=== PATIENT | male | born 1965 | race Caucasian/White ===

== ENCOUNTER → 2017-11-10 09:32 | Outpatient (CLI) | payer OTHER, SELFPAY ==
[2017-11-10 10:28] LABS: AST(SGOT) 112 U/L (15-37); Alanine Aminotransfer ALT/SGPT 142 U/L (12-78); Cholesterol 160 mg/dL (200); High Density Lipoprotein 50 mg/dL; Triglycerides 94 mg/dL; Very Low Density Lipoprotein 19 mg/dL (5-40)
[2017-11-10 10:35] LABS: PSA,Total - Annual Screen 0.79 ng/mL (0.00-4.00)
== END ==
PROVIDERS: Family Provider Family Medicine; PCP Family Medicine; Visit Provider Internal Medicine Interventional Cardiology
DX: I25.10 Atherosclerotic heart disease of native coronary artery without angina pectoris (principal); Z12.5 Encounter for screening for malignant neoplasm of prostate
CPT/HCPCS: 36415; 80061; 84153; 84450; 84460; G0103

== ENCOUNTER 2017-11-12 15:15 | Outpatient (RCR) | payer OTHER, SELFPAY | END 2017-11-14 23:59 | LOC: CR 15:15 | PROVIDERS: Family Provider Family Medicine; PCP Family Medicine; Visit Provider Internal Medicine Interventional Cardiology | DX: I25.2 Old myocardial infarction (principal); I20.8 Other forms of angina pectoris | CPT/HCPCS: 93798 ==

== ENCOUNTER 2017-12-12 15:15 | Outpatient (RCR) | payer OTHER, SELFPAY ==
[2016-12-29 15:33] VITALS: BP 122/69
[2017-10-17 15:58] VITALS: BMI 45.1
--- NOTE | 2017-12-12 13:27 | PCM.CR.ITP ---
Exercise - Initial Assessment - Stages of Change Stages of Change:: Contemplate - Exercise Prescription Mode:: Treadmill, Biodyne, Rower, Airdyne, NuStep, Arm Ergometer Angina with exercise?: No - Hypertension Do any of the following apply?: Yes - Intervention Home Exercise/Activity Goal:: Sitting Time <3 hrs/day - Education Goals:: Warm-up, RPE CAITLIN Scale, S/S, Safe Exercise, Self-Monitoring - Exercise Program Goals Exercise Program Goals: Aerobic Activity >30 min, B/P <140/90 Exercise - 60-Day Assessment - Visit Date of Eval: 12/12/17 - Non-compliant/committed Session #:: 9 - Scheduled 21; attended 12 57.14% compliance - Stages of Change Stages of Change:: Contemplate - Exercise Prescription Mode:: Treadmill, Airdyne, NuStep Frequency (x/week): 3 - attends infrequently Duration:: 30 METs: 3.5 Target Heart Rate:: 119-127 - Hypertension Resting Blood Pressure:: 138/80 Peak Exercise Blood Pressure:: 176/94 Medication Changes:: No - Intervention Home Exercise/Activity Goal:: Moderate Exercise 30 min/day x 5 days/wk - Education Goals:: Warm-up, RPE CAITLIN Scale, S/S, Safe Exercise, Self-Monitoring - Exercise Program Goals Exercise Program Goals: Aerobic Activity >30 min Exercise - Final/Discharge - Hypertension Do any of the following apply?: Yes Nutrition - Initial Assessment - Program Goals Nutrition Program Goals: LDL <70. Total Cholesterol <200. HDL >45. Triglycerides <150. HgbA1C <7%. BMI <25 - Stages of Change Stages of Change:: Contemplate - Diabetes Diabetes:: No - Weight Management Total Score:: 2 - Intervention Referral to dietitian:: No Referral to Diabetic Clinic:: No Will attend diet classes:: Yes - Education Gave educational materials for:: Signs & symptoms of hypoglycemia, Signs & symptoms of hyperglycemia, Relate diabetes to coronary artery disease, Healthy eating Nutrition - 30-Day Assessment - Program Goals Nutrition Program Goals: LDL <70. Total Cholesterol <200. HDL >45. Triglycerides <150. HgbA1C <7%. BMI <25 - Diabetes Diabetes:: No - Intervention Referral to dietitian:: No Referral to Diabetic Clinic:: No Will attend diet classes:: Yes - Education Attended class for:: Signs & symptoms of hypoglycemia, Signs & symptoms of hyperglycemia, Relate diabetes to coronary artery disease, Healthy eating Nutrition - 60-Day Assessment - Program Goals Nutrition Program Goals: LDL <70. Total Cholesterol <200. HDL >45. Triglycerides <150. HgbA1C <7%. BMI <25 - Visit Date of Eval: 12/12/17 - Stages of Change Stages of Change:: Contemplate - Lipids Has the patient seen the dietitian?: No - Diabetes Diabetes:: No Insulin: No Non-Insulin Dependent?: No - Weight Management Weight:: 282 lb - Intervention Referral to dietitian:: No Referral to Diabetic Clinic:: No Will attend diet classes:: Yes - Education Attended class for:: Signs & symptoms of hypoglycemia, Signs & symptoms of hyperglycemia, Relate diabetes to coronary artery disease, Healthy eating Nutrition - 90-Day Assessment - Program Goals Nutrition Program Goals: LDL <70. Total Cholesterol <200. HDL >45. Triglycerides <150. HgbA1C <7%. BMI <25 - Diabetes Diabetes:: No - Intervention Referral to dietitian:: No Referral to Diabetic Clinic:: No Will attend diet classes:: Yes - Education Attended class for:: Signs & symptoms of hypoglycemia, Signs & symptoms of hyperglycemia, Relate diabetes to coronary artery disease, Healthy eating Nutrition - Final Assessment - Program Goals Nutrition Program Goals: LDL <70. Total Cholesterol <200. HDL >45. Triglycerides <150. HgbA1C <7%. BMI <25 - Diabetes Diabetes:: No - Weight Management Total Score:: 2 - Intervention Referral to dietitian:: No Referral to Diabetic Clinic:: No Will attend diet classes:: Yes Tobacco - Initial Assessment - Program Goals Tobacco Program Goals: Complete smoking cessation. Attend education classes. Improve Knowledge Test score - Stage of Change Stages of Change:: Contemplate - Learning Barriers Learning Barriers: Vision Total Score:: 8 - Family Support Do you have family support?: Yes - Tobacco Use Tobacco Use: Non-smoker Do you use smokeless tobacco?: No - Intervention Smoking Cessation Referral:: No Individual Education/Counseling:: No Education Schedule Given:: Yes - Education Gave educational material for:: Tobacco triggers, Coronary artery disease, Risk factors, Medical compliance, Cardiac A&P, Angina signs & symptoms Tobacco - 30-Day Assessment - Program Goals Tobacco Program Goals: Complete smoking cessation. Attend education classes. Improve Knowledge Test score - Family Support Do you have family support?: Yes - Tobacco Use Do you use smokeless tobacco?: No - Intervention Smoking Cessation Referral:: No Individual Education/Counseling:: No Education Schedule Given:: Yes - Education Attended class for:: Tobacco triggers, Coronary artery disease, Risk factors, Medical compliance, Cardiac A&P, Angina signs & symptoms Tobacco - 60-Day Assessment - Program Goals Tobacco Program Goals: Complete smoking cessation. Attend education classes. Improve Knowledge Test score - Stage of Change Stages of Change:: Action - Learning Barriers Learning Barriers: Declined education - Family Support Do you have family support?: Yes - Tobacco Use Tobacco Use: Non-smoker Do you use smokeless tobacco?: No - Intervention Smoking Cessation Referral:: No Individual Education/Counseling:: No Education Schedule Given:: Yes - Education Attended class for:: Tobacco triggers, Coronary artery disease, Risk factors, Medical compliance, Cardiac A&P, Angina signs & symptoms Tobacco - 90-Day Assessment - Program Goals Tobacco Program Goals: Complete smoking cessation. Attend education classes. Improve Knowledge Test score - Family Support Do you have family support?: Yes - Tobacco Use Do you use smokeless tobacco?: No - Intervention Smoking Cessation Referral:: No Individual Education/Counseling:: No Education Schedule Given:: Yes - Education Attended class for:: Tobacco triggers, Coronary artery disease, Risk factors, Medical compliance, Cardiac A&P, Angina signs & symptoms Tobacco - Final Assessment - Program Goals Tobacco Program Goals: Complete smoking cessation. Attend education classes. Improve Knowledge Test score - Learning Barriers Cardiac Knowledge Test Score:: 8 - Family Support Do you have family support?: Yes - Tobacco Use Do you use smokeless tobacco?: No - Intervention Smoking Cessation Referral:: No Individual Education/Counseling:: No Education Schedule Given:: Yes Psychosocial - Initial Assess - Target Goals Target Goals: Assess presence or absence of depression. Using a valid screening tool, maximizes coping skills. Positive support system - Stages of Change Stages of Change:: Contemplate - Psychosocial Test Tool Used:: HANDS Depression Questionnaire Total Mood Screening Score:: 23 Self-Efficacy Score:: 3 - Intervention PS - Interventions: Yes Attend Stress Management Classes, Yes Uses Stress Management Skills, No Referral to Mental Health, No Referral to [facility] Case Management, No Referral to Physician - Education Gave educational materials for:: Coping techniques, Signs & symptoms of depression, Stress management, Relaxation techniques - Assistive Devices Assistive Devices:: None Fall Risk Assessed:: Yes Psychosocial - 30-Day Assess - Target Goals Target Goals: Assess presence or absence of depression. Using a valid screening tool, maximizes coping skills. Positive support system - Psychosocial Test Tool Used:: HANDS Depression Questionnaire Total Mood Screening Score:: 23 Self-Efficacy Score:: 3 - Assistive Devices Assistive Devices:: None Fall Risk Assessed:: Yes Psychosocial - 60-Day Assess - Target Goals Target Goals: Assess presence or absence of depression. Using a valid screening tool, maximizes coping skills. Positive support system - Psychosocial Test Tool Used:: HANDS Depression Questionnaire Total Mood Screening Score:: 23 Self-Efficacy Score:: 3 - Intervention PS - Interventions: Yes Attend Stress Management Classes, Yes Uses Stress Management Skills, No Referral to Mental Health, No Referral to [facility] Case Management, No Referral to Physician - Education Attended classes for:: Coping techniques, Signs & symptoms of depression, Stress management, Relaxation techniques - Patient/Program Goal Preventative Medication(s):: Aspirin, VIJI inhibitor, Clopidogrel, Beta jeff, Statin/lipid - Assistive Devices Assistive Devices:: None Fall Risk Assessed:: Yes Psychosocial - 90-Day Assess - Target Goals Target Goals: Assess presence or absence of depression. Using a valid screening tool, maximizes coping skills. Positive support system - Psychosocial Test Tool Used:: HANDS Depression Questionnaire Total Mood Screening Score:: 23 Self-Efficacy Score:: 3 - Education Attended classes for:: Coping techniques, Signs & symptoms of depression, Stress management, Relaxation techniques - Assistive Devices Assistive Devices:: None Fall Risk Assessed:: Yes Psychosocial - Final Assessmen - Target Goals Target Goals: Assess presence or absence of depression. Using a valid screening tool, maximizes coping skills. Positive support system - Psychosocial Test Tool Used:: HANDS Depression Questionnaire Total Mood Screening Score:: 23 Self-Efficacy Score:: 3 - Assistive Devices Assistive Devices:: None Fall Risk Assessed:: Yes Patient Health Questionnaire 60-Day Re-eval Assessment 1. Little interest or pleasure in doing things: Nearly every day 2. Feeling down, depressed, or hopeless: More than half the days 3. Trouble falling or staying asleep, or sleeping too much: More than half the days 4. Feeling tired or having little energy: More than half the days 5. Poor appetite or overeating: Nearly every day 6. Feeling bad about yourself -- or that you are a failure or have let yourself or your family down: Nearly every day 7. Trouble concentrating on things, such as reading the newspaper or watching television: Nearly every day 8. Moving or speaking so slowly that other people could have noticed. Or the opposite - being so fidgety or restless that you have been moving around a lot more than usual: Nearly every day 9. Thoughts that you would be better off , or of hurting yourself in some way: More than half the days How difficult have these problems made it for you to do your work, take care of things at home, or get along with other people?: Extremely difficult Total Score: 23 Self-Efficacy 60-Day Re-eval Assessment We would like to know how confident you are in doing certain activities. Please select your confidence level for:: Select your confidence level for the following using the scale 1-10 where 1 is not at all confident and 10 is totally confident. Your score is the average of all 6 responses. Fatigue: How confident are you that you can keep the fatigue caused by your disease from interfering with the things you want to do? Select Number: 2 Physical Discomfort or Pain: How confident are you that you can keep the physical discomfort or pain of your disease from interfering with the things you want to do? Select Number: 2 Emotional Distress: How confident are you that you can keep the emotional distress caused by your disease from interfering with the things you want to do? Select Number: 2 Other Symptoms or Health Problems: How confident are you that you can keep other symptoms or health problems from interfering with the things you want to do? Select Number: 2 Different Tasks and Activities: How confident are you that you can do the different tasks and activities needed to manage your health condition so as to reduce your need to see a doctor? Select Number: 5 Medication: How confident are you that you can do things other than just taking medication to reduce how much your illness affects your everyday life? Select Number: 5 Total Score:: 3
[2017-12-12 13:34] VITALS: BP 138/80; BP 176/94
== END 2017-12-12 23:59 ==
LOC: CR 15:15
PROVIDERS: Family Provider Family Medicine; PCP Family Medicine; Visit Provider Internal Medicine Interventional Cardiology
DX: I25.2 Old myocardial infarction (principal); I20.8 Other forms of angina pectoris
CPT/HCPCS: 93798

== ENCOUNTER → 2017-12-29 10:06 | Outpatient (CLI) | payer OTHER, SELFPAY ==
[2017-12-29 12:05] LABS: AST(SGOT) 66 U/L (15-37); Alanine Aminotransfer ALT/SGPT 105 U/L (16-61); Cholesterol 210 mg/dL (200); High Density Lipoprotein 41 mg/dL; Triglycerides 196 mg/dL; Very Low Density Lipoprotein 39 mg/dL (5-40)
== END ==
PROVIDERS: Family Provider Family Medicine; PCP Family Medicine; Visit Provider Internal Medicine Interventional Cardiology
DX: E78.00 Pure hypercholesterolemia, unspecified (principal)
CPT/HCPCS: 36415; 80061; 84450; 84460

== ENCOUNTER 2018-01-11 15:15 | Outpatient (RCR) | payer OTHER, SELFPAY ==
[2017-12-13 00:48] VITALS: BP 138/80; BP 176/94
--- NOTE | 2018-01-07 08:18 | PCM.CR.ITP ---
Exercise - Initial Assessment - Stages of Change Stages of Change:: Contemplate - Exercise Prescription Mode:: Treadmill, Biodyne, Rower, Airdyne, NuStep, Arm Ergometer Angina with exercise?: No - Hypertension Do any of the following apply?: Yes - Intervention Home Exercise/Activity Goal:: Sitting Time <3 hrs/day - Education Goals:: Warm-up, RPE CAITLIN Scale, S/S, Safe Exercise, Self-Monitoring - Exercise Program Goals Exercise Program Goals: Aerobic Activity >30 min, B/P <140/90 Exercise - 60-Day Assessment - Visit Date of Eval: 12/12/17 - Stages of Change Stages of Change:: Contemplate - Exercise Prescription Mode:: Treadmill, Airdyne, NuStep Frequency (x/week): 3 - attends infrequently Duration:: 30 METs: 3.5 Target Heart Rate:: 119-127 - Hypertension Medication Changes:: No - Intervention Home Exercise/Activity Goal:: Moderate Exercise 30 min/day x 5 days/wk - Education Goals:: Warm-up, RPE CAITLIN Scale, S/S, Safe Exercise, Self-Monitoring - Exercise Program Goals Exercise Program Goals: Aerobic Activity >30 min Exercise - 90-Day Assessment - Visit Date of Eval: 01/07/18 - 11/19/17-01/02/18 - Stages of Change Stages of Change:: Contemplate, Action - Exercise Prescription Mode:: Treadmill, Airdyne, NuStep Frequency (x/week): 3 - 57.58% compliance Duration:: 30 METs: 5 Target Heart Rate:: 119-127 - Hypertension Resting Blood Pressure:: 136/78 Peak Exercise Blood Pressure:: 158/100 Medication Changes:: No - Intervention Home Exercise/Activity Goal:: Moderate Exercise 30 min/day x 5 days/wk - Education Goals:: Warm-up, RPE CAITLIN Scale, S/S, Safe Exercise, Self-Monitoring - Exercise Program Goals Exercise Program Goals: Aerobic Activity >30 min Exercise - Final/Discharge - Hypertension Do any of the following apply?: Yes Nutrition - Initial Assessment - Program Goals Nutrition Program Goals: LDL <70. Total Cholesterol <200. HDL >45. Triglycerides <150. HgbA1C <7%. BMI <25 - Stages of Change Stages of Change:: Contemplate - Diabetes Diabetes:: No Non-Insulin Dependent?: No - Weight Management Total Score:: 2 - Intervention Referral to dietitian:: No Referral to Diabetic Clinic:: No Will attend diet classes:: Yes - Education Gave educational materials for:: Signs & symptoms of hypoglycemia, Signs & symptoms of hyperglycemia, Relate diabetes to coronary artery disease, Healthy eating Nutrition - 30-Day Assessment - Program Goals Nutrition Program Goals: LDL <70. Total Cholesterol <200. HDL >45. Triglycerides <150. HgbA1C <7%. BMI <25 - Lipids Has the patient seen the dietitian?: No - Diabetes Diabetes:: No Insulin: No Non-Insulin Dependent?: No - Intervention Referral to dietitian:: No Referral to Diabetic Clinic:: No Will attend diet classes:: Yes - Education Attended class for:: Signs & symptoms of hypoglycemia, Signs & symptoms of hyperglycemia, Relate diabetes to coronary artery disease, Healthy eating Nutrition - 60-Day Assessment - Program Goals Nutrition Program Goals: LDL <70. Total Cholesterol <200. HDL >45. Triglycerides <150. HgbA1C <7%. BMI <25 - Visit Date of Eval: 12/12/17 - Stages of Change Stages of Change:: Contemplate - Lipids Has the patient seen the dietitian?: No - Diabetes Diabetes:: No Insulin: No Non-Insulin Dependent?: No - Intervention Referral to dietitian:: No Referral to Diabetic Clinic:: No Will attend diet classes:: Yes - Education Attended class for:: Signs & symptoms of hypoglycemia, Signs & symptoms of hyperglycemia, Relate diabetes to coronary artery disease, Healthy eating Nutrition - 90-Day Assessment - Program Goals Nutrition Program Goals: LDL <70. Total Cholesterol <200. HDL >45. Triglycerides <150. HgbA1C <7%. BMI <25 - Visit Date of Eval: 01/07/18 - 11/19/2017-01/02/3018 - Stages of Change Stages of Change:: Contemplate - Lipids Has the patient seen the dietitian?: No - Diabetes Diabetes:: No Insulin: No Non-Insulin Dependent?: No - Weight Management Weight:: 127.459 kg - Intervention Referral to dietitian:: No Referral to Diabetic Clinic:: No Will attend diet classes:: Yes - Education Attended class for:: Signs & symptoms of hypoglycemia, Signs & symptoms of hyperglycemia, Relate diabetes to coronary artery disease, Healthy eating Nutrition - Final Assessment - Program Goals Nutrition Program Goals: LDL <70. Total Cholesterol <200. HDL >45. Triglycerides <150. HgbA1C <7%. BMI <25 - Diabetes Diabetes:: No Insulin: No Non-Insulin Dependent?: No - Weight Management Total Score:: 2 - Intervention Referral to dietitian:: No Referral to Diabetic Clinic:: No Will attend diet classes:: Yes Tobacco - Initial Assessment - Program Goals Tobacco Program Goals: Complete smoking cessation. Attend education classes. Improve Knowledge Test score - Stage of Change Stages of Change:: Contemplate - Learning Barriers Learning Barriers: Vision Total Score:: 8 - Family Support Do you have family support?: Yes - Tobacco Use Tobacco Use: Non-smoker Do you use smokeless tobacco?: No - Intervention Smoking Cessation Referral:: No Individual Education/Counseling:: No Education Schedule Given:: Yes - Education Gave educational material for:: Tobacco triggers, Coronary artery disease, Risk factors, Medical compliance, Cardiac A&P, Angina signs & symptoms Tobacco - 30-Day Assessment - Program Goals Tobacco Program Goals: Complete smoking cessation. Attend education classes. Improve Knowledge Test score - Family Support Do you have family support?: Yes - Tobacco Use Tobacco Use: Non-smoker Do you use smokeless tobacco?: No - Intervention Smoking Cessation Referral:: No Individual Education/Counseling:: No Education Schedule Given:: Yes - Education Attended class for:: Tobacco triggers, Coronary artery disease, Risk factors, Medical compliance, Cardiac A&P, Angina signs & symptoms Tobacco - 60-Day Assessment - Program Goals Tobacco Program Goals: Complete smoking cessation. Attend education classes. Improve Knowledge Test score - Stage of Change Stages of Change:: Action - Learning Barriers Learning Barriers: Declined education - Family Support Do you have family support?: Yes - Tobacco Use Tobacco Use: Non-smoker Do you use smokeless tobacco?: No - Intervention Smoking Cessation Referral:: No Individual Education/Counseling:: No Education Schedule Given:: Yes - Education Attended class for:: Tobacco triggers, Coronary artery disease, Risk factors, Medical compliance, Cardiac A&P, Angina signs & symptoms Tobacco - 90-Day Assessment - Program Goals Tobacco Program Goals: Complete smoking cessation. Attend education classes. Improve Knowledge Test score - Stage of Change Stages of Change:: Action - Learning Barriers Learning Barriers: Declined education - Family Support Do you have family support?: Yes - Tobacco Use Tobacco Use: Non-smoker Do you use smokeless tobacco?: No - Intervention Smoking Cessation Referral:: No Individual Education/Counseling:: No Education Schedule Given:: Yes - Education Attended class for:: Tobacco triggers, Coronary artery disease, Risk factors, Medical compliance, Cardiac A&P, Angina signs & symptoms Tobacco - Final Assessment - Program Goals Tobacco Program Goals: Complete smoking cessation. Attend education classes. Improve Knowledge Test score - Learning Barriers Cardiac Knowledge Test Score:: 8 - Family Support Do you have family support?: Yes - Tobacco Use Tobacco Use: Non-smoker Do you use smokeless tobacco?: No - Intervention Smoking Cessation Referral:: No Individual Education/Counseling:: No Education Schedule Given:: Yes Psychosocial - Initial Assess - Target Goals Target Goals: Assess presence or absence of depression. Using a valid screening tool, maximizes coping skills. Positive support system - Stages of Change Stages of Change:: Contemplate - Psychosocial Test Tool Used:: HANDS Depression Questionnaire Total Mood Screening Score:: 23 Self-Efficacy Score:: 3 - Patient/Program Goal Preventative Medication(s):: Aspirin, VIJI inhibitor, Clopidogrel, Beta jeff, Statin/lipid - Assistive Devices Assistive Devices:: None Fall Risk Assessed:: Yes Psychosocial - 30-Day Assess - Target Goals Target Goals: Assess presence or absence of depression. Using a valid screening tool, maximizes coping skills. Positive support system - Psychosocial Test Tool Used:: HANDS Depression Questionnaire Total Mood Screening Score:: 23 Self-Efficacy Score:: 3 - Patient/Program Goal Preventative Medication(s):: Aspirin, VIJI inhibitor, Clopidogrel, Beta jeff, Statin/lipid - Assistive Devices Assistive Devices:: None Fall Risk Assessed:: Yes Psychosocial - 60-Day Assess - Target Goals Target Goals: Assess presence or absence of depression. Using a valid screening tool, maximizes coping skills. Positive support system - Psychosocial Test Tool Used:: HANDS Depression Questionnaire Total Mood Screening Score:: 23 Self-Efficacy Score:: 3 - Patient/Program Goal Preventative Medication(s):: Aspirin, VIJI inhibitor, Clopidogrel, Beta jeff, Statin/lipid - Assistive Devices Assistive Devices:: None Fall Risk Assessed:: Yes Psychosocial - 90-Day Assess - Target Goals Target Goals: Assess presence or absence of depression. Using a valid screening tool, maximizes coping skills. Positive support system - Stages of Change Stages of Change:: Contemplate - Psychosocial Test Tool Used:: HANDS Depression Questionnaire Total Mood Screening Score:: 23 Self-Efficacy Score:: 3 - Intervention PS - Interventions: Yes Attend Stress Management Classes, Yes Uses Stress Management Skills, No Referral to Mental Health, No Referral to [facility] Case Management, No Referral to Physician - Patient/Program Goal Preventative Medication(s):: Aspirin, VIJI inhibitor, Clopidogrel, Beta jeff, Statin/lipid - Assistive Devices Assistive Devices:: None Fall Risk Assessed:: Yes Psychosocial - Final Assessmen - Target Goals Target Goals: Assess presence or absence of depression. Using a valid screening tool, maximizes coping skills. Positive support system - Psychosocial Test Tool Used:: HANDS Depression Questionnaire Total Mood Screening Score:: 23 Self-Efficacy Score:: 3 - Patient/Program Goal Preventative Medication(s):: Aspirin, VIJI inhibitor, Clopidogrel, Beta jeff, Statin/lipid - Assistive Devices Assistive Devices:: None Fall Risk Assessed:: Yes Patient Health Questionnaire 90-Day Re-eval Assessment 1. Little interest or pleasure in doing things: Several days 2. Feeling down, depressed, or hopeless: Several days 3. Trouble falling or staying asleep, or sleeping too much: Not at all 4. Feeling tired or having little energy: Several days 5. Poor appetite or overeating: Not at all 6. Feeling bad about yourself -- or that you are a failure or have let yourself or your family down: Not at all 7. Trouble concentrating on things, such as reading the newspaper or watching television: Not at all 8. Moving or speaking so slowly that other people could have noticed. Or the opposite - being so fidgety or restless that you have been moving around a lot more than usual: Not at all 9. Thoughts that you would be better off , or of hurting yourself in some way: Not at all How difficult have these problems made it for you to do your work, take care of things at home, or get along with other people?: Not difficult at all Total Score: 3 Self-Efficacy 90-Day Re-eval Assessment We would like to know how confident you are in doing certain activities. Please select your confidence level for:: Select your confidence level for the following using the scale 1-10 where 1 is not at all confident and 10 is totally confident. Your score is the average of all 6 responses. Fatigue: How confident are you that you can keep the fatigue caused by your disease from interfering with the things you want to do? Select Number: 7 Physical Discomfort or Pain: How confident are you that you can keep the physical discomfort or pain of your disease from interfering with the things you want to do? Select Number: 7 Emotional Distress: How confident are you that you can keep the emotional distress caused by your disease from interfering with the things you want to do? Select Number: 7 Other Symptoms or Health Problems: How confident are you that you can keep other symptoms or health problems from interfering with the things you want to do? Select Number: 7 Different Tasks and Activities: How confident are you that you can do the different tasks and activities needed to manage your health condition so as to reduce your need to see a doctor? Select Number: 7 Medication: How confident are you that you can do things other than just taking medication to reduce how much your illness affects your everyday life? Select Number: 7 Total Score:: 7 Cardiac Rehabilitation Goals - Cardiac Rehab Goals Cardiac Rehabilitation Goals: 1. Maintain the individual as the primary focus of care. 2. To improve the patient's quality of life. 3. Identification of cardiac risk factors and provide cardiac risk factor management. 4. Enhance the psychosocial status of the patient. 5. Reconditioning enough to allow the patient to resume customary activities. 6. Control symptoms of cardiac disease - Scale Scale for measuring improvement of personal goals: Enter appropriate number in Comments. 2 = Unchanged. 3 = Slightly Better. 4 = Moderate Improvement. 5 = Met my Goal 90-Day Re-eval Assessment Personal Goals: 60-day Re-assessment: Improve management of stress and emotions, Improve energy level, Participate in home exercise program, Improve diet and eating habits (eat healthier), Control risk factors (learn risk factor modification)
[2018-01-07 08:29] VITALS: BP 136/78; BP 158/100
== END 2018-01-12 23:59 ==
LOC: CR 15:15
PROVIDERS: Family Provider Family Medicine; PCP Family Medicine; Visit Provider Internal Medicine Interventional Cardiology
DX: I25.2 Old myocardial infarction (principal); I20.8 Other forms of angina pectoris
CPT/HCPCS: 93798

== ENCOUNTER 2018-01-28 15:15 | Outpatient (RCR) | payer OTHER, SELFPAY ==
[2018-01-13 00:41] VITALS: BP 136/78; BP 158/100
--- NOTE | 2018-02-04 15:02 | CR.ITP_ITS ---
General Information - General Information Admitting Diagnosis: stable angina pectoris, previous CAD with [place] and interventions - Education/Goals Barriers to Learning: Vision Impairment Individual Counseling: Initial Assessment: Abnormal Cholesterol Levels - mixed hyperlipidemia, High Blood Pressure, Overweight/Obesity - increased BMI, Hypertension - essential hypertension, 30-Day Assessment: Abnormal Cholesterol Levels, High Blood Pressure, Overweight/Obesity, Hypertension, 60-Day Assessment : Abnormal Cholesterol Levels, High Blood Pressure, Overweight/Obesity, Hypertension, Discharge Assessment: Abnormal Cholesterol Levels, High Blood Pressure, Overweight/Obesity, Hypertension Cardiac Rehabilitation Goals: 1. Maintain the individual as the primary focus of care. 2. To improve the patient's quality of life. 3. Identification of cardiac risk factors and provide cardiac risk factor management. 4. Enhance the psychosocial status of the patient. 5. Reconditioning enough to allow the patient to resume customary activities. 6. Control symptoms of cardiac disease Scale for measuring improvement of personal goals: Enter appropriate number in Comments. 2 = Unchanged. 3 = Slightly Better. 4 = Moderate Improvement. 5 = Met my Goal Personal Goals: Initial Assessment: Improve management of stress and emotions - improved, Improve energy level - improved, Get back to work, or to resume activities faster - working, Improve diet and eating habits (eat healthier) - not met; no change in weight, 30-day Re-assessment: Improve management of stress and emotions, Improve energy level, Get back to work, or to resume activities faster, Improve diet and eating habits (eat healthier), 60-day Re- assessment: Improve management of stress and emotions, Improve energy level, Get back to work, or to resume activities faster, Improve diet and eating habits (eat healthier), Discharge Reassessment: Improve management of stress and emotions, Improve energy level, Get back to work, or to resume activities faster, Improve diet and eating habits (eat healthier) Exercise - Final/Discharge - Visit Date of Eval: 02/01/18 - Discharged patient Session #:: 34 - Patient had poor compliance; 62% attended 28 of scheduled 45. - Exercise Prescription Mode:: Treadmill, Rower, Airdyne, NuStep Frequency (x/week): 2 - at best Duration:: 30 METs: 5.3 Target Heart Rate:: 119-127 w max HR 112 - Hypertension Do any of the following apply?: Yes, Medication, Diet Resting Blood Pressure:: 140/80 - not optimal management 130/80 Peak Exercise Blood Pressure:: 150/88 - Intervention Home Exercise/Activity Goal:: Moderate Exercise 30 min/day x 5 days/wk - Education Goal Progress: Not Progressing - Exercise Program Goals Exercise Program Goals: Aerobic Activity >30 min Nutrition - Final Assessment - Program Goals Nutrition Program Goals: LDL <70. Total Cholesterol <200. HDL >45. Triglycerides <150. HgbA1C <7%. BMI <25 - Visit Date of Eval: 02/04/18 - Diabetes Diabetes:: No Insulin: No Non-Insulin Dependent?: No - Weight Management Height: 5 ft 7 in Weight:: 282 lb Body Fat %:: 44.5 Goal % Body Fat:: 30 - Intervention Referral to dietitian:: No Referral to Diabetic Clinic:: No Will attend diet classes:: Yes - Education Education Goal Reached?: No - patient reduced weight from initial 288 Tobacco - Initial Assessment - Program Goals Tobacco Program Goals: Complete smoking cessation. Attend education classes. Improve Knowledge Test score - Learning Barriers Learning Barriers: Vision Tobacco - Final Assessment - Program Goals Tobacco Program Goals: Complete smoking cessation. Attend education classes. Improve Knowledge Test score - Learning Barriers Cardiac Knowledge Test Score:: 0 - imcomplete called off last day. - Family Support Do you have family support?: Yes - Tobacco Use Tobacco Use: Non-smoker Do you use smokeless tobacco?: No - Intervention Smoking Cessation Referral:: No Individual Education/Counseling:: No Education Schedule Given:: Yes - Education Education Goal Reached?: Yes - Patient provided with Cardiac Rehab Workbook at start of the program. Psychosocial - Initial Assess - Target Goals Target Goals: Assess presence or absence of depression. Using a valid screening tool, maximizes coping skills. Positive support system - Psychosocial Test Tool Used:: HANDS Depression Questionnaire - Assistive Devices Fall Risk Assessed:: Yes Psychosocial - Final Assessmen - Target Goals Target Goals: Assess presence or absence of depression. Using a valid screening tool, maximizes coping skills. Positive support system - Stages of Change Stages of Change:: Contemplate - Psychosocial Test Tool Used:: HANDS Depression Questionnaire - Intervention PS - Interventions: Yes Attend Stress Management Classes, Yes Uses Stress Management Skills, No Referral to Mental Health, No Referral to [facility] Case Management, No Referral to Physician - Education Education Goal Reached?: Yes - Patient/Program Goal Preventative Medication(s):: Aspirin, Clopidogrel, Beta jeff, Statin/lipid - Assistive Devices Assistive Devices:: None Fall Risk Assessed:: Yes Patient Health Questionnaire Discharge Assessment 3. Trouble falling or staying asleep, or sleeping too much: Not at all 4. Feeling tired or having little energy: Not at all 5. Poor appetite or overeating: Not at all 6. Feeling bad about yourself -- or that you are a failure or have let yourself or your family down: Not at all 7. Trouble concentrating on things, such as reading the newspaper or watching television: Not at all 8. Moving or speaking so slowly that other people could have noticed. Or the opposite - being so fidgety or restless that you have been moving around a lot more than usual: Not at all 9. Thoughts that you would be better off , or of hurting yourself in some way: Not at all How difficult have these problems made it for you to do your work, take care of things at home, or get along with other people?: Not difficult at all Total Score: 0 [id number] SV Test - Statements CAD is a disease of the arteries in the heart: False Examples of risk factors for heart disease: True Angina is chest pain or discomfort: True The benefits of resistance training include: True Eating more meat and dairy products: False Anti-platelet medications such as aspirin are important: False The only effective way to manage stress: True An exercise warm-up slowly increases heart rate: True Prepared, processed foods usually have high sodium: True Depression is common after a heart attack: True The statin medications lower cholesterol: True To control blood pressure, lower the amount of sodium: False If someone gets chest discomfort during walking: True Transfats are partially hydrogenated vegetable oils: False Sleep apnea that is not treated increases the risk: False To control cholesterol, one should become a vegetarian: True Someone knows if he/she is exercising at the right level: False Diabetes cannot be prevented with exercise & health eating: True Stress is a large risk for heart attack: True A diet that can help lower blood pressure is rich in: True - Total Score Total Correct Responses: 11 Self-Efficacy Discharge Assessment We would like to know how confident you are in doing certain activities. Please select your confidence level for:: Select your confidence level for the following using the scale 1-10 where 1 is not at all confident and 10 is totally confident. Your score is the average of all 6 responses. Fatigue: How confident are you that you can keep the fatigue caused by your disease from interfering with the things you want to do? Select Number: 9 Physical Discomfort or Pain: How confident are you that you can keep the physical discomfort or pain of your disease from interfering with the things you want to do? Select Number: 10 Emotional Distress: How confident are you that you can keep the emotional distress caused by your disease from interfering with the things you want to do? Select Number: 10 Other Symptoms or Health Problems: How confident are you that you can keep other symptoms or health problems from interfering with the things you want to do? Select Number: 10 Different Tasks and Activities: How confident are you that you can do the different tasks and activities needed to manage your health condition so as to reduce your need to see a doctor? Select Number: 10 Medication: How confident are you that you can do things other than just taking medication to reduce how much your illness affects your everyday life? Select Number: 10 Total Score:: 9 Nutrition Survey - Nutrition Survey Instructions Scoring Instructions: Scoring is as follows: Yes = 1 points. No = 0 point. Patient score that is >/=12 is considered to be at potential nutritional risk and could benefit from a referral to a registered dietitian. - Nutrition Survey Discharge Have you lost >10 lbs over the past 2 months without trying?: No Are you following a special diet at home for diabetes, low fat, or low salt?: No Are you interested in meeting with a dietitian for help understanding your diet? : No Do you eat less than 3 meals a day?: No Do you eat fatty meats (cardoso, sausage, ribs, etc), fried foods, desserts, large amounts of salad dressings, margarine, butter, or cheese most days?: Yes Do you have food allergies? [Enter types in comment field]: No Do you eat in restaurants more than 3 times a week?: Yes Do you season food with salt, seasoning salt, or garlic salt?: No Do you used canned, boxed, frozen meals, or soups, seasoning packets?: Yes Total Score:: 3
[2018-02-04 15:08] VITALS: BP 140/80; BP 150/88
== END 2018-02-11 23:59 ==
LOC: CR 15:15
PROVIDERS: Family Provider Family Medicine; PCP Family Medicine; Visit Provider Internal Medicine Interventional Cardiology
DX: I25.2 Old myocardial infarction (principal); I20.8 Other forms of angina pectoris
CPT/HCPCS: 93798

== ENCOUNTER → 2018-02-05 07:42 | Outpatient (CLI) | payer OTHER, SELFPAY ==
--- NOTE | 2018-02-05 07:47 | US_ITS ---
STUDY: ABDOMINAL ULTRASOUND - RIGHT UPPER QUADRANT REASON FOR VISIT: Male, 52 years old. Fatty liver. TECHNIQUE: Ultrasound evaluation of the right upper quadrant was performed with real-time and static farris-scale imaging. TECHNICAL QUALITY: Adequate. COMPARISON: None. FINDINGS: Liver: The liver measures 15.5 cm. There is increased echogenicity consistent with fatty infiltration. The bile ducts are within normal limits. There is hepatic color flow. The direction of portal flow is hepatopetal. There is no demonstrated mass lesion. Gallbladder: There is a 6.5 mm echogenic nonshadowing focus associated with the gallbladder wall. The gallbladder wall measures 2.1 mm. There is a negative sonographic Loera's sign. There is no pericholecystic fluid. There are no gallstones. Common Bile Duct (C.B.D.): The common bile duct measures 3.4 mm. Pancreas: There is nonvisualization of the pancreas. Right Kidney: Normal size of the right kidney. The right kidney measures 11.6 x 4.4 x 6.1 cm. Normal renal cortex. The right cortex measures 2.0 cm. There is no demonstrated renal mass or cyst. There is no right hydronephrosis. US/Abdomen Limited IMPRESSION: Diffuse increased hepatic echogenicity without visualized mass or cyst. This is a nonspecific finding, however most often due to fatty infiltration. 6.5 mm gallbladder polyp. Technically limited exam with nondiagnostic evaluation of the pancreas. Electronically Signed: Donavon Deleon MD at 8:50 EDT , Service support ,
[2018-02-05 09:50] LABS: Ferritin 206 ng/mL (26-388)
[2018-02-06 12:55] LABS: ANTINUCLEAR ANTIBODIES DIRECT Negative (Negative)
[2018-02-06 15:39] LABS: Anti-Smooth Muscle ABS 42 Units (0-19); HEPATITIS B SURFACE AG Negative (Negative); Hep C Antibodies <0.1 s/co ratio (0.0-0.9)
== END ==
PROVIDERS: Family Provider Family Medicine; PCP Family Medicine; Visit Provider Internal Medicine Gastroenterology
DX: K76.0 Fatty (change of) liver, not elsewhere classified (principal); K75.9 Inflammatory liver disease, unspecified
CPT/HCPCS: 36415; 76705; 82728; 83516; 86038; 86803; 87340

== ENCOUNTER → 2018-02-11 11:58 | Outpatient (CLI) | payer OTHER, SELFPAY ==
[2018-02-12 16:09] LABS: Albumin 3.2 g/dL (2.9-4.4); Alpha-1-Globulins 0.3 g/dL (0.0-0.4); Alpha-2-Globulins 0.8 g/dL (0.4-1.0); Immunoglobulin A 381 mg/dL (90-386); Immunoglobulin G 852 mg/dL (700-1600); Immunoglobulin M 105 mg/dL (20-172); PROEL- TOTAL PROTEIN 6.6 g/dL (6.0-8.5)
== END ==
PROVIDERS: Family Provider Family Medicine; PCP Family Medicine; Visit Provider Internal Medicine Gastroenterology
DX: K76.0 Fatty (change of) liver, not elsewhere classified (principal); K75.9 Inflammatory liver disease, unspecified
CPT/HCPCS: 36415; 82784; 84165; 86334

== ENCOUNTER → 2018-02-22 13:26 | Outpatient (CLI) | payer OTHER, SELFPAY ==
[2018-02-22 16:14] LABS: Erythrocyte Sedimentation Rate 40 mm/hr (0-20)
[2018-02-22 16:25] LABS: AST(SGOT) 61 U/L (15-37); Alanine Aminotransfer ALT/SGPT 84 U/L (16-61); Albumin, Serum 3.2 g/dL (3.2-5.0); Alkaline Phosphatase 113 U/L (45-117); Bilirubin, Direct 0.07 mg/dL (0.00-0.30); GGTP 64 U/L (15-85); Protein, Total 7.2 g/dL (6.4-8.2)
== END ==
PROVIDERS: Family Provider Family Medicine; PCP Family Medicine; Visit Provider Internal Medicine Gastroenterology
DX: K75.9 Inflammatory liver disease, unspecified (principal)
CPT/HCPCS: 36415; 80076; 82977; 85652

== ENCOUNTER → 2018-04-08 09:00 | Outpatient (CLI) | payer OTHER, SELFPAY ==
[2018-03-28 17:14] LABS: Platelet Count 229 K/mm3 (150-450)
[2018-03-28 17:17] LABS: Prothrombin Time (Protime)PT. 13.3 SECONDS (11.7-14.9)
[2018-03-28 17:18] LABS: Partial Thromboplast Time 30.9 Seconds (24.1-36.2)
[2018-04-08] VITALS (10 sets, daily range): BP systolic 120–163; BP diastolic 66–106; PULSE 59–74; RESP 12–20; O2SAT 92–96
--- NOTE | 2018-04-08 | LIVB_PTH ---
PATIENT: ASHLIE ARCOS LOC: CT U#:[id number] AGE/SX: 59/M ROOM: RE04/08/[address]: Dr. Kurtis Ellis MD : 1965 BED: DIS: SPEC #: [id number] RECD: 04/08/18 12:27 STATUS: OSCAR TORRES #: [id number] MARC: 04/08/18 00:[address]: Kurtis Ellis DEPT: SURGICAL PATHOLOGY RECD BY: Terry Muller ENTERED: 04/08/18 12:27 SP TYPE: LIVER BX OTHR DR: Dr. Will Jett MD Tissues: Liver, NOS Procedures: PAS with Diastase (control) Trichrome (control) Special Stain Group II FE Group II (charge) PAS Stain (control) Surgery Specimen Level V Retic (control) HEADER OPERATION: CT-guided liver biopsy PRE-OP DIAGNOSIS: Cirrhosis, fatty liver TISSUE SUBMITTED: Liver biopsy 18g core x3 MICROSCOPIC DIAGNOSIS Liver, core biopsy: Moderate microvesicular and macrovesicular steatosis. Minimal portal chronic inflammation, grade 1 Focal bridging fibrosis, stage 3. AM:abhishek 04/11/18 COMMENT Iron stain with matched control does not reveal accumulation of intraparenchymal iron. PAS stain with without diastase does not reveal accumulation of abnormal proteins. Reticulin stain with matched control reveals a normal hepatic parenchymal architecture. Trichrome stain with matched control reveals focal bridging fibrosis. Case has been reviewed in consultation with Dr. Churchill who concurs with the above diagnosis. IDC:[email or web address] MICROSCOPIC DESCRIPTION Slides are reviewed. GROSS DESCRIPTION Received in fixative is one container labeled with the patient's name and designated CT liver biopsy. The specimen consists of three elongated fragments of eduardo soft tissue measuring 1.5 to 1.8 cm in length and 0.1 cm in diameter. The specimen is totally submitted in one cassette. ANITA:abhishek 04/08/18 TC:3 CPT:46354,01233o9
--- NOTE | 2018-04-08 09:01 | CT_ITS ---
PROCEDURE: CT DIRECTED CORE LIVER BIOPSY INDICATION: Male, 52 years old. History of cirrhosis. PHYSICIAN: Dr.Pedicelli WILSON CONSENT: Written informed consent was obtained having explained the risks, benefits and alternatives in detail with the patient who accepted the risks and agreed to proceed. Laboratory review and clinical assessment was performed. CONSCIOUS SEDATION PROTOCOL: The Drugs used were: 3 mg Versed, IV., and 75 mcg Fentanyl, IV. The sedation time was: 18 minutes. Conscious sedation was started at 10:44 AM and terminated at 10:42 AM. The conscious sedation protocol was independently monitored. RADIATION DOSAGE (If Supplied By Facility): CTDIvol = ( 15.5 ) mGy, DLP = ( 329.27 ) mGycm Individualized dose optimization techniques were used for this CT. TECHNIQUE: Using CT image guidance with image documentation, a suitable location in the right lobe of the liver was identified. Using a anterior lateral approach, puncture of the liver was uneventful with an 18-gauge core needle system. 3, 18-gauge core samples were obtained, and submitted in formalin to the pathologist for further assessment. Followup CT scan revealed no distinct sequelae. CT/Biopsy/Inj or Needle Placement IMPRESSION: 1. CT directed core needle biopsy of the liver, using CT image guidance with image documentation as described. 2. Conscious Sedation protocol utilized with independent monitoring. Electronically Signed: Ricardo Alfaro MD at 12:44 EDT Tel [phone], Service support ,
== END ==
PROVIDERS: Family Provider Family Medicine; PCP Family Medicine; Visit Provider Internal Medicine Gastroenterology
DX: K74.60 Unspecified cirrhosis of liver (principal); K70.0 Alcoholic fatty liver; K75.4 Autoimmune hepatitis; Z87.891 Personal history of nicotine dependence
CPT/HCPCS: 10022; 36415; 77012; 85049; 85610; 85730; 88307; 88313; 99156; 99157; J7040; A4216

== ENCOUNTER 2018-04-11 09:24 | Emergency (ER) | payer OTHER, SELFPAY ==
[2018-04-11 09:25] VITALS: BP 143/85; PULSE 66; RESP 17; TEMP 36.4; O2SAT 95; BMI 43.0
--- NOTE | 2018-04-11 09:39 | EKG12_ITS ---
Test Reason : DSYTHRYTHMIA Blood Pressure : / mmHG Vent. Rate : 064 BPM Atrial Rate : 064 BPM P-R Int : 154 ms QRS Dur : 096 ms QT Int : 420 ms P-R-T Axes : 020 061 042 degrees QTc Int : 433 ms Normal sinus rhythm Normal ECG Confirmed by KRISTOPHER WILSON, KILEY ([id number]), online content editor ODILON LAGOS ([id number]) on 04/15/2018 3:00:46 PM Referred By: Kurtis Ellis Confirmed By:KILEY SUMMERS MD
--- NOTE | 2018-04-11 09:39 | CT_ITS ---
STUDY: CT ABDOMEN AND PELVIS WITH CONTRAST REASON FOR EXAM: Male, 52 years old. Abdominal pain. Bloating and nausea and vomiting. RADIATION DOSAGE (If Supplied By Facility): CTDIvol = ( 14.73 ) mGy, DLP = ( 1172.12 ) mGycm TECHNIQUE: Transaxial images were obtained from the dome of the diaphragm to the symphysis pubis with oral contrast. 100 ml of Isovue 300 contrast was administered. Sagittal and coronal images were reconstructed. Individualized dose optimization techniques were used for this CT. COMPARISON: Comparison is made with prior study dated November 25, 2012. FINDINGS: Mild degree of increased linear markings at the lung bases suggestive of a scarring and/or atelectasis. Coronary artery calcification. There is decreased attenuation of the liver consistent with steatosis. Normal gallbladder and extrahepatic biliary system. Normal spleen. Normal pancreas. Normal bilateral adrenal glands. Normal right kidney. Normal left kidney. Normal visualized stomach. Normal small intestine. There are multiple colonic diverticula consistent with diverticulosis. The appendix is visualized and appears normal. There is scattered atherosclerotic calcification of the abdominal aorta, without a demonstrated aneurysm. Normal inferior vena cava. Normal retroperitoneum. The bladder is only partially filled. Mild bladder wall thickening. Normal abdominal wall. Small bilateral benign appearing inguinal lymph nodes. Grade 1 anterior listhesis of L5 on S1 with spondylolysis of the pars interarticularis of the L5 vertebrae. CT/Abdomen/Pelvis WITH Contrast IMPRESSION: Findings suggestively atelectasis and/or scarring at the lung bases. Scattered sigmoid diverticula. Fatty infiltration of the liver. Electronically Signed: Ricardo Alfaro MD at 12:36 EDT Tel [phone], Service support ,
[2018-04-11 10:03] LABS: Absolute Neutrophil Count 5.1 X10^3/uL (2.0-7.7); Basophil# 0.02 X10^3/uL; Basophil% 0.3 % (0-1); Eosinophils% 1.3 % (0-5); Hematocrit 44.3 % (40-54); Lymphocyte % 26.1 % (19-41); Mean Corp Hgb Conc 31.6 g/gl (32-36); Mean Corpuscular Volume 88.6 fL (80-94); Monocyte# 0.45 X10^3/uL; Monocyte% 5.9 % (0-10); Neutrophil # 5.07 X10^3/uL (2.7-7.7); Neutrophil % 66.1 % (47-70); Platelet Count 233 K/mm3 (150-450); RBC Distribution Width CV 14.3 % (11.6-14.6); RBC Distribution Width SD 46.2 fl (35.1-43.9); White Blood Count 7.7 K/mm3 (4.4-11.0)
[2018-04-11 10:07] LABS: POSITIVE COUNT NO; POSITIVE DIFFERENTIAL NO; POSITIVE MORPHOLOGY NO
[2018-04-11 10:13] LABS: Bacteria 0 SEEN /hpf (None Seen); Color, Urine Yellow (Yellow); Glucose, Dipstick Normal (Normal); Ketone-Dipstick Negative (Negative); Leukocyte Esterase-Dipstick Negative /ul (Negative); Mucous, Urine 0 SEEN /hpf (<or=2+); Nitrite-Dipstick Negative (Negative); Occult Blood-Urine Negative /ul (Negative); Protein-Dipstick Negative (Negative); Red Blood Cells-Urine 0 SEEN /hpf (0-5); Urine Bilirubin Dipstick Negative (Negative); Urine Clarity Sl. Cloudy (Clear); Urine Urobilinogen Normal (Normal); White Blood Cells 0 SEEN /hpf (0-5)
[2018-04-11 10:14] LABS: ALB/GLOB Ratio 0.8 RATIO (0.9-2.4); AST(SGOT) 50 U/L (15-37); Alanine Aminotransfer ALT/SGPT 64 U/L (16-61); Albumin, Serum 3.2 g/dL (3.2-5.0); Alkaline Phosphatase 99 U/L (45-117); Anion Gap 6 (5-15); BUN 11 mg/dL (7-18); BUN/Creat Ratio 10.9 RATIO (10-20); Calcium,Total 8.7 mg/dL (8.5-10.1); Chloride 104 mmol/L (98-107); Creatinine, Serum 1.01 mg/dL (0.70-1.30); EST Glomerular Filtration Rate 83 mL/min (>60); Est Glom Filt Rate - Afr Amer 100 mL/min (>60); Globulin 4.2 g/dL (2.2-4.2); Glucose 94 mg/dL (74-106); Lipase 80 U/L (73-393); Potassium 4.3 mmol/L (3.5-5.1); Protein, Total 7.4 g/dL (6.4-8.2); Sodium Level 139 mmol/L (136-145)
[2018-04-11] MEDS: Ondansetron 4 MG/2 ML Vial IV (10:14)
[2018-04-11] MEDS: HYDROmorphone 1 MG/ML Syringe IV (10:14)
[2018-04-11] MEDS: 0.9% Normal Saline 1,000 ML 125 ML IV (10:14)
[2018-04-11 10:21] LABS: Squamous Epithelial Cells - UA 0-5 SEEN /hpf (0-5)
--- NOTE | 2018-04-11 10:22 | ED.DCSUM_ITS ---
- ER Visit Summary Date of Service: 04/11/18 Chief Complaint: [Abdominal pain] History of Present Illness: The patient is a 52 M [presents to the emergency department with complaint of abdominal pain that started 2 days ago. Patient tells me that he had a liver biopsy that was done 3 days ago to further evaluate his cirrhosis. Patient complains of bloating after eating. Patient has had some intermittent urinary frequency. Patient this morning had about a half hour episode of dry heaves. He denies any blood in his stool or black tarry stool. Patient's not had any fever.] Physical Examination: [HEENT-PERRLA, EOMI. Cranial nerves II through XII grossly intact. TMs clear. Mucous membranes moist. No adenopathy. Cardiovascular-regular rate and rhythm without murmur or ectopy Lungs-clear to auscultation, chest wall stable without crepitus or subcu emphysema Abdomen-normal active bowel sounds, abdomen slightly protuberant. Patient has tenderness to palpation over the right upper quadrant and epigastric region. There is no rebound, rigidity, or peritoneal signs. Extremities-intact ?4, normal range of motion, normal pulses, atraumatic] Test Results: [CBC with differential obtained showed a white count of 7.7, hemoglobin 14, hematocrit 44.3, platelets 233. Chemistries unremarkable. LFTs showed a slightly elevated ALT of 64 and an AST of 50. Lipase was 80. Urinalysis was normal.] EKG obtained showed a sinus rhythm with a ventricular rate of 64 bpm with no acute ST segment changes. CT scan of the abdomen and pelvis with IV and p.o. contrast ordered showed diverticulosis, fatty infiltration of liver and scarring of the lung bases otherwise nothing acute. 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 Patient to return if worsening pain, fever, vomiting, or condition should worsen in any way.] Disposition: [Discharged home in stable condition] Impression: [Abdominal pain-etiology uncertain This note was generated with [employer] software. It may contain incorrect words, spelling, and punctuation that were not noted in review of the chart prior to signing ED Disposition - Plan for ED Patient: Chief Complaint: Abd Pain Referrals: Will Jett MD [Primary Care Provider] -
[2018-04-11 10:27] LABS: Lactic Acid 0.9 mmol/L (0.4-2.0)
--- NOTE | 2018-04-11 13:00 | DCINST.ED_ITS ---
ED Disposition - Plan for ED Patient: Chief Complaint: Abd Pain Instructions: ED Abdominal Pain Unkn Cause Male Prescriptions: Ondansetron [Zofran Odt] 4 mg PO Q8H PRN PRN #10 tab PRN Reason: Nausea Hydrocodone/Acetaminophen [Rough And Ready 5-325 Tablet] 1 - 2 ea PO 4X/DAY PRN PRN 3 Days #12 tab PRN Reason: Pain Referrals: Will Jett MD [Primary Care Provider] - 3-5 Days Kurtis Ellis MD [STAFF PHYSICIAN] - 3-5 Days
[2018-04-11 13:05] VITALS: BP 130/83; PULSE 63; PULSE 66; RESP 15; RESP 17; O2SAT 95; O2SAT 96
== END 2018-04-11 13:11 | disposition home or self-care (01) ==
LOC: ED 10:04
PROVIDERS: Emergency Provider Emergency Medicine; Family Provider Family Medicine; PCP Family Medicine
DX: R10.9 Unspecified abdominal pain (principal); I10 Essential (primary) hypertension; E78.00 Pure hypercholesterolemia, unspecified; K21.9 Gastro-esophageal reflux disease without esophagitis; I25.10 Atherosclerotic heart disease of native coronary artery without angina pectoris; Z95.5 Presence of coronary angioplasty implant and graft; K57.90 Diverticulosis of intestine, part unspecified, without perforation or abscess without bleeding; F32.9 Major depressive disorder, single episode, unspecified
CPT/HCPCS: 74177; 80053; 81001; 83605; 83690; 85025; 93005; 99283; J7030; Q9967; A4216; J2405

== ENCOUNTER 2018-04-14 11:16 | Emergency (ER) | payer OTHER, SELFPAY ==
[2018-04-14 11:17] VITALS: BP 132/67; PULSE 73; RESP 18; TEMP 36.6; O2SAT 95; BMI 42.9
--- NOTE | 2018-04-14 11:54 | ED.VISSUMM ---
- ER Visit Summary Date of Service: 04/14/18 Chief Complaint: Abdominal pain History of Present Illness: The patient is a 52 M who states that for the past several months he has had a progressively worsening right upper quadrant abdominal pain with some bloating. States he has a history of Garcia's esophagus that was discovered during evaluation of his bloating. During routine cardiology visit was noted that his transaminases were slightly elevated and that did not reduce with stoppage of his statin. He was referred to Dr. Ellis. Eventually a liver biopsy was performed last week which returned showing fatty liver. Patient was seen in the emergency department on with worsening pain and bloating and nausea. He had a CT scan that was essentially negative and blood work that was rather unremarkable. He switched to a liquid diet which has been helpful. He is now out of his [place] and his pain is worse. He states that they did contact Dr. Ellis as well as the primary care physician who recommended coming here for evaluation and he can see Dr. Ellis reportedly tomorrow for potential scope. He has had an abdominal ultrasound that was reportedly negative. He has not had a HIDA scan. No fever Physical Examination: Afebrile vital signs are stable Gen: Well-nourished well-developed Head: Normocephalic atraumatic Eyes: Perrl EOMI ENT: TMs clear no rhinorrhea moist mucous membranes Neck: Supple no lymphadenopathy no JVD nontender CVS: Regular rate rhythm no murmurs normal S1-S2 Respiratory: No distress clear to auscultation bilaterally chest nontender Abdomen: Soft and only tender in the right upper quadrant without guarding or rebound. There is a yellowish ecchymosis at the site of the biopsy. This does not appear to have complications. Nondistended normal bowel sounds no masses Back: Nontender Extremity: Nontender no edema Skin: Normal color no rash Neuro: alert orientated ?3 CN II-XII intact normal strength sensation reflexes gait cerebellar Psych: Normal affect normal mood Test Results: CBC CMP and lipase were obtained. Emergency Department Course and Treatment: I spoke with the patient and his . We talked about different pathways of evaluation today. We are going to go ahead and repeat blood work. Patient received oxycodone and states that it worked very well to help control his pain. He also asked for a prescription for Phenergan. We talked about the additive effects of the 2 medications. They will monitor. Talked about the potential for needing a HIDA scan and they will follow-up tomorrow with Dr. Ellis. Impression: 1. Abdominal pain This note was generated with [employer] dictation software. It may contain incorrect words, spelling, and punctuation that were not noted in review of the chart prior to signing ED Disposition - Plan for ED Patient: Disposition: Home or Assisted Living Chief Complaint: Abd Pain Instructions: HIDA Scan Prescriptions: Oxycodone [Oxyir] 5 - 10 mg PO Q6H PRN PRN 4 Days #20 tab PRN Reason: Pain proMETHazine tablet [Phenergan] 25 mg PO Q6H PRN PRN #10 tab PRN Reason: Nausea Referrals: Kurtis Ellis MD [STAFF PHYSICIAN] - As soon as possible
[2018-04-14] MEDS: oxyCODONE 5 MG Tablet 10 MG PO (12:15)
[2018-04-14 12:16] LABS: Absolute Lymphocyte Count 1.78 X10^3/ul (0.83-4.51); Absolute Neutrophil Count 3.2 X10^3/uL (2.0-7.7); Basophil# 0.01 X10^3/uL; Basophil% 0.2 % (0-1); Eosinophil# 0.13 X10^3/uL; Eosinophils% 2.3 % (0-5); Hematocrit 41.8 % (40-54); Hemoglobin 12.9 g/dl (13.0-16.5); Lymphocyte # 1.78 X10^3/ul (4.0); Lymphocyte % 31.8 % (19-41); Mean Corp Hgb Conc 30.9 g/gl (32-36); Mean Corpuscular Hgb 27.7 pg (27.0-32.0); Mean Corpuscular Volume 89.7 fL (80-94); Monocyte# 0.42 X10^3/uL; Monocyte% 7.5 % (0-10); Neutrophil # 3.24 X10^3/uL (2.7-7.7); Platelet Count 191 K/mm3 (150-450); Red Blood Count 4.66 M/mm3 (4.6-6.2); White Blood Count 5.6 K/mm3 (4.4-11.0)
[2018-04-14 12:17] LABS: POSITIVE COUNT NO; POSITIVE DIFFERENTIAL NO; POSITIVE MORPHOLOGY NO
[2018-04-14 12:31] LABS: ALB/GLOB Ratio 0.8 RATIO (0.9-2.4); AST(SGOT) 45 U/L (15-37); Alanine Aminotransfer ALT/SGPT 62 U/L (16-61); Alkaline Phosphatase 91 U/L (45-117); Anion Gap 6 (5-15); BUN 10 mg/dL (7-18); BUN/Creat Ratio 9.4 RATIO (10-20); Calcium,Total 8.4 mg/dL (8.5-10.1); Chloride 104 mmol/L (98-107); Creatinine, Serum 1.06 mg/dL (0.70-1.30); EST Glomerular Filtration Rate 78 mL/min (>60); Est Glom Filt Rate - Afr Amer 95 mL/min (>60); Estimated Creatinine Clearance 77.08 ml/min; Globulin 3.8 g/dL (2.2-4.2); Glucose 102 mg/dL (74-106); Lipase 70 U/L (73-393); Potassium 4.1 mmol/L (3.5-5.1); Protein, Total 6.8 g/dL (6.4-8.2); Sodium Level 140 mmol/L (136-145)
[2018-04-14 13:01] VITALS: PULSE 78; RESP 16; O2SAT 98
== END 2018-04-14 13:02 | disposition home or self-care (01) ==
PROVIDERS: Emergency Provider Emergency Medicine; Family Provider Family Medicine; PCP Family Medicine
DX: R10.11 Right upper quadrant pain (principal); E66.9 Obesity, unspecified; R11.0 Nausea; E78.00 Pure hypercholesterolemia, unspecified; K21.9 Gastro-esophageal reflux disease without esophagitis; I25.10 Atherosclerotic heart disease of native coronary artery without angina pectoris; Z95.5 Presence of coronary angioplasty implant and graft; F32.9 Major depressive disorder, single episode, unspecified
CPT/HCPCS: 80053; 83690; 85025; 99283

== ENCOUNTER → 2018-04-23 10:13 | Outpatient (CLI) | payer OTHER, SELFPAY ==
--- NOTE | 2018-04-23 10:15 | NM_ITS ---
CLINICAL: 52-year-old male with reported history of abdominal pain and nausea. RADIONUCLIDE HEPATOBILIARY SCINTIGRAPHY COMPARISON: CT of the abdomen-pelvis report 04/11/2018, abdominal ultrasound report 02/05/2018 FINDINGS: Following the intravenous administration of 5.4 mCi of 99m Tc Mebrofenin, hepatobiliary images reveal: 1. Relatively prompt and homogeneous radiopharmaceutical concentration is noted by a normal sized liver. No parenchymal defects are identified. 2. Gallbladder activity is identified at 15 minutes post radiopharmaceutical administration. 3. Intestinal tract is not visualized during 60 minutes of sequential image acquisition. Small bowel is defined following the administration of the fatty meal. 4. Washout of the radiopharmaceutical by the hepatic parenchyma appears qualitatively normal. The patient was administered a fatty meal (8 ounces Boost). The post fatty meal ingestion gallbladder ejection fraction calculated at 60 minutes was noted to be 54.0 % (normal greater than 30%). NM/Hepatobilliary Img w/Pharm Int IMPRESSION: 1. NORMAL 99m Tc Mebrofenin hepatobiliary imaging examination with fatty meal ingestion. A. A gallbladder ejection fraction calculated to be greater than 30% following the administration of an ingested fatty meal makes the probability of functional hepatobiliary disease (gallbladder and/or sphincter of Oddi dyskinesia) and/or organic hepatobiliary disease (chronic acalculous cholecystitis and/or cystic duct syndrome) to be low. (Soham and Lukasz, J Nucl Med 43: 1603, 2002). Electronically Signed: Mahendra Sosa DO at 8:13 EDT Tel , Service support ,
== END ==
PROVIDERS: Family Provider Family Medicine; PCP Family Medicine; Visit Provider Family Medicine
DX: R10.10 Upper abdominal pain, unspecified (principal)
CPT/HCPCS: 78227; A9537

== ENCOUNTER → 2018-05-07 15:20 | Outpatient (CLI) | payer OTHER, SELFPAY ==
[2018-05-07 18:30] LABS: Erythrocyte Sedimentation Rate 53 mm/hr (0-20)
[2018-05-07 19:08] LABS: Thyroid Stim Hormone (TSH) 2.46 uIU/mL (0.358-3.74)
[2018-05-09 16:10] LABS: Endomysial Antibody IgA Negative (Negative)
[2018-05-10 11:47] LABS: Deamidated Gliadin IgA 8 units (0-19); Deamidated Gliadin IgG 3 units (0-19); Immunoglobulin A 402 mg/dL (90-386); t-Transglutaminase IgA <2 U/mL (0-3)
== END ==
PROVIDERS: Family Provider Family Medicine; PCP Family Medicine; Visit Provider Family Medicine
DX: K59.09 Other constipation (principal); R14.0 Abdominal distension (gaseous)
CPT/HCPCS: 36415; 82784; 83516; 84443; 85652; 86255

== ENCOUNTER 2018-05-22 11:14 | Day surgery (SDC) | payer OTHER, SELFPAY ==
[2018-05-22] VITALS (11 sets, daily range): BP systolic 116–147; BP diastolic 75–87; PULSE 65–84; RESP 16–20; TEMP 36.1–36.9; O2SAT 93–98; BMI 42.7
--- NOTE | 2018-05-22 13:00 | GALL_PTH ---
PATIENT: ASHLIE ARCOS [place] [facility] [place][id number] AGE/SX: 52/M ROOM: RE05/22/[address]: Dr. Garth Garner MD : 1965 BED: DIS: 05/22/2018 SPEC #: [id number] RECD: 05/22/18 15:17 STATUS: OSCAR BRIAN #: [id number] MARC: 05/22/18 13:[address]: Garth Garner DEPT: SURGICAL PATHOLOGY RECD BY: Mahendra Barboza ENTERED: 05/23/18 10:15 SP TYPE: ARIAS MUNGUIA DR: Dr. Will Jett MD Tissues: Gallbladder, NOS Procedures: Surgery Specimen Level III HEADER OPERATION: Laparoscopic cholecystectomy PRE-OP DIAGNOSIS: Right upper quadrant pain, gallbladder polyp TISSUE SUBMITTED: Gallbladder MICROSCOPIC DIAGNOSIS Gallbladder: Chronic cholecystitis. No stones are identified in the container or in the gallbladder. See comment. ANITA:nidia 8/10/18 COMMENT No obvious polyp is noted grossly. MICROSCOPIC DESCRIPTION Slides are reviewed. GROSS DESCRIPTION Received is one container labeled with the patient's name and designated gallbladder. The specimen consists of a gallbladder measuring 9 cm in length and up to 3.5 cm in diameter. The external surface is pink-eduardo, smooth and glistening for the most part. Focally it is granular, hemorrhagic and contains cautery artifact. The gallbladder contains a small amount of green-yellow mucoid bile. No stones are identified in the container or in the gallbladder. The mucosa is bile-stained and without any mass lesions. The gallbladder wall measures up to 0.5 cm in thickness. An increased amount of subserosal fat is noted. Tanner Rotary Drum Continuous Process sections from the gallbladder and the cystic duct are submitted in one cassette. / SJ:nidia 05/23/18 TC:3 CPT: 84627
[2018-05-22] MEDS: Cefazolin 2 GM in 0.9% Normal Saline 100 ML IV (13:04)
[2018-05-22] MEDS: Bupivacaine Mpf 0.5% 30 ML VIAL (13:26)
--- NOTE | 2018-05-22 13:59 | OP.PCM_ITS ---
Problem List (1) Gallbladder polyp Status: Acute (2) Right upper quadrant abdominal pain Status: Acute Report of Operation Date of Procedure: 05/22/18 Pre-Operative Diagnosis: Gallbladder polyp, right upper quadrant abdominal pain Post-Operative Diagnosis: Same Surgery/Procedure Performed:: Laparoscopic cholecystectomy Type of Anesthesia:: General Anesthesiologist: Rajat Mckeon Estimated Blood Loss (mL): < 25 cc Description of Procedure: Patient was brought into the operating room. Placed in the supine position. Under excellent general endotracheal intubation the abdomen was sterilely prepped and draped in the usual fashion. Local was injected infraumbilically. A curvilinear incision was made. Dissection was carried down to the fascia. The fascia was grasped with a Compton. Varies needle was placed inside the abdomen. The abdomen was insufflated to 15 torr. A 10/12 trocar was placed without difficulty. Patient was placed in the head up and rotated to the left position. Subxiphoid #5 trocar was placed, inferior to this another #5 trocar was placed, laterally and a #5 trocar was placed. All of these under direct visualization without injury to underlying structures. Fundus of the gallbladder was grasped and retracted in a cephalad direction. Moderate amount of adhesions were taken off of the gallbladder with both blunt and electrocautery dissection. Infundibulum was grasped and retracted laterally. I dissected out the cystic duct. I placed hemoclips proximally and distally and ligated the duct. Identified the cystic artery. I placed hemoclips proximally distally and ligated the artery. I deliver the gallbladder from the gallbladder bed with the use of electrocautery placed in a specimen bag and delivered it through the umbilical port without difficulty. I irrigated the right upper quadrant. Patient had a significant number of adhesions from the liver to the diaphragm which I took down with electrocautery. Excellent hemostasis. The liver bed had excellent hemostasis. I removed the trochars under direct visualization. Good hemostasis was identified. Fascia the umbilical port was closed with a [id number] stitch of 0 Vicryl. Skin incisions were closed with subtalar stitches of 4-0 Monocryl. Steri-Strips are applied. Sterile dressings were applied. The patient tolerated the procedure well. - Admit VTE Documentation VTE Present on Admission: No VTE Mechan Device Prophylaxis: SCD's VTE Pharm Prophylaxis ordered?: No Reason prophylaxis not ordered:: Treatment Not Indicated
--- NOTE | 2018-05-22 14:00 | DCINST_ITS ---
Discharge Diet: Light diet - advance as tolerated Discharge Activity: May Not Drive - for 2-3 days or while taking narcotic pain medications., - - Do not drive, work heavy equipment or sign legal documents for 24 hours. May shower in (days): 1 - with the bandage in place. Additional Activity Instructions:: Pain medication may cause nausea. You should typically eat light foods as you take your pain medications. Pain medication may also cause constipation. If this is a problem for you, please discuss with your doctor. Call your doctor if your incision/area has: Continuous Slow Oozing, Sudden Increased Bleeding, Increased Pain/ Swelling, Increased Redness, Foul Smelling Discharge Call your doctor if you observe: Fever of 101 or Higher Suture Line Care: Avoid Pulling/Pushing, Avoid Pinching/Bending Additional Dressing/Incision Instructions:: Leave operative bandaids on for 2 days. When you remove dressing, leave Steri-Strips on until your follow-up appointment, or until the Steri-Strips fall off on their own. Allergies/Adverse Reactions: Allergies metoclopramide HCl [From Reglan] Adverse Reaction (Verified 05/21/18 13:46) Other prochlorperazine edisylate [From Compazine] Adverse Reaction (Verified 05/21/18 13:46) Other prochlorperazine maleate [From Compazine] Adverse Reaction (Verified 05/21/18 13 :46) Other Medications to take at Discharge Clopidogrel Bisulfate [Plavix] 75 mg PO DAILY 06/24/14 Lamotrigine [Lamictal] 150 mg PO QHS 06/24/14 Lisinopril [Zestril] 2.5 mg PO BID 06/24/14 Montelukast [Singulair] 10 mg PO QHS 06/24/14 Aspirin E.C. [Ecotrin] 81 mg PO DAILY@0800 10/11/16 Albuterol Aerosols [Ventolin Aerosols] 2.5 mg INHALATION Q2H PRN PRN #50 vial.neb. 12/29/16 Albuterol Inhaler [Ventolin Hfa] 2 puff INHALATION Q4H PRN PRN #60 inhaler 12/29 Mometasone/Formoterol [Dulera 200 Mcg/5 Mcg Inhaler] 1 puff IH BID #1 hfa.aer.ad 12/29/16 Ondansetron [Zofran Odt] 4 mg PO Q8H PRN PRN #10 tab 04/11/18 Oxycodone [Oxyir] 5 - 10 mg PO Q6H PRN PRN 4 Days #20 tab 04/14/18 traZODone [Desyrel] 50 mg PO BID 04/14/18 escitalopram 20 mg tablet 30 mg PO QDAY tab 05/16/18 omeprazole 40 mg capsule,delayed release 40 mg PO QDAY cap 05/16/18 Atorvastatin Calcium [Lipitor] 20 mg PO QHS 05/21/18 Oxycodone HCl/Acetaminophen [Percocet 5/325] 1 - 2 tab PO Q4H PRN PRN 4 Days # 30 tab 05/22/18 The following prescriptions were given: Oxycodone HCl/Acetaminophen [Percocet 5/325] 1 - 2 tab PO Q4H PRN PRN 4 Days # 30 tab PRN Reason: Pain Primary Care Physician: Will Jett MD [Primary Care Provider] - Test Results: Test results from this visit will be discussed in further detail at your follow- up appointment, if applicable. Please Follow Up With: Garth Garner MD - Please call [phone] to schedule an appointment. When: 7 days after your surgery.
[2018-05-22] MEDS: oxyCODONE 5 MG Tablet PO (16:08)
[2018-05-22] MEDS: Acetaminophen 325 MG Tablet PO (16:08)
== END 2018-05-22 17:03 | disposition home or self-care (01) ==
LOC: SDC 11:14 → AC 11:16
PROVIDERS: Family Provider Family Medicine; PCP Family Medicine; Visit Provider Surgery
DX: K81.1 Chronic cholecystitis (principal); E78.5 Hyperlipidemia, unspecified; K21.9 Gastro-esophageal reflux disease without esophagitis; F32.9 Major depressive disorder, single episode, unspecified; I25.10 Atherosclerotic heart disease of native coronary artery without angina pectoris; I10 Essential (primary) hypertension
CPT/HCPCS: 00790; 47562; 88304; 93005; J7120; J2405

== ENCOUNTER 2018-05-24 09:44 | Inpatient (IN) | payer OTHER, SELFPAY ==
[2018-05-24] VITALS (26 sets, daily range): BP systolic 94–165; BP diastolic 64–99; PULSE 69–91; RESP 10–21; TEMP 36.1–37.1; O2SAT 92–97; BMI 42.3; BMI 42.7; BMI 42.8
[2018-05-24] MEDS: Aspirin 81 MG TAB.CHEW 324 MG PO (10:13)
[2018-05-24] MEDS: Ondansetron 4 MG/2 ML Vial IV (10:13)
[2018-05-24] MEDS: 0.9% Normal Saline 1,000 ML 1000 ML IV (10:13)
--- NOTE | 2018-05-24 10:14 | RAD_ITS ---
STUDY: X-RAY CHEST REASON FOR EXAM: Male, 52 years old. Chest pain TECHNIQUE: Single AP portable view of the chest. COMPARISON: September 26, 2017 FINDINGS: Stable elevation of the right hemidiaphragm. There are bilateral lower lung linear increased opacities consistent with scarring or atelectasis. There is no demonstrated pleural abnormality. Normal size heart. Normal mediastinum and aaron. Normal visualized pulmonary arteries. Normal visualized aortic arch and descending thoracic aorta. Normal visualized thoracic spine. Normal visualized ribs, clavicles, and shoulders. There is no demonstrated abnormality of the visualized soft tissue structures of the upper abdomen. RAD/Chest 1 View (Portable) IMPRESSION: Degenerative changes, as described above. No demonstrated acute cardiopulmonary process. Electronically Signed: Scout Franco MD at 10:41 EDT , Service support ,
[2018-05-24 10:15] LABS: Absolute Lymphocyte Count 3.24 X10^3/ul (0.83-4.51); Absolute Neutrophil Count 3.9 X10^3/uL (2.0-7.7); Basophil# 0.02 X10^3/uL; Basophil% 0.2 % (0-1); Eosinophil# 0.21 X10^3/uL; Eosinophils% 2.6 % (0-5); Hematocrit 41.9 % (40-54); Hemoglobin 12.9 g/dl (13.0-16.5); Lymphocyte # 3.24 X10^3/ul (4.0); Lymphocyte % 40.1 % (19-41); Mean Corp Hgb Conc 30.8 g/gl (32-36); Mean Corpuscular Hgb 28.1 pg (27.0-32.0); Mean Corpuscular Volume 91.3 fL (80-94); Mean Platelet Vol. 10.6 fl (6.2-12.0); Monocyte# 0.65 X10^3/uL; Monocyte% 8.1 % (0-10); Neutrophil # 3.94 X10^3/uL (2.7-7.7); Neutrophil % 48.9 % (47-70); Platelet Count 201 K/mm3 (150-450); RBC Distribution Width CV 13.9 % (11.6-14.6); RBC Distribution Width SD 45.8 fl (35.1-43.9); Red Blood Count 4.59 M/mm3 (4.6-6.2); White Blood Count 8.1 K/mm3 (4.4-11.0)
[2018-05-24 10:16] LABS: POSITIVE COUNT NO; POSITIVE DIFFERENTIAL NO; POSITIVE MORPHOLOGY NO
--- NOTE | 2018-05-24 10:24 | ED.DCSUM_ITS ---
- ER Visit Summary Date of Service: 05/24/18 Chief Complaint: Whole body pain/chest pain History of Present Illness: The patient is a 52 M who complains of pain throughout his entire body. 2 days ago he had a laparoscopic cholecystectomy by Dr. Garner. He had an uncomplicated course and went home. He states that last night he started with aching throughout his entire body. Remaining still makes this better. He has had associated nausea as well as shortness of breath. He has Percocet at home that he is taken after his surgery but he states is not helping. He denies any significant abdominal pain. He has been eating light foods and has been drinking Gatorade. Physical Examination: Vital signs reviewed. HEENT exam unremarkable. Heart is regular rate and rhythm without murmurs. Lungs are clear to auscultation. Abdomen is soft with mild diffuse tenderness to palpation. Extremities reveal no edema. He does have tenderness of his thighs and calves bilaterally. Skin exam normal. Neurologic exam normal. Test Results: EKG sinus rhythm with a rate of 88. No ST changes. Chest x-ray shows chronic changes. Hemoglobin 12.9. ALT 109, AST 156, alkaline phosphatase 139. CK is 4179. Troponin I 0.62 Emergency Department Course and Treatment: She was given aspirin. I then gave him nitroglycerin sublingually and morphine. He now only complains of body aches. The patient did stop his Plavix for 6 days prior to the surgery. He restarted it yesterday. I discussed this with Dr. King. He would recommend reloading with 300 mg of Plavix. We will try to obtain records of where his previous stent is. We will also get a CTA of the chest to make sure that this is not a pulmonary embolism, however initially I did not have the family differential list. I discussed also with Dr. Leon. She remarked that it would be okay for the patient to get heparin because there was good hemostasis during the surgery. His liver enzymes have been elevated for quite some time also she has had. I also discussed with hospitalist. Patient will have a CTA in the emergency department before going upstairs. Treatment Plan: [] Disposition: Admit Impression: NSTEMI, recent lap scopic cholecystectomy This note was generated with [employer] dictation software. It may contain incorrect words, spelling, and punctuation that were not noted in review of the chart prior to signing ED Disposition - Plan for ED Patient: Chief Complaint: Chest Pain Referrals: Will Jett MD [Primary Care Provider] -
[2018-05-24 10:48] LABS: AST(SGOT) 156 U/L (15-37); Alanine Aminotransfer ALT/SGPT 109 U/L (16-61); Albumin, Serum 3.3 g/dL (3.2-5.0); Alkaline Phosphatase 139 U/L (45-117); Anion Gap 9 (5-15); BUN 9 mg/dL (7-18); BUN/Creat Ratio 7.8 RATIO (10-20); Bilirubin, Direct 0.12 mg/dL (0.00-0.30); CPK Total, Creatine Kinase 4179 U/L (39-308); Calcium,Total 8.2 mg/dL (8.5-10.1); Chloride 103 mmol/L (98-107); Creatinine, Serum 1.15 mg/dL (0.70-1.30); EST Glomerular Filtration Rate 71 mL/min (>60); Est Glom Filt Rate - Afr Amer 86 mL/min (>60); Estimated Creatinine Clearance 71.05 ml/min; Globulin 3.8 g/dL (2.2-4.2); Glucose 91 mg/dL (74-106); Potassium 4.3 mmol/L (3.5-5.1); Protein, Total 7.1 g/dL (6.4-8.2); Sodium Level 141 mmol/L (136-145)
[2018-05-24] MEDS: Morphine 4 MG/ML Syringe IV (11:05)
[2018-05-24] MEDS: proMETHazine 25 MG/ML Syringe 12.5 MG IV (11:05)
--- NOTE | 2018-05-24 11:10 | CT_ITS ---
STUDY: CTA CHEST REASON FOR EXAM: Male, 52 years old. Chest pain status post cholecystectomy RADIATION DOSAGE (If Supplied By Facility): CTDIvol = ( 26.2 ) mGy, DLP = ( 1036.37 ) mGycm TECHNIQUE: The examination was performed with the intravenous administration of 100 ml of Isovue 370 contrast material. Post-processing of the angiographic images was performed, with multiplanar reformation and 3D reconstruction. Individualized dose optimization techniques were used for this CT. COMPARISON: Chest x-ray. FINDINGS: There is limited enhancement of the main pulmonary artery and right and left pulmonary arteries. There is limited enhancement of the bilateral peripheral pulmonary arteries. There are heterogeneous regions of subtle diminished enhancement of peripheral branches with possible embolism versus artifact, including on the left, series 2 images 132/248 through 159/248 There is atherosclerotic calcification of the aortic arch with tortuosity. There is no demonstrated aortic dissection. Normal size heart and pericardium. There are calcifications of the coronary arteries. Normal mediastinum. Normal hilar regions. Normal visualized trachea and bronchi. The lungs are under expanded. There is bilateral lower lung atelectasis or infiltrates. Normal pleura. Normal chest wall structures. There are degenerative changes of thoracic spine. Normal visualized upper abdomen. CT/CTA Chest W/WO Contrast IMPRESSION: There is heterogeneous diminished enhancement of the pulmonary arteries with regions of embolism versus artifact. Lower lung atelectasis or infiltrates. N.B. : The above information has been verbally conveyed by Scout Franco MD to , Covering Physician, on 05/24/2018 12:09:33 (ET). Electronically Signed: Scout Franco MD at 12:01 EDT , Service support ,
[2018-05-24] MEDS: Clopidogrel Bisulfate 300 MG Tablet PO (11:14)
--- NOTE | 2018-05-24 11:40 | NURSING ---
CALLED [facility] IN ER TO SAY IT WAS OKAY TO SEND PT. STATES IT WILL BE A LITTLE BIT BECAUSE THEY ARE FINISHING ECHO AND HAVE TO DO CT.
--- NOTE | 2018-05-24 12:01 | PCM.HP.STD ---
Problem List (1) Generalized pain Status: Acute History of Present Illness Date of Admission: 05/24/18 Chief Complaint: generalised pain The patient is a 52 year old M with a history of recent laparoscopic cholecystectomy 2 days ago, which he had an outpatient basis.. He started having generalised body aches with associated nausea and SOB. He took percocet but it didnt help. He denied any associated chest pain but admits to chest pressure which did not radiate to his left arm. He did not have any dizziness, orthopnea or diaphoresis. He denied any diarrhea vomiting and denied any new medication intake recently. Vitals in the ED showed blood pressure 122/81, temperature of 98.8 Fahrenheit, pulse rate of 89 respiratory rate of 10. Blood pressure had initially been 147/73 but dropped to 94/79 couple of hours later. At time of review, blood pressure was in the 100 systolic. Labs done in the ED showed Hb of 12.9, CK of 4179 and troponin of 1.62. AST and ALT were 156/109 and ALP was 139. Creatine kinase was 4179 and troponin was 1.62. He was iven aspirin, morphine and SL nitroglycerin. He was loaded with 300mg of plavix o/a of having held his plavix for 6 days prior to surgery. CT angiogram showed limited enhancement of the main pulmonary arteries and right and left pulmonary arteries with heterogenous areas of subtle diminished enhancement of peripheral branches with possible embolism vs infarct. He is being admitted to be managed for NSTEMI and possible PE.[] Past Medical History Past Medical History (Chronic Problems): Chronic Problems (Last Reviewed 05/16/18 @ 10:51 by Garth Garner MD) Obesity (Chronic) Hyperlipidemia (Chronic) GERD (gastroesophageal reflux disease) (Chronic) Depression (Chronic) Coronary artery disease (Chronic) Benign hypertension (Chronic) Medical History: Medical History (Last Reviewed 05/16/18 @ 10:51 by Garth Garner MD) Influenza A H1N1 infection (Acute) J10.1 Hypoxia (Acute) R09.02 Lower extremity edema (Acute) R60.0 Obesity (Chronic) E66.9 Hyperlipidemia (Chronic) E78.5 GERD (gastroesophageal reflux disease) (Chronic) K21.9 Depression (Chronic) F32.9 Coronary artery disease (Chronic) I25.10 CAP (community acquired pneumonia) due to Pneumococcus (Acute) J13 Benign hypertension (Chronic) I10 RUQ pain R10.11 Allergies metoclopramide HCl [From Reglan] Adverse Reaction (Verified 05/21/18 13:46) Other prochlorperazine edisylate [From Compazine] Adverse Reaction (Verified 05/21/18 13:46) Other prochlorperazine maleate [From Compazine] Adverse Reaction (Verified 05/21/18 13:46) Other Home Medications: Ambulatory Orders Medication Instructions Recorded Clopidogrel Bisulfate [Plavix] 75 mg PO DAILY 06/24/14 Lamotrigine [Lamictal] 150 mg PO QHS 06/24/14 Lisinopril [Zestril] 2.5 mg PO BID 06/24/14 Montelukast [Singulair] 10 mg PO QHS 06/24/14 Aspirin E.C. [Ecotrin] 81 mg PO DAILY@0800 10/11/16 Albuterol Aerosols [Ventolin 2.5 mg INHALATION Q2H PRN PRN #50 12/29/16 Aerosols] vial.neb. Albuterol Inhaler [Ventolin Hfa] 2 puff INHALATION Q4H PRN PRN #60 12/29/16 inhaler Mometasone/Formoterol [Dulera 200 1 puff IH BID #1 hfa.aer.ad 12/29/16 Mcg/5 Mcg Inhaler] Ondansetron [Zofran Odt] 4 mg PO Q8H PRN PRN #10 tab 04/11/18 Oxycodone [Oxyir] 5 - 10 mg PO Q6H PRN PRN 4 Days 04/14/18 #20 tab traZODone [Desyrel] 50 mg PO BID 04/14/18 escitalopram 20 mg tablet 30 mg PO QDAY tab 05/16/18 omeprazole 40 mg capsule,delayed 40 mg PO QDAY cap 05/16/18 release Atorvastatin Calcium [Lipitor] 80 mg PO QHS 05/21/18 Oxycodone HCl/Acetaminophen 1 - 2 tab PO Q4H PRN PRN 4 Days 05/22/18 [Percocet 5/325] #30 tab Surgical History: Surgical History (Last Reviewed 05/16/18 @ 10:51 by Garth Garner MD) History of coronary artery stent placement Onset Date: ~2011 Z95.5 Surgical History: total knee arthroplasty Psychiatric History: Depression Lives: With Family Smoking Status: Never smoker Drugs: None - *Family History Maternal Family History: Family History (Last Reviewed 05/16/18 @ 10:51 by Garth Garner MD) Father Colon cancer Lung cancer Diabetes Heart disease Hypertension High cholesterol Mother Cancer Diabetes Heart disease High cholesterol Hypertension History Items: No pertinent history Review of Systems Constitutional: Reports: Malaise, Weakness. Denies: Chills, Fever, Weight Change Eyes: Denies: Blurred vision HEENT: Denies: Head Aches, Sinus Congestion, Sinus Drainage Cardiovascular: Reports: Chest Pressure. Denies: Chest Pain, Light Headedness, Orthopnea, Palpitations, Paroxysmal Noc. Dyspnea, Syncope Respiratory: Denies: Cough, Pleuritic Pain, Shortness of breath at rest, Shortness of breath upon exertion, Sputum production, Wheezing Gastrointestinal: Denies: Abdominal Pain, Diarrhea, Nausea, Vomiting Genitourinary: Denies: Dysuria Musculoskeletal: Denies: Joint Pain, Joint Tenderness Skin: Denies: Rash, Wounds Neurological: Denies: Numbness, Tingling, Focal weakness Psychiatric: Denies: Anxiety, Depression, Homicidal Ideations, Suicidal Ideations Hematologic/ Lymphatic: Denies: Easy Bruising, Easy Bleeding VTE Information - Inpt Only VTE Present on Admission: Yes - possible PE, per CT angiogram VTE Pharm Prophylaxis ordered?: Yes VTE Suspected: Suspected PE Patient Problems: Active and Suspected Problems (Last Reviewed 05/16/18 @ 10:51 by Garth Garner MD) Generalized pain (Acute) Non-STEMI (non-ST elevated myocardial infarction) (Acute) - Physical Exam General: Alert, Oriented x3, Cooperative, - - in mild distress HEENT: Atraumatic, PERRLA, EOMI, Normocephalic Oral: Moist Mucosa Neck: Supple, No JVD, Negative Carotid Bruits Lungs: Clear to auscultation, Normal air movement, No rhonchi, No wheeze, No rales, - - on 3 L of oxygen; saturation dropped to 92% when oxygen reduced to 1L Cardiovascular: Regular rate, Regular Rhythm, Normal S1, Normal S2, - - grade 2 systolic murmur in mitral and tricuspid regions Abdomen: Soft, - - abdomen moderately distended, with mild tenderness to touch; no guarding or rebound tenderness. Minimal bowel sounds auscultated. Extremities: No clubbing, No cyanosis, No edema, Capillary Refill Less than 3 Seconds Skin: No rashes, No breakdown Musculoskeletal: No Tenderness to Palpation of Joints or Extremities Lymphatic: No Cervical, Supraclavicular, or Inguinal Adenopathy Neurological: Cranial nerves II-XII grossly intact, Motor Exam 5/5 strength throughout Psych/Mental Status: Normal Affect, Appropriate, Alert and oriented to time, place, person, mood and affect Vital Signs Temp Pulse Resp BP Pulse Ox 98.8 F 89 10 L 122/81 H 93 05/24/18 09:45 05/24/18 11:45 05/24/18 11:45 05/24/18 11:45 05/24/18 11:45 Oxygen Flow Rate (L/min) 2 Oxygen Delivery Method Nasal Cannula Laboratory Tests 05/24/18 05/24/18 09:55 09:55 WBC 8.1 RBC 4.59 L Hgb 12.9 L Hct 41.9 MCV 91.3 MCH 28.1 MCHC 30.8 L RDW 13.9 RDW Differential 45.8 H Plt Count 201 MPV 10.6 Immature Gran % (Auto) 0.100 Neut % (Auto) 48.9 Lymph % (Auto) 40.1 [place] % (Auto) 8.1 Eos % (Auto) 2.6 Baso % (Auto) 0.2 Absolute Neuts (auto) 3.9 Absolute Lymphs (auto) 3.24 Total Counted Not Reportable Sodium 141 Potassium 4.3 Chloride 103 Carbon Dioxide 29.0 Anion Gap 9 BUN 9 Creatinine 1.15 Estim Creat Clear Calc 71.05 Est GFR (MDRD) Af Amer 86 Est GFR (MDRD) Non-Af 71 BUN/Creatinine Ratio 7.8 L Glucose 91 Calcium 8.2 L Total Bilirubin 0.40 Direct Bilirubin 0.12 AST 156 H ALT 109 H Alkaline Phosphatase 139 H Total Creatine Kinase 4179 H Troponin I 1.620 H* Total Protein 7.1 Albumin 3.3 Globulin 3.8 Diagnostic Data Chest X-Ray 05/24/18 10:14 IMPRESSION: Degenerative changes, as described above. No demonstrated acute cardiopulmonary process. Electronically Signed: Scout Franco MD at 10:41 EDT , Service support , Chest CTA 05/24/18 11:10 IMPRESSION: There is heterogeneous diminished enhancement of the pulmonary arteries with regions of embolism versus artifact. Lower lung atelectasis or infiltrates. N.B. : The above information has been verbally conveyed by Scout Franco MD to , Covering Physician, on 05/24/2018 12:09:33 (ET). Electronically Signed: Scout Franco MD at 12:01 EDT , Service support , Assessment/Plan All Active Problems (Last Reviewed 05/16/18 @ 10:51 by Garth Garner MD) Gallbladder polyp (Acute) Right upper quadrant abdominal pain (Acute) Generalized pain (Acute) Non-STEMI (non-ST elevated myocardial infarction) (Acute) Influenza A H1N1 infection (Acute) Hypoxia (Acute) Lower extremity edema (Acute) CAP (community acquired pneumonia) due to Pneumococcus (Acute) 52 y/o male presenting with a complaint of generalised body pains for one day. 1. NSTEMI had chest pressure at home. Troponin was 1.62 on admission EKG showed no acute ST changes had been off his plavix for 6 days prior to his outpatient lap cholecystectomy 2 days ago received loading dose of plavix 300mg and aspirin 325mg once in ED admit to ICU o/a of hypotension will start heparin drip and continue with plavix 75mg daily. WIll give aspirin 81mg daily will cycle troponin cardiology consulted- will take patient emergently to the [facility] from the ED 2D echo ordered 2. ?PE CT angiogram done in the ED showed motion artifact versus PE due to poor IV bolus contrast. Stat 2D echo ordered. Still pending. Will get duplex of the lower extremities. I am concerned about the fact that patient's blood pressure was in the 140 systolic when he was admitted but dropped to the 90s systolic in the ED. This could be attributed to the PE versus the N STEMI. Started on IV heparin drip. Will also give IV fluids to help with hypotension. Will need to rule out a PE definitely during this admission also determine whether patient will be anticoagulated after discharge or otherwise. 3. Rhabdomyolysis CK is 4179 ALP is elevated at 139; CR is WNL at 1.15 On statin. States he was taken off his statin sometime ago on account of elevated liver enzymes. Statin was just resumed in April. However his general body ache started just 1 day ago after he had laparoscopic cholecystectomy. Denies taking any other new medication. Will hold atorvastatin in light of rhabdomyolysis. We will hydrate with IV fluids and monitor urine output. Past urinary catheter to monitor urine output. Will also monitor kidney function. 4. CAD s/p stents had stent placed ~ 2014 on aspirin, plavix and metoprolol. 5. Hypertension on lisinopril 2.5mg bid. WIll continue 6. DVT prophylaxis: heparin drip 7. Code status: Full code patient and counselled extensively about different types of CODE STATUS namely DNR CCA, DNR CC and full code and the differences between them. Patient elects to be full code. Tlha-is-acet counseling time 12 minutes. Code Visit Inpatient E&M: 11814 Init Hosp L3 Procedures: 22458 Advncd Care Plan 30 Min
--- NOTE | 2018-05-24 12:06 | HP.PCM_ITS ---
Problem List (1) Generalized pain Status: Acute History of Present Illness Date of Admission: 05/24/18 Chief Complaint: generalised pain The patient is a 52 year old M with a history of recent laparoscopic cholecystectomy 2 days ago, which he had an outpatient basis.. He started having generalised body aches with associated nausea and SOB. He took percocet but it didnt help. He denied any associated chest pain but admits to chest pressure which did not radiate to his left arm. He did not have any dizziness, orthopnea or diaphoresis. He denied any diarrhea vomiting and denied any new medication intake recently. Vitals in the ED showed blood pressure 122/81, temperature of 98.8 Fahrenheit, pulse rate of 89 respiratory rate of 10. Blood pressure had initially been 147/73 but dropped to 94/79 couple of hours later. At time of review, blood pressure was in the 100 systolic. Labs done in the ED showed Hb of 12.9, CK of 4179 and troponin of 1.62. AST and ALT were 156/109 and ALP was 139. Creatine kinase was 4179 and troponin was 1.62. He was iven aspirin, morphine and SL nitroglycerin. He was loaded with 300mg of plavix o/a of having held his plavix for 6 days prior to surgery. CT angiogram showed limited enhancement of the main pulmonary arteries and right and left pulmonary arteries with heterogenous areas of subtle diminished enhancement of peripheral branches with possible embolism vs infarct. He is being admitted to be managed for NSTEMI and possible PE.[] Past Medical History Past Medical History (Chronic Problems): Chronic Problems (Last Reviewed 05/16/18 @ 10:51 by Garth Garner MD) Obesity (Chronic) Hyperlipidemia (Chronic) GERD (gastroesophageal reflux disease) (Chronic) Depression (Chronic) Coronary artery disease (Chronic) Benign hypertension (Chronic) Medical History: Medical History (Last Reviewed 05/16/18 @ 10:51 by Garth Garner MD) Influenza A H1N1 infection (Acute) J10.1 Hypoxia (Acute) R09.02 Lower extremity edema (Acute) R60.0 Obesity (Chronic) E66.9 Hyperlipidemia (Chronic) E78.5 GERD (gastroesophageal reflux disease) (Chronic) K21.9 Depression (Chronic) F32.9 Coronary artery disease (Chronic) I25.10 CAP (community acquired pneumonia) due to Pneumococcus (Acute) J13 Benign hypertension (Chronic) I10 RUQ pain R10.11 Allergies metoclopramide HCl [From Reglan] Adverse Reaction (Verified 05/21/18 13:46) Other prochlorperazine edisylate [From Compazine] Adverse Reaction (Verified 05/21/18 13:46) Other prochlorperazine maleate [From Compazine] Adverse Reaction (Verified 05/21/18 13 :46) Other Home Medications: Ambulatory Orders Medication Instructions Recorded Clopidogrel Bisulfate [Plavix] 75 mg PO DAILY 06/24/14 Lamotrigine [Lamictal] 150 mg PO QHS 06/24/14 Lisinopril [Zestril] 2.5 mg PO BID 06/24/14 Montelukast [Singulair] 10 mg PO QHS 06/24/14 Aspirin E.C. [Ecotrin] 81 mg PO DAILY@0800 10/11/16 Albuterol Aerosols [Ventolin 2.5 mg INHALATION Q2H PRN PRN #50 12/29/16 Aerosols] vial.neb. Albuterol Inhaler [Ventolin Hfa] 2 puff INHALATION Q4H PRN PRN #60 12/29/16 inhaler Mometasone/Formoterol [Dulera 200 1 puff IH BID #1 hfa.aer.ad 12/29/16 Mcg/5 Mcg Inhaler] Ondansetron [Zofran Odt] 4 mg PO Q8H PRN PRN #10 tab 04/11/18 Oxycodone [Oxyir] 5 - 10 mg PO Q6H PRN PRN 4 Days 04/14/18 #20 tab traZODone [Desyrel] 50 mg PO BID 04/14/18 escitalopram 20 mg tablet 30 mg PO QDAY tab 05/16/18 omeprazole 40 mg capsule,delayed 40 mg PO QDAY cap 05/16/18 release Atorvastatin Calcium [Lipitor] 80 mg PO QHS 05/21/18 Oxycodone HCl/Acetaminophen 1 - 2 tab PO Q4H PRN PRN 4 Days 05/22/18 [Percocet 5/325] #30 tab Surgical History: Surgical History (Last Reviewed 05/16/18 @ 10:51 by Garth Garner MD) History of coronary artery stent placement Onset Date: ~2011 Z95.5 Surgical History: total knee arthroplasty Psychiatric History: Depression Lives: With Family Smoking Status: Never smoker Drugs: None - *Family History Maternal Family History: Family History (Last Reviewed 05/16/18 @ 10:51 by Garth Garner MD) Father Colon cancer Lung cancer Diabetes Heart disease Hypertension High cholesterol Mother Cancer Diabetes Heart disease High cholesterol Hypertension History Items: No pertinent history Review of Systems Constitutional: Reports: Malaise, Weakness. Denies: Chills, Fever, Weight Change Eyes: Denies: Blurred vision HEENT: Denies: Head Aches, Sinus Congestion, Sinus Drainage Cardiovascular: Reports: Chest Pressure. Denies: Chest Pain, Light Headedness, Orthopnea, Palpitations, Paroxysmal Noc. Dyspnea, Syncope Respiratory: Denies: Cough, Pleuritic Pain, Shortness of breath at rest, Shortness of breath upon exertion, Sputum production, Wheezing Gastrointestinal: Denies: Abdominal Pain, Diarrhea, Nausea, Vomiting Genitourinary: Denies: Dysuria Musculoskeletal: Denies: Joint Pain, Joint Tenderness Skin: Denies: Rash, Wounds Neurological: Denies: Numbness, Tingling, Focal weakness Psychiatric: Denies: Anxiety, Depression, Homicidal Ideations, Suicidal Ideations Hematologic/ Lymphatic: Denies: Easy Bruising, Easy Bleeding VTE Information - Inpt Only VTE Present on Admission: Yes - possible PE, per CT angiogram VTE Pharm Prophylaxis ordered?: Yes VTE Suspected: Suspected PE Patient Problems: Active and Suspected Problems (Last Reviewed 05/16/18 @ 10:51 by Garth Garner MD) Generalized pain (Acute) Non-STEMI (non-ST elevated myocardial infarction) (Acute) - Physical Exam General: Alert, Oriented x3, Cooperative, - - in mild distress HEENT: Atraumatic, PERRLA, EOMI, Normocephalic Oral: Moist Mucosa Neck: Supple, No JVD, Negative Carotid Bruits Lungs: Clear to auscultation, Normal air movement, No rhonchi, No wheeze, No rales, - - on 3 L of oxygen; saturation dropped to 92% when oxygen reduced to 1L Cardiovascular: Regular rate, Regular Rhythm, Normal S1, Normal S2, - - grade 2 systolic murmur in mitral and tricuspid regions Abdomen: Soft, - - abdomen moderately distended, with mild tenderness to touch; no guarding or rebound tenderness. Minimal bowel sounds auscultated. Extremities: No clubbing, No cyanosis, No edema, Capillary Refill Less than 3 Seconds Skin: No rashes, No breakdown Musculoskeletal: No Tenderness to Palpation of Joints or Extremities Lymphatic: No Cervical, Supraclavicular, or Inguinal Adenopathy Neurological: Cranial nerves II-XII grossly intact, Motor Exam 5/5 strength throughout Psych/Mental Status: Normal Affect, Appropriate, Alert and oriented to time, place, person, mood and affect Vital Signs Temp Pulse Resp BP Pulse Ox 98.8 F 89 10 L 122/81 H 93 05/24/18 09:45 05/24/18 11:45 05/24/18 11:45 05/24/18 11:45 05/24/18 11:45 Oxygen Flow Rate (L/min) 2 Oxygen Delivery Method Nasal Cannula Laboratory Tests 05/24/18 05/24/18 09:55 09:55 WBC 8.1 RBC 4.59 L Hgb 12.9 L Hct 41.9 MCV 91.3 MCH 28.1 MCHC 30.8 L RDW 13.9 RDW Differential 45.8 H Plt Count 201 MPV 10.6 Immature Gran % (Auto) 0.100 Neut % (Auto) 48.9 Lymph % (Auto) 40.1 [place] % (Auto) 8.1 Eos % (Auto) 2.6 Baso % (Auto) 0.2 Absolute Neuts (auto) 3.9 Absolute Lymphs (auto) 3.24 Total Counted Not Reportable Sodium 141 Potassium 4.3 Chloride 103 Carbon Dioxide 29.0 Anion Gap 9 BUN 9 Creatinine 1.15 Estim Creat Clear Calc 71.05 Est GFR (MDRD) Af Amer 86 Est GFR (MDRD) Non-Af 71 BUN/Creatinine Ratio 7.8 L Glucose 91 Calcium 8.2 L Total Bilirubin 0.40 Direct Bilirubin 0.12 AST 156 H ALT 109 H Alkaline Phosphatase 139 H Total Creatine Kinase 4179 H Troponin I 1.620 H* Total Protein 7.1 Albumin 3.3 Globulin 3.8 Diagnostic Data Chest X-Ray 05/24/18 10:14 IMPRESSION: Degenerative changes, as described above. No demonstrated acute cardiopulmonary process. Electronically Signed: Scout Franco MD at 10:41 EDT , Service support , Chest CTA 05/24/18 11:10 IMPRESSION: There is heterogeneous diminished enhancement of the pulmonary arteries with regions of embolism versus artifact. Lower lung atelectasis or infiltrates. N.B. : The above information has been verbally conveyed by Scout Franco MD to , Covering Physician, on 05/24/2018 12:09:33 (ET). Electronically Signed: Scout Franco MD at 12:01 EDT , Service support , Assessment/Plan All Active Problems (Last Reviewed 05/16/18 @ 10:51 by Garth Garner MD) Gallbladder polyp (Acute) Right upper quadrant abdominal pain (Acute) Generalized pain (Acute) Non-STEMI (non-ST elevated myocardial infarction) (Acute) Influenza A H1N1 infection (Acute) Hypoxia (Acute) Lower extremity edema (Acute) CAP (community acquired pneumonia) due to Pneumococcus (Acute) 52 y/o male presenting with a complaint of generalised body pains for one day. 1. NSTEMI * had chest pressure at home. Troponin was 1.62 on admission * EKG showed no acute ST changes * had been off his plavix for 6 days prior to his outpatient lap cholecystectomy 2 days ago * received loading dose of plavix 300mg and aspirin 325mg once in ED * admit to ICU o/a of hypotension * will start heparin drip and continue with plavix 75mg daily. WIll give aspirin 81mg daily * will cycle troponin * cardiology consulted- will take patient emergently to the car barn laborer from the ED * 2D echo ordered * 2. ?PE * CT angiogram done in the ED showed motion artifact versus PE due to poor IV bolus contrast. * Stat 2D echo ordered. Still pending. * Will get duplex of the lower extremities. I am concerned about the fact that patient's blood pressure was in the 140 systolic when he was admitted but dropped to the 90s systolic in the ED. This could be attributed to the PE versus the N STEMI. * Started on IV heparin drip. Will also give IV fluids to help with hypotension. * Will need to rule out a PE definitely during this admission also determine whether patient will be anticoagulated after discharge or otherwise. * 3. Rhabdomyolysis * CK is 4179 * ALP is elevated at 139; CR is WNL at 1.15 * On statin. States he was taken off his statin sometime ago on account of elevated liver enzymes. Statin was just resumed in April. However his general body ache started just 1 day ago after he had laparoscopic cholecystectomy. Denies taking any other new medication. * Will hold atorvastatin in light of rhabdomyolysis. We will hydrate with IV fluids and monitor urine output. Past urinary catheter to monitor urine output. Will also monitor kidney function. * * 4. CAD s/p stents * had stent placed ~ 2014 * on aspirin, plavix and metoprolol. * 5. Hypertension * on lisinopril 2.5mg bid. WIll continue * 6. DVT prophylaxis: heparin drip 7. Code status: Full code * patient and counselled extensively about different types of CODE STATUS namely DNR CCA, DNR CC and full code and the differences between them. Patient elects to be full code. [id number] counseling time 12 minutes. Code Visit Inpatient E&M: 67847 Init Hosp L3 Procedures: 94358 Advncd Care Plan 30 Min
[2018-05-24] MEDS: 0.9% Normal Saline 1,000 ML 999 ML IV (13:41)
[2018-05-24] MEDS: 0.9% Normal Saline 1,000 ML 125 ML IV ×2 (14:30→23:45)
[2018-05-24] MEDS: DiphenhydrAMINE 25 MG Capsule 50 MG PO (14:34)
[2018-05-24] MEDS: Morphine 2 MG/ML Syringe IV ×2 (14:35→21:34)
--- NOTE | 2018-05-24 14:39 | PCM.CONS.C ---
Problem List (1) Non-STEMI (non-ST elevated myocardial infarction) Status: Acute (2) Hyperlipidemia Status: Chronic (3) Coronary artery disease Status: Chronic (4) Benign hypertension Status: Chronic Reason for Consult Date of Consultation: 05/24/18 Reason for Consultation: Coronary artery disease, chest pain, non-STEMI, hypertension, hypercholesterolemia, previous stents History of Present Illness: The patient is a 52 year old M, morbidly obese nondiabetic non-smoking gentleman with a history of hypertension, hypercholesterolemia, coronary artery disease status post angioplasty and stenting of his diagonal branch by Dr. Mendoza at [facility] in 2011. Apparently he had a repeat catheterization in 2013 which showed widely patent stent to his diagonal branch. The patient was noted to have increased LFTs around October 2017 and his statin was discontinued. In March 2018 the patient had presented with worsening abdominal pain, increased LFTs, and was found to have gallbladder stones. Patient's aspirin and Plavix was discontinued approximately 1 week ago, and he underwent successful laparoscopic cholecystectomy by Dr. Garner on 05/22/18. Patient did well and was subsequently discharged yesterday. Patient restarted his aspirin and Plavix today. This morning the patient began to feel unwell and with generalized muscle aches as well as chest pressure and some mild dyspnea on exertion. When this did not improve he came to [facility] ER where he was found to have a troponin of 1.67. His EKG showed normal sinus rhythm, no acute changes. He underwent a CTA of his chest to evaluate for pulmonary embolism which was found to be nondiagnostic although no overt pulmonary emboli were noted. Patient was reloaded with Plavix 300 mg earlier this morning, and after consultation with Dr. Garner's machine operator assistant Dr. Arredondo it was determined the patient may proceed with possible heparinization. Currently the patient is laying in bed, in mild abdominal distress but no chest pain. His vital signs are stable. [] Past Medical History Allergies/Adverse Reactions: Allergies metoclopramide HCl [From Reglan] Adverse Reaction (Verified 05/21/18 13:46) Other prochlorperazine edisylate [From Compazine] Adverse Reaction (Verified 05/21/18 13:46) Other prochlorperazine maleate [From Compazine] Adverse Reaction (Verified 05/21/18 13:46) Other Home Medications: Ambulatory Orders Medication Instructions Recorded Clopidogrel Bisulfate [Plavix] 75 mg PO DAILY 06/24/14 Lamotrigine [Lamictal] 150 mg PO QHS 06/24/14 Lisinopril [Zestril] 2.5 mg PO BID 06/24/14 Montelukast [Singulair] 10 mg PO QHS 06/24/14 Aspirin E.C. [Ecotrin] 81 mg PO DAILY@0800 10/11/16 Albuterol Aerosols [Ventolin 2.5 mg INHALATION Q2H PRN PRN #50 12/29/16 Aerosols] vial.neb. Albuterol Inhaler [Ventolin Hfa] 2 puff INHALATION Q4H PRN PRN #60 12/29/16 inhaler Mometasone/Formoterol [Dulera 200 1 puff IH BID #1 hfa.aer.ad 12/29/16 Mcg/5 Mcg Inhaler] Ondansetron [Zofran Odt] 4 mg PO Q8H PRN PRN #10 tab 04/11/18 Oxycodone [Oxyir] 5 - 10 mg PO Q6H PRN PRN 4 Days 04/14/18 #20 tab traZODone [Desyrel] 50 mg PO BID 04/14/18 escitalopram 20 mg tablet 30 mg PO QDAY tab 05/16/18 omeprazole 40 mg capsule,delayed 40 mg PO QDAY cap 05/16/18 release Atorvastatin Calcium [Lipitor] 80 mg PO QHS 05/21/18 Oxycodone HCl/Acetaminophen 1 - 2 tab PO Q4H PRN PRN 4 Days 05/22/18 [Percocet 5/325] #30 tab Past Medical History (Chronic Problems): Chronic Problems (Last Reviewed 05/16/18 @ 10:51 by Garth Garner MD) Obesity (Chronic) Hyperlipidemia (Chronic) GERD (gastroesophageal reflux disease) (Chronic) Depression (Chronic) Coronary artery disease (Chronic) Benign hypertension (Chronic) Surgical History: total knee arthroplasty Psychiatric History: Depression - *Family History Maternal Family History: Family History (Last Reviewed 05/16/18 @ 10:51 by Garth Garner MD) Father Colon cancer Lung cancer Diabetes Heart disease Hypertension High cholesterol Mother Cancer Diabetes Heart disease High cholesterol Hypertension History Items: No pertinent history Lives: With Family Smoking Status: Never smoker Drugs: None Review of Systems - Review of Systems General: Reports: Malaise, Weakness. Denies: Fever, Fatigue, Night Sweats Cardiovascular: Reports: Chest Discomfort, Chest Discomfort at Rest, Shortness of Breath, Shortness of Breath at Rest. Denies: Orthopnea, PND, Peripheral Edema, Palpitations, Lightheadedness, Dizziness, Near Syncope, Syncope Respiratory: Denies: Cough, Sputum Production, Hemoptysis Gastrointestinal: Reports: Abdominal Discomfort, Nausea. Denies: Hematemesis, Hematochezia, Melena Genitourinary: Denies: Dysuria, Hematuria Skin: Denies: Rash Subjectve: Patient laying in bed, no acute distress. Mild abdominal discomfort. Objective: Vital Signs Temp Pulse Resp BP Pulse Ox 98.8 F 78 18 109/76 96 05/24/18 09:45 05/24/18 13:00 05/24/18 13:00 05/24/18 13:00 05/24/18 13:00 Oxygen Flow Rate (L/min) 2 Oxygen Delivery Method Nasal Cannula General: Awake, Alert, Oriented x 3 HEENT: PERRL, EOMI, Sclera Non Icteric Neck: Supple, Good ROM, No Lymph Node Enlargement Lungs: Clear to auscultation Cardiovascular: Regular Rhythm, Normal S1, Normal S2, No Murmurs, No Rubs, No Gallops Vascular: No Carotid Bruits, Normal Femoral Pulses, Normal Radial Pulses, Normal Dorsalis Pedal Pulse, Normal Posterior Tibial Pulses Abdomen: Bowel Sounds Present, Soft, Non Tender, No HSM, No Organomegaly Extremities: No Cyanosis, No Clubbing, No edema Neurological: No Focal Motor or Sensory Deficit Rhythm: EKG: Normal sinus rhythm, normal axis, no acute changes. ECHO: Stress Test: Cardiac Cath: Pending PCI: CT Surgery: Holter monitor: EPS: PPM: CXR: Chest CT Scan: Assessment/Plan 1. Non-STEMI: The patient has a known history of coronary disease status post angioplasty and stenting to his diagonal branch in 2011 at [facility], now returns with substernal chest pressure in the face of a recent laparoscopic cholecystectomy approximately 48 hours ago. His troponin at this time is 1.67, and his EKG is negative for dynamic ischemia. The patient did not have a preoperative stress test, and has been off of both Plavix and his aspirin for approximately 7 days. Given the patient's presentation, history, abnormal troponin, chest pain, and recent surgery I recommended he undergo a 2D echo with Doppler as well as a urgent left heart catheterization to assess his coronary anatomy. Patient was loaded with 300 mg of Plavix this morning, as well as baby aspirin. Patient underwent a CTA of his chest which was nondiagnostic for pulmonary emboli but upon my review I did not see any overt thrombi. If the patient's catheterization shows no coronary occlusive disease that requires percutaneous angioplasty, I would recommend medical management going forward. Would recommend continuing baby aspirin and Plavix going forward. 2. Hyperlipidemia: Would recommend holding off on antilipid therapy until after his LFTs have normalized. 3. Status post left scopic cholecystectomy: If the patient's abdominal condition worsens, I would recommend consultation with general surgery specifically Dr. Leon who is covering for Dr. Garner. 4. Thank you very much for the opportunity to participate in the cardiac care of your patient. Catheterization results are pending. Consultation time took place between 2 PM and 2:40 PM. Code Visit Inpatient E&M: 29014 Init Hosp L3
--- NOTE | 2018-05-24 14:43 | CON.PCM_ITS ---
Problem List (1) Non-STEMI (non-ST elevated myocardial infarction) Status: Acute (2) Hyperlipidemia Status: Chronic (3) Coronary artery disease Status: Chronic (4) Benign hypertension Status: Chronic Reason for Consult Date of Consultation: 05/24/18 Reason for Consultation: Coronary artery disease, chest pain, non-STEMI, hypertension, hypercholesterolemia, previous stents History of Present Illness: The patient is a 52 year old M, morbidly obese nondiabetic non-smoking gentleman with a history of hypertension, hypercholesterolemia, coronary artery disease status post angioplasty and stenting of his diagonal branch by Dr. Mendoza at [facility] in 2011. Apparently he had a repeat catheterization in 2013 which showed widely patent stent to his diagonal branch. The patient was noted to have increased LFTs around October 2017 and his statin was discontinued. In March 2018 the patient had presented with worsening abdominal pain, increased LFTs, and was found to have gallbladder stones. Patient's aspirin and Plavix was discontinued approximately 1 week ago , and he underwent successful laparoscopic cholecystectomy by Dr. Garner on 05/22. Patient did well and was subsequently discharged yesterday. Patient restarted his aspirin and Plavix today. This morning the patient began to feel unwell and with generalized muscle aches as well as chest pressure and some mild dyspnea on exertion. When this did not improve he came to [facility] ER where he was found to have a troponin of 1.67. His EKG showed normal sinus rhythm, no acute changes. He underwent a CTA of his chest to evaluate for pulmonary embolism which was found to be nondiagnostic although no overt pulmonary emboli were noted. Patient was reloaded with Plavix 300 mg earlier this morning, and after consultation with Dr. Garner's clinical medical assistant Dr. Arredondo it was determined the patient may proceed with possible heparinization. Currently the patient is laying in bed, in mild abdominal distress but no chest pain. His vital signs are stable. [] Past Medical History Allergies/Adverse Reactions: Allergies metoclopramide HCl [From Reglan] Adverse Reaction (Verified 05/21/18 13:46) Other prochlorperazine edisylate [From Compazine] Adverse Reaction (Verified 05/21/18 13:46) Other prochlorperazine maleate [From Compazine] Adverse Reaction (Verified 05/21/18 13 :46) Other Home Medications: Ambulatory Orders Medication Instructions Recorded Clopidogrel Bisulfate [Plavix] 75 mg PO DAILY 06/24/14 Lamotrigine [Lamictal] 150 mg PO QHS 06/24/14 Lisinopril [Zestril] 2.5 mg PO BID 06/24/14 Montelukast [Singulair] 10 mg PO QHS 06/24/14 Aspirin E.C. [Ecotrin] 81 mg PO DAILY@0800 10/11/16 Albuterol Aerosols [Ventolin 2.5 mg INHALATION Q2H PRN PRN #50 12/29/16 Aerosols] vial.neb. Albuterol Inhaler [Ventolin Hfa] 2 puff INHALATION Q4H PRN PRN #60 12/29/16 inhaler Mometasone/Formoterol [Dulera 200 1 puff IH BID #1 hfa.aer.ad 12/29/16 Mcg/5 Mcg Inhaler] Ondansetron [Zofran Odt] 4 mg PO Q8H PRN PRN #10 tab 04/11/18 Oxycodone [Oxyir] 5 - 10 mg PO Q6H PRN PRN 4 Days 04/14/18 #20 tab traZODone [Desyrel] 50 mg PO BID 04/14/18 escitalopram 20 mg tablet 30 mg PO QDAY tab 05/16/18 omeprazole 40 mg capsule,delayed 40 mg PO QDAY cap 05/16/18 release Atorvastatin Calcium [Lipitor] 80 mg PO QHS 05/21/18 Oxycodone HCl/Acetaminophen 1 - 2 tab PO Q4H PRN PRN 4 Days 05/22/18 [Percocet 5/325] #30 tab Past Medical History (Chronic Problems): Chronic Problems (Last Reviewed 05/16/18 @ 10:51 by Garth Garner MD) Obesity (Chronic) Hyperlipidemia (Chronic) GERD (gastroesophageal reflux disease) (Chronic) Depression (Chronic) Coronary artery disease (Chronic) Benign hypertension (Chronic) Surgical History: total knee arthroplasty Psychiatric History: Depression - *Family History Maternal Family History: Family History (Last Reviewed 05/16/18 @ 10:51 by Garth Garner MD) Father Colon cancer Lung cancer Diabetes Heart disease Hypertension High cholesterol Mother Cancer Diabetes Heart disease High cholesterol Hypertension History Items: No pertinent history Lives: With Family Smoking Status: Never smoker Drugs: None Review of Systems - Review of Systems General: Reports: Malaise, Weakness. Denies: Fever, Fatigue, Night Sweats Cardiovascular: Reports: Chest Discomfort, Chest Discomfort at Rest, Shortness of Breath, Shortness of Breath at Rest. Denies: Orthopnea, PND, Peripheral Edema, Palpitations, Lightheadedness, Dizziness, Near Syncope, Syncope Respiratory: Denies: Cough, Sputum Production, Hemoptysis Gastrointestinal: Reports: Abdominal Discomfort, Nausea. Denies: Hematemesis, Hematochezia, Melena Genitourinary: Denies: Dysuria, Hematuria Skin: Denies: Rash Subjectve: Patient laying in bed, no acute distress. Mild abdominal discomfort. Objective: Vital Signs Temp Pulse Resp BP Pulse Ox 98.8 F 78 18 109/76 96 05/24/18 09:45 05/24/18 13:00 05/24/18 13:00 05/24/18 13:00 05/24/18 13:00 Oxygen Flow Rate (L/min) 2 Oxygen Delivery Method Nasal Cannula General: Awake, Alert, Oriented x 3 HEENT: PERRL, EOMI, Sclera Non Icteric Neck: Supple, Good ROM, No Lymph Node Enlargement Lungs: Clear to auscultation Cardiovascular: Regular Rhythm, Normal S1, Normal S2, No Murmurs, No Rubs, No Gallops Vascular: No Carotid Bruits, Normal Femoral Pulses, Normal Radial Pulses, Normal Dorsalis Pedal Pulse, Normal Posterior Tibial Pulses Abdomen: Bowel Sounds Present, Soft, Non Tender, No HSM, No Organomegaly Extremities: No Cyanosis, No Clubbing, No edema Neurological: No Focal Motor or Sensory Deficit Rhythm: EKG: Normal sinus rhythm, normal axis, no acute changes. ECHO: Stress Test: Cardiac Cath: Pending PCI: CT Surgery: Holter monitor: EPS: PPM: CXR: Chest CT Scan: Assessment/Plan 1. Non-STEMI: The patient has a known history of coronary disease status post angioplasty and stenting to his diagonal branch in 2011 at [facility], now returns with substernal chest pressure in the face of a recent laparoscopic cholecystectomy approximately 48 hours ago. His troponin at this time is 1.67, and his EKG is negative for dynamic ischemia. The patient did not have a preoperative stress test, and has been off of both Plavix and his aspirin for approximately 7 days. Given the patient's presentation, history, abnormal troponin, chest pain, and recent surgery I recommended he undergo a 2D echo with Doppler as well as a urgent left heart catheterization to assess his coronary anatomy. Patient was loaded with 300 mg of Plavix this morning, as well as baby aspirin. Patient underwent a CTA of his chest which was nondiagnostic for pulmonary emboli but upon my review I did not see any overt thrombi. If the patient's catheterization shows no coronary occlusive disease that requires percutaneous angioplasty, I would recommend medical management going forward. Would recommend continuing baby aspirin and Plavix going forward. 2. Hyperlipidemia: Would recommend holding off on antilipid therapy until after his LFTs have normalized. 3. Status post left scopic cholecystectomy: If the patient's abdominal condition worsens, I would recommend consultation with general surgery specifically Dr. Leon who is covering for Dr. Garner. 4. Thank you very much for the opportunity to participate in the cardiac care of your patient. Catheterization results are pending. Consultation time took place between 2 PM and 2:40 PM. Code Visit Inpatient E&M: 10910 Init Hosp L3
--- NOTE | 2018-05-24 15:37 | CL.D_ITS ---
Patient Name: ASHLIE ARCOS Study Date: 05/24/2018 Performing: Garth King MD Ht: 66.92 inches 170 cm : 1965 Wt: 268.96 lbs 122 kg Age: 52 Gender: male BSA: 2.29 PROCEDURE(S) PERFORMED AG59-HIR/COR/LV CLINICAL PROFILE AND INDICATIONS Patient presents with NSTEMI for urgent cardiac cath Indications: ACS <= 24 hrs, Stable Known CAD Heart Failure: None Stress/Imaging Stress/Image Study Performed: No Angina Classification Anginal Classification w/in 2 Weeks: CCS IV CAD Presentations: Unstable angina. Non-STEMI. Symptom onset Date/Time: 05/24/2018 Time Not Availa ble Comorbidities/Risk Factors: Hypertension Dyslipidemia Prior PCI CONCLUSIONS Non obstructive coronary arteries Widely patent DIAG stent with mild in stent restenosis. RECOMMENDATIONS No recommendations -> Normal findings Management as per referring [employer] Operator D/w Dr Sanchez. DESCRIPTION OF PROCEDURE The patient arrived to the procedure lab. The risks and benefits of the procedure as well as a full d escription of our services here and current unavailability of surgical backup were fully explained to the patient and/or their significant other prior to the catheterization. The Timeout was completed, verifying the correct patient and procedure. The patient's procedural site was prepped and draped in the usual fashion. Local anesthetic was given subcutaneously to right groin region with Lidocaine 2%. Using a modified Seldinger technique, arterial access was obtained via the right femoral artery, a 4 Fr sheath was inserted Left Coronary Artery selective angiography was performed in multiple views us ing a 4 Fr. JL5 catheter. Left Coronary Artery selective angiography was performed in multiple views using a 4 Fr. JL4 catheter. Right Coronary Artery selective angiography was then performed in multipl e views using a 4 Fr. 3DRC catheter. Left Ventriculography was performed in AYALA projection using a 4 Fr. Pigtail catheter. LV to AO pullback pressures were then recorded.The arterial sheath was pulled a nd manual compression applied until hemostasis is achieved. CORONARY ANGIOGRAPHY DOMINANCE: Right Dominant LEFT HEART ASSESSMENT Left Ventricular Ejection Fraction: by LV Gram 65 % Normal LV wall motion Normal Left Ventricular systolic function LEFT MAIN: Angiographically normal LEFT ANTERIOR DECENDING ARTERY: Angiographically normal DIAGONAL 1: Ostial - Instent restenosis 30 % CIRCUMFLEX ARTERY: Angiographically normal RIGHT CORONARY ARTERY: Angiographically normal COMPLICATIONS No Complications PROCEDURE MEDICATIONS Oxygen: 2 L/min via nasal cannula SUMMARY OF HEMODYNAMIC DATA Time AIR REST ECG 15:08:14 AO 121/77 (97) SA 15:20:10 LV 138/-18, 22 15:27:54 LV 134/-18, 21 15:28:02 LVp 133/-12, 24 15:28:07 AOp 118/70 (89) 15:28:12 Signed By Garth King MD On 05/24/2018 15:37:08 Signed By Garth King MD On 05/24/2018 15:36:51 Garth King MD
--- NOTE | 2018-05-24 15:47 | PCM.CON.CC ---
Problem List (1) Right upper quadrant abdominal pain Status: Acute (2) Non-STEMI (non-ST elevated myocardial infarction) Status: Acute (3) Obesity Status: Chronic Qualifiers: Obesity type: due to excess calories Obesity classification: adult class 3 (BMI >= 40) Body mass index: BMI 40.0-44.9 (4) Hyperlipidemia Status: Chronic Qualifiers: Hyperlipidemia type: pure hypercholesterolemia Qualified Code(s): E78.00 - Pure hypercholesterolemia, unspecified; E78.0 - Pure hypercholesterolemia (5) GERD (gastroesophageal reflux disease) Status: Chronic (6) Depression Status: Chronic (7) Coronary artery disease Status: Chronic (8) Benign hypertension Status: Chronic Reason for Consult Date of Consultation: 05/24/18 Reason for Consultation: Hypotension History of Present Illness: The patient is a 52 year old M, with past medical history listed below, who presented to [facility] on 05/24/2018 secondary to generalized body pain and chest pain. Patient reportedly had a laparoscopic cholecystectomy by Dr. Garner 2 days ago. Patient states the pain is relieved by laying still. Patient has had some nausea and shortness of breath. Patient was discharged on Percocet therapy, but does not believe this significantly helps his overall condition. Patient is not having any significant abdominal pain, but has localized tenderness to the right upper quadrant. Patient states that he has been going easy on the diet. Patient denied any trauma. Cardiology was consulted while patient was still in the ER. Patient had been given 300 mg of Plavix and was arranged for a heart catheterization. There was concern given patient's cessation of Plavix and aspirin for 5 days prior to surgery for stent stenosis. Patient has undergone cardiac catheterization showing a 30% stenosis of previous stent, but no intervention was required. While in the ER, patient reportedly did have some hypotension with a lowest documented blood pressure of 94/79. No fevers or tachycardia have been recorded. A CT scan of the chest was of poor quality and showed no pulmonary embolism. Patient has been initiated on a heparin drip secondary to concern for possible PE and non-ST elevation NC. Patient denies any history of alcohol, tobacco, recreational drugs or environmental exposures. Past Medical History Past Medical History (Chronic Problems): Chronic Problems (Last Reviewed 05/16/18 @ 10:51 by Garth Garner MD) Obesity (Chronic) Hyperlipidemia (Chronic) GERD (gastroesophageal reflux disease) (Chronic) Depression (Chronic) Coronary artery disease (Chronic) Benign hypertension (Chronic) Medical History: Medical History (Last Reviewed 05/16/18 @ 10:51 by Garth Garner MD) Influenza A H1N1 infection (Acute) J10.1 Hypoxia (Acute) R09.02 Lower extremity edema (Acute) R60.0 Obesity (Chronic) E66.9 Hyperlipidemia (Chronic) E78.5 GERD (gastroesophageal reflux disease) (Chronic) K21.9 Depression (Chronic) F32.9 Coronary artery disease (Chronic) I25.10 CAP (community acquired pneumonia) due to Pneumococcus (Acute) J13 Benign hypertension (Chronic) I10 RUQ pain R10.11 Allergies metoclopramide HCl [From Reglan] Adverse Reaction (Verified 05/21/18 13:46) Other prochlorperazine edisylate [From Compazine] Adverse Reaction (Verified 05/21/18 13:46) Other prochlorperazine maleate [From Compazine] Adverse Reaction (Verified 05/21/18 13:46) Other Home Medications: Ambulatory Orders Medication Instructions Recorded Clopidogrel Bisulfate [Plavix] 75 mg PO DAILY 06/24/14 Lamotrigine [Lamictal] 150 mg PO QHS 06/24/14 Lisinopril [Zestril] 2.5 mg PO BID 06/24/14 Montelukast [Singulair] 10 mg PO QHS 06/24/14 Aspirin E.C. [Ecotrin] 81 mg PO DAILY@0800 10/11/16 Albuterol Aerosols [Ventolin 2.5 mg INHALATION Q2H PRN PRN #50 12/29/16 Aerosols] vial.neb. Albuterol Inhaler [Ventolin Hfa] 2 puff INHALATION Q4H PRN PRN #60 12/29/16 inhaler Mometasone/Formoterol [Dulera 200 1 puff IH BID #1 hfa.aer.ad 12/29/16 Mcg/5 Mcg Inhaler] Ondansetron [Zofran Odt] 4 mg PO Q8H PRN PRN #10 tab 04/11/18 Oxycodone [Oxyir] 5 - 10 mg PO Q6H PRN PRN 4 Days 04/14/18 #20 tab traZODone [Desyrel] 50 mg PO BID 04/14/18 escitalopram 20 mg tablet 30 mg PO QDAY tab 05/16/18 omeprazole 40 mg capsule,delayed 40 mg PO QDAY cap 05/16/18 release Atorvastatin Calcium [Lipitor] 80 mg PO QHS 05/21/18 Oxycodone HCl/Acetaminophen 1 - 2 tab PO Q4H PRN PRN 4 Days 05/22/18 [Percocet 5/325] #30 tab Surgical History: Surgical History (Last Reviewed 05/16/18 @ 10:51 by Garth Garner MD) History of coronary artery stent placement Onset Date: ~2011 Z95.5 Surgical History: total knee arthroplasty Psychiatric History: Depression Lives: With Family Smoking Status: Never smoker Drugs: None - *Family History Maternal Family History: Family History (Last Reviewed 05/16/18 @ 10:51 by Garth Garner MD) Father Colon cancer Lung cancer Diabetes Heart disease Hypertension High cholesterol Mother Cancer Diabetes Heart disease High cholesterol Hypertension History Items: No pertinent history Review of Systems Comment: See HPI, otherwise negative ?10 systems. Patient Problems: Active and Suspected Problems (Last Reviewed 05/16/18 @ 10:51 by Garth Garner MD) Generalized pain (Acute) Non-STEMI (non-ST elevated myocardial infarction) (Acute) Objective: CT scan of the chest was personally reviewed. This did not show any obvious pulmonary embolisms noted. Patient did have some basilar atelectasis. - Physical Exam General: Alert, Oriented x3, Cooperative, No apparent distress, - - Morbidly obese. Speaking in full sentences. HEENT: Atraumatic, PERRLA, EOMI, Normocephalic, - - No scleral icterus or injection noted. Oral: Moist Mucosa, No Gingival or Mucosal Lesions/ Ulcerations Neck: Supple, No JVD, No Nodes, Trachea Midline Lungs: No rhonchi, No wheeze, No rales, Diminished, - - Symmetric expansion. No dullness to percussion. Cardiovascular: Regular rate, Regular Rhythm, Normal S1, Normal S2, No murmurs, No rub noted, No Gallop Abdomen: Bowel Sounds Present, Soft, Tender - Right upper quadrant, - - No guarding or rebound tenderness appreciated. Extremities: No clubbing, No cyanosis, Capillary Refill Less than 3 Seconds, Edema - Trace lower extremity Skin: Incision - Clean, dry and intact. Musculoskeletal: No Tenderness to Palpation of Joints or Extremities Lymphatic: No Cervical, Supraclavicular, or Inguinal Adenopathy Neurological: Cranial nerves II-XII grossly intact, Neuro grossly intact, Motor Exam 5/5 strength throughout Psych/Mental Status: Alert and oriented to time, place, person, mood and affect Vital Signs Temp Pulse Resp BP Pulse Ox 36.3 C L 78 17 112/87 H 94 05/24/18 14:15 05/24/18 15:00 05/24/18 14:30 05/24/18 14:30 05/24/18 14:30 Oxygen Flow Rate (L/min) 2 Oxygen Delivery Method Room Air Laboratory Tests 05/24/18 05/24/18 09:55 09:55 WBC 8.1 RBC 4.59 L Hgb 12.9 L Hct 41.9 MCV 91.3 MCH 28.1 MCHC 30.8 L RDW 13.9 RDW Differential 45.8 H Plt Count 201 MPV 10.6 Immature Gran % (Auto) 0.100 Neut % (Auto) 48.9 Lymph % (Auto) 40.1 Gosper % (Auto) 8.1 Eos % (Auto) 2.6 Baso % (Auto) 0.2 Absolute Neuts (auto) 3.9 Absolute Lymphs (auto) 3.24 Total Counted Not Reportable Sodium 141 Potassium 4.3 Chloride 103 Carbon Dioxide 29.0 Anion Gap 9 BUN 9 Creatinine 1.15 Estim Creat Clear Calc 71.05 Est GFR (MDRD) Af Amer 86 Est GFR (MDRD) Non-Af 71 BUN/Creatinine Ratio 7.8 L Glucose 91 Calcium 8.2 L Total Bilirubin 0.40 Direct Bilirubin 0.12 AST 156 H ALT 109 H Alkaline Phosphatase 139 H Total Creatine Kinase 4179 H Troponin I 1.620 H* Total Protein 7.1 Albumin 3.3 Globulin 3.8 Clinical Impression(s) from Imaging Studies Chest X-Ray 05/24/18 10:14 IMPRESSION: Degenerative changes, as described above. No demonstrated acute cardiopulmonary process. Electronically Signed: Scout Franco MD at 10:41 EDT , Service support , Chest CTA 05/24/18 11:10 IMPRESSION: There is heterogeneous diminished enhancement of the pulmonary arteries with regions of embolism versus artifact. Lower lung atelectasis or infiltrates. N.B. : The above information has been verbally conveyed by Scout Franco MD to , Covering Physician, on 05/24/2018 12:09:33 (ET). Electronically Signed: Scout Franco MD at 12:01 EDT , Service support , Assessment/Plan Active and Suspected Problems (Last Reviewed 05/16/18 @ 10:51 by Garth Garner MD) Generalized pain (Acute) Non-STEMI (non-ST elevated myocardial infarction) (Acute) RECOMMENDATIONS: 1. Aggressive pain control with incentive spirometer 2. Obtain lower extremity Dopplers 3. Monitor oxygenation while sleeping 4. Probably okay to discharge anticoagulation after 48 hours 5. Okay to leave the intensive care unit from my perspective IMPRESSIONS: 1. Non-ST elevation NC Unclear etiology. Patient's heart catheterization does not show any intervention is required. Unclear if patient had transient ischemia secondary to lack of Plavix and aspirin. Patient reportedly has had intermittent hypotension. Echocardiogram has been ordered, but LV function was within normal limits on heart catheterization. Did discuss with cardiology about possibly doing a right heart catheterization. However, given the possibility of pulmonary embolisms, this was avoided. Blood pressure have been stable for now. Patient is back on aspirin and Plavix. 2. Possible PE Should has been saturating well on room air without tachycardia. Patient did have immobility related to recent surgery. Patient is on heparin drip at this time. No intervention for hypotension has been required. If patient were to develop hypotension, fluid challenge would be appropriate. 3. Mild rhabdomyolysis Patient with a CK of 4179. Unclear if this is related to postsurgical changes. Patient was on a statin previously. Hold statin therapy and hydrate with IV fluids. Repeat renal function studies tomorrow. 4. Hypertension/coronary artery disease/morbid obesity/recent cholecystectomy Complicates care, management, recovery and prognosis. Surgery is following with the patient. Likely okay to continue with baseline antihypertensive medications. Code Visit Inpatient E&M: 91210 Init Hosp L2
[2018-05-24 16:33] LABS: M R Staph aureus DNA By PCR Negative (Negative); Probe Check PASS; Specimen Processing Control PASS
[2018-05-24] MEDS: Acetaminophen 325 MG Tablet PO ×2 (17:09→22:03)
[2018-05-24] MEDS: oxyCODONE 5 MG Tablet PO ×2 (17:09→22:03)
--- NOTE | 2018-05-24 18:04 | PCM.CONS.GEN ---
Reason for Consult Date of Consultation: 05/24/18 History of Present Illness: The patient is a 52 year old M status post laparoscopic cholecystectomy due to right upper quadrant pain and gallbladder polyp by Dr. Garner and 05/22/2018. Patient states that right after surgery he had body aches and soreness which only continued once he went home. He and his initially thought that was normal after surgery; however after having a fever of 101 last night and chills this morning patient presented to the ER. Patient's states he has diffuse body aches in his joints if he moves unable to say if he really has any increased abdominal pain or if his previous pain from before surgery had improved since he has had this diffuse pain throughout his body. He denies any nausea or vomiting, he states had minimal flatus and no bowel movement since surgery. He has been taking Percocet which has not really helped with his diffuse body aches and he was previously on oxycodone for about 2 months prior to the lap sohail due to the right upper quadrant pain. Patient presented to the ER there are no fever however his troponin is elevated at 1.6 and his CK was 4100. Patient's EKG was normal however due to the elevated troponins patient was taken by cardiology for a heart cath which did not show any significant stenosis or any occlusions. Patient was admitted to the ICU for further monitoring. He is currently on IV fluids for hydration he was initially on heparin drip for the end STEMI and questionable PE as his CTA chest was poor quality and definite PE was unable to be seen. Past Medical History Past Medical History (Chronic Problems): Chronic Problems (Last Reviewed 05/16/18 @ 10:51 by Garth Garner MD) Obesity (Chronic) Hyperlipidemia (Chronic) GERD (gastroesophageal reflux disease) (Chronic) Depression (Chronic) Coronary artery disease (Chronic) Benign hypertension (Chronic) Medical History: Medical History (Last Reviewed 05/16/18 @ 10:51 by Garth Garner MD) Influenza A H1N1 infection (Acute) J10.1 Hypoxia (Acute) R09.02 Lower extremity edema (Acute) R60.0 Obesity (Chronic) E66.9 Hyperlipidemia (Chronic) E78.5 GERD (gastroesophageal reflux disease) (Chronic) K21.9 Depression (Chronic) F32.9 Coronary artery disease (Chronic) I25.10 CAP (community acquired pneumonia) due to Pneumococcus (Acute) J13 Benign hypertension (Chronic) I10 RUQ pain R10.11 Allergies metoclopramide HCl [From Reglan] Adverse Reaction (Verified 05/21/18 13:46) Other prochlorperazine edisylate [From Compazine] Adverse Reaction (Verified 05/21/18 13:46) Other prochlorperazine maleate [From Compazine] Adverse Reaction (Verified 05/21/18 13:46) Other Home Medications: Ambulatory Orders Medication Instructions Recorded Clopidogrel Bisulfate [Plavix] 75 mg PO DAILY 06/24/14 Lamotrigine [Lamictal] 150 mg PO QHS 06/24/14 Lisinopril [Zestril] 2.5 mg PO BID 06/24/14 Montelukast [Singulair] 10 mg PO QHS 06/24/14 Aspirin E.C. [Ecotrin] 81 mg PO DAILY@0800 10/11/16 Albuterol Aerosols [Ventolin 2.5 mg INHALATION Q2H PRN PRN #50 12/29/16 Aerosols] vial.neb. Albuterol Inhaler [Ventolin Hfa] 2 puff INHALATION Q4H PRN PRN #60 12/29/16 inhaler Mometasone/Formoterol [Dulera 200 1 puff IH BID #1 hfa.aer.ad 12/29/16 Mcg/5 Mcg Inhaler] Ondansetron [Zofran Odt] 4 mg PO Q8H PRN PRN #10 tab 04/11/18 Oxycodone [Oxyir] 5 - 10 mg PO Q6H PRN PRN 4 Days 04/14/18 #20 tab traZODone [Desyrel] 50 mg PO BID 04/14/18 escitalopram 20 mg tablet 30 mg PO QDAY tab 05/16/18 omeprazole 40 mg capsule,delayed 40 mg PO QDAY cap 05/16/18 release Atorvastatin Calcium [Lipitor] 80 mg PO QHS 05/21/18 Oxycodone HCl/Acetaminophen 1 - 2 tab PO Q4H PRN PRN 4 Days 05/22/18 [Percocet 5/325] #30 tab Surgical History: Surgical History (Last Reviewed 05/16/18 @ 10:51 by Garth Garner MD) History of coronary artery stent placement Onset Date: ~2011 Z95.5 Surgical History: total knee arthroplasty Psychiatric History: Depression Lives: With Family Smoking Status: Never smoker Drugs: None - *Family History Maternal Family History: Family History (Last Reviewed 05/16/18 @ 10:51 by Garth Garner MD) Father Colon cancer Lung cancer Diabetes Heart disease Hypertension High cholesterol Mother Cancer Diabetes Heart disease High cholesterol Hypertension History Items: No pertinent history Review of Systems Constitutional: Reports: Chills, Fever Eyes: Denies: Blurred vision HEENT: Denies: Difficulty Swallowing Cardiovascular: Reports: Chest Pain - Diffuse body aches Respiratory: Denies: Shortness of breath at rest Gastrointestinal: Reports: Abdominal Pain, Constipation. Denies: Nausea, Vomiting Genitourinary: Denies: Dysuria Musculoskeletal: Reports: Joint Pain - Diffuse joint pain Skin: Denies: Rash Psychiatric: Denies: Anxiety, Depression Hematologic/ Lymphatic: Denies: Easy Bleeding Patient Problems: Active and Suspected Problems (Last Reviewed 05/16/18 @ 10:51 by Garth Garner MD) Generalized pain (Acute) Non-STEMI (non-ST elevated myocardial infarction) (Acute) - Physical Exam General: Alert, Oriented x3, Cooperative HEENT: Atraumatic Lungs: Normal air movement Cardiovascular: Regular rate Abdomen: Soft, Passing Flatus - Minimal, Distended - Moderate, Tender - Diffuse, - - Incisions clean dry and intact, no guarding or rebound Neurological: Cranial nerves II-XII grossly intact Vital Signs Temp Pulse Resp BP Pulse Ox 98.2 F 73 16 129/85 H 96 05/24/18 16:00 05/24/18 17:00 05/24/18 17:30 05/24/18 17:30 05/24/18 17:30 Oxygen Flow Rate (L/min) 2 Oxygen Delivery Method Room Air Weight: 273 lb Body Mass Index (BMI) 42.7 Laboratory Tests Past 24 Hrs 05/24/18 15:00 MRSA (PCR) Negative Assessment/Plan All Active Problems (Last Reviewed 05/16/18 @ 10:51 by Garth Garner MD) Gallbladder polyp (Acute) Right upper quadrant abdominal pain (Acute) Generalized pain (Acute) Non-STEMI (non-ST elevated myocardial infarction) (Acute) Influenza A H1N1 infection (Acute) Hypoxia (Acute) Lower extremity edema (Acute) CAP (community acquired pneumonia) due to Pneumococcus (Acute) 52-year-old male status post a cholecystectomy on 05/22/2018, elevated troponin-and NSTEMI and CK, diffuse body aches 1. Patient CTA was indeterminant whether he had a PE as it was poor quality; however were able to see the gallbladder fossa measures no fluid collections signifying either an abscess or a bile leak. Patient does complain of bloating --will check a KUB and also states he has not passed much flatus and surgery or had a bowel movement. We will plan to give a suppository once he is able to get up from his heart cath. I do think his bloating is likely due to constipation. 2. Elevated troponin/CK. Unsure the etiology as his heart cath was negative and the CTA was inconclusive for any evidence of PE. Patient states that he had this diffuse body aches directly after surgery unsure if this could be related to medications received at anesthesia as patient has never been under general anesthesia previously. Did discuss with Dr. Adams; however, malignant hypothermia would be typically much more severe reaction/life-threatening. Appreciate ICU and cardiology's input. Sofia Leon M.D. Pager: [phone] [facility] [address] [place] [address], [facility], [address] [place] [address] Office: [phone]
--- NOTE | 2018-05-24 18:07 | CON.PCM_ITS ---
Reason for Consult Date of Consultation: 05/24/18 History of Present Illness: The patient is a 52 year old M status post laparoscopic cholecystectomy due to right upper quadrant pain and gallbladder polyp by Dr. Garner and 05/22/2018. Patient states that right after surgery he had body aches and soreness which only continued once he went home. He and his initially thought that was normal after surgery; however after having a fever of 101 last night and chills this morning patient presented to the ER. Patient's states he has diffuse body aches in his joints if he moves unable to say if he really has any increased abdominal pain or if his previous pain from before surgery had improved since he has had this diffuse pain throughout his body. He denies any nausea or vomiting, he states had minimal flatus and no bowel movement since surgery. He has been taking Percocet which has not really helped with his diffuse body aches and he was previously on oxycodone for about 2 months prior to the lap sohail due to the right upper quadrant pain. Patient presented to the ER there are no fever however his troponin is elevated at 1.6 and his CK was 4100. Patient's EKG was normal however due to the elevated troponins patient was taken by cardiology for a heart cath which did not show any significant stenosis or any occlusions. Patient was admitted to the ICU for further monitoring. He is currently on IV fluids for hydration he was initially on heparin drip for the end STEMI and questionable PE as his CTA chest was poor quality and definite PE was unable to be seen. Past Medical History Past Medical History (Chronic Problems): Chronic Problems (Last Reviewed 05/16/18 @ 10:51 by Garth Garner MD) Obesity (Chronic) Hyperlipidemia (Chronic) GERD (gastroesophageal reflux disease) (Chronic) Depression (Chronic) Coronary artery disease (Chronic) Benign hypertension (Chronic) Medical History: Medical History (Last Reviewed 05/16/18 @ 10:51 by Garth Garner MD) Influenza A H1N1 infection (Acute) J10.1 Hypoxia (Acute) R09.02 Lower extremity edema (Acute) R60.0 Obesity (Chronic) E66.9 Hyperlipidemia (Chronic) E78.5 GERD (gastroesophageal reflux disease) (Chronic) K21.9 Depression (Chronic) F32.9 Coronary artery disease (Chronic) I25.10 CAP (community acquired pneumonia) due to Pneumococcus (Acute) J13 Benign hypertension (Chronic) I10 RUQ pain R10.11 Allergies metoclopramide HCl [From Reglan] Adverse Reaction (Verified 05/21/18 13:46) Other prochlorperazine edisylate [From Compazine] Adverse Reaction (Verified 05/21/18 13:46) Other prochlorperazine maleate [From Compazine] Adverse Reaction (Verified 05/21/18 13 :46) Other Home Medications: Ambulatory Orders Medication Instructions Recorded Clopidogrel Bisulfate [Plavix] 75 mg PO DAILY 06/24/14 Lamotrigine [Lamictal] 150 mg PO QHS 06/24/14 Lisinopril [Zestril] 2.5 mg PO BID 06/24/14 Montelukast [Singulair] 10 mg PO QHS 06/24/14 Aspirin E.C. [Ecotrin] 81 mg PO DAILY@0800 10/11/16 Albuterol Aerosols [Ventolin 2.5 mg INHALATION Q2H PRN PRN #50 12/29/16 Aerosols] vial.neb. Albuterol Inhaler [Ventolin Hfa] 2 puff INHALATION Q4H PRN PRN #60 12/29/16 inhaler Mometasone/Formoterol [Dulera 200 1 puff IH BID #1 hfa.aer.ad 12/29/16 Mcg/5 Mcg Inhaler] Ondansetron [Zofran Odt] 4 mg PO Q8H PRN PRN #10 tab 04/11/18 Oxycodone [Oxyir] 5 - 10 mg PO Q6H PRN PRN 4 Days 04/14/18 #20 tab traZODone [Desyrel] 50 mg PO BID 04/14/18 escitalopram 20 mg tablet 30 mg PO QDAY tab 05/16/18 omeprazole 40 mg capsule,delayed 40 mg PO QDAY cap 05/16/18 release Atorvastatin Calcium [Lipitor] 80 mg PO QHS 05/21/18 Oxycodone HCl/Acetaminophen 1 - 2 tab PO Q4H PRN PRN 4 Days 05/22/18 [Percocet 5/325] #30 tab Surgical History: Surgical History (Last Reviewed 05/16/18 @ 10:51 by Garth Garner MD) History of coronary artery stent placement Onset Date: ~2011 Z95.5 Surgical History: total knee arthroplasty Psychiatric History: Depression Lives: With Family Smoking Status: Never smoker Drugs: None - *Family History Maternal Family History: Family History (Last Reviewed 05/16/18 @ 10:51 by Garth Garner MD) Father Colon cancer Lung cancer Diabetes Heart disease Hypertension High cholesterol Mother Cancer Diabetes Heart disease High cholesterol Hypertension History Items: No pertinent history Review of Systems Constitutional: Reports: Chills, Fever Eyes: Denies: Blurred vision HEENT: Denies: Difficulty Swallowing Cardiovascular: Reports: Chest Pain - Diffuse body aches Respiratory: Denies: Shortness of breath at rest Gastrointestinal: Reports: Abdominal Pain, Constipation. Denies: Nausea, Vomiting Genitourinary: Denies: Dysuria Musculoskeletal: Reports: Joint Pain - Diffuse joint pain Skin: Denies: Rash Psychiatric: Denies: Anxiety, Depression Hematologic/ Lymphatic: Denies: Easy Bleeding Patient Problems: Active and Suspected Problems (Last Reviewed 05/16/18 @ 10:51 by Garth Garner MD) Generalized pain (Acute) Non-STEMI (non-ST elevated myocardial infarction) (Acute) - Physical Exam General: Alert, Oriented x3, Cooperative HEENT: Atraumatic Lungs: Normal air movement Cardiovascular: Regular rate Abdomen: Soft, Passing Flatus - Minimal, Distended - Moderate, Tender - Diffuse , - - Incisions clean dry and intact, no guarding or rebound Neurological: Cranial nerves II-XII grossly intact Vital Signs Temp Pulse Resp BP Pulse Ox 98.2 F 73 16 129/85 H 96 05/24/18 16:00 05/24/18 17:00 05/24/18 17:30 05/24/18 17:30 05/24/18 17:30 Oxygen Flow Rate (L/min) 2 Oxygen Delivery Method Room Air Weight: 273 lb Body Mass Index (BMI) 42.7 Laboratory Tests Past 24 Hrs 05/24/18 15:00 MRSA (PCR) Negative Assessment/Plan All Active Problems (Last Reviewed 05/16/18 @ 10:51 by Garth Garner MD) Gallbladder polyp (Acute) Right upper quadrant abdominal pain (Acute) Generalized pain (Acute) Non-STEMI (non-ST elevated myocardial infarction) (Acute) Influenza A H1N1 infection (Acute) Hypoxia (Acute) Lower extremity edema (Acute) CAP (community acquired pneumonia) due to Pneumococcus (Acute) 52-year-old male status post a cholecystectomy on 05/22/2018, elevated troponin- and NSTEMI and CK, diffuse body aches 1. Patient CTA was indeterminant whether he had a PE as it was poor quality; however were able to see the gallbladder fossa measures no fluid collections signifying either an abscess or a bile leak. Patient does complain of bloating --will check a KUB and also states he has not passed much flatus and surgery or had a bowel movement. We will plan to give a suppository once he is able to get up from his heart cath. I do think his bloating is likely due to constipation. 2. Elevated troponin/CK. Unsure the etiology as his heart cath was negative and the CTA was inconclusive for any evidence of PE. Patient states that he had this diffuse body aches directly after surgery unsure if this could be related to medications received at anesthesia as patient has never been under general anesthesia previously. Did discuss with Dr. Adams; however, malignant hypothermia would be typically much more severe reaction/life- threatening. Appreciate ICU and cardiology's input. Sofia Leon M.D. Pager: [phone] [facility] [address] [place] [address], [facility], [address] [place] [address] Office: [phone]
[2018-05-24] MEDS: Budesonide Respules 0.5 MG/2 ML AMPUL.NEB. INHALATION (18:58)
[2018-05-24] MEDS: Albuterol 2.5 MG/3 ML VIAL.NEB. INHALATION (18:58)
--- NOTE | 2018-05-24 20:44 | NURSING ---
THE LAB CALLED THE ED TO GIVE A CRITICAL VALUE ON A TROPONIN. THIS NURSE TOOK THE CALL AND THE PATIENT IS NOT DOWN HERE ANYMORE HE IS IN THE ICU. HOSPITALIST DR. PEÑA (HOSPITALIST) WAS MADE AWARE OF PATIENT'S TROPONIN OF 1.170.
[2018-05-24 20:54] LABS: CPK Total, Creatine Kinase 2708 U/L (39-308)
[2018-05-24] MEDS: Atorvastatin Calcium 80 MG Tablet PO (21:34)
[2018-05-24] MEDS: traZODone 50 MG Tablet PO (21:34)
[2018-05-24] MEDS: Lisinopril 2.5 MG Tablet PO (21:35)
[2018-05-24] MEDS: Montelukast 10 MG Tablet PO (21:35)
[2018-05-24] MEDS: lamoTRIgine 150 MG Tablet PO (21:35)
--- NOTE | 2018-05-24 22:07 | RAD_ITS ---
STUDY: X-RAY - ABDOMEN/PELVIS REASON FOR EXAM: Male, 52 years old. Abdominal pain, non-DAVID IA today, status post heart catheter. TECHNIQUE: Four total AP supine views of the abdomen and pelvis. There is obesity, the entirety of soft tissue is not imaged. COMPARISON: CT abdomen and pelvis 04/11/2018. FINDINGS: There is air distention of bowel to the level of the sigmoid colon, rectum is obscured by the contrast containing urinary bladder. There is fecal material in the right colon. There is a 6 cm long segment of luminal narrowing in the proximal descending colon. There is air distention pre and post narrow segment. There is no demonstrated free abdominal air on supine images. The visualized liver is grossly normal in size and morphology. Normal soft tissue structures. Contrast distended urinary bladder. Normal visualized osseous structures. RAD/Abdomen Single View IMPRESSION: Air distention of colon possibly intestinal ileus. Segmental narrowing of the proximal descending colon may be due to contraction at time of imaging, however underlying pathology such as a constriction due to scarring, inflammation or mass is not separable on submitted images. No evidence of scarring or mass or acute inflammation detected at the time of imaging of CT. Contrast distended urinary bladder. Electronically Signed: Carla Hassan MD at 0:06 EDT , Service support ,
[2018-05-24] MEDS: Bisacodyl 10 MG Suppository RECTAL (22:43)
[2018-05-24] MEDS: 0.9% NaCl Peripheral Flush Adult/Peds IV (23:51)
[2018-05-25] VITALS (14 sets, daily range): BP systolic 121–153; BP diastolic 70–89; PULSE 67–80; RESP 16–18; TEMP 36.5–37.2; O2SAT 91–94
[2018-05-25] MEDS: HYDROmorphone 1 MG/ML Syringe IV ×5 (00:20→22:04)
[2018-05-25] MEDS: 0.9% NaCl Peripheral Flush Adult/Peds IV ×5 (00:22→22:06)
--- NOTE | 2018-05-25 07:12 | PCM.PN.SRG ---
Patient Problems: Active and Suspected Problems (Last Reviewed 05/16/18 @ 10:51 by Garth Garner MD) Generalized pain (Acute) Non-STEMI (non-ST elevated myocardial infarction) (Acute) Subjective: Patient states he is feeling a little better as far as diffuse aches, positive flatus and bowel movements with less abdominal distention, KUB questions of area of narrowing of the descending colon however patient did have a colonoscopy 3 weeks ago as well as this area does not show up on the CT of the chest. - Physical Exam General: Alert, Oriented x3, Cooperative, No apparent distress HEENT: Atraumatic Lungs: Normal air movement Abdomen: Soft, Passing Flatus, Distended - Mild, Tender - Tender near incisions, - - No guarding or rebound Vital Signs Temp Pulse Resp BP Pulse Ox 98.9 F 73 18 153/89 H 93 05/25/18 05:55 05/25/18 05:55 05/25/18 05:55 05/25/18 05:55 05/25/18 05:55 Oxygen Flow Rate (L/min) 2 Oxygen Delivery Method Room Air Weight: 282 lb 13.649 oz Body Mass Index (BMI) 42.7 Intake and Output for Last 24 Hours 05/23/18 05/24/18 05/25/18 23:59 23:59 23:59 Intake Total 752 / 752 749 / 749 Output Total 1425 / 1425 Balance -673 / -673 749 / 749 Laboratory Tests Past 24 Hrs 05/24/18 05/24/18 05/24/18 15:00 20:00 20:00 Total Creatine Kinase 2708 H Troponin I 1.170 H* MRSA (PCR) Negative 05/25/18 00:15 Total Creatine Kinase Troponin I 1.090 H* MRSA (PCR) Medical Necessity - Tobacco Use Smoking Status: Never smoker Assessment/Plan All Active Problems (Last Reviewed 05/16/18 @ 10:51 by Garth Garner MD) Gallbladder polyp (Acute) Right upper quadrant abdominal pain (Acute) Generalized pain (Acute) Non-STEMI (non-ST elevated myocardial infarction) (Acute) Influenza A H1N1 infection (Acute) Hypoxia (Acute) Lower extremity edema (Acute) CAP (community acquired pneumonia) due to Pneumococcus (Acute) 52-year-old male status post a cholecystectomy on 05/22/2018, elevated troponin-and NSTEMI and CK, diffuse body aches 1. Patient's constipation has resolved with a Dulcolax suppository and he does feel less distended. Okay for a day per surgery. 2. Elevated troponin/CK-improving. Again unsure of exact etiology but discussed with patient that this is a discussion he should have before undergoing general anesthesia again as he says this began directly after surgery unless it could be related to him being off the Plavix however his heart cath was no significant stenosis. According to anesthesia records it does not look like he got succinylcholine but he did get sevoflurane but again his reaction would not be the typical associated with malignant hypothermia as it was not as severe, patient's urine remained clear. Patient also denies any history of any muscular dystrophy's. Sofia Leon M.D. Pager: [phone] [facility] [address] [place] [address], [address] [place] [address] Office: [phone]
--- NOTE | 2018-05-25 07:16 | PN.SURG_ITS ---
Patient Problems: Active and Suspected Problems (Last Reviewed 05/16/18 @ 10:51 by Garth Garner MD) Generalized pain (Acute) Non-STEMI (non-ST elevated myocardial infarction) (Acute) Subjective: Patient states he is feeling a little better as far as diffuse aches, positive flatus and bowel movements with less abdominal distention, KUB questions of area of narrowing of the descending colon however patient did have a colonoscopy 3 weeks ago as well as this area does not show up on the CT of the chest. - Physical Exam General: Alert, Oriented x3, Cooperative, No apparent distress HEENT: Atraumatic Lungs: Normal air movement Abdomen: Soft, Passing Flatus, Distended - Mild, Tender - Tender near incisions , - - No guarding or rebound Vital Signs Temp Pulse Resp BP Pulse Ox 98.9 F 73 18 153/89 H 93 05/25/18 05:55 05/25/18 05:55 05/25/18 05:55 05/25/18 05:55 05/25/18 05:55 Oxygen Flow Rate (L/min) 2 Oxygen Delivery Method Room Air Weight: 282 lb 13.649 oz Body Mass Index (BMI) 42.7 Intake and Output for Last 24 Hours 05/23/18 05/24/18 05/25/18 23:59 23:59 23:59 Intake Total 752 / 752 749 / 749 Output Total 1425 / 1425 Balance -673 / -673 749 / 749 Laboratory Tests Past 24 Hrs 05/24/18 05/24/18 05/24/18 15:00 20:00 20:00 Total Creatine Kinase 2708 H Troponin I 1.170 H* MRSA (PCR) Negative 05/25/18 00:15 Total Creatine Kinase Troponin I 1.090 H* MRSA (PCR) Medical Necessity - Tobacco Use Smoking Status: Never smoker Assessment/Plan All Active Problems (Last Reviewed 05/16/18 @ 10:51 by Garth Garner MD) Gallbladder polyp (Acute) Right upper quadrant abdominal pain (Acute) Generalized pain (Acute) Non-STEMI (non-ST elevated myocardial infarction) (Acute) Influenza A H1N1 infection (Acute) Hypoxia (Acute) Lower extremity edema (Acute) CAP (community acquired pneumonia) due to Pneumococcus (Acute) 52-year-old male status post a cholecystectomy on 05/22/2018, elevated troponin- and NSTEMI and CK, diffuse body aches 1. Patient's constipation has resolved with a Dulcolax suppository and he does feel less distended. Okay for a day per surgery. 2. Elevated troponin/CK-improving. Again unsure of exact etiology but discussed with patient that this is a discussion he should have before undergoing general anesthesia again as he says this began directly after surgery unless it could be related to him being off the Plavix however his heart cath was no significant stenosis. According to anesthesia records it does not look like he got succinylcholine but he did get sevoflurane but again his reaction would not be the typical associated with malignant hypothermia as it was not as severe, patient's urine remained clear. Patient also denies any history of any muscular dystrophy's. Sofia Leon M.D. Pager: [phone] [facility] [address] [place] [address], [address] [place] [address] Office: [phone]
[2018-05-25 07:30] LABS: Absolute Neutrophil Count 3.6 X10^3/uL (2.0-7.7); Basophil# 0.01 X10^3/uL; Basophil% 0.2 % (0-1); Eosinophil# 0.18 X10^3/uL; Hemoglobin 12.6 g/dl (13.0-16.5); Mean Corp Hgb Conc 30.7 g/gl (32-36); Mean Corpuscular Hgb 27.9 pg (27.0-32.0); Mean Corpuscular Volume 90.9 fL (80-94); Mean Platelet Vol. 10.5 fl (6.2-12.0); Monocyte# 0.56 X10^3/uL; Monocyte% 9.2 % (0-10); Neutrophil # 3.61 X10^3/uL (2.7-7.7); Neutrophil % 59.4 % (47-70); Platelet Count 176 K/mm3 (150-450); RBC Distribution Width CV 13.9 % (11.6-14.6); Red Blood Count 4.51 M/mm3 (4.6-6.2); White Blood Count 6.1 K/mm3 (4.4-11.0)
[2018-05-25 07:31] LABS: POSITIVE COUNT NO; POSITIVE DIFFERENTIAL NO; POSITIVE MORPHOLOGY NO
[2018-05-25 07:48] LABS: Anion Gap 7 (5-15); BUN 8 mg/dL (7-18); BUN/Creat Ratio 9.3 RATIO (10-20); Calcium,Total 8.3 mg/dL (8.5-10.1); Chloride 106 mmol/L (98-107); Creatinine, Serum 0.86 mg/dL (0.70-1.30); EST Glomerular Filtration Rate 100 mL/min (>60); Est Glom Filt Rate - Afr Amer 121 mL/min (>60); Estimated Creatinine Clearance 95.01 ml/min; Glucose 84 mg/dL (74-106); Potassium 4.2 mmol/L (3.5-5.1); Sodium Level 143 mmol/L (136-145)
--- NOTE | 2018-05-25 08:29 | PCM.PROGNOTE ---
Patient Problems: Active and Suspected Problems (Last Reviewed 05/16/18 @ 10:51 by Garth Garner MD) Generalized pain (Acute) Non-STEMI (non-ST elevated myocardial infarction) (Acute) Subjective: Did well overnight. No issues were reported. Patient reporting subjective improvement in overall condition. No dyspnea, cough or orthostatic symptoms have been reported. - Physical Exam General: Alert, Oriented x3, Cooperative, No apparent distress, Well developed, Well nourished, - - Morbidly obese. Speaking in full sentences. HEENT: Atraumatic, PERRLA, EOMI, Normocephalic, - - No scleral icterus or injection noted. Oral: Moist Mucosa, No Gingival or Mucosal Lesions/ Ulcerations Neck: Supple, No JVD, No Nodes, Trachea Midline Lungs: No rhonchi, No wheeze, No rales, Diminished, - - Symmetric expansion. No dullness to percussion. Cardiovascular: Regular rate, Regular Rhythm, Normal S1, Normal S2, No murmurs, No rub noted, No Gallop Abdomen: Bowel Sounds Present, Soft, Non Tender, Non-Distended, Obese Extremities: No clubbing, No cyanosis, Edema Skin: No rashes, No breakdown Musculoskeletal: No Tenderness to Palpation of Joints or Extremities Lymphatic: No Cervical, Supraclavicular, or Inguinal Adenopathy Neurological: Cranial nerves II-XII grossly intact, Neuro grossly intact, Motor Exam 5/5 strength throughout Psych/Mental Status: Alert and oriented to time, place, person, mood and affect Vital Signs Temp Pulse Resp BP Pulse Ox 37.2 C 73 18 153/89 H 93 05/25/18 05:55 05/25/18 05:55 05/25/18 05:55 05/25/18 05:55 05/25/18 06:57 Oxygen Flow Rate (L/min) 2 Oxygen Delivery Method Room Air Weight: 128.3 kg Body Mass Index (BMI) 42.7 Intake and Output for Last 24 Hours 05/23/18 05/24/18 05/25/18 23:59 23:59 23:59 Intake Total 752 / 752 749 / 749 Output Total 1425 / 1425 Balance -673 / -673 749 / 749 Laboratory Tests Past 24 Hrs 05/24/18 05/24/18 05/24/18 15:00 20:00 20:00 WBC RBC Hgb Hct MCV MCH MCHC RDW RDW Differential Plt Count MPV Immature Gran % (Auto) Neut % (Auto) Lymph % (Auto) [place] % (Auto) Eos % (Auto) Baso % (Auto) Absolute Neuts (auto) Absolute Lymphs (auto) Total Counted Sodium Potassium Chloride Carbon Dioxide Anion Gap BUN Creatinine Estim Creat Clear Calc Est GFR (MDRD) Af Amer Est GFR (MDRD) Non-Af BUN/Creatinine Ratio Glucose Calcium Total Creatine Kinase 2708 H Troponin I 1.170 H* MRSA (PCR) Negative 05/25/18 05/25/18 05/25/18 00:15 06:52 06:52 WBC 6.1 RBC 4.51 L Hgb 12.6 L Hct 41.0 MCV 90.9 MCH 27.9 MCHC 30.7 L RDW 13.9 RDW Differential 46.0 H Plt Count 176 MPV 10.5 Immature Gran % (Auto) 0.200 Neut % (Auto) 59.4 Lymph % (Auto) 28.0 [place] % (Auto) 9.2 Eos % (Auto) 3.0 Baso % (Auto) 0.2 Absolute Neuts (auto) 3.6 Absolute Lymphs (auto) 1.70 Total Counted Not Reportable Sodium 143 Potassium 4.2 Chloride 106 Carbon Dioxide 30.0 Anion Gap 7 BUN 8 Creatinine 0.86 Estim Creat Clear Calc 95.01 Est GFR (MDRD) Af Amer 121 Est GFR (MDRD) Non-Af 100 BUN/Creatinine Ratio 9.3 L Glucose 84 Calcium 8.3 L Total Creatine Kinase Troponin I 1.090 H* MRSA (PCR) 05/25/18 06:52 WBC RBC Hgb Hct MCV MCH MCHC RDW RDW Differential Plt Count MPV Immature Gran % (Auto) Neut % (Auto) Lymph % (Auto) [place] % (Auto) Eos % (Auto) Baso % (Auto) Absolute Neuts (auto) Absolute Lymphs (auto) Total Counted Sodium Potassium Chloride Carbon Dioxide Anion Gap BUN Creatinine Estim Creat Clear Calc Est GFR (MDRD) Af Amer Est GFR (MDRD) Non-Af BUN/Creatinine Ratio Glucose Calcium Total Creatine Kinase Pending Troponin I MRSA (PCR) Clinical Impression(s) from Imaging Studies Chest X-Ray 05/24/18 10:14 IMPRESSION: Degenerative changes, as described above. No demonstrated acute cardiopulmonary process. Electronically Signed: Scout Franco MD at 10:41 EDT , Service support , Chest CTA 05/24/18 11:10 IMPRESSION: There is heterogeneous diminished enhancement of the pulmonary arteries with regions of embolism versus artifact. Lower lung atelectasis or infiltrates. N.B. : The above information has been verbally conveyed by Scout Franco MD to , Covering Physician, on 05/24/2018 12:09:33 (ET). Electronically Signed: Scout Franco MD at 12:01 EDT , Service support , KUB X-Ray 05/24/18 22:07 IMPRESSION: Air distention of colon possibly intestinal ileus. Segmental narrowing of the proximal descending colon may be due to contraction at time of imaging, however underlying pathology such as a constriction due to scarring, inflammation or mass is not separable on submitted images. No evidence of scarring or mass or acute inflammation detected at the time of imaging of CT. Contrast distended urinary bladder. Electronically Signed: Carla Hassan MD at 0:06 EDT , Service support , Medical Necessity - Tobacco Use Smoking Status: Never smoker Assessment/Plan All Active Problems (Last Reviewed 05/16/18 @ 10:51 by Garth Garner MD) Gallbladder polyp (Acute) Right upper quadrant abdominal pain (Acute) Generalized pain (Acute) Non-STEMI (non-ST elevated myocardial infarction) (Acute) Influenza A H1N1 infection (Acute) Hypoxia (Acute) Lower extremity edema (Acute) CAP (community acquired pneumonia) due to Pneumococcus (Acute) RECOMMENDATIONS: 1. Aggressive pain control with incentive spirometer 2. Walking oximetry prior to discharge 3. Monitor oxygenation while sleeping 4. Hemodynamically stable on room air. Will sign off from a pulmonary perspective 5. No outpatient pulmonary follow-up likely indicated IMPRESSIONS: 1. Non-ST elevation [place] Unclear etiology. Patient's heart catheterization does not show any intervention is required. Unclear if patient had transient ischemia secondary to lack of Plavix and aspirin. Patient reportedly has had intermittent hypotension. Echocardiogram has been ordered, but LV function was within normal limits on heart catheterization. Did discuss with cardiology about possibly doing a right heart catheterization. However, given the possibility of pulmonary embolisms, this was avoided. Blood pressure have been stable for now. Patient is back on aspirin and Plavix. 2. Possible PE Throughout the evening, patient has not required any supplemental oxygen and has no reported tachycardia. Patient did have immobility secondary to surgery, but well's criteria is low. Do not believe empiric anticoagulation would be indicated at this time. Could obtain a walking oximetry to see if patient desaturates to evaluate clinically for pulmonary hypertension. 3. Mild rhabdomyolysis Improving. Patient with a CK of 4179. Unclear if this is related to postsurgical changes. Patient was on a statin previously. Hold statin therapy and hydrate with IV fluids. 4. Hypertension/coronary artery disease/morbid obesity/recent cholecystectomy Complicates care, management, recovery and prognosis. Surgery is following with the patient. Likely okay to continue with baseline antihypertensive medications. Code Visit Inpatient E&M: 60735 Subs Hosp L2
--- NOTE | 2018-05-25 08:33 | PN_ITS ---
Patient Problems: Active and Suspected Problems (Last Reviewed 05/16/18 @ 10:51 by Garth Garner MD) Generalized pain (Acute) Non-STEMI (non-ST elevated myocardial infarction) (Acute) Subjective: Did well overnight. No issues were reported. Patient reporting subjective improvement in overall condition. No dyspnea, cough or orthostatic symptoms have been reported. - Physical Exam General: Alert, Oriented x3, Cooperative, No apparent distress, Well developed, Well nourished, - - Morbidly obese. Speaking in full sentences. HEENT: Atraumatic, PERRLA, EOMI, Normocephalic, - - No scleral icterus or injection noted. Oral: Moist Mucosa, No Gingival or Mucosal Lesions/ Ulcerations Neck: Supple, No JVD, No Nodes, Trachea Midline Lungs: No rhonchi, No wheeze, No rales, Diminished, - - Symmetric expansion. No dullness to percussion. Cardiovascular: Regular rate, Regular Rhythm, Normal S1, Normal S2, No murmurs, No rub noted, No Gallop Abdomen: Bowel Sounds Present, Soft, Non Tender, Non-Distended, Obese Extremities: No clubbing, No cyanosis, Edema Skin: No rashes, No breakdown Musculoskeletal: No Tenderness to Palpation of Joints or Extremities Lymphatic: No Cervical, Supraclavicular, or Inguinal Adenopathy Neurological: Cranial nerves II-XII grossly intact, Neuro grossly intact, Motor Exam 5/5 strength throughout Psych/Mental Status: Alert and oriented to time, place, person, mood and affect Vital Signs Temp Pulse Resp BP Pulse Ox 37.2 C 73 18 153/89 H 93 05/25/18 05:55 05/25/18 05:55 05/25/18 05:55 05/25/18 05:55 05/25/18 06:57 Oxygen Flow Rate (L/min) 2 Oxygen Delivery Method Room Air Weight: 128.3 kg Body Mass Index (BMI) 42.7 Intake and Output for Last 24 Hours 05/23/18 05/24/18 05/25/18 23:59 23:59 23:59 Intake Total 752 / 752 749 / 749 Output Total 1425 / 1425 Balance -673 / -673 749 / 749 Laboratory Tests Past 24 Hrs 05/24/18 05/24/18 05/24/18 15:00 20:00 20:00 WBC RBC Hgb Hct MCV MCH MCHC RDW RDW Differential Plt Count MPV Immature Gran % (Auto) Neut % (Auto) Lymph % (Auto) [place] % (Auto) Eos % (Auto) Baso % (Auto) Absolute Neuts (auto) Absolute Lymphs (auto) Total Counted Sodium Potassium Chloride Carbon Dioxide Anion Gap BUN Creatinine Estim Creat Clear Calc Est GFR (MDRD) Af Amer Est GFR (MDRD) Non-Af BUN/Creatinine Ratio Glucose Calcium Total Creatine Kinase 2708 H Troponin I 1.170 H* MRSA (PCR) Negative 05/25/18 05/25/18 05/25/18 00:15 06:52 06:52 WBC 6.1 RBC 4.51 L Hgb 12.6 L Hct 41.0 MCV 90.9 MCH 27.9 MCHC 30.7 L RDW 13.9 RDW Differential 46.0 H Plt Count 176 MPV 10.5 Immature Gran % (Auto) 0.200 Neut % (Auto) 59.4 Lymph % (Auto) 28.0 [place] % (Auto) 9.2 Eos % (Auto) 3.0 Baso % (Auto) 0.2 Absolute Neuts (auto) 3.6 Absolute Lymphs (auto) 1.70 Total Counted Not Reportable Sodium 143 Potassium 4.2 Chloride 106 Carbon Dioxide 30.0 Anion Gap 7 BUN 8 Creatinine 0.86 Estim Creat Clear Calc 95.01 Est GFR (MDRD) Af Amer 121 Est GFR (MDRD) Non-Af 100 BUN/Creatinine Ratio 9.3 L Glucose 84 Calcium 8.3 L Total Creatine Kinase Troponin I 1.090 H* MRSA (PCR) 05/25/18 06:52 WBC RBC Hgb Hct MCV MCH MCHC RDW RDW Differential Plt Count MPV Immature Gran % (Auto) Neut % (Auto) Lymph % (Auto) [place] % (Auto) Eos % (Auto) Baso % (Auto) Absolute Neuts (auto) Absolute Lymphs (auto) Total Counted Sodium Potassium Chloride Carbon Dioxide Anion Gap BUN Creatinine Estim Creat Clear Calc Est GFR (MDRD) Af Amer Est GFR (MDRD) Non-Af BUN/Creatinine Ratio Glucose Calcium Total Creatine Kinase Pending Troponin I MRSA (PCR) Clinical Impression(s) from Imaging Studies Chest X-Ray 05/24/18 10:14 IMPRESSION: Degenerative changes, as described above. No demonstrated acute cardiopulmonary process. Electronically Signed: Scout Franco MD at 10:41 EDT , Service support , Chest CTA 05/24/18 11:10 IMPRESSION: There is heterogeneous diminished enhancement of the pulmonary arteries with regions of embolism versus artifact. Lower lung atelectasis or infiltrates. N.B. : The above information has been verbally conveyed by Scout Franco MD to , Covering Physician, on 05/24/2018 12:09:33 (ET). Electronically Signed: Scout Franco MD at 12:01 EDT , Service support , KUB X-Ray 05/24/18 22:07 IMPRESSION: Air distention of colon possibly intestinal ileus. Segmental narrowing of the proximal descending colon may be due to contraction at time of imaging, however underlying pathology such as a constriction due to scarring, inflammation or mass is not separable on submitted images. No evidence of scarring or mass or acute inflammation detected at the time of imaging of CT. Contrast distended urinary bladder. Electronically Signed: Carla Hassan MD at 0:06 EDT , Service support , Medical Necessity - Tobacco Use Smoking Status: Never smoker Assessment/Plan All Active Problems (Last Reviewed 05/16/18 @ 10:51 by Garth Garner MD) Gallbladder polyp (Acute) Right upper quadrant abdominal pain (Acute) Generalized pain (Acute) Non-STEMI (non-ST elevated myocardial infarction) (Acute) Influenza A H1N1 infection (Acute) Hypoxia (Acute) Lower extremity edema (Acute) CAP (community acquired pneumonia) due to Pneumococcus (Acute) RECOMMENDATIONS: 1. Aggressive pain control with incentive spirometer 2. Walking oximetry prior to discharge 3. Monitor oxygenation while sleeping 4. Hemodynamically stable on room air. Will sign off from a pulmonary perspective 5. No outpatient pulmonary follow-up likely indicated IMPRESSIONS: 1. Non-ST elevation [place] Unclear etiology. Patient's heart catheterization does not show any intervention is required. Unclear if patient had transient ischemia secondary to lack of Plavix and aspirin. Patient reportedly has had intermittent hypotension. Echocardiogram has been ordered, but LV function was within normal limits on heart catheterization. Did discuss with cardiology about possibly doing a right heart catheterization. However, given the possibility of pulmonary embolisms, this was avoided. Blood pressure have been stable for now. Patient is back on aspirin and Plavix. 2. Possible PE Throughout the evening, patient has not required any supplemental oxygen and has no reported tachycardia. Patient did have immobility secondary to surgery, but well's criteria is low. Do not believe empiric anticoagulation would be indicated at this time. Could obtain a walking oximetry to see if patient desaturates to evaluate clinically for pulmonary hypertension. 3. Mild rhabdomyolysis Improving. Patient with a CK of 4179. Unclear if this is related to postsurgical changes. Patient was on a statin previously. Hold statin therapy and hydrate with IV fluids. 4. Hypertension/coronary artery disease/morbid obesity/recent cholecystectomy Complicates care, management, recovery and prognosis. Surgery is following with the patient. Likely okay to continue with baseline antihypertensive medications. Code Visit Inpatient E&M: 44146 Subs Hosp L2
[2018-05-25 09:12] LABS: CPK Total, Creatine Kinase 1735 U/L (39-308)
[2018-05-25] MEDS: traZODone 50 MG Tablet PO ×2 (09:52→21:33)
[2018-05-25] MEDS: Pantoprazole Sodium 40 MG Tablet PO (09:52)
[2018-05-25] MEDS: Lisinopril 2.5 MG Tablet PO ×2 (09:52→21:30)
[2018-05-25] MEDS: Aspirin E.C. 81 MG Tablet PO (09:53)
[2018-05-25] MEDS: Clopidogrel Bisulfate 75 MG Tablet PO (09:53)
[2018-05-25] MEDS: Escitalopram Oxalate 10 MG Tablet 30 MG PO (09:53)
[2018-05-25] MEDS: Enoxaparin 40 MG/0.4 ML Syringe SC (09:54)
[2018-05-25] MEDS: oxyCODONE 5 MG Tablet PO ×2 (13:32→20:04)
--- NOTE | 2018-05-25 13:36 | PCM.PN.HOSP ---
Patient Problems: Active and Suspected Problems (Last Reviewed 05/16/18 @ 10:51 by Garth Garner MD) Generalized pain (Acute) Non-STEMI (non-ST elevated myocardial infarction) (Acute) Subjective: still with myalgias, but overall better. still with chest pain. states the diffuse myalgias began after surgery on the 8th, and not before. Vitals/I&O's: Vital Signs Temp Pulse Resp BP Pulse Ox 36.9 C 72 16 131/70 H 94 05/25/18 10:00 05/25/18 11:00 05/25/18 10:00 05/25/18 10:00 05/25/18 10:00 Oxygen Flow Rate (L/min) 2 Oxygen Delivery Method Room Air Weight: 128.3 kg Body Mass Index (BMI) 42.7 Intake and Output for Last 24 Hours 05/23/18 05/24/18 05/25/18 23:59 23:59 23:59 Intake Total 752 / 752 1299 / 1299 Output Total 1425 / 1425 Balance -673 / -673 1299 / 1299 General: Alert, No apparent distress HEENT: Atraumatic, Normocephalic Oral: Moist Mucosa, No Gingival or Mucosal Lesions/ Ulcerations Neck: No Nodes, Thyroid Normal Size and Texture Lungs: Clear to auscultation, Normal air movement, No rhonchi, No wheeze Cardiovascular: Regular rate, Regular Rhythm, Normal S1, Normal S2, No murmurs Abdomen: Bowel Sounds Present, Soft, Non Tender, Non-Distended Extremities: No clubbing, No cyanosis, No edema Skin: No rashes, No breakdown Neurological: Neuro grossly intact, Muscle tone normal, Sensory exam intact to light touch and pain Psych/Mental Status: Normal Affect, Appropriate Laboratory Results 05/24/18 15:00: MRSA (PCR) Negative 05/24/18 20:00: Troponin I 1.170 H* 05/24/18 20:00: Total Creatine Kinase 2708 H 05/25/18 00:15: Troponin I 1.090 H* 05/25/18 06:52: WBC 6.1, RBC 4.51 L, Hgb 12.6 L, Hct 41.0, MCV 90.9, MCH 27.9, MCHC 30.7 L, RDW 13.9, RDW Differential 46.0 H, Plt Count 176, MPV 10.5, Immature Gran % (Auto) 0.200, Neut % (Auto) 59.4, Lymph % (Auto) 28.0, [place] % (Auto) 9.2, Eos % (Auto) 3.0, Baso % (Auto) 0.2, Absolute Neuts (auto) 3.6, Absolute Lymphs (auto) 1.70, Total Counted Not Reportable 05/25/18 06:52: Sodium 143, Potassium 4.2, Chloride 106, Carbon Dioxide 30.0, Anion Gap 7, BUN 8, Creatinine 0.86, Estim Creat Clear Calc 95.01, Est GFR (MDRD) Af Amer 121, Est GFR (MDRD) Non-Af 100, BUN/Creatinine Ratio 9.3 L, Glucose 84, Calcium 8.3 L 05/25/18 06:52: Total Creatine Kinase 1735 H Current Medications Acetaminophen (Tylenol) 325 - 650 mg PO Q4H PRN PRN PRN Reason: PAIN Last Admin: 05/24/18 22:03 Dose: 325 mg Albuterol Sulfate (Ventolin Aerosols) 2.5 mg INHALATION Q2H PRN PRN PRN Reason: Shortness of breath/wheezing Albuterol Sulfate (Ventolin Aerosols) 2.5 mg INHALATION Q6HWA.RT [facility] Last Admin: 05/25/18 06:57 Dose: Not Given Aspirin (Ecotrin) 81 mg PO DAILY@0800 [facility] Last Admin: 05/25/18 09:53 Dose: 81 mg Atorvastatin Calcium (Lipitor) 80 mg PO QHS [facility] Last Admin: 05/24/18 21:34 Dose: 80 mg Budesonide (Pulmicort Aerosol) 0.5 mg INHALATION Q12H.RT [facility] Last Admin: 05/25/18 06:57 Dose: Not Given Clopidogrel Bisulfate (Plavix) 75 mg PO DAILY [facility] Last Admin: 05/25/18 09:53 Dose: 75 mg Enoxaparin Sodium (Lovenox) 40 mg SC DAILY [facility] Last Admin: 05/25/18 09:54 Dose: 40 mg Escitalopram Oxalate (Lexapro) 30 mg PO DAILY [facility] Last Admin: 05/25/18 09:53 Dose: 30 mg Heparin Sodium (Beef Lung) (Heparin 500 Unit/5 Ml (100/Ml)) 500 unit IV UD PRN PRN Reason: HEPARIN FLUSH Hydromorphone HCl (Dilaudid Inj) 1 mg IV Q4H PRN PRN PRN Reason: SEVERE PAIN (6-10/10) Last Admin: 05/25/18 09:58 Dose: 1 mg Sodium Chloride () 1,000 mls @ 0 mls/hr IV .Q0M [place] PRN Reason: KVO Last Admin: 05/24/18 13:41 Dose: 999 mls/hr Labetalol HCl (Trandate) 5 mg IV X1 PRN PRN Reason: SBP > 160 prior to sheath pull Lamotrigine (Lamictal) 150 mg PO QHS [facility] Last Admin: 05/24/18 21:35 Dose: 150 mg Lisinopril (Zestril) 2.5 mg PO BID [facility] Last Admin: 05/25/18 09:52 Dose: 2.5 mg Magnesium Hydroxide (Milk Of Magnesia) 30 ml PO DAILY PRN PRN PRN Reason: Constipation Montelukast Sodium (Singulair) 10 mg PO QHS [facility] Last Admin: 05/24/18 21:35 Dose: 10 mg Ondansetron HCl (Zofran Odt) 4 mg PO Q8H PRN PRN PRN Reason: NAUSEA Oxycodone HCl (Oxyir) 5 - 10 mg PO Q4H PRN PRN PRN Reason: SEVERE PAIN (6-10/10) Last Admin: 05/25/18 13:32 Dose: 10 mg Pantoprazole Sodium (Protonix) 40 mg PO DAILY [facility] Last Admin: 05/25/18 09:52 Dose: 40 mg Sodium Chloride () 5 - 30 ml IV UD PRN PRN Reason: SALINE FLUSH Last Admin: 05/25/18 09:58 Dose: 10 ml Trazodone HCl (Desyrel) 50 mg PO BID [facility] Last Admin: 05/25/18 09:52 Dose: 50 mg Medical Necessity - Tobacco Use Smoking Status: Never smoker Assessment/Plan All Active Problems (Last Reviewed 05/16/18 @ 10:51 by Garth Garner MD) Gallbladder polyp (Acute) Right upper quadrant abdominal pain (Acute) Generalized pain (Acute) Non-STEMI (non-ST elevated myocardial infarction) (Acute) Influenza A H1N1 infection (Acute) Hypoxia (Acute) Lower extremity edema (Acute) CAP (community acquired pneumonia) due to Pneumococcus (Acute) 1. acute rhabdomyolysis improving, but still elevated unclear etiology, but symptoms began after surgery. Therefore, concern is that may have due to what he may have received around his surgery (anesthetics?) continue to monitor IVF 2. NSTEMI: type 2/demand + some overlap w rhabdomyolysis LHC showed 30% in stent stenosis of LAD, other romero unremarkable Echo shows an EF of 65% w pseudonormal filling pattern continue DAPT + atorvastatin 3. Possible PE CTA equivocal for PE (PE v artifact) check D-Dimer start empiric lovenox for now. DW family at bedside. Code Visit Inpatient E&M: 89059 Subs Hosp L3
[2018-05-25] MEDS: Albuterol 2.5 MG/3 ML VIAL.NEB. INHALATION ×2 (13:38→19:11)
--- NOTE | 2018-05-25 13:44 | PN_ITS ---
Patient Problems: Active and Suspected Problems (Last Reviewed 05/16/18 @ 10:51 by Garth Garner MD) Generalized pain (Acute) Non-STEMI (non-ST elevated myocardial infarction) (Acute) Subjective: still with myalgias, but overall better. still with chest pain. states the diffuse myalgias began after surgery on the 8th, and not before. Vitals/I&O's: Vital Signs Temp Pulse Resp BP Pulse Ox 36.9 C 72 16 131/70 H 94 05/25/18 10:00 05/25/18 11:00 05/25/18 10:00 05/25/18 10:00 05/25/18 10:00 Oxygen Flow Rate (L/min) 2 Oxygen Delivery Method Room Air Weight: 128.3 kg Body Mass Index (BMI) 42.7 Intake and Output for Last 24 Hours 05/23/18 05/24/18 05/25/18 23:59 23:59 23:59 Intake Total 752 / 752 1299 / 1299 Output Total 1425 / 1425 Balance -673 / -673 1299 / 1299 General: Alert, No apparent distress HEENT: Atraumatic, Normocephalic Oral: Moist Mucosa, No Gingival or Mucosal Lesions/ Ulcerations Neck: No Nodes, Thyroid Normal Size and Texture Lungs: Clear to auscultation, Normal air movement, No rhonchi, No wheeze Cardiovascular: Regular rate, Regular Rhythm, Normal S1, Normal S2, No murmurs Abdomen: Bowel Sounds Present, Soft, Non Tender, Non-Distended Extremities: No clubbing, No cyanosis, No edema Skin: No rashes, No breakdown Neurological: Neuro grossly intact, Muscle tone normal, Sensory exam intact to light touch and pain Psych/Mental Status: Normal Affect, Appropriate Laboratory Results 05/24/18 15:00: MRSA (PCR) Negative 05/24/18 20:00: Troponin I 1.170 H* 05/24/18 20:00: Total Creatine Kinase 2708 H 05/25/18 00:15: Troponin I 1.090 H* 05/25/18 06:52: WBC 6.1, RBC 4.51 L, Hgb 12.6 L, Hct 41.0, MCV 90.9, MCH 27.9, MCHC 30.7 L, RDW 13.9, RDW Differential 46.0 H, Plt Count 176, MPV 10.5, Immature Gran % (Auto) 0.200, Neut % (Auto) 59.4, Lymph % (Auto) 28.0, [place] % ( Auto) 9.2, Eos % (Auto) 3.0, Baso % (Auto) 0.2, Absolute Neuts (auto) 3.6, Absolute Lymphs (auto) 1.70, Total Counted Not Reportable 05/25/18 06:52: Sodium 143, Potassium 4.2, Chloride 106, Carbon Dioxide 30.0, Anion Gap 7, BUN 8, Creatinine 0.86, Estim Creat Clear Calc 95.01, Est GFR (MDRD ) Af Amer 121, Est GFR (MDRD) Non-Af 100, BUN/Creatinine Ratio 9.3 L, Glucose 84 , Calcium 8.3 L 05/25/18 06:52: Total Creatine Kinase 1735 H Current Medications Acetaminophen (Tylenol) 325 - 650 mg PO Q4H PRN PRN PRN Reason: PAIN Last Admin: 05/24/18 22:03 Dose: 325 mg Albuterol Sulfate (Ventolin Aerosols) 2.5 mg INHALATION Q2H PRN PRN PRN Reason: Shortness of breath/wheezing Albuterol Sulfate (Ventolin Aerosols) 2.5 mg INHALATION Q6HWA.RT [facility] Last Admin: 05/25/18 06:57 Dose: Not Given Aspirin (Ecotrin) 81 mg PO DAILY@0800 [facility] Last Admin: 05/25/18 09:53 Dose: 81 mg Atorvastatin Calcium (Lipitor) 80 mg PO QHS [facility] Last Admin: 05/24/18 21:34 Dose: 80 mg Budesonide (Pulmicort Aerosol) 0.5 mg INHALATION Q12H.RT [facility] Last Admin: 05/25/18 06:57 Dose: Not Given Clopidogrel Bisulfate (Plavix) 75 mg PO DAILY [facility] Last Admin: 05/25/18 09:53 Dose: 75 mg Enoxaparin Sodium (Lovenox) 40 mg SC DAILY [facility] Last Admin: 05/25/18 09:54 Dose: 40 mg Escitalopram Oxalate (Lexapro) 30 mg PO DAILY [facility] Last Admin: 05/25/18 09:53 Dose: 30 mg Heparin Sodium (Beef Lung) (Heparin 500 Unit/5 Ml (100/Ml)) 500 unit IV UD PRN PRN Reason: HEPARIN FLUSH Hydromorphone HCl (Dilaudid Inj) 1 mg IV Q4H PRN PRN PRN Reason: SEVERE PAIN (6-10/10) Last Admin: 05/25/18 09:58 Dose: 1 mg Sodium Chloride () 1,000 mls @ 0 mls/hr IV .Q0M [facility] PRN Reason: KVO Last Admin: 05/24/18 13:41 Dose: 999 mls/hr Labetalol HCl (Trandate) 5 mg IV X1 PRN PRN Reason: SBP > 160 prior to sheath pull Lamotrigine (Lamictal) 150 mg PO QHS [facility] Last Admin: 05/24/18 21:35 Dose: 150 mg Lisinopril (Zestril) 2.5 mg PO BID [facility] Last Admin: 05/25/18 09:52 Dose: 2.5 mg Magnesium Hydroxide (Milk Of Magnesia) 30 ml PO DAILY PRN PRN PRN Reason: Constipation Montelukast Sodium (Singulair) 10 mg PO QHS [facility] Last Admin: 05/24/18 21:35 Dose: 10 mg Ondansetron HCl (Zofran Odt) 4 mg PO Q8H PRN PRN PRN Reason: NAUSEA Oxycodone HCl (Oxyir) 5 - 10 mg PO Q4H PRN PRN PRN Reason: SEVERE PAIN (6-10/10) Last Admin: 05/25/18 13:32 Dose: 10 mg Pantoprazole Sodium (Protonix) 40 mg PO DAILY [facility] Last Admin: 05/25/18 09:52 Dose: 40 mg Sodium Chloride () 5 - 30 ml IV UD PRN PRN Reason: SALINE FLUSH Last Admin: 05/25/18 09:58 Dose: 10 ml Trazodone HCl (Desyrel) 50 mg PO BID [facility] Last Admin: 05/25/18 09:52 Dose: 50 mg Medical Necessity - Tobacco Use Smoking Status: Never smoker Assessment/Plan All Active Problems (Last Reviewed 05/16/18 @ 10:51 by Garth Garner MD) Gallbladder polyp (Acute) Right upper quadrant abdominal pain (Acute) Generalized pain (Acute) Non-STEMI (non-ST elevated myocardial infarction) (Acute) Influenza A H1N1 infection (Acute) Hypoxia (Acute) Lower extremity edema (Acute) CAP (community acquired pneumonia) due to Pneumococcus (Acute) 1. acute rhabdomyolysis * improving, but still elevated * unclear etiology, but symptoms began after surgery. Therefore, concern is that may have due to what he may have received around his surgery (anesthetics?) * continue to monitor * IVF 2. NSTEMI: * type 2/demand + some overlap w rhabdomyolysis * LHC showed 30% in stent stenosis of LAD, other romero unremarkable * Echo shows an EF of 65% w pseudonormal filling pattern * continue DAPT + atorvastatin 3. Possible PE * CTA equivocal for PE (PE v artifact) * check D-Dimer * start empiric lovenox for now. DW family at bedside. Code Visit Inpatient E&M: 38584 Subs Hosp L3
--- NOTE | 2018-05-25 13:50 | CASEMGMT ---
SEE RN CM ASSESS LINK: D/C PLAN: Home Intro role to RN CM. Pt resting in bed. Awake/alert/oriented. Pt reports is independent @ home with ambulation and all ADL's. Pt denies needing any DME's and denies other needs or concerns and denies need for HHC. CM to follow for discharge planning needs that may arise. Jennifer ALMEIDAN SO CM
[2018-05-25 14:45] LABS: D-Dimer Quantitative (DVT/PE) 1.16 FEU/ug/m (0.27-0.49)
[2018-05-25] MEDS: Enoxaparin 120 MG/0.8 ML Syringe SC (17:46)
[2018-05-25] MEDS: Budesonide Respules 0.5 MG/2 ML AMPUL.NEB. INHALATION (19:11)
[2018-05-25] MEDS: Montelukast 10 MG Tablet PO (21:30)
[2018-05-25] MEDS: Atorvastatin Calcium 80 MG Tablet PO (21:30)
[2018-05-25] MEDS: lamoTRIgine 150 MG Tablet PO (21:30)
[2018-05-26] VITALS (13 sets, daily range): BP systolic 137–159; BP diastolic 73–91; PULSE 63–91; RESP 14–18; TEMP 36.8–37.1; O2SAT 92–95
[2018-05-26 05:46] LABS: Anion Gap 9 (5-15); BUN 10 mg/dL (7-18); BUN/Creat Ratio 11.2 RATIO (10-20); CPK Total, Creatine Kinase 813 U/L (39-308); Calcium,Total 7.9 mg/dL (8.5-10.1); Chloride 103 mmol/L (98-107); Creatinine, Serum 0.89 mg/dL (0.70-1.30); EST Glomerular Filtration Rate 95 mL/min (>60); Est Glom Filt Rate - Afr Amer 115 mL/min (>60); Estimated Creatinine Clearance 91.81 ml/min; Glucose 88 mg/dL (74-106); Potassium 4.1 mmol/L (3.5-5.1); Sodium Level 141 mmol/L (136-145)
[2018-05-26] MEDS: HYDROmorphone 1 MG/ML Syringe IV (06:20)
[2018-05-26] MEDS: Enoxaparin 120 MG/0.8 ML Syringe SC (06:21)
[2018-05-26] MEDS: Magnesium Hydroxide 30 ML UDC PO ×2 (06:21→16:42)
[2018-05-26] MEDS: 0.9% NaCl Peripheral Flush Adult/Peds IV (06:21)
[2018-05-26] MEDS: Albuterol 2.5 MG/3 ML VIAL.NEB. INHALATION ×3 (07:00→19:35)
[2018-05-26] MEDS: Budesonide Respules 0.5 MG/2 ML AMPUL.NEB. INHALATION ×2 (07:00→19:35)
--- NOTE | 2018-05-26 08:10 | PCM.PN.SRG ---
Patient Problems: Active and Suspected Problems (Last Reviewed 05/16/18 @ 10:51 by Garth Garner MD) Generalized pain (Acute) Non-STEMI (non-ST elevated myocardial infarction) (Acute) Subjective: Patient states the aching is slowly improving, tolerated regular diet yesterday denied that previous right upper quadrant pain he had prior to surgery, patient reports still feeling bloated has been passing gas no additional bowel movements - Physical Exam General: Alert, Oriented x3, Cooperative, No apparent distress Lungs: Normal air movement Abdomen: Soft, Distended - Mild, Tender - Near incisions, - - Incisions clean dry and intact with Steri's, no guarding or rebound Vital Signs Temp Pulse Resp BP Pulse Ox 98.4 F 73 16 141/81 H 92 05/26/18 03:45 05/26/18 07:00 05/26/18 07:00 05/26/18 03:45 05/26/18 07:00 Oxygen Flow Rate (L/min) 2 Oxygen Delivery Method Room Air Weight: 282 lb 3.067 oz Body Mass Index (BMI) 42.7 Intake and Output for Last 24 Hours 05/24/18 05/25/18 05/26/18 23:59 23:59 23:59 Intake Total 752 / 752 1599 / 1599 240 / 240 Output Total 1425 / 1425 Balance -673 / -673 1599 / 1599 240 / 240 Laboratory Tests Past 24 Hrs 05/25/18 05/25/18 05/26/18 06:52 14:10 04:50 D-Dimer Quant (PE/DVT) 1.16 H* Sodium 141 Potassium 4.1 Chloride 103 Carbon Dioxide 29.0 Anion Gap 9 BUN 10 Creatinine 0.89 Estim Creat Clear Calc 91.81 Est GFR (MDRD) Af Amer 115 Est GFR (MDRD) Non-Af 95 BUN/Creatinine Ratio 11.2 Glucose 88 Calcium 7.9 L Total Creatine Kinase 1735 H 813 H Troponin I 0.370 H Medical Necessity - Tobacco Use Smoking Status: Never smoker Assessment/Plan All Active Problems (Last Reviewed 05/16/18 @ 10:51 by Garth Garner MD) Gallbladder polyp (Acute) Right upper quadrant abdominal pain (Acute) Generalized pain (Acute) Non-STEMI (non-ST elevated myocardial infarction) (Acute) Influenza A H1N1 infection (Acute) Hypoxia (Acute) Lower extremity edema (Acute) CAP (community acquired pneumonia) due to Pneumococcus (Acute) 52-year-old male status post a cholecystectomy on 05/22/2018, elevated troponin-and NSTEMI and CK, diffuse body aches 1. Patient complains of bloating will patient's MiraLAX this morning and additional if needed 2. Elevated troponin/CK-improving. Sofia Leon M.D. Pager: [phone] [facility] [address] [place] [address], [address] [place] [address] Office: [phone]
[2018-05-26] MEDS: Clopidogrel Bisulfate 75 MG Tablet PO (10:15)
[2018-05-26] MEDS: Pantoprazole Sodium 40 MG Tablet PO (10:15)
[2018-05-26] MEDS: Lisinopril 2.5 MG Tablet PO ×2 (10:15→22:33)
[2018-05-26] MEDS: Aspirin E.C. 81 MG Tablet PO (10:16)
[2018-05-26] MEDS: Polyethylene Glycol 3350 17 GM PACKET PO (10:16)
[2018-05-26] MEDS: oxyCODONE 5 MG Tablet PO ×4 (10:31→23:37)
--- NOTE | 2018-05-26 11:51 | PCM.PN.HOSP ---
Patient Problems: Active and Suspected Problems (Last Reviewed 05/16/18 @ 10:51 by Garth Garner MD) Generalized pain (Acute) Non-STEMI (non-ST elevated myocardial infarction) (Acute) Subjective: Still with right upper quadrant abdominal pain and that he required IV Dilaudid this morning. Patient has been off work for a month and 1/2-2 his abdominal pain. is concerned about his pain medications upon being discharged. Vitals/I&O's: Vital Signs Temp Pulse Resp BP Pulse Ox 36.9 C 79 16 153/73 H 95 05/26/18 09:45 05/26/18 11:01 05/26/18 09:45 05/26/18 09:45 05/26/18 09:45 Oxygen Flow Rate (L/min) 2 Oxygen Delivery Method Room Air Weight: 128 kg Body Mass Index (BMI) 42.7 Intake and Output for Last 24 Hours 05/24/18 05/25/18 05/26/18 23:59 23:59 23:59 Intake Total 752 / 752 1599 / 1599 240 / 240 Output Total 1425 / 1425 Balance -673 / -673 1599 / 1599 240 / 240 General: Alert, Cooperative, No apparent distress, - - Standing in the room. Afebrile. HEENT: Atraumatic, Normocephalic Oral: Moist Mucosa, No Gingival or Mucosal Lesions/ Ulcerations Neck: No Nodes, Thyroid Normal Size and Texture Lungs: Clear to auscultation, Normal air movement, No rhonchi, No wheeze Cardiovascular: Regular rate, Regular Rhythm, Normal S1, Normal S2, No murmurs Abdomen: Bowel Sounds Present, Soft, Non-Distended, No Hepato-splenomegaly, Obese, - - Right upper quadrant tenderness Extremities: No edema, No Calf Tenderness Skin: No rashes, No breakdown Psych/Mental Status: Appropriate, Flat Affect Laboratory Results 05/25/18 14:10: D-Dimer Quant (PE/DVT) 1.16 H* 05/26/18 04:50: Sodium 141, Potassium 4.1, Chloride 103, Carbon Dioxide 29.0, Anion Gap 9, BUN 10, Creatinine 0.89, Estim Creat Clear Calc 91.81, Est GFR (MDRD) Af Amer 115, Est GFR (MDRD) Non-Af 95, BUN/Creatinine Ratio 11.2, Glucose 88, Calcium 7.9 L, Total Creatine Kinase 813 H, Troponin I 0.370 H 05/26/18 04:50: Total Bilirubin Pending, Direct Bilirubin Pending, AST Pending, ALT Pending, Alkaline Phosphatase Pending, Total Protein Pending, Albumin Pending Current Medications Acetaminophen (Tylenol) 325 - 650 mg PO Q4H PRN PRN PRN Reason: PAIN Last Admin: 05/24/18 22:03 Dose: 325 mg Albuterol Sulfate (Ventolin Aerosols) 2.5 mg INHALATION Q2H PRN PRN PRN Reason: Shortness of breath/wheezing Albuterol Sulfate (Ventolin Aerosols) 2.5 mg INHALATION Q6HWA.RT [facility] Last Admin: 05/26/18 07:00 Dose: 2.5 mg Aspirin (Ecotrin) 81 mg PO DAILY@0800 [facility] Last Admin: 05/26/18 10:16 Dose: 81 mg Budesonide (Pulmicort Aerosol) 0.5 mg INHALATION Q12H.RT [facility] Last Admin: 05/26/18 07:00 Dose: 0.5 mg Clopidogrel Bisulfate (Plavix) 75 mg PO DAILY [facility] Last Admin: 05/26/18 10:15 Dose: 75 mg Enoxaparin Sodium (Lovenox) 120 mg SC Q12@0600,1800 [facility] Last Admin: 05/26/18 06:21 Dose: 120 mg Escitalopram Oxalate (Lexapro) 30 mg PO QHS [facility] Heparin Sodium (Beef Lung) (Heparin 500 Unit/5 Ml (100/Ml)) 500 unit IV UD PRN PRN Reason: HEPARIN FLUSH Sodium Chloride () 1,000 mls @ 125 mls/hr IV .Q8H [facility] Labetalol HCl (Trandate) 5 mg IV X1 PRN PRN Reason: SBP > 160 prior to sheath pull Lamotrigine (Lamictal) 150 mg PO QHS [facility] Last Admin: 05/25/18 21:30 Dose: 150 mg Lisinopril (Zestril) 2.5 mg PO BID [facility] Last Admin: 05/26/18 10:15 Dose: 2.5 mg Magnesium Hydroxide (Milk Of Magnesia) 30 ml PO DAILY PRN PRN PRN Reason: Constipation Last Admin: 05/26/18 06:21 Dose: 30 ml Montelukast Sodium (Singulair) 10 mg PO QHS [facility] Last Admin: 05/25/18 21:30 Dose: 10 mg Ondansetron HCl (Zofran Odt) 4 mg PO Q8H PRN PRN PRN Reason: NAUSEA Oxycodone HCl (Oxyir) 5 mg PO Q4H PRN PRN PRN Reason: SEVERE PAIN (6-10/10) Pantoprazole Sodium (Protonix) 40 mg PO DAILY [facility] Last Admin: 05/26/18 10:15 Dose: 40 mg Sodium Chloride () 5 - 30 ml IV UD PRN PRN Reason: SALINE FLUSH Last Admin: 05/26/18 06:21 Dose: 10 ml Trazodone HCl (Desyrel) 50 mg PO BID [facility] Last Admin: 05/26/18 10:22 Dose: Not Given Medical Necessity - Tobacco Use Smoking Status: Never smoker Assessment/Plan All Active Problems (Last Reviewed 05/16/18 @ 10:51 by Garth Garner MD) Gallbladder polyp (Acute) Right upper quadrant abdominal pain (Acute) Generalized pain (Acute) Non-STEMI (non-ST elevated myocardial infarction) (Acute) Influenza A H1N1 infection (Acute) Hypoxia (Acute) Lower extremity edema (Acute) CAP (community acquired pneumonia) due to Pneumococcus (Acute) 1. acute rhabdomyolysis improving, but still elevated unclear etiology, but symptoms began after surgery. Therefore, concern is that may have due to what he may have received around his surgery (anesthetics?). Patient never had any CPKs ordered previously so is unclear if they may have been previously elevated though there is prior never any clear indication to order those. continue to monitor IVF I am going to discontinue atorvastatin Reevaluate labs in the morning 2. NSTEMI: type 2/demand + some overlap w rhabdomyolysis LHC showed 30% in stent stenosis of LAD, other romero unremarkable Echo shows an EF of 65% w pseudonormal filling pattern continue DAPT Discussed with the patient and his and address misinformation that the patient had a blockage in his heart. The patient did not have a spasm nor any complete occlusion of his artery but that this cardiac was likely due to the demand ischemia from his acute illness. 3. Abnormal CTA CTA equivocal for PE (PE v artifact) D-dimer elevated Patient's well's score is only 1.5 which is low. Therefore unlikely to be pulmonary embolism DC Lovenox 4. Right upper quadrant abdominal pain Clinical and all feel the patient is bathing does look better today we will follow up LFTs and if acutely worsening Then may consider doing repeat imaging of his abdomen. Follow-up with general surgery 5. Abnormal LFTs Patient has previously had a biopsy that showed some steatosis as well as some bridging fibrosis reviewed these findings with the pathology with patient and his Explained that this is likely related with hepatic steatosis/fatty liver. Explained that appears to not be any evidence of any cirrhosis point time but would certainly need to be continued to be watched to ensure that it did not evolve into cirrhosis 6. DVT prophylaxis with Lovenox 7. Disposition: The patient's stories become more clear to me as he is now telling me more information and but yet still not completely clear on all of his symptoms despite inquiry. So I feel that be most prudent to treat the objective parameters which is is still ongoing rhabdomyolysis which is improved with IV fluids. Stop IV narcotics this patient is taking this for pain but really appears to be in no distress but is up and standing. Told the patient is not able to's to stand because of risk of falls with IV narcotics I am going to discontinue those. Discussed with the patient and his about the current plans and to reevaluate and see if patient may be ready for discharge on the . >40 minutes of which greater than 50% of time was counseling in the patient his about his previous pathology report, rhabdomyolysis, non-STEMI. Code Visit Inpatient E&M: [id number] [facility] Hosp L3
--- NOTE | 2018-05-26 12:03 | PN_ITS ---
Patient Problems: Active and Suspected Problems (Last Reviewed 05/16/18 @ 10:51 by Garth Garner MD) Generalized pain (Acute) Non-STEMI (non-ST elevated myocardial infarction) (Acute) Subjective: Still with right upper quadrant abdominal pain and that he required IV Dilaudid this morning. Patient has been off work for a month and 1/2-2 his abdominal pain. is concerned about his pain medications upon being discharged. Vitals/I&O's: Vital Signs Temp Pulse Resp BP Pulse Ox 36.9 C 79 16 153/73 H 95 05/26/18 09:45 05/26/18 11:01 05/26/18 09:45 05/26/18 09:45 05/26/18 09:45 Oxygen Flow Rate (L/min) 2 Oxygen Delivery Method Room Air Weight: 128 kg Body Mass Index (BMI) 42.7 Intake and Output for Last 24 Hours 05/24/18 05/25/18 05/26/18 23:59 23:59 23:59 Intake Total 752 / 752 1599 / 1599 240 / 240 Output Total 1425 / 1425 Balance -673 / -673 1599 / 1599 240 / 240 General: Alert, Cooperative, No apparent distress, - - Standing in the room. Afebrile. HEENT: Atraumatic, Normocephalic Oral: Moist Mucosa, No Gingival or Mucosal Lesions/ Ulcerations Neck: No Nodes, Thyroid Normal Size and Texture Lungs: Clear to auscultation, Normal air movement, No rhonchi, No wheeze Cardiovascular: Regular rate, Regular Rhythm, Normal S1, Normal S2, No murmurs Abdomen: Bowel Sounds Present, Soft, Non-Distended, No Hepato-splenomegaly, Obese, - - Right upper quadrant tenderness Extremities: No edema, No Calf Tenderness Skin: No rashes, No breakdown Psych/Mental Status: Appropriate, Flat Affect Laboratory Results 05/25/18 14:10: D-Dimer Quant (PE/DVT) 1.16 H* 05/26/18 04:50: Sodium 141, Potassium 4.1, Chloride 103, Carbon Dioxide 29.0, Anion Gap 9, BUN 10, Creatinine 0.89, Estim Creat Clear Calc 91.81, Est GFR ( MDRD) Af Amer 115, Est GFR (MDRD) Non-Af 95, BUN/Creatinine Ratio 11.2, Glucose 88, Calcium 7.9 L, Total Creatine Kinase 813 H, Troponin I 0.370 H 05/26/18 04:50: Total Bilirubin Pending, Direct Bilirubin Pending, AST Pending, ALT Pending, Alkaline Phosphatase Pending, Total Protein Pending, Albumin Pending Current Medications Acetaminophen (Tylenol) 325 - 650 mg PO Q4H PRN PRN PRN Reason: PAIN Last Admin: 05/24/18 22:03 Dose: 325 mg Albuterol Sulfate (Ventolin Aerosols) 2.5 mg INHALATION Q2H PRN PRN PRN Reason: Shortness of breath/wheezing Albuterol Sulfate (Ventolin Aerosols) 2.5 mg INHALATION Q6HWA.RT [facility] Last Admin: 05/26/18 07:00 Dose: 2.5 mg Aspirin (Ecotrin) 81 mg PO DAILY@0800 [facility] Last Admin: 05/26/18 10:16 Dose: 81 mg Budesonide (Pulmicort Aerosol) 0.5 mg INHALATION Q12H.RT [facility] Last Admin: 05/26/18 07:00 Dose: 0.5 mg Clopidogrel Bisulfate (Plavix) 75 mg PO DAILY [facility] Last Admin: 05/26/18 10:15 Dose: 75 mg Enoxaparin Sodium (Lovenox) 120 mg SC Q12@0600,1800 [facility] Last Admin: 05/26/18 06:21 Dose: 120 mg Escitalopram Oxalate (Lexapro) 30 mg PO QHS [facility] Heparin Sodium (Beef Lung) (Heparin 500 Unit/5 Ml (100/Ml)) 500 unit IV UD PRN PRN Reason: HEPARIN FLUSH Sodium Chloride () 1,000 mls @ 125 mls/hr IV .Q8H [facility] Labetalol HCl (Trandate) 5 mg IV X1 PRN PRN Reason: SBP > 160 prior to sheath pull Lamotrigine (Lamictal) 150 mg PO QHS [facility] Last Admin: 05/25/18 21:30 Dose: 150 mg Lisinopril (Zestril) 2.5 mg PO BID [facility] Last Admin: 05/26/18 10:15 Dose: 2.5 mg Magnesium Hydroxide (Milk Of Magnesia) 30 ml PO DAILY PRN PRN PRN Reason: Constipation Last Admin: 05/26/18 06:21 Dose: 30 ml Montelukast Sodium (Singulair) 10 mg PO QHS [facility] Last Admin: 05/25/18 21:30 Dose: 10 mg Ondansetron HCl (Zofran Odt) 4 mg PO Q8H PRN PRN PRN Reason: NAUSEA Oxycodone HCl (Oxyir) 5 mg PO Q4H PRN PRN PRN Reason: SEVERE PAIN (6-10/10) Pantoprazole Sodium (Protonix) 40 mg PO DAILY [facility] Last Admin: 05/26/18 10:15 Dose: 40 mg Sodium Chloride () 5 - 30 ml IV UD PRN PRN Reason: SALINE FLUSH Last Admin: 05/26/18 06:21 Dose: 10 ml Trazodone HCl (Desyrel) 50 mg PO BID [facility] Last Admin: 05/26/18 10:22 Dose: Not Given Medical Necessity - Tobacco Use Smoking Status: Never smoker Assessment/Plan All Active Problems (Last Reviewed 05/16/18 @ 10:51 by Garth Garner MD) Gallbladder polyp (Acute) Right upper quadrant abdominal pain (Acute) Generalized pain (Acute) Non-STEMI (non-ST elevated myocardial infarction) (Acute) Influenza A H1N1 infection (Acute) Hypoxia (Acute) Lower extremity edema (Acute) CAP (community acquired pneumonia) due to Pneumococcus (Acute) 1. acute rhabdomyolysis * improving, but still elevated * unclear etiology, but symptoms began after surgery. Therefore, concern is that may have due to what he may have received around his surgery (anesthetics?) . Patient never had any CPKs ordered previously so is unclear if they may have been previously elevated though there is prior never any clear indication to order those. * continue to monitor * IVF * I am going to discontinue atorvastatin * Reevaluate labs in the morning 2. NSTEMI: * type 2/demand + some overlap w rhabdomyolysis * LHC showed 30% in stent stenosis of LAD, other romero unremarkable * Echo shows an EF of 65% w pseudonormal filling pattern * continue DAPT * Discussed with the patient and his and address misinformation that the patient had a blockage in his heart. * The patient did not have a spasm nor any complete occlusion of his artery but that this cardiac was likely due to the demand ischemia from his acute illness. 3. Abnormal CTA * CTA equivocal for PE (PE v artifact) * D-dimer elevated * Patient's well's score is only 1.5 which is low. * Therefore unlikely to be pulmonary embolism * DC Lovenox * 4. Right upper quadrant abdominal pain * Clinical and all feel the patient is bathing does look better today we will follow up LFTs and if acutely worsening * Then may consider doing repeat imaging of his abdomen. * Follow-up with general surgery 5. Abnormal LFTs * Patient has previously had a biopsy that showed some steatosis as well as some bridging fibrosis reviewed these findings with the pathology with patient and his * Explained that this is likely related with hepatic steatosis/fatty liver. Explained that appears to not be any evidence of any cirrhosis point time but would certainly need to be continued to be watched to ensure that it did not evolve into cirrhosis 6. DVT prophylaxis with Lovenox 7. Disposition: The patient's stories become more clear to me as he is now telling me more information and but yet still not completely clear on all of his symptoms despite inquiry. So I feel that be most prudent to treat the objective parameters which is is still ongoing rhabdomyolysis which is improved with IV fluids. Stop IV narcotics this patient is taking this for pain but really appears to be in no distress but is up and standing. Told the patient is not able to's to stand because of risk of falls with IV narcotics I am going to discontinue those. Discussed with the patient and his about the current plans and to reevaluate and see if patient may be ready for discharge on the . >40 minutes of which greater than 50% of time was counseling in the patient his about his previous pathology report, rhabdomyolysis, non-STEMI. Code Visit Inpatient E&M: 29539 [facility] Hosp L3
[2018-05-26] MEDS: 0.9% Normal Saline 1,000 ML 125 ML IV ×2 (12:10→19:31)
[2018-05-26] MEDS: Acetaminophen 325 MG Tablet PO ×2 (12:10→16:40)
[2018-05-26 12:28] LABS: AST(SGOT) 86 U/L (15-37); Alanine Aminotransfer ALT/SGPT 78 U/L (16-61); Albumin, Serum 2.8 g/dL (3.2-5.0); Alkaline Phosphatase 137 U/L (45-117); Bilirubin, Direct 0.14 mg/dL (0.00-0.30); Globulin 3.5 g/dL (2.2-4.2); Protein, Total 6.3 g/dL (6.4-8.2)
[2018-05-26] MEDS: Montelukast 10 MG Tablet PO (22:33)
[2018-05-26] MEDS: Escitalopram Oxalate 10 MG Tablet 30 MG PO (22:34)
[2018-05-26] MEDS: traZODone 50 MG Tablet PO (22:37)
[2018-05-26] MEDS: lamoTRIgine 150 MG Tablet PO (22:57)
[2018-05-27] VITALS (8 sets, daily range): BP systolic 123–154; BP diastolic 58–81; PULSE 68–80; RESP 16–18; TEMP 36.7–36.8; O2SAT 94–96
[2018-05-27] MEDS: 0.9% Normal Saline 1,000 ML 125 ML IV ×2 (03:38→11:05)
[2018-05-27] MEDS: Magnesium Hydroxide 30 ML UDC PO (03:42)
[2018-05-27] MEDS: oxyCODONE 5 MG Tablet PO (03:42)
[2018-05-27] MEDS: Enoxaparin 40 MG/0.4 ML Syringe SC (05:49)
[2018-05-27 06:50] LABS: ALB/GLOB Ratio 0.8 RATIO (0.9-2.4); AST(SGOT) 69 U/L (15-37); Alanine Aminotransfer ALT/SGPT 73 U/L (16-61); Albumin, Serum 3.1 g/dL (3.2-5.0); Alkaline Phosphatase 142 U/L (45-117); Anion Gap 5 (5-15); BUN 10 mg/dL (7-18); BUN/Creat Ratio 11.4 RATIO (10-20); CPK Total, Creatine Kinase 565 U/L (39-308); Calcium,Total 8.3 mg/dL (8.5-10.1); Chloride 106 mmol/L (98-107); Creatinine, Serum 0.88 mg/dL (0.70-1.30); EST Glomerular Filtration Rate 97 mL/min (>60); Est Glom Filt Rate - Afr Amer 118 mL/min (>60); Estimated Creatinine Clearance 92.85 ml/min; Globulin 3.9 g/dL (2.2-4.2); Glucose 100 mg/dL (74-106); Potassium 4.2 mmol/L (3.5-5.1); Sodium Level 139 mmol/L (136-145)
[2018-05-27] MEDS: Albuterol 2.5 MG/3 ML VIAL.NEB. INHALATION ×2 (06:50→12:52)
[2018-05-27] MEDS: Budesonide Respules 0.5 MG/2 ML AMPUL.NEB. INHALATION (06:50)
[2018-05-27 07:13] LABS: Absolute Lymphocyte Count 2.13 X10^3/ul (0.83-4.51); Basophil# 0.02 X10^3/uL; Basophil% 0.3 % (0-1); Eosinophil# 0.28 X10^3/uL; Lymphocyte # 2.13 X10^3/ul (4.0); Lymphocyte % 30.8 % (19-41); Mean Corp Hgb Conc 32.5 g/gl (32-36); Mean Corpuscular Hgb 28.7 pg (27.0-32.0); Mean Corpuscular Volume 88.3 fL (80-94); Monocyte# 0.53 X10^3/uL; Monocyte% 7.7 % (0-10); Neutrophil # 3.95 X10^3/uL (2.7-7.7); Neutrophil % 57.1 % (47-70); Platelet Count 214 K/mm3 (150-450); RBC Distribution Width CV 13.7 % (11.6-14.6); RBC Distribution Width SD 43.8 fl (35.1-43.9); Red Blood Count 4.53 M/mm3 (4.6-6.2); White Blood Count 6.9 K/mm3 (4.4-11.0)
[2018-05-27 07:14] LABS: Differential Indicated SCAN CRITERIA MET; POSITIVE COUNT NO; POSITIVE DIFFERENTIAL NO; POSITIVE MORPHOLOGY YES
[2018-05-27 07:35] LABS: Platelet Estimate ADEQUATE (ADEQ); Platelet Morphology LARGE
--- NOTE | 2018-05-27 08:32 | PCM.PN.SRG ---
Patient Problems: Active and Suspected Problems (Last Reviewed 05/16/18 @ 10:51 by Garth Garner MD) Generalized pain (Acute) Non-STEMI (non-ST elevated myocardial infarction) (Acute) Subjective: Patient states his myalgias are improved, positive bowel movement with MiraLAX yesterday feeling less bloated tolerating diet - Physical Exam General: Alert, Oriented x3, Cooperative, No apparent distress Lungs: Normal air movement Abdomen: Soft, Non-Distended, Tender - Appropriate ear incisions, clean dry and intact with Steri's, - - No guarding or peritoneal signs Vital Signs Temp Pulse Resp BP Pulse Ox 98.3 F 72 18 154/81 H 94 05/27/18 03:44 05/27/18 07:07 05/27/18 07:58 05/27/18 03:44 05/27/18 06:50 Oxygen Flow Rate (L/min) 2 Oxygen Delivery Method Room Air Weight: 278 lb 7.101 oz Body Mass Index (BMI) 42.7 Intake and Output for Last 24 Hours 05/25/18 05/26/18 05/27/18 23:59 23:59 23:59 Intake Total 1599 / 1599 2026 / 2026 1060 / 1060 Output Total 425 / 425 900 / 900 Balance 1599 / 1599 1601 / 1601 160 / 160 Laboratory Tests Past 24 Hrs 05/26/18 05/27/18 05/27/18 04:50 06:00 06:00 WBC 6.9 RBC 4.53 L Hgb 13.0 Hct 40.0 MCV 88.3 MCH 28.7 MCHC 32.5 RDW 13.7 RDW Differential 43.8 Plt Count 214 MPV 11.0 Immature Gran % (Auto) 0.100 Neut % (Auto) 57.1 Lymph % (Auto) 30.8 [place] % (Auto) 7.7 Eos % (Auto) 4.0 Baso % (Auto) 0.3 Absolute Neuts (auto) 4.0 Absolute Lymphs (auto) 2.13 Total Counted Not Reportable Platelet Estimate ADEQUATE Plt Morphology Comment LARGE Sodium 139 Potassium 4.2 Chloride 106 Carbon Dioxide 28.0 Anion Gap 5 BUN 10 Creatinine 0.88 Estim Creat Clear Calc 92.85 Est GFR (MDRD) Af Amer 118 Est GFR (MDRD) Non-Af 97 BUN/Creatinine Ratio 11.4 Glucose 100 Calcium 8.3 L Total Bilirubin 0.50 0.50 Direct Bilirubin 0.14 AST 86 H 69 H ALT 78 H 73 H Alkaline Phosphatase 137 H 142 H Total Creatine Kinase 565 H Total Protein 6.3 L 7.0 Albumin 2.8 L 3.1 L Globulin 3.5 3.9 Albumin/Globulin Ratio 0.8 L Medical Necessity - Tobacco Use Smoking Status: Never smoker Assessment/Plan All Active Problems (Last Reviewed 05/16/18 @ 10:51 by Garth Garner MD) Gallbladder polyp (Acute) Right upper quadrant abdominal pain (Acute) Generalized pain (Acute) Non-STEMI (non-ST elevated myocardial infarction) (Acute) Influenza A H1N1 infection (Acute) Hypoxia (Acute) Lower extremity edema (Acute) CAP (community acquired pneumonia) due to Pneumococcus (Acute) 52-year-old male status post a cholecystectomy on 05/22/2018, elevated troponin-and NSTEMI and CK, diffuse body aches 1. Patient's bloating has resolved with MiraLAX he has had multiple bowel movements yesterday. 2. Elevated troponin/CK-improving still slightly elevated. Continue IV fluids 3. Elevated liver function enzymes-patient's current liver functions are about what they have been over the last year for a AST ALT the alk phos is elevated however that could also be due to the rhabdomyolysis Sofia Leon M.D. Pager: [phone] [facility] [address] [place] [address], [facility], [address] [place] [id number] Office: [phone]
[2018-05-27] MEDS: Clopidogrel Bisulfate 75 MG Tablet PO (09:32)
[2018-05-27] MEDS: Pantoprazole Sodium 40 MG Tablet PO (09:32)
[2018-05-27] MEDS: Aspirin E.C. 81 MG Tablet PO (09:32)
[2018-05-27] MEDS: Lisinopril 2.5 MG Tablet PO (09:32)
--- NOTE | 2018-05-27 12:41 | PCM.PN.HOSP ---
Patient Problems: Active and Suspected Problems (Last Reviewed 05/16/18 @ 10:51 by Garth Garner MD) Generalized pain (Acute) Non-STEMI (non-ST elevated myocardial infarction) (Acute) Subjective: Feeling better. Had BMs ~ 3 and that seemed to relieve some of his abdominal pain. Vitals/I&O's: Vital Signs Temp Pulse Resp BP Pulse Ox 36.7 C 70 18 123/58 H 96 05/27/18 09:29 05/27/18 11:08 05/27/18 09:29 05/27/18 09:29 05/27/18 09:29 Oxygen Flow Rate (L/min) 2 Oxygen Delivery Method Room Air Weight: 126.3 kg Body Mass Index (BMI) 42.7 Intake and Output for Last 24 Hours 05/25/18 05/26/18 05/27/18 23:59 23:59 23:59 Intake Total 1599 / 1599 2025 / 2025 1560 / 1560 Output Total 425 / 425 1250 / 1250 Balance 1599 / 1599 1601 / 1601 310 / 310 General: Alert, No apparent distress HEENT: Atraumatic, Normocephalic Oral: Moist Mucosa Neck: No Nodes, Thyroid Normal Size and Texture Lungs: Clear to auscultation, Normal air movement, No rhonchi, No wheeze Cardiovascular: Regular rate, Regular Rhythm, Normal S1, Normal S2, No murmurs Abdomen: Bowel Sounds Present, Soft, Non Tender, Non-Distended, No Hepato-splenomegaly Extremities: No edema, No Calf Tenderness Psych/Mental Status: Normal Affect, Appropriate Laboratory Results 05/27/18 06:00: WBC 6.9, RBC 4.53 L, Hgb 13.0, Hct 40.0, MCV 88.3, MCH 28.7, MCHC 32.5, RDW 13.7, RDW Differential 43.8, Plt Count 214, MPV 11.0, Immature Gran % (Auto) 0.100, Neut % (Auto) 57.1, Lymph % (Auto) 30.8, [place] % (Auto) 7.7, Eos % (Auto) 4.0, Baso % (Auto) 0.3, Absolute Neuts (auto) 4.0, Absolute Lymphs (auto) 2.13, Total Counted Not Reportable, Platelet Estimate ADEQUATE, Plt Morphology Comment LARGE 05/27/18 06:00: Sodium 139, Potassium 4.2, Chloride 106, Carbon Dioxide 28.0, Anion Gap 5, BUN 10, Creatinine 0.88, Estim Creat Clear Calc 92.85, Est GFR (MDRD) Af Amer 118, Est GFR (MDRD) Non-Af 97, BUN/Creatinine Ratio 11.4, Glucose 100, Calcium 8.3 L, Total Bilirubin 0.50, AST 69 H, ALT 73 H, Alkaline Phosphatase 142 H, Total Creatine Kinase 565 H, Total Protein 7.0, Albumin 3.1 L, Globulin 3.9, Albumin/Globulin Ratio 0.8 L Current Medications Acetaminophen (Tylenol) 325 - 650 mg PO Q4H PRN PRN PRN Reason: PAIN Last Admin: 05/26/18 16:40 Dose: 650 mg Albuterol Sulfate (Ventolin Aerosols) 2.5 mg INHALATION Q2H PRN PRN PRN Reason: Shortness of breath/wheezing Albuterol Sulfate (Ventolin Aerosols) 2.5 mg INHALATION Q6HWA.RT [facility] Last Admin: 05/27/18 06:50 Dose: 2.5 mg Aspirin (Ecotrin) 81 mg PO DAILY@0800 [facility] Last Admin: 05/27/18 09:32 Dose: 81 mg Budesonide (Pulmicort Aerosol) 0.5 mg INHALATION Q12H.RT [facility] Last Admin: 05/27/18 06:50 Dose: 0.5 mg Clopidogrel Bisulfate (Plavix) 75 mg PO DAILY [facility] Last Admin: 05/27/18 09:32 Dose: 75 mg Enoxaparin Sodium (Lovenox) 40 mg SC DAILY@0600 [facility] Last Admin: 05/27/18 05:49 Dose: 40 mg Escitalopram Oxalate (Lexapro) 30 mg PO QHS [facility] Last Admin: 05/26/18 22:34 Dose: 30 mg Heparin Sodium (Beef Lung) (Heparin 500 Unit/5 Ml (100/Ml)) 500 unit IV UD PRN PRN Reason: HEPARIN FLUSH Sodium Chloride () 1,000 mls @ 125 mls/hr IV .Q8H [facility] Last Admin: 05/27/18 11:05 Dose: 125 mls/hr Labetalol HCl (Trandate) 5 mg IV X1 PRN PRN Reason: SBP > 160 prior to sheath pull Lamotrigine (Lamictal) 150 mg PO QHS [facility] Last Admin: 05/26/18 22:57 Dose: 150 mg Lisinopril (Zestril) 2.5 mg PO BID [facility] Last Admin: 05/27/18 09:32 Dose: 2.5 mg Magnesium Hydroxide (Milk Of Magnesia) 30 ml PO DAILY PRN PRN PRN Reason: Constipation Last Admin: 05/27/18 03:42 Dose: 30 ml Montelukast Sodium (Singulair) 10 mg PO QHS [facility] Last Admin: 05/26/18 22:33 Dose: 10 mg Ondansetron HCl (Zofran Odt) 4 mg PO Q8H PRN PRN PRN Reason: NAUSEA Oxycodone HCl (Oxyir) 5 mg PO Q4H PRN PRN PRN Reason: SEVERE PAIN (6-10/10) Last Admin: 05/27/18 03:42 Dose: 5 mg Pantoprazole Sodium (Protonix) 40 mg PO DAILY [facility] Last Admin: 05/27/18 09:32 Dose: 40 mg Sodium Chloride () 5 - 30 ml IV UD PRN PRN Reason: SALINE FLUSH Last Admin: 05/26/18 06:21 Dose: 10 ml Trazodone HCl (Desyrel) 50 mg PO BID [facility] Last Admin: 05/27/18 09:58 Dose: Not Given Medical Necessity - Tobacco Use Smoking Status: Never smoker Assessment/Plan All Active Problems (Last Reviewed 05/16/18 @ 10:51 by Garth Garner MD) Gallbladder polyp (Acute) Right upper quadrant abdominal pain (Acute) Generalized pain (Acute) Non-STEMI (non-ST elevated myocardial infarction) (Acute) Influenza A H1N1 infection (Acute) Hypoxia (Acute) Lower extremity edema (Acute) CAP (community acquired pneumonia) due to Pneumococcus (Acute) 1. acute rhabdomyolysis improving, but still elevated unclear etiology, but symptoms began after surgery. Therefore, concern is that may have due to what he may have received around his surgery (anesthetics?). Patient never had any CPKs ordered previously so is unclear if they may have been previously elevated though there is prior never any clear indication to order those. Statin-induced? continue to monitor Follow up CPK as outpt, if continues to be elevated, may need to DC statin. 2. NSTEMI: type 2/demand + some overlap w rhabdomyolysis LHC showed 30% in stent stenosis of LAD, other romero unremarkable Echo shows an EF of 65% w pseudonormal filling pattern continue DAPT Discussed with the patient and his and address misinformation that the patient had a blockage in his heart. The patient did not have a spasm nor any complete occlusion of his artery but that this cardiac was likely due to the demand ischemia from his acute illness. Follow up with Dr. Bethea ([facility] as outpatient. 3. Abnormal CTA CTA equivocal for PE (PE v artifact) D-dimer elevated Patient's well's score is only 1.5 which is low. Therefore unlikely to be pulmonary embolism DC Lovenox 4. Right upper quadrant abdominal pain Follow-up with general surgery improved today, may have been related to constipation 5. Abnormal LFTs Patient has previously had a biopsy that showed some steatosis as well as some bridging fibrosis reviewed these findings with the pathology with patient and his Explained that this is likely related with hepatic steatosis/fatty liver. Explained that appears to not be any evidence of any cirrhosis point time but would certainly need to be continued to be watched to ensure that it did not evolve into cirrhosis improved outpt follow up 6. DVT prophylaxis with Lovenox DC home today.
--- NOTE | 2018-05-27 12:51 | PCM.DC ---
- Discharge Diagnoses Current Active Problems: Current Active and Chronic Problems (Last Reviewed 05/16/18 @ 10:51 by Garth Garner MD) Generalized pain (Acute) Non-STEMI (non-ST elevated myocardial infarction) (Acute) You will use the following diet at home:: Cardiac Your food should be the consistency of: Regular Your liquids should be the consistency of: Regular/Thin Discharge Activity: Return to Normal Activity Weight Bearing Status: Weight bearing as tolerated Call your doctor if your incision/area has: Sudden Increased Bleeding, Increased Pain/ Swelling Call your doctor if you observe: Fever of 101 or Higher, Shortness of breath, - - worsening abdominal pain. diffuse muscle pain. Allergies/Adverse Reactions: Allergies metoclopramide HCl [From Reglan] Adverse Reaction (Verified 05/21/18 13:46) Other prochlorperazine edisylate [From Compazine] Adverse Reaction (Verified 05/21/18 13:46) Other prochlorperazine maleate [From Compazine] Adverse Reaction (Verified 05/21/18 13:46) Other Medications to take at Discharge Clopidogrel Bisulfate [Plavix] 75 mg PO DAILY 06/24/14 Lisinopril [Zestril] 2.5 mg PO BID 06/24/14 Montelukast [Singulair] 10 mg PO QHS 06/24/14 Aspirin E.C. [Ecotrin] 81 mg PO DAILY@0800 10/11/16 Albuterol Aerosols [Ventolin Aerosols] 2.5 mg INHALATION Q2H PRN PRN #50 vial.neb. 12/29/16 Albuterol Inhaler [Ventolin Hfa] 2 puff INHALATION Q4H PRN PRN #60 inhaler 12/29/16 Mometasone/Formoterol [Dulera 200 Mcg/5 Mcg Inhaler] 1 puff IH BID #1 hfa.aer.ad 12/29/16 Ondansetron [Zofran Odt] 4 mg PO Q8H PRN PRN #10 tab 04/11/18 Oxycodone [Oxyir] 5 - 10 mg PO Q6H PRN PRN 4 Days #20 tab 04/14/18 traZODone [Desyrel] 50 mg PO QHS 04/14/18 escitalopram 20 mg tablet 30 mg PO QHS tab 05/16/18 omeprazole 40 mg capsule,delayed release 40 mg PO QDAY cap 05/16/18 Atorvastatin Calcium [Lipitor] 80 mg PO QHS 05/21/18 Oxycodone HCl/Acetaminophen [Percocet 5-325] 1 - 2 tab PO Q4H PRN PRN 4 Days #30 tab 05/22/18 Lamotrigine [Lamictal] 150 mg PO DAILY 05/26/18 Primary Care Physician: Will Jett MD [Primary Care Provider] - Within 2 Weeks Test Results: Test results from this visit will be discussed in further detail at your follow-up appointment, if applicable. Please Follow Up With: Sofia Leon MD When: 1-2 weeks Please Follow Up With: Will Juares When: 4-6 weeks Proposed Discharge Date: 05/27/18
--- NOTE | 2018-05-27 12:56 | PCM.DC.SUM ---
Discharge Date and Diagnosis - Problem List Patient Problems: Active and Suspected Problems (Last Reviewed 05/16/18 @ 10:51 by Garth Garner MD) Rhabdomyolysis (Acute) Generalized pain (Acute) Non-STEMI (non-ST elevated myocardial infarction) (Acute) Date of Admission: 05/24/18 Date of Discharge: 05/27/18 - Primary Discharge Diagnosis Active and Suspected Problems (Last Reviewed 05/16/18 @ 10:51 by Garth Garner MD) Rhabdomyolysis (Acute) Generalized pain (Acute) Non-STEMI (non-ST elevated myocardial infarction) (Acute) - Secondary Discharge Diagnosis Chronic Problems (Last Reviewed 05/16/18 @ 10:51 by Garth Garner MD) Right upper quadrant abdominal pain (Chronic) Lower extremity edema (Chronic) Obesity (Chronic) Hyperlipidemia (Chronic) GERD (gastroesophageal reflux disease) (Chronic) Depression (Chronic) Coronary artery disease (Chronic) Benign hypertension (Chronic) Hospital Course and Treatment Imaging Results: Clinical Impression(s) from Imaging Studies Chest X-Ray 05/24/18 10:14 IMPRESSION: Degenerative changes, as described above. No demonstrated acute cardiopulmonary process. Electronically Signed: Scout Franco MD at 10:41 EDT , Service support , Chest CTA 05/24/18 11:10 IMPRESSION: There is heterogeneous diminished enhancement of the pulmonary arteries with regions of embolism versus artifact. Lower lung atelectasis or infiltrates. N.B. : The above information has been verbally conveyed by Scout Franco MD to , Covering Physician, on 05/24/2018 12:09:33 (ET). Electronically Signed: Scout Franco MD at 12:01 EDT , Service support , KUB X-Ray 05/24/18 22:07 IMPRESSION: Air distention of colon possibly intestinal ileus. Segmental narrowing of the proximal descending colon may be due to contraction at time of imaging, however underlying pathology such as a constriction due to scarring, inflammation or mass is not separable on submitted images. No evidence of scarring or mass or acute inflammation detected at the time of imaging of CT. Contrast distended urinary bladder. Electronically Signed: Carla Hassan MD at 0:06 EDT , Service support , Operations: None Procedures: Cardiac catheterization Summary of Care Provided: The patient is a 52 year old M presents with diffuse myalgias after a lap sohail. 1. acute rhabdomyolysis improving, but still elevated unclear etiology, but symptoms began after surgery. Therefore, concern is that may have due to what he may have received around his surgery (anesthetics?). Patient never had any CPKs ordered previously so is unclear if they may have been previously elevated though there is prior never any clear indication to order those. Statin-induced? continue to monitor Follow up CPK as outpt, if continues to be elevated, may need to DC statin. 2. NSTEMI: type 2/demand + some overlap w rhabdomyolysis LHC showed 30% in stent stenosis of LAD, other romero unremarkable Echo shows an EF of 65% w pseudonormal filling pattern continue DAPT Discussed with the patient and his and address misinformation that the patient had a blockage in his heart. The patient did not have a spasm nor any complete occlusion of his artery but that this cardiac was likely due to the demand ischemia from his acute illness. Follow up with Dr. Bethea ([facility]) as outpatient. 3. Abnormal CTA CTA equivocal for PE (PE v artifact) D-dimer elevated Patient's well's score is only 1.5 which is low. Therefore unlikely to be pulmonary embolism DC Lovenox 4. Right upper quadrant abdominal pain Follow-up with general surgery improved today, may have been related to constipation 5. Abnormal LFTs Patient has previously had a biopsy that showed some steatosis as well as some bridging fibrosis reviewed these findings with the pathology with patient and his Explained that this is likely related with hepatic steatosis/fatty liver. Explained that appears to not be any evidence of any cirrhosis point time but would certainly need to be continued to be watched to ensure that it did not evolve into cirrhosis improved outpt follow up[] Discharge Diet: Low fat/ Low Cholesterol Discharge Activity: Return to Normal Activity Weight Bearing Status: Weight bearing as tolerated Call your doctor if your incision/area has: Sudden Increased Bleeding, Increased Pain/ Swelling Call your doctor if you observe: Fever of 101 or Higher, Shortness of breath, - - worsening abdominal pain. diffuse muscle pain. Home Medications: Medications to take at Discharge Clopidogrel Bisulfate [Plavix] 75 mg PO DAILY 06/24/14 Lisinopril [Zestril] 2.5 mg PO BID 06/24/14 Montelukast [Singulair] 10 mg PO QHS 06/24/14 Aspirin E.C. [Ecotrin] 81 mg PO DAILY@0800 10/11/16 Albuterol Aerosols [Ventolin Aerosols] 2.5 mg INHALATION Q2H PRN PRN #50 vial.neb. 12/29/16 Albuterol Inhaler [Ventolin Hfa] 2 puff INHALATION Q4H PRN PRN #60 inhaler 12/29/16 Mometasone/Formoterol [Dulera 200 Mcg/5 Mcg Inhaler] 1 puff IH BID #1 hfa.aer.ad 12/29/16 Ondansetron [Zofran Odt] 4 mg PO Q8H PRN PRN #10 tab 04/11/18 Oxycodone [Oxyir] 5 - 10 mg PO Q6H PRN PRN 4 Days #20 tab 04/14/18 traZODone [Desyrel] 50 mg PO QHS 04/14/18 escitalopram 20 mg tablet 30 mg PO QHS tab 05/16/18 omeprazole 40 mg capsule,delayed release 40 mg PO QDAY cap 05/16/18 Atorvastatin Calcium [Lipitor] 80 mg PO QHS 05/21/18 Oxycodone HCl/Acetaminophen [Percocet 5-325] 1 - 2 tab PO Q4H PRN PRN 4 Days #30 tab 05/22/18 Lamotrigine [Lamictal] 150 mg PO DAILY 05/26/18 Primary Care Physician: Will Jett MD [Primary Care Provider] - Within 2 Weeks Please Follow Up With: Soifa Leon MD When: 1-2 weeks Please Follow Up With: Will Juares When: 4-6 weeks Disposition: Home Minutes spent on discharge:: 35 Patient Condition:: Good Medical Necessity - Tobacco Use Smoking Status: Never smoker Meaningful Use Info Meaningful Use Diagnoses (Choose all that apply): None applicable Code Visit Inpatient E&M: 61213 Disch Hosp
--- NOTE | 2018-05-29 15:44 | CASEMGMT ---
SO GARNETT Discharge Follow-Up Phone Call: ZORAIDA: Lm Discharge Date: 05/27/18 Adm DX: NSTEMI SO GARNETT spoke with pt's , Mary, d/t she states pt is not available to talk at this time. Mary states, he's been keeping up with the Percocet for pain and has been sleeping a lot, but doing pretty good, considering what he's been through. Mary states appts have been made, stating Dr Leon's appt is on June 05. She also reported that all information was faxed to Dr Juares that was needed. She reports they do not have any questions about the discharge instructions or medications and states she does not have any suggestions for the hospital at this time. SO GARNETT thanked for choosing [facility]. Jennifer MAY RN, CM
== END 2018-05-27 14:16 | disposition home or self-care (01) | DRG 281 ==
LOC: ED 10:59 → ICU 15:48 → PCU 23:31
PROVIDERS: Surgery; Admitting Provider Student in an Organized Health Care Education/Training Program; Emergency Provider Emergency Medicine; Family Provider Family Medicine; PCP Family Medicine
DX: I21.4 Non-ST elevation (NSTEMI) myocardial infarction (principal); M62.82 Rhabdomyolysis; T82.858A Stenosis of other vascular prosthetic devices, implants and grafts, initial encounter; Z68.41 Body mass index [BMI] 40.0-44.9, adult; E66.9 Obesity, unspecified; R94.5 Abnormal results of liver function studies; E78.5 Hyperlipidemia, unspecified; K21.9 Gastro-esophageal reflux disease without esophagitis; F32.9 Major depressive disorder, single episode, unspecified; I25.10 Atherosclerotic heart disease of native coronary artery without angina pectoris; I10 Essential (primary) hypertension; R60.0 Localized edema; Z66 Do not resuscitate; Z90.49 Acquired absence of other specified parts of digestive tract; Z79.82 Long term (current) use of aspirin; R52 Pain, unspecified
CPT/HCPCS: 36415; 71045; 71275; 74018; 80048; 80053; 80076; 82550; 84484; 85025; 85379; 87641; 93005; 93306; 93458; 93970; 94640; 97802; 99282; J7030; Q9957; Q9967; A4216; C1769; C1894; C8929

== ENCOUNTER → 2018-06-18 15:42 | Outpatient (CLI) | payer OTHER, SELFPAY ==
[2018-06-18 16:52] LABS: AST(SGOT) 58 U/L (15-37); Alanine Aminotransfer ALT/SGPT 84 U/L (16-61); Albumin, Serum 3.4 g/dL (3.2-5.0); Alkaline Phosphatase 112 U/L (45-117); CPK Total, Creatine Kinase 212 U/L (39-308); Globulin 3.9 g/dL (2.2-4.2); Protein, Total 7.3 g/dL (6.4-8.2)
== END ==
PROVIDERS: Family Provider Family Medicine; PCP Family Medicine
DX: M62.82 Rhabdomyolysis (principal)
CPT/HCPCS: 36415; 80076; 82550

== ENCOUNTER → 2018-10-26 08:46 | Outpatient (CLI) | payer OTHER, SELFPAY ==
[2018-05-24 14:59] VITALS: BMI 42.7
[2018-10-26 10:24] LABS: AST(SGOT) 31 U/L (15-37); Alanine Aminotransfer ALT/SGPT 51 U/L (16-61); Cholesterol 164 mg/dL (200); High Density Lipoprotein 51 mg/dL; Triglycerides 93 mg/dL; Very Low Density Lipoprotein 19 mg/dL (5-40)
== END ==
PROVIDERS: Family Provider Family Medicine; PCP Family Medicine; Referring Provider Internal Medicine Interventional Cardiology; Visit Provider Internal Medicine Interventional Cardiology
DX: I25.10 Atherosclerotic heart disease of native coronary artery without angina pectoris (principal); E78.2 Mixed hyperlipidemia; I10 Essential (primary) hypertension; R00.0 Tachycardia, unspecified
CPT/HCPCS: 36415; 80061; 84450; 84460

== ENCOUNTER 2018-12-19 02:49 | Emergency (ER) | payer OTHER, SELFPAY ==
[2018-12-19 02:50] VITALS: BP 140/94; PULSE 110; RESP 20; TEMP 38.1; O2SAT 94; BMI 43.0
--- NOTE | 2018-12-19 03:01 | RAD_ITS ---
STUDY: X-RAY CHEST REASON FOR EXAM: Male, 53 years old. , Cough TECHNIQUE: Frontal and lateral views of the chest. COMPARISON: May 24, 2018. FINDINGS: Low lung volumes. Again noted mild elevation right hemidiaphragm. Similar appearance to the bilateral basilar atelectasis/scarring. No pneumothorax. No pleural effusion. No focal consolidation. Normal size heart. Normal mediastinum and aaron. Normal visualized pulmonary arteries. Normal visualized aortic arch and descending thoracic aorta. There are diffuse degenerative changes of the visualized thoracic spine. Normal visualized ribs, clavicles, and shoulders. There is no demonstrated abnormality of the visualized soft tissue structures of the upper abdomen. RAD/Chest PA and Lateral IMPRESSION: Again noted bilateral basilar atelectasis/scarring. Similar to prior exam. No focal consolidation is seen. Electronically Signed: Kalen Dowd, at 4:24 EST Tel , Service support ,
--- NOTE | 2018-12-19 03:06 | ED.DCSUM_ITS ---
History of Present Illness Chief Complaint: Shortness of Breath Informant: Patient Narrative: stated that he developed upper respiratory cough and congestion over the last 10 days. Came on gradually. He has intermittent cough. He had intermittent wheezing. He has albuterol via a MDI as well as nebulizer. He uses nebulizer 3 times tonight. It got worse this evening. Current severity is moderate. Maximum severity is moderate. Worsened by coughing and exertion. He has green and yellow sputum with his cough. He had some chills today. Has not had any documented fevers. Positive chest congestion noted. Denies any other symptoms. He took a Z-Eligio last and amoxicillin was started on this Sunday and to follow-up as he has symptoms still. He does not smoke. He had myalgias. He did get a flu shot. Denies any previous symptoms like this. No recent illness or hospitalization. Positive history of asthma. Past Medical History - Allergies and Home Meds Allergies/Adverse Reactions: Allergies metoclopramide HCl [From Reglan] Adverse Reaction (Verified 12/19/18 02:58) Other prochlorperazine edisylate [From Compazine] Adverse Reaction (Verified 12/19/18 02:58) Other prochlorperazine maleate [From Compazine] Adverse Reaction (Verified 12/19/18 02:58) Other Primary Care Physician: Will Jett MD [Primary Care Provider] - Prior records reviewed: Yes Past Medical History: - - Coronary artery disease, asthma, migraines, Garcia's esophagus Surgical History: total knee arthroplasty, - - Cardiac stent Lives: Spouse/ Significant Other Smoking Status: Never smoker Alcohol: None Drugs: None - Family History Maternal Family History: Family History (Last Reviewed 05/16/18 @ 10:51 by Garth Garner MD) Father Colon cancer Lung cancer Diabetes Heart disease Hypertension High cholesterol Mother Cancer Diabetes Heart disease High cholesterol Hypertension Family History: Reports: No pertinent history Review of Systems All systems negative except as indicated General: Reports: Chills. Denies: Fever, Sweats Eyes: Denies: Visual changes - bilaterally, Diplopia ENT: Denies: Rhinorrhea, Sore throat Cardiovascular: Denies: Chest pain, Palpitations Respiratory: Reports: Dyspnea, Cough, Sputum, Dyspnea on exertion Gastrointestinal: Denies: Abdominal pain, Nausea, Vomiting, Diarrhea, Melena, Hematochezia Genitourinary: Denies: Dysuria, Hematuria, Frequency Musculoskeletal: Reports: Myalgias. Denies: Back pain, Extremity Pain Skin: Denies: Rash, Wounds Neurological: Denies: Headache, Weakness, Numbness Physical Exam Vital Signs/Narrative: Vital Signs Temp Pulse Resp BP Pulse Ox 12/19/18 02:50 100.6 F H 110 H 20 H 140/94 H 94 Inital Vital Signs reviewed: Yes - Temperature 100.6 General: Well nourished, Well developed Head: Normocephalic, Atraumatic Eyes: Perrl, EOMI ENT: Moist mucous membranes, No rhinorrhea Neck: Supple, Nontender Cardiovascular: No murmurs, Tachycardia Respiratory: Chest nontender, Wheezing, - - Mild decreased air movement with expiratory wheezes throughout all lung polanco. Mild dyspnea.. Negative for: No distress Abdomen: Soft, Nontender, Nondistended, Normal bowel sounds Back: Nontender, Normal Inspection Extremities: Nontender, No edema Skin: Normal color, No rash Neurological: Alert, Oriented x3, Cranial nerves II-XII grossly intact, Normal Strength, Normal Sensation Psychological: Normal affect, Normal Mood Diagnostic/Tx/Re-eval - Medical Decision Making Patient placed on oxygen and given DuoNeb breathing treatment followed by al buterol nebulizer treatments x2. Lab work and chest x-ray obtained. Given Tylenol for his low-grade temperature. Lab work shows a white count of 14.1. Glucose 146. Influenza negative. Chest x-ray shows chronic changes elevated right hemidiaphragm. No acute infiltrates. Patient felt much better after treatments. Resting more comfortably. Wheezing is resolved. At this time will give him prednisone. I think he is having asthmatic bronchitis with laryngitis. I suspect this is viral in nature. It will have to run its course. He will follow-up as an outpatient ED Disposition - Plan for ED Patient: Diagnosis: Asthmatic bronchitis Instructions: ED Bronchitis Asthmatic Prescriptions: predniSONE tablet 60 mg PO DAILY #15 tab Referrals: Will Jett MD [Primary Care Provider] -
[2018-12-19] MEDS: Ipratropium/Albuterol Sulfate 3 ML AMPUL.NEB INHALATION (03:12)
[2018-12-19] MEDS: Albuterol 2.5 MG/3 ML VIAL.NEB. INHALATION (03:12)
[2018-12-19 03:15] VITALS: PULSE 117; RESP 24
[2018-12-19 03:16] LABS: Absolute Neutrophil Count 11.8 X10^3/uL (2.0-7.7); Basophil# 0.02 X10^3/uL; Basophil% 0.1 % (0-1); Eosinophil# 0.05 X10^3/uL; Eosinophils% 0.4 % (0-5); Hematocrit 46.8 % (40-54); Hemoglobin 14.7 g/dl (13.0-16.5); Lymphocyte % 11.3 % (19-41); Mean Corp Hgb Conc 31.4 g/gl (32-36); Mean Corpuscular Hgb 27.6 pg (27.0-32.0); Mean Corpuscular Volume 87.8 fL (80-94); Mean Platelet Vol. 10.1 fl (6.2-12.0); Monocyte# 0.66 X10^3/uL; Monocyte% 4.7 % (0-10); Neutrophil # 11.78 X10^3/uL (2.7-7.7); Neutrophil % 83.3 % (47-70); POSITIVE COUNT NO; POSITIVE DIFFERENTIAL NO; POSITIVE MORPHOLOGY NO; Platelet Count 203 K/mm3 (150-450); RBC Distribution Width CV 14.2 % (11.6-14.6); RBC Distribution Width SD 45.3 fl (35.1-43.9); Red Blood Count 5.33 M/mm3 (4.6-6.2); White Blood Count 14.1 K/mm3 (4.4-11.0)
[2018-12-19 03:28] LABS: Anion Gap 10 (5-15); BUN 14 mg/dL (7-18); BUN/Creat Ratio 12.7 RATIO (10-20); Calcium,Total 8.8 mg/dL (8.5-10.1); Chloride 99 mmol/L (98-107); EST Glomerular Filtration Rate 75 mL/min (>60); Est Glom Filt Rate - Afr Amer 90 mL/min (>60); Estimated Creatinine Clearance 73.44 ml/min; Glucose 146 mg/dL (74-106); Sodium Level 137 mmol/L (136-145)
[2018-12-19] MEDS: Acetaminophen 325 MG Tablet 650 MG PO (03:32)
--- NOTE | 2018-12-19 04:23 | ED.RN ---
NOTIFIED DR. COX OF SEPSIS ALERT. NO FURTHER ORDERS AT THIS TIME.
[2018-12-19 04:28] VITALS: BP 114/64; PULSE 104; RESP 18; TEMP 37.6; O2SAT 94
[2018-12-19 04:50] VITALS: BP 113/56; PULSE 117; RESP 20; O2SAT 94
== END 2018-12-19 04:51 | disposition home or self-care (01) ==
PROVIDERS: Emergency Provider Emergency Medicine; Family Provider Family Medicine; PCP Family Medicine
DX: J45.909 Unspecified asthma, uncomplicated (principal); I25.10 Atherosclerotic heart disease of native coronary artery without angina pectoris; K22.70 Barrett's esophagus without dysplasia; G43.909 Migraine, unspecified, not intractable, without status migrainosus
CPT/HCPCS: 71046; 80048; 85025; 87804; 94640; 99285; A4216

== ENCOUNTER → 2019-07-26 14:37 | Outpatient (CLI) | payer OTHER, SELFPAY ==
[2019-07-26 11:51] VITALS: BMI 43.0
== END ==
PROVIDERS: Family Provider Family Medicine; PCP Family Medicine; Visit Provider Physician Assistant Medical
DX: J02.9 Acute pharyngitis, unspecified (principal)
CPT/HCPCS: 87070; 87077; 87186

== ENCOUNTER → 2019-09-13 09:23 | Outpatient (CLI) | payer OTHER, SELFPAY ==
[2019-07-26 11:51] VITALS: BMI 43.0
[2019-09-13 10:23] LABS: AST(SGOT) 23 U/L (15-37); Alanine Aminotransfer ALT/SGPT 32 U/L (16-61); Cholesterol 188 mg/dL (200); High Density Lipoprotein 48 mg/dL; Triglycerides 128 mg/dL; Very Low Density Lipoprotein 26 mg/dL (5-40)
== END ==
PROVIDERS: Family Provider Family Medicine; PCP Family Medicine; Visit Provider Internal Medicine Interventional Cardiology
DX: I25.10 Atherosclerotic heart disease of native coronary artery without angina pectoris (principal); E78.2 Mixed hyperlipidemia; I10 Essential (primary) hypertension; R00.2 Palpitations; I49.8 Other specified cardiac arrhythmias
CPT/HCPCS: 36415; 80061; 84450; 84460

== ENCOUNTER → 2019-12-25 10:19 | Outpatient (CLI) | payer OTHER, SELFPAY ==
[2019-07-26 11:51] VITALS: BMI 43.0
--- NOTE | 2019-12-25 10:24 | RAD_ITS ---
STUDY: X-RAY - PARANASAL SINUSES REASON FOR EXAM: Male, 54 years old. PAIN/PRESSURE UNDER LEFT EYE TECHNIQUE: 3 view(s) of the paranasal sinuses were obtained. COMPARISON: None. FINDINGS: Air-fluid level in the left maxillary sinus in keeping with left maxillary sinusitis. Normal visualized facial bones. The soft tissue structures are unremarkable. RAD/Sinuses min 3 Views IMPRESSION: Left maxillary sinusitis. Electronically Signed: Ricardo Alfaro, at 11:13 EDT , Service support ,
== END ==
PROVIDERS: PCP Family Medicine; Referring Provider Family Medicine; Visit Provider Family Medicine
DX: R51 Headache (principal)
CPT/HCPCS: 70220

== ENCOUNTER 2020-03-03 17:00 | Outpatient (RCR) | payer OTHER, SELFPAY ==
[2019-07-26 11:51] VITALS: BMI 43.0
--- NOTE | 2020-02-18 18:02 | HP.PTEVAL ---
Patient's Visit Information ASHLIE ARCOS is a 54 year old M referred to Physical Therapy by Dr. Will Bowling MD with a diagnosis of LBP. Date of Evaluation: 02/18/20 Physical Therapist: VICTORINA Linares - Visit Plan Frequency: 2x /Week Duration: 4 Weeks Plan: 2X/ week for 4 weeks for centralization of symptoms using extension principle, thoracic extension mobs, core stability and postural exercises, including stretching and strengthening with HEP and mobilities as needed. - Subjective Pt has lost a lot of weight since Oct and did get a home gym and did some weights like 30#. Across his mid back and LB he is tense and has a pinched nerve on the R side. This all started 3 weeks ago. R sided pinched nerve has come and gone for years and it is sharp and painful with certain movements... Can not tell me which movement... It stays on the R side of LB. He is sleeping ok... muscle relxors but not doing much. He sits about 30 min at a time at work and constantly stretching.... He does not have a good chair at work. no pain on stairs or laying in bed... has to find a good spot. Sitting is mostly the problem. He can ususally handle standing. No N&T. Spends 7 hours a day at the computer. - Pain R sided LBP Pain Intensity (Out of 10): 6 upper back pain Pain Intensity (Out of 10): 9 - Objective Gait: Normal gait pattern. Trunk AROM: Flexion 75%, Ext 50%, Rot 50%, SB B 50%. LE MMT: R hip abd 4-/5 abd L 4+/5, B hip flex 4+/5, B knee ext 4+/5, R knee flexion 4-/5 and L 4/5, B hip ext 3-/5, Pt is able to walk on heels and toes. -SLUMP test B. -SLR test B. Prone to Prone on elbows... X 10 increase pain and tightness in LB that subsides with stopping the movement. second set of 10... increase aching in LB and third set of 10....pt felt good... Press ups 2 X 10 ( pt LB felt really good but upper back was bothering him slightly).... Thoracic extension mobs helped to relieve some of the thoracic pain. Then went to sitting in a chair with arms crossed with extension over the back of the chair 2 X 10 and pt felt better across his thoracic spine as well. Also instructed pt in standing extension over a counter 2 X 10 and he reports that that helped with his LB as well and to do that during the day. - Goals Goal 1:: I HEP Goal Time Frame: 4-6 Weeks Goal 2:: Decrease LB and thoracic pain to less than 1/10 at the end of the work day. Goal Time Frame: 4-6 Weeks Goal 3:: Increase R hip abd strength to 4/5 Goal Time Frame: 4-6 Weeks Goal 4:: Sit with upright posture during treatment sessions. and report that he is able to sit with better posture at work. Goal Time Frame: 4-6 Weeks - Rehabilitation Potential Rehabilitation Potential: Good - Anticipated Interventions Thank you for the opportunity to evaluate your patient. For Medicare and Medicare HMO plans, please review the plan of care and approve it. It will need to be FAXED BACK to us at [phone] for Medicare purposes. For Medicare only, by signing this I certify the plan of care. Please let me know if there are questions or concerns regarding this plan of care. Physician Signature: Date:
--- NOTE | 2020-07-05 08:56 | HP.PT.NRP ---
ASHLIE ARCOS was seen in my office for initial evaluation on 02/18/20. The following Plan of Care was established for this patient: Initial Frequency: 2x /Week Initial Duration: 4 Weeks This patient was last seen in our office 03/03/20. Pertinent comments regarding their Physical therapy will appear below: DC PT. Pt did not reschedule on his last visit. At this point I will be discontinuing this patient from physical therapy. I would be happy to see this patient again in the future if found appropriate by the physician. Thank you! Hoa Zabala, MPT
== END 2020-03-03 19:00 | disposition home or self-care (01) ==
LOC: PT 17:00
PROVIDERS: PCP Family Medicine; Referring Provider Family Medicine; Visit Provider Family Medicine
DX: M54.5 Low back pain (principal)
CPT/HCPCS: 97110; 97161

== ENCOUNTER → 2020-03-09 12:32 | Outpatient (CLI) | payer OTHER, SELFPAY ==
[2019-07-26 11:51] VITALS: BMI 43.0
--- NOTE | 2020-03-09 12:36 | RAD_ITS ---
STUDY: X-RAY CHEST REASON FOR EXAM: Male, 54 years old. Weakness and pain all over body x 1 month TECHNIQUE: PA and lateral views of the chest. COMPARISON: Comparison is made with prior study dated December 19, 2018. FINDINGS: Stable increased markings at the lung bases. This most likely represents linear scarring. Stable elevation of the right hemidiaphragm. There is no demonstrated pleural abnormality. Normal size heart. Normal mediastinum and aaron. Normal visualized pulmonary arteries. Normal visualized aortic arch and descending thoracic aorta. There are diffuse degenerative changes of the visualized thoracic spine. Normal visualized ribs, clavicles, and shoulders. There is no demonstrated abnormality of the visualized soft tissue structures of the upper abdomen. RAD/Chest PA and Lateral IMPRESSION: Stable increased markings at the lung bases suggestive of bibasilar scarring. Electronically Signed: Ricardo Alfaro, at 13:06 EDT , Service support ,
[2020-03-09 15:04] LABS: Absolute Lymphocyte Count 2.32 X10^3/uL (0.83-4.51); Absolute Neutrophil Count 5.5 X10^3/uL (2.0-7.7); Basophil# 0.05 X10^3/uL; Basophil% 0.6 % (0-1); Eosinophil# 0.14 X10^3/uL; Eosinophils% 1.6 % (0-5); Hematocrit 40.5 % (40-54); Hemoglobin 12.4 g/dL (13.0-16.5); Lymphocyte # 2.32 X10^3/ul (4.0); Lymphocyte % 26.4 % (19-41); Mean Corp Hgb Conc 30.6 g/dL (32-36); Mean Corpuscular Hgb 26.7 pg (27.0-32.0); Mean Corpuscular Volume 87.1 fL (80-94); Mean Platelet Vol. 10.5 fl (6.2-12.0); Monocyte# 0.74 X10^3/uL; Monocyte% 8.4 % (0-10); NRBC Flagged by Analyzer 0 % (0-5); Neutrophil # 5.51 X10^3/uL (2.7-7.7); Neutrophil % 62.8 % (47-70); Platelet Count 256 K/mm3 (150-450); RBC Distribution Width CV 13.4 % (11.6-14.6); RBC Distribution Width SD 42.8 fl (35.1-43.9); Red Blood Count 4.65 M/mm3 (4.6-6.2); White Blood Count 8.8 K/mm3 (4.4-11.0)
[2020-03-09 15:23] LABS: BNP,B-Type NATRIURETIC PEPTIDE 15.2 pg/mL (0-100)
[2020-03-09 15:28] LABS: ALB/GLOB Ratio 0.8 RATIO (0.9-2.4); AST(SGOT) 35 U/L (15-37); Alanine Aminotransfer ALT/SGPT 43 U/L (16-61); Albumin, Serum 3.2 g/dL (3.2-5.0); Alkaline Phosphatase 111 U/L (45-117); Anion Gap 7 (5-15); BUN 24 mg/dL (7-18); BUN/Creat Ratio 24.7 RATIO (10-20); Calcium,Total 8.5 mg/dL (8.5-10.1); Chloride 103 mmol/L (98-107); Creatinine, Serum 0.97 mg/dL (0.70-1.30); EST Glomerular Filtration Rate 86 mL/min (>60); Est Glom Filt Rate - Afr Amer 104 mL/min (>60); Glucose 94 mg/dL (74-106); Potassium 4.1 mmol/L (3.5-5.1); Protein, Total 7.2 g/dL (6.4-8.2); Sodium Level 137 mmol/L (136-145); Thyroid Stim Hormone (TSH) 1.18 uIU/mL (0.358-3.74)
== END ==
PROVIDERS: PCP Family Medicine; Referring Provider Family Medicine; Visit Provider Family Medicine
DX: R53.83 Other fatigue (principal); R53.1 Weakness; R60.9 Edema, unspecified
CPT/HCPCS: 36415; 71046; 80053; 83880; 84443; 85025

== ENCOUNTER → 2020-03-11 14:45 | Outpatient (CLI) | payer OTHER, SELFPAY ==
[2019-07-26 11:51] VITALS: BMI 43.0
--- NOTE | 2020-03-11 14:50 | ECHOCS_ITS ---
Reason For Study: generalized weakness Procedure This was a 2D Doppler, Color Flow transthoracic echocardiogram. The study was technically difficult. Due to body habitus. Contrast injection was performed. Exam performed in department. Left Ventricle Normal LV size. The estimated ejection fraction is 60 %. No evidence for diastolic dysfunction. No regional wall motion abnormalities noted. Right Ventricle Normal RV size. Normal systolic function. Atria Normal left atrium. Normal right atrium. No doppler evidence for ASD. Mitral Valve There is no mitral valve stenosis. No mitral valve insufficiency. Tricuspid Valve There is no tricuspid stenosis. Trivial tricuspid valve insufficiency. Unable to estimate RV systolic pressure due to insufficient tricuspid regurgitant envelope. Aortic Valve Trisinus/trileaflet aortic valve. There is no aortic stenosis. No aortic valve insufficiency. Pulmonic Valve There is no pulmonic valvular stenosis. No pulmonic valve insufficiency. Great Vessels Normal aortic root. Pericardium/Pleural No pericardial effusion. Medication 22 gauge I.V. with prn adaptor inserted into right arm. Diluted definity 5.0ml given slow IV push to enhance endocardial definition. MMode/2D Measurements & Calculations LVIDd: 4.6 cm IVSd: 1.1 cm Ao root diam: 3.1 cm LVIDs: 3.4 cm LVPWd: 1.1 cm LA dimension: 4.1 cm RVDd: 3.6 cm FS: 25.9 % LAV(MOD-bp): 76.1 ml LA A4 area: 23.0 cm2 RA A4 area: 16.6 cm2 LAV(MOD-bp) Indexed: 33.1 ml/m2 LAV(MOD-sp2): 73.4 ml LAV(MOD-sp4): 73.2 ml Time Measurements MV dec time: 0.25 sec Doppler Measurements & Calculations MV E max tucker: 92.4 cm/sec Lat Peak E' Tucker: 11.4 cm/sec Med Peak E' Tucker: 9.9 cm/sec MV A max tucker: 64.4 cm/sec E/E' lat: 8.1 E/E' med: 9.3 MV E/A: 1.4 Ao V2 max: 172.0 cm/sec LV V1 max: 138.2 cm/sec PA V2 max: 98.7 cm/sec Ao max P.8 mmHg LV V1 max P.6 mmHg TR max tucker: 234.9 cm/sec TR max P.1 mmHg Interpretation Summary The study was technically difficult. Contrast injection was performed. The estimated ejection fraction is 60 %. No evidence for diastolic dysfunction. Trivial tricuspid valve insufficiency. The study was technically difficult. Contrast injection was performed. Ordering Physician: Will Bowling Referring Physician: Will Bowling Performed By: Larisa Stephenson RDCS, RVT
== END ==
PROVIDERS: PCP Family Medicine; Visit Provider Family Medicine
DX: R53.1 Weakness (principal)
CPT/HCPCS: 93306; Q9957; A4216; C8929

== ENCOUNTER → 2020-03-12 11:02 | Outpatient (CLI) | payer OTHER, SELFPAY ==
[2019-07-26 11:51] VITALS: BMI 43.0
[2020-03-12 11:10] LABS: Lyme Ab Screen Interpretation REF LAB
[2020-03-12 12:53] LABS: Erythrocyte Sedimentation Rate 55 mm/hr (0-20)
[2020-03-15 00:29] LABS: Lyme Scn Total Ab w/Rflx <0.91 ISR (0.00-0.90)
[2020-03-15 16:30] LABS: ANTINUCLEAR ANTIBODIES DIRECT Negative (Negative)
== END ==
PROVIDERS: PCP Family Medicine; Referring Provider Family Medicine; Visit Provider Family Medicine
DX: R60.9 Edema, unspecified (principal)
CPT/HCPCS: 36415; 85652; 86038; 86141; 86618; 87086

== ENCOUNTER → 2020-03-26 09:17 | Outpatient (CLI) | payer OTHER, SELFPAY ==
[2019-07-26 11:51] VITALS: BMI 43.0
[2020-03-26 10:19] LABS: Absolute Lymphocyte Count 3.09 X10^3/uL (0.83-4.51); Absolute Neutrophil Count 5.9 X10^3/uL (2.0-7.7); Basophil# 0.03 X10^3/uL; Basophil% 0.3 % (0-1); Eosinophil# 0.04 X10^3/uL; Eosinophils% 0.4 % (0-5); Hematocrit 43.1 % (40-54); Hemoglobin 13.2 g/dL (13.0-16.5); Lymphocyte # 3.09 X10^3/ul (4.0); Lymphocyte % 31.4 % (19-41); Mean Corp Hgb Conc 30.6 g/dL (32-36); Mean Corpuscular Hgb 26.9 pg (27.0-32.0); Mean Corpuscular Volume 87.8 fL (80-94); Mean Platelet Vol. 10.8 fl (6.2-12.0); Monocyte# 0.71 X10^3/uL; Monocyte% 7.2 % (0-10); NRBC Flagged by Analyzer 0 % (0-5); Neutrophil # 5.92 X10^3/uL (2.7-7.7); Neutrophil % 60.2 % (47-70); Platelet Count 280 K/mm3 (150-450); RBC Distribution Width CV 13.9 % (11.6-14.6); RBC Distribution Width SD 44.5 fl (35.1-43.9); Red Blood Count 4.91 M/mm3 (4.6-6.2); White Blood Count 9.8 K/mm3 (4.4-11.0)
[2020-03-26 10:49] LABS: CRP 6.96 mg/L (0.0-3.0)
== END ==
PROVIDERS: PCP Family Medicine; Referring Provider Family Medicine; Visit Provider Family Medicine
DX: R79.82 Elevated C-reactive protein (CRP) (principal); D64.9 Anemia, unspecified
CPT/HCPCS: 85025; 86140

== ENCOUNTER → 2020-04-05 16:51 | Outpatient (CLI) | payer OTHER, SELFPAY ==
[2019-07-26 11:51] VITALS: BMI 43.0
[2020-04-05 18:14] LABS: Absolute Lymphocyte Count 2.83 X10^3/uL (0.83-4.51); Absolute Neutrophil Count 6.1 X10^3/uL (2.0-7.7); Basophil# 0.02 X10^3/uL; Basophil% 0.2 % (0-1); Eosinophil# 0.06 X10^3/uL; Eosinophils% 0.6 % (0-5); Hematocrit 43.1 % (40-54); Lymphocyte # 2.83 X10^3/ul (4.0); Lymphocyte % 29.4 % (19-41); Mean Corp Hgb Conc 30.2 g/dL (32-36); Mean Corpuscular Hgb 26.9 pg (27.0-32.0); Mean Corpuscular Volume 89.2 fL (80-94); Mean Platelet Vol. 10.4 fl (6.2-12.0); Monocyte# 0.62 X10^3/uL; Monocyte% 6.4 % (0-10); NRBC Flagged by Analyzer 0 % (0-5); Neutrophil # 6.06 X10^3/uL (2.7-7.7); Neutrophil % 63.1 % (47-70); Platelet Count 236 K/mm3 (150-450); RBC Distribution Width CV 14.5 % (11.6-14.6); RBC Distribution Width SD 46.5 fl (35.1-43.9); Red Blood Count 4.83 M/mm3 (4.6-6.2); White Blood Count 9.6 K/mm3 (4.4-11.0)
[2020-04-05 18:28] LABS: Erythrocyte Sedimentation Rate 37 mm/hr (0-20)
[2020-04-05 18:42] LABS: CRP 7.77 mg/L (0.0-3.0)
== END ==
PROVIDERS: PCP Family Medicine; Referring Provider Family Medicine; Visit Provider Family Medicine
DX: R79.82 Elevated C-reactive protein (CRP) (principal); D64.9 Anemia, unspecified
CPT/HCPCS: 36415; 85025; 85652; 86140

== ENCOUNTER → 2020-04-30 09:14 | Outpatient (CLI) | payer OTHER, SELFPAY ==
[2019-07-26 11:51] VITALS: BMI 43.0
--- NOTE | 2020-04-30 09:18 | RAD_ITS ---
STUDY: X-RAY - PELVIS REASON FOR EXAM: Male, 54 years old. Inflammatory polyarthropathy. TECHNIQUE: One view of the pelvis was obtained. COMPARISON: None. FINDINGS: There is a non-specific bowel gas pattern. Normal visualized soft tissue structures. There are multiple calcified phleboliths. Normal bilateral iliac wings, sacroiliac joints and visualized sacrum. Normal visualized bilateral superior and inferior pubic rami. Normal pubic symphysis. Normal ischial tuberosities. Normal visualized right femoral head. Normal right acetabulum. There is mild articular joint space narrowing of the right hip. Normal visualized left femoral head. Normal left acetabulum. Normal left hip joint. RAD/Pelvis 1 or 2 Views IMPRESSION: Minimal arthrosis of the right hip. Electronically Signed: Mekhi Samaniego DO at 16:51 EDT Tel [phone], Service support ,
--- NOTE | 2020-04-30 09:18 | RAD_ITS ---
STUDY: X-RAY CHEST REASON FOR EXAM: Male, 54 years old. Inflammatory polyarthropathy. TECHNIQUE: PA and lateral views of the chest. COMPARISON: March 09, 2020 FINDINGS: The lungs are hypoexpanded. There is no new mass or infiltrate. There is no demonstrated pleural abnormality. Normal size heart. Normal mediastinum and aaron. Normal visualized pulmonary arteries. Normal visualized aortic arch and descending thoracic aorta. There are diffuse degenerative changes of the visualized thoracic spine. There is degenerative osteoarthritis of the bilateral shoulders. There is no demonstrated abnormality of the visualized soft tissue structures of the upper abdomen. RAD/Chest PA and Lateral IMPRESSION: Degenerative changes, as described above. No demonstrated acute cardiopulmonary process. No major interval change. Electronically Signed: Mekhi Samaniego DO at 16:51 EDT Tel [phone], Service support ,
[2020-04-30 12:14] LABS: Absolute Lymphocyte Count 1.47 X10^3/uL (0.83-4.51); Absolute Neutrophil Count 8.2 X10^3/uL (2.0-7.7); Basophil# 0.03 X10^3/uL; Basophil% 0.3 % (0-1); Eosinophil# 0.05 X10^3/uL; Eosinophils% 0.5 % (0-5); Hematocrit 43.9 % (40-54); Hemoglobin 13.4 g/dL (13.0-16.5); Lymphocyte # 1.47 X10^3/ul (4.0); Lymphocyte % 14.1 % (19-41); Mean Corp Hgb Conc 30.5 g/dL (32-36); Mean Corpuscular Hgb 26.9 pg (27.0-32.0); Mean Corpuscular Volume 88.2 fL (80-94); Mean Platelet Vol. 10.6 fl (6.2-12.0); Monocyte# 0.65 X10^3/uL; Monocyte% 6.2 % (0-10); NRBC Flagged by Analyzer 0 % (0-5); Neutrophil # 8.21 X10^3/uL (2.7-7.7); Neutrophil % 78.7 % (47-70); Platelet Count 265 K/mm3 (150-450); RBC Distribution Width SD 47.8 fl (35.1-43.9); Red Blood Count 4.98 M/mm3 (4.6-6.2); White Blood Count 10.4 K/mm3 (4.4-11.0)
[2020-04-30 12:54] LABS: ALB/GLOB Ratio 0.9 RATIO (0.9-2.4); AST(SGOT) 19 U/L (15-37); Alanine Aminotransfer ALT/SGPT 37 U/L (16-61); Albumin, Serum 3.4 g/dL (3.2-5.0); Alkaline Phosphatase 95 U/L (45-117); Anion Gap 7 (5-15); BUN 22 mg/dL (7-18); BUN/Creat Ratio 20.8 RATIO (10-20); Calcium,Total 8.7 mg/dL (8.5-10.1); Chloride 103 mmol/L (98-107); Creatinine, Serum 1.06 mg/dL (0.70-1.30); EST Glomerular Filtration Rate 78 mL/min (>60); Est Glom Filt Rate - Afr Amer 94 mL/min (>60); Globulin 3.9 g/dL (2.2-4.2); Glucose 100 mg/dL (74-106); Potassium 4.1 mmol/L (3.5-5.1); Protein, Total 7.3 g/dL (6.4-8.2); Rheumatoid Factor < 10.0 IU/mL (<15); Sodium Level 137 mmol/L (136-145)
[2020-04-30 13:31] LABS: Hepatitis B Surface Antibody Non-Reactive; Hepatitis B Surface Antigen Non-Reactive (Nonreactive); Hepatitis C Antibody Non-Reactive (Nonreactive)
[2020-05-01 16:27] LABS: ANTINUCLEAR ANTIBODIES DIRECT Negative (Negative)
[2020-05-05 03:54] LABS: Hepatitis B Core AB IgM Negative
[2020-05-05 03:58] LABS: CCP IgG Antibodies 6
== END ==
PROVIDERS: PCP Family Medicine; Referring Provider Internal Medicine Rheumatology; Visit Provider Internal Medicine Rheumatology
DX: M06.4 Inflammatory polyarthropathy (principal); M21.41 Flat foot [pes planus] (acquired), right foot; K22.70 Barrett's esophagus without dysplasia; K76.0 Fatty (change of) liver, not elsewhere classified; K58.1 Irritable bowel syndrome with constipation; I10 Essential (primary) hypertension; I25.10 Atherosclerotic heart disease of native coronary artery without angina pectoris; J45.909 Unspecified asthma, uncomplicated; G43.909 Migraine, unspecified, not intractable, without status migrainosus; E78.5 Hyperlipidemia, unspecified; F32.9 Major depressive disorder, single episode, unspecified; N52.9 Male erectile dysfunction, unspecified; I87.2 Venous insufficiency (chronic) (peripheral)
CPT/HCPCS: 36415; 71046; 72170; 80053; 85025; 86038; 86200; 86431; 86480; 86705; 86706; 86803; 87340

== ENCOUNTER → 2020-05-07 07:47 | Outpatient (CLI) | payer OTHER, SELFPAY ==
[2019-07-26 11:51] VITALS: BMI 43.0
--- NOTE | 2020-05-07 07:53 | US_ITS ---
STUDY: ABDOMINAL ULTRASOUND - RIGHT UPPER QUADRANT REASON FOR VISIT: Male, 54 years old, elevated LFTs TECHNIQUE: Ultrasound evaluation of the right upper quadrant was performed with real-time and static farris-scale imaging. TECHNICAL QUALITY: Limited. Examination limited by bowel gas. COMPARISON: 02/05/2018 FINDINGS: Liver: The liver measures 17.7 cm. There is increased echogenicity consistent with fatty infiltration. The bile ducts are within normal limits. There is hepatic color flow. The direction of portal flow is hepatopetal. There is a hyperechoic 1.7 cm lesion in the right lobe likely hemangioma. Gallbladder: The patient is status post cholecystectomy. Common Bile Duct (C.B.D.): The common bile duct measures eight mm. Pancreas: Visualized pancreas is sonographically normal Right Kidney: Normal size of the right kidney. The right kidney measures 12.3 x 4.8 x 6.6 cm. Normal renal cortex. The right cortex measures 1.9 cm. There is no demonstrated renal mass or cyst. There is no right hydronephrosis. US/Liver IMPRESSION: Fatty liver with a 1.7 cm hyperechoic likely hemangioma in the right lobe Electronically Signed: Miguel Earl MD at 9:49 EDT , Service support ,
== END ==
PROVIDERS: PCP Family Medicine; Referring Provider Internal Medicine Rheumatology; Visit Provider Internal Medicine Rheumatology
DX: R94.5 Abnormal results of liver function studies (principal)
CPT/HCPCS: 76705

== ENCOUNTER → 2020-06-01 15:47 | Outpatient (CLI) | payer OTHER, SELFPAY ==
[2019-07-26 11:51] VITALS: BMI 43.0
[2020-06-01 16:19] LABS: Absolute Lymphocyte Count 2.14 X10^3/uL (0.83-4.51); Absolute Neutrophil Count 6.7 X10^3/uL (2.0-7.7); Basophil# 0.02 X10^3/uL; Basophil% 0.2 % (0-1); Eosinophil# 0.02 X10^3/uL; Eosinophils% 0.2 % (0-5); Hematocrit 44.4 % (40-54); Hemoglobin 13.6 g/dL (13.0-16.5); Lymphocyte # 2.14 X10^3/ul (4.0); Lymphocyte % 22.8 % (19-41); Mean Corp Hgb Conc 30.6 g/dL (32-36); Mean Corpuscular Hgb 26.1 pg (27.0-32.0); Mean Corpuscular Volume 85.1 fL (80-94); Monocyte# 0.49 X10^3/uL; Monocyte% 5.2 % (0-10); NRBC Flagged by Analyzer 0 % (0-5); Neutrophil # 6.69 X10^3/uL (2.7-7.7); Neutrophil % 71.3 % (47-70); Platelet Count 263 K/mm3 (150-450); RBC Distribution Width CV 15.4 % (11.6-14.6); RBC Distribution Width SD 47.2 fl (35.1-43.9); Red Blood Count 5.22 M/mm3 (4.6-6.2); White Blood Count 9.4 K/mm3 (4.4-11.0)
[2020-06-01 17:17] LABS: Albumin, Serum 3.6 g/dL (3.2-5.0); BUN 20 mg/dL (7-18); BUN/Creat Ratio 22.2 RATIO (10-20); EST Glomerular Filtration Rate 94 mL/min (>60); Est Glom Filt Rate - Afr Amer 113 mL/min (>60); Glucose 113 mg/dL (74-106); Protein, Total 7.4 g/dL (6.4-8.2)
[2020-06-01 17:18] LABS: ALB/GLOB Ratio 0.9 RATIO (0.9-2.4); AST(SGOT) 19 U/L (15-37); Alanine Aminotransfer ALT/SGPT 36 U/L (16-61); Alkaline Phosphatase 85 U/L (45-117); Anion Gap 5 (5-15); Calcium,Total 8.7 mg/dL (8.5-10.1); Chloride 105 mmol/L (98-107); Globulin 3.8 g/dL (2.2-4.2); Potassium 4.2 mmol/L (3.5-5.1); Sodium Level 137 mmol/L (136-145)
[2020-06-04 07:07] LABS: QNTFERON TB Mitogen Value > 10.00 IU/mL (.); QNTFERON TB Nil Value 0.03 IU/mL (.); QNTFERON TB1+ Ag Value 0.05 IU/mL (.); QNTFERON TB2+ Ag Value 0.03 IU/mL (.)
[2020-06-04 13:30] LABS: QNTIFERON TB Positive Criteria Negative (Negative)
== END ==
PROVIDERS: PCP Family Medicine; Referring Provider Internal Medicine Rheumatology; Visit Provider Internal Medicine Rheumatology
DX: M06.4 Inflammatory polyarthropathy (principal); Z79.899 Other long term (current) drug therapy; M21.41 Flat foot [pes planus] (acquired), right foot; K22.70 Barrett's esophagus without dysplasia; K76.0 Fatty (change of) liver, not elsewhere classified; K58.1 Irritable bowel syndrome with constipation; I10 Essential (primary) hypertension; I25.10 Atherosclerotic heart disease of native coronary artery without angina pectoris; J45.909 Unspecified asthma, uncomplicated
CPT/HCPCS: 36415; 80053; 85025; 86480

== ENCOUNTER → 2020-07-01 16:47 | Outpatient (CLI) | payer OTHER, SELFPAY ==
[2019-07-26 11:51] VITALS: BMI 43.0
[2020-07-01 18:11] LABS: Absolute Lymphocyte Count 2.26 X10^3/uL (0.83-4.51); Absolute Neutrophil Count 4.6 X10^3/uL (2.0-7.7); Basophil# 0.03 X10^3/uL; Basophil% 0.4 % (0-1); Eosinophil# 0.14 X10^3/uL; Eosinophils% 1.8 % (0-5); Hematocrit 44.1 % (40-54); Hemoglobin 13.7 g/dL (13.0-16.5); Lymphocyte # 2.26 X10^3/ul (4.0); Lymphocyte % 29.4 % (19-41); Mean Corp Hgb Conc 31.1 g/dL (32-36); Mean Corpuscular Hgb 26.6 pg (27.0-32.0); Mean Corpuscular Volume 85.6 fL (80-94); Mean Platelet Vol. 10.5 fl (6.2-12.0); Monocyte# 0.62 X10^3/uL; Monocyte% 8.1 % (0-10); NRBC Flagged by Analyzer 0 % (0-5); Neutrophil # 4.61 X10^3/uL (2.7-7.7); Platelet Count 264 K/mm3 (150-450); RBC Distribution Width CV 15.7 % (11.6-14.6); RBC Distribution Width SD 48.3 fl (35.1-43.9); Red Blood Count 5.15 M/mm3 (4.6-6.2); White Blood Count 7.7 K/mm3 (4.4-11.0)
[2020-07-01 20:06] LABS: ALB/GLOB Ratio 0.9 RATIO (0.9-2.4); AST(SGOT) 22 U/L (15-37); Alanine Aminotransfer ALT/SGPT 35 U/L (16-61); Albumin, Serum 3.6 g/dL (3.2-5.0); Alkaline Phosphatase 95 U/L (45-117); Anion Gap 5 (5-15); BUN 16 mg/dL (7-18); BUN/Creat Ratio 17.1 RATIO (10-20); Calcium,Total 8.8 mg/dL (8.5-10.1); Chloride 105 mmol/L (98-107); Creatinine, Serum 0.94 mg/dL (0.70-1.30); EST Glomerular Filtration Rate 89 mL/min (>60); Est Glom Filt Rate - Afr Amer 108 mL/min (>60); Globulin 3.9 g/dL (2.2-4.2); Glucose 87 mg/dL (74-106); Potassium 3.9 mmol/L (3.5-5.1); Protein, Total 7.5 g/dL (6.4-8.2); Sodium Level 137 mmol/L (136-145)
== END ==
PROVIDERS: PCP Family Medicine; Referring Provider Internal Medicine Rheumatology; Visit Provider Internal Medicine Rheumatology
DX: M06.4 Inflammatory polyarthropathy (principal); Z79.899 Other long term (current) drug therapy; M21.41 Flat foot [pes planus] (acquired), right foot; K22.70 Barrett's esophagus without dysplasia; K76.0 Fatty (change of) liver, not elsewhere classified; K58.1 Irritable bowel syndrome with constipation; I10 Essential (primary) hypertension; I25.10 Atherosclerotic heart disease of native coronary artery without angina pectoris
CPT/HCPCS: 36415; 80053; 85025

== ENCOUNTER → 2020-07-19 13:26 | Outpatient (CLI) | payer OTHER, SELFPAY ==
[2019-07-26 11:51] VITALS: BMI 43.0
== END ==
PROVIDERS: PCP Family Medicine; Referring Provider Family Medicine; Visit Provider Family Medicine
DX: R68.89 Other general symptoms and signs (principal)
CPT/HCPCS: 87635; U0003

== ENCOUNTER → 2020-08-06 15:46 | Outpatient (CLI) | payer OTHER, SELFPAY ==
[2019-07-26 11:51] VITALS: BMI 43.0
[2020-08-06 16:03] LABS: Absolute Lymphocyte Count 2.04 X10^3/uL (0.83-4.51); Absolute Neutrophil Count 5.2 X10^3/uL (2.0-7.7); Basophil# 0.03 X10^3/uL; Basophil% 0.4 % (0-1); Eosinophil# 0.08 X10^3/uL; Hematocrit 42.1 % (40-54); Hemoglobin 13.3 g/dL (13.0-16.5); Lymphocyte # 2.04 X10^3/ul (4.0); Lymphocyte % 26.1 % (19-41); Mean Corp Hgb Conc 31.6 g/dL (32-36); Mean Corpuscular Hgb 27.8 pg (27.0-32.0); Mean Corpuscular Volume 87.9 fL (80-94); Mean Platelet Vol. 10.2 fl (6.2-12.0); Monocyte# 0.49 X10^3/uL; Monocyte% 6.3 % (0-10); NRBC Flagged by Analyzer 0 % (0-5); Neutrophil # 5.16 X10^3/uL (2.7-7.7); Neutrophil % 65.9 % (47-70); Platelet Count 278 K/mm3 (150-450); RBC Distribution Width CV 15.9 % (11.6-14.6); Red Blood Count 4.79 M/mm3 (4.6-6.2); White Blood Count 7.8 K/mm3 (4.4-11.0)
[2020-08-06 17:49] LABS: ALB/GLOB Ratio 0.9 RATIO (0.9-2.4); AST(SGOT) 20 U/L (15-37); Alanine Aminotransfer ALT/SGPT 30 U/L (16-61); Albumin, Serum 3.7 g/dL (3.2-5.0); Alkaline Phosphatase 92 U/L (45-117); Anion Gap 5 (5-15); BUN 15 mg/dL (7-18); Calcium,Total 8.8 mg/dL (8.5-10.1); Chloride 102 mmol/L (98-107); EST Glomerular Filtration Rate 83 mL/min (>60); Est Glom Filt Rate - Afr Amer 101 mL/min (>60); Globulin 3.9 g/dL (2.2-4.2); Glucose 110 mg/dL (74-106); Potassium 3.9 mmol/L (3.5-5.1); Protein, Total 7.6 g/dL (6.4-8.2); Sodium Level 135 mmol/L (136-145)
== END ==
PROVIDERS: PCP Family Medicine; Visit Provider Internal Medicine Rheumatology
DX: M06.4 Inflammatory polyarthropathy (principal); Z79.899 Other long term (current) drug therapy; M21.41 Flat foot [pes planus] (acquired), right foot; K22.70 Barrett's esophagus without dysplasia; K76.0 Fatty (change of) liver, not elsewhere classified; K58.1 Irritable bowel syndrome with constipation; I10 Essential (primary) hypertension; I25.10 Atherosclerotic heart disease of native coronary artery without angina pectoris
CPT/HCPCS: 36415; 80053; 85025

== ENCOUNTER → 2020-09-18 10:26 | Outpatient (CLI) | payer SELFPAY ==
[2019-07-26 11:51] VITALS: BMI 43.0
[2020-09-18 11:01] LABS: Absolute Lymphocyte Count 1.83 X10^3/uL (0.83-4.51); Absolute Neutrophil Count 4.9 X10^3/uL (2.0-7.7); Basophil# 0.03 X10^3/uL; Basophil% 0.4 % (0-1); Eosinophil# 0.09 X10^3/uL; Eosinophils% 1.2 % (0-5); Hemoglobin 13.8 g/dL (13.0-16.5); Lymphocyte # 1.83 X10^3/ul (4.0); Lymphocyte % 24.9 % (19-41); Mean Corp Hgb Conc 31.4 g/dL (32-36); Mean Corpuscular Hgb 27.9 pg (27.0-32.0); Mean Corpuscular Volume 89.1 fL (80-94); Mean Platelet Vol. 10.7 fl (6.2-12.0); Monocyte# 0.46 X10^3/uL; Monocyte% 6.3 % (0-10); NRBC Flagged by Analyzer 0 % (0-5); Neutrophil # 4.89 X10^3/uL (2.7-7.7); Neutrophil % 66.7 % (47-70); Platelet Count 248 K/mm3 (150-450); RBC Distribution Width CV 15.3 % (11.6-14.6); RBC Distribution Width SD 49.3 fl (35.1-43.9); Red Blood Count 4.94 M/mm3 (4.6-6.2); White Blood Count 7.3 K/mm3 (4.4-11.0)
[2020-09-18 11:24] LABS: ALB/GLOB Ratio 0.9 RATIO (0.9-2.4); AST(SGOT) 15 U/L (15-37); Alanine Aminotransfer ALT/SGPT 28 U/L (16-61); Albumin, Serum 3.4 g/dL (3.2-5.0); Alkaline Phosphatase 103 U/L (45-117); Anion Gap 4 (5-15); BUN 17 mg/dL (7-18); BUN/Creat Ratio 16.7 RATIO (10-20); Calcium,Total 8.9 mg/dL (8.5-10.1); Chloride 107 mmol/L (98-107); Creatinine, Serum 1.02 mg/dL (0.70-1.30); EST Glomerular Filtration Rate 81 mL/min (>60); Est Glom Filt Rate - Afr Amer 98 mL/min (>60); Globulin 3.8 g/dL (2.2-4.2); Glucose 139 mg/dL (74-106); Potassium 4.3 mmol/L (3.5-5.1); Protein, Total 7.2 g/dL (6.4-8.2); Sodium Level 140 mmol/L (136-145)
== END ==
PROVIDERS: PCP Family Medicine; Referring Provider Internal Medicine Rheumatology; Visit Provider Internal Medicine Rheumatology
DX: M06.4 Inflammatory polyarthropathy (principal); Z79.899 Other long term (current) drug therapy; M47.897 Other spondylosis, lumbosacral region; M21.41 Flat foot [pes planus] (acquired), right foot; K22.70 Barrett's esophagus without dysplasia; K76.0 Fatty (change of) liver, not elsewhere classified; K58.1 Irritable bowel syndrome with constipation; I10 Essential (primary) hypertension; I25.10 Atherosclerotic heart disease of native coronary artery without angina pectoris; J45.909 Unspecified asthma, uncomplicated; G43.909 Migraine, unspecified, not intractable, without status migrainosus; E78.5 Hyperlipidemia, unspecified; F32.9 Major depressive disorder, single episode, unspecified; N52.9 Male erectile dysfunction, unspecified; I87.2 Venous insufficiency (chronic) (peripheral)
CPT/HCPCS: 36415; 80053; 85025

== ENCOUNTER → 2020-10-11 14:39 | Outpatient (CLI) | payer OTHER, SELFPAY ==
[2019-07-26 11:51] VITALS: BMI 43.0
== END ==
PROVIDERS: PCP Family Medicine; Visit Provider Nurse Practitioner Family
DX: Z00.00 Encounter for general adult medical examination without abnormal findings (principal)

== ENCOUNTER → 2021-01-29 07:00 | Outpatient (CLI) | payer BC, SELFPAY ==
[2019-07-26 11:51] VITALS: BMI 43.0
[2021-01-29 07:20] LABS: Absolute Lymphocyte Count 1.62 X10^3/uL (0.83-4.51); Basophil# 0.05 X10^3/uL; Basophil% 0.7 % (0-1); Eosinophil# 0.14 X10^3/uL; Eosinophils% 1.9 % (0-5); Hematocrit 44.9 % (40-54); Hemoglobin 13.9 g/dL (13.0-16.5); Lymphocyte # 1.62 X10^3/ul (0.83-4.51); Lymphocyte % 21.9 % (19-41); Mean Corpuscular Volume 93.7 fL (80-94); Mean Platelet Vol. 10.4 fl (6.2-12.0); Monocyte# 0.57 X10^3/uL; Monocyte% 7.7 % (0-10); NRBC Flagged by Analyzer 0 % (0-5); Neutrophil # 4.98 X10^3/uL (2.7-7.7); Neutrophil % 67.4 % (47-70); Platelet Count 242 K/mm3 (150-450); RBC Distribution Width CV 15.1 % (11.6-14.6); RBC Distribution Width SD 51.6 fl (35.1-43.9); Red Blood Count 4.79 M/mm3 (4.6-6.2); White Blood Count 7.4 K/mm3 (4.4-11.0)
[2021-01-29 08:02] LABS: ALB/GLOB Ratio 0.9 RATIO (0.9-2.4); AST(SGOT) 21 U/L (15-37); Alanine Aminotransfer ALT/SGPT 31 U/L (16-61); Albumin, Serum 3.5 g/dL (3.2-5.0); Alkaline Phosphatase 106 U/L (45-117); Anion Gap 4 (5-15); BUN 21 mg/dL (7-18); BUN/Creat Ratio 13.7 RATIO (10-20); Calcium,Total 8.8 mg/dL (8.5-10.1); Chloride 107 mmol/L (98-107); Creatinine, Serum 1.53 mg/dL (0.70-1.30); EST Glomerular Filtration Rate 51 mL/min (>60); Est Glom Filt Rate - Afr Amer 61 mL/min (>60); Globulin 3.9 g/dL (2.2-4.2); Glucose 118 mg/dL (74-106); Potassium 4.3 mmol/L (3.5-5.1); Protein, Total 7.4 g/dL (6.4-8.2); Sodium Level 140 mmol/L (136-145)
== END ==
PROVIDERS: PCP Family Medicine; Referring Provider Internal Medicine Rheumatology; Visit Provider Internal Medicine Rheumatology
DX: M06.4 Inflammatory polyarthropathy (principal); Z79.899 Other long term (current) drug therapy; M47.897 Other spondylosis, lumbosacral region; M21.41 Flat foot [pes planus] (acquired), right foot; K22.70 Barrett's esophagus without dysplasia; K76.0 Fatty (change of) liver, not elsewhere classified; K58.1 Irritable bowel syndrome with constipation; I10 Essential (primary) hypertension; I25.10 Atherosclerotic heart disease of native coronary artery without angina pectoris; J45.909 Unspecified asthma, uncomplicated; G43.909 Migraine, unspecified, not intractable, without status migrainosus; E78.5 Hyperlipidemia, unspecified; F32.9 Major depressive disorder, single episode, unspecified; N52.9 Male erectile dysfunction, unspecified; I87.2 Venous insufficiency (chronic) (peripheral); E66.9 Obesity, unspecified
CPT/HCPCS: 36415; 80053; 85025

== ENCOUNTER → 2021-02-19 11:28 | Outpatient (CLI) | payer BC, SELFPAY ==
[2019-07-26 11:51] VITALS: BMI 43.0
[2021-02-19 12:26] LABS: AST(SGOT) 20 U/L (15-37); Alanine Aminotransfer ALT/SGPT 27 U/L (16-61); Albumin, Serum 3.6 g/dL (3.2-5.0); Alkaline Phosphatase 102 U/L (45-117); Anion Gap 2 (5-15); BUN 18 mg/dL (7-18); BUN/Creat Ratio 19.7 RATIO (10-20); Calcium,Total 8.7 mg/dL (8.5-10.1); Chloride 108 mmol/L (98-107); Creatinine, Serum 0.92 mg/dL (0.70-1.30); EST Glomerular Filtration Rate 92 mL/min (>60); Est Glom Filt Rate - Afr Amer 111 mL/min (>60); Globulin 3.7 g/dL (2.2-4.2); Glucose 80 mg/dL (74-106); Potassium 4.3 mmol/L (3.5-5.1); Protein, Total 7.3 g/dL (6.4-8.2); Sodium Level 139 mmol/L (136-145)
== END ==
PROVIDERS: PCP Family Medicine; Visit Provider Internal Medicine Rheumatology
DX: M06.4 Inflammatory polyarthropathy (principal); M47.897 Other spondylosis, lumbosacral region; K22.70 Barrett's esophagus without dysplasia; K76.0 Fatty (change of) liver, not elsewhere classified; K58.1 Irritable bowel syndrome with constipation; I10 Essential (primary) hypertension; I25.10 Atherosclerotic heart disease of native coronary artery without angina pectoris; J45.909 Unspecified asthma, uncomplicated; G43.909 Migraine, unspecified, not intractable, without status migrainosus; E78.5 Hyperlipidemia, unspecified; F32.9 Major depressive disorder, single episode, unspecified; N52.9 Male erectile dysfunction, unspecified; I87.2 Venous insufficiency (chronic) (peripheral)
CPT/HCPCS: 36415; 80053

== ENCOUNTER 2021-10-25 17:20 | Outpatient (CLI) | payer BC, SELFPAY | END 2021-10-25 23:59 | disposition short-term general hospital (02) | PROVIDERS: PCP Nurse Practitioner Family; Referring Provider Nurse Practitioner Family; Visit Provider Nurse Practitioner Family | DX: Z20.822 Contact with and (suspected) exposure to COVID-19 (principal) | CPT/HCPCS: 87635; U0003; U0005 ==

== ENCOUNTER 2021-10-27 12:05 | Outpatient (CLI) | payer BC, SELFPAY ==
--- NOTE | 2021-10-27 12:08 | RAD_ITS ---
INDICATION: ASTHMA EXAMINATION/TECHNIQUE: X-RAY - XR Chest 2 Views COMPARISON: None. FINDINGS: The lungs are clear. Scattered subsegmental atelectasis. The cardiomediastinal silhouette is unremarkable. No pleural effusion or pneumothorax. Degenerative changes of the thoracic spine. RAD/Chest PA and Lateral IMPRESSION: No acute radiographic abnormalities. Electronically Signed: William Patel MD at 21:57 EST Tel , Service support ,
== END 2021-10-27 23:59 | disposition short-term general hospital (02) ==
LOC: MTRAD 12:07
PROVIDERS: PCP Family Medicine; Referring Provider Family Medicine; Visit Provider Family Medicine
DX: J45.909 Unspecified asthma, uncomplicated (principal)
CPT/HCPCS: 71046

== ENCOUNTER → 2023-02-07 | Outpatient (CLI) | payer BC, SELFPAY ==
--- NOTE | 2023-02-07 16:50 | US_ITS ---
STUDY: SUPERFICIAL ULTRASOUND - RIGHT LOWER/MID BACK. REASON FOR EXAM: Male, 57 years old. subcutaneous mass of the back -- special attention low back mass TECHNIQUE: A superficial ultrasound was performed with real-time and static farris-scale imaging. COMPARISON: None. FINDINGS: There are several slightly echogenic subcutaneous nodules corresponding to the palpable lump. The largest measures 2.1 cm x 4.37 x 1.4 cm. A similar-appearing nodule is also seen in the lateral and superior to the previously nodule measuring 1.7 cm x 3.4 cm by 0.7 cm. These have the appearance of multiple subcutaneous lipomas. US/Other Unlisted US Procedure IMPRESSION: Findings suggestive of a subcutaneous lipoma is corresponds the palpable abnormality. Electronically Signed: Ricardo Alfaro MD at 15:33 EDT ,
== END | disposition home or self-care (01) ==
LOC: US 16:48
PROVIDERS: PCP Family Medicine; Referring Provider Surgery; Visit Provider Surgery
DX: D17.1 Benign lipomatous neoplasm of skin and subcutaneous tissue of trunk (principal)
CPT/HCPCS: 76999

== ENCOUNTER → 2023-02-16 | Outpatient (CLI) | payer BC, SELFPAY ==
--- NOTE | 2023-02-16 17:09 | RAD_ITS ---
EXAM: XR RIGHT RIBS AND AP CHEST, 3 OR MORE VIEWS CLINICAL INDICATION: RIB PAIN TECHNIQUE: Frontal and oblique views of the right ribs and frontal view of the chest. COMPARISON: No relevant prior studies available. FINDINGS: LUNGS AND PLEURAL SPACES: Underexpanded. No consolidation or edema. No pneumothorax. No effusion. HEART: Unremarkable. Cardiac silhouette not enlarged. MEDIASTINUM: Central airways and mediastinal contour are unremarkable. BONES/JOINTS: Unremarkable. No evidence of displaced rib fractures. RAD/Ribs Uni Min 3V w/PA Chest IMPRESSION: Negative chest and right ribs series. Electronically Signed: Johan Stover (Brooks), at 18:59 EDT ,
== END | disposition home or self-care (01) ==
LOC: MTRAD 17:06
PROVIDERS: PCP Family Medicine; Referring Provider Family Medicine; Visit Provider Family Medicine
DX: R07.81 Pleurodynia (principal)
CPT/HCPCS: 71101

== ENCOUNTER 2023-04-18 18:30 | Outpatient (RCR) | payer BC, SELFPAY ==
--- NOTE | 2023-02-28 17:27 | HP.PTEVAL_ITS ---
Patient's Visit Information ASHLIE ARCOS is a 57 year old M referred to Physical Therapy by Dr. Cortney Mace MD with a diagnosis of Back pain/ R post rib pain. Date of Evaluation: 02/28/23 Physical Therapist: VICTORINA Linares - Visit Plan Frequency: 1x/Week Duration: 6 Weeks Plan: 1X/ week for 6 weeks due to the patients schedule for centralization of sx using back ext principle, core stability, postural exercises, with HEP. HEP: prone press ups 3 X 10 and the 1 X 5 with 5 second ab sag and repeat 5 X/ day. ALso instructed pt in L-roll sitting posture - Subjective He has always had trouble in the R lateral side of L spine and now more up into the ribcage. He has lipomas in the area and were seeing if it was pinching on a nerve, it is not pinching. This has been there awhile and now it is a steady dull ache and hurts if he walks. He is ok sitting of stationary but if walking he has increase pain. He has no Leg weakness. He has no N&T. It does not keep him up but can only sleep for 6 hours. He is very stiff in the mornings. He has RA and is on [place]. The RA is under control. He does not do any type of exercise. 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 He is stiff and uncomfortable. - Pain R sided back pain Pain Intensity (Out of 10): 7 Pain Intensity Range: 7 - Objective Trunk AROM: flexion 75%, R SB (increase pain) 50 and L 75, R Rot (increase pain )50% and L 50. R hip flex 12.9 and L hip flex 15. R knee ext 20.5 and L 20.5. R knee flex 10.8 and L 12.8. R HS and gastroc tightness. -SLUMP test B. + SLR B for pain in the R L-spine paraspinals. Bridges 1/2 normal ROM. Pain on the R side with rotation mobs, no pain with extension mobs, pain with prone to prone press up at end range 3 X 10 then 1X5 with patient sag.... pt felt loser and sharp pain decreased. - Balance/Special Test Scores Oswestry Low Back Score: 16 - Goals Goal 1:: I HEP Goal Time Frame: 4-6 Weeks Goal 2:: Abolish R sided back pain Goal Time Frame: 4-6 Weeks Goal 3:: Sit with upright posture during the day Goal Time Frame: 4-6 Weeks Goal 4:: Increase pain free trunk AROM (at the time of the eval: Trunk AROM: flexion 75%, R SB (increase pain) 50 and L 75, R Rot (increase pain )50% and L 50). Goal Time Frame: 4-6 Weeks - Rehabilitation Potential Rehabilitation Potential: Good - Anticipated Interventions Patient/Client Instruction: Educate patient on: Condition, Plan of Care For the Purpose of:: To decrease pain, To increase ROM, To improve nutrient delivery to tissue, To improve muscle performance and motor function, To improve ability to perform ADL's, To increase tolerance to activity/condition/position, To improve performance and independence with ADL's, To improve ability of physical actions for home/community/work/leisure, To improve health of tissue, To increase flexibility/ROM Therapeutic Exercise to Include: Strength training, Postural training, Flexibilty training, Neuromotor development, Active ROM, Dynamic Lumbar Stabilization, Abhinav Exercises For the Purpose of:: To decrease pain, To increase ROM, To improve nutrient delivery to tissue, To improve muscle performance and motor function, To increase tolerance to activity/condition/position, To improve performance and i ndependence with ADL's, To decrease level of supervision to perform tasks, To improve ability of physical actions for home/community/work/leisure, To improve health of tissue, To decrease soft tissue restriction, To increase flexibility/ROM Manual Therapy Techniques to Include: Mobilization, Soft tissue mobilization For the Purpose of:: To decrease pain, To increase ROM, To improve nutrient delivery to tissue, To improve muscle performance and motor function, To improve ability to perform ADL's, To increase tolerance to activity/condition/position, To decrease level of supervision to perform tasks, To improve ability of physical actions for home/community/work/leisure, To improve health of tissue, To decrease soft tissue restriction, To increase flexibility/ROM Cryotherapy (ice pack, ice massage): Yes Thermo therapy (hot pack): Yes For the Purpose of:: To decrease pain, To decrease swelling/inflammation, To improve nutrient delivery to tissue Thank you for the opportunity to evaluate your patient. For Medicare and Medicare HMO plans, please review the plan of care and approve it. It will need to be FAXED BACK to us at [phone] for Medicare purposes. For Medicare only, by signing this I certify the plan of care. Please let me know if there are questions or concerns regarding this plan of care. Physician Signature: Date:
--- NOTE | 2023-04-18 18:53 | HP.PTDCSUM ---
Discharge Summary D/C summary: It has been my pleasure to treat ASHLIE ARCOS referred by Dr. Cortney Mace MD, with the diagnosis of Back pain/ R post rib pain for a total of 6 visit(s). Discharge Date: 04/18/23 Please see the following information for a summary of their discharge status. Subjective Subjective: The spot does not hurt as bad anymore Pain R sided back pain: Pain Intensity (Out of 10): 2 Overall Improvement % Improvement: 90 Objective Objective/Function: Trunk AROM: flexion 85%, B SB 75%, Rot B 50%, Ext 75% Goals Goal 1:: I HEP Goal Progress: Goal Met Goal 2:: Abolish R sided back pain Goal Progress: Progressing Goal 3:: Sit with upright posture during the day Goal Progress: Goal Met Goal 4:: Increase pain free trunk AROM (at the time of the eval: Trunk AROM: flexion 75%, R SB (increase pain) 50 and L 75, R Rot (increase pain )50% and L 50). Goal Progress: Goal Met Plan Plan: DC PT but pt will get a hold of if he feels that he needs additional PT. D/C Information Discharge Comments: DC PT to HEP d/c sentence: If there are questions or concerns regarding this patient's physical therapy, please feel free to call me at [phone]. Thank you for the referral of this patient. Sincerely, Hoa Zabala, MPT Balance/Gait/Functional tests Balance/Special Test Scores Oswestry Low Back Score: 4
== END 2023-04-18 19:00 | disposition home or self-care (01) ==
LOC: PT 18:30
PROVIDERS: PCP Family Medicine; Referring Provider Family Medicine; Visit Provider Family Medicine
DX: R07.81 Pleurodynia (principal)
CPT/HCPCS: 97110; 97161

== ENCOUNTER → 2024-03-13 | Outpatient (CLI) | payer BC, SELFPAY ==
--- NOTE | 2024-03-13 11:26 | RAD_ITS ---
INDICATION: BACK PAIN EXAMINATION/TECHNIQUE: X-RAY - XR Spine Lumbar Min 4 Views COMPARISON: Prior study dated: 05/20/2015 FINDINGS: VERTEBRAE: Preserved vertebral body height. No fracture. No spondylolisthesis. Preservation of the normal lumbar lordosis. No significant facet arthropathy. DISCS: Mild narrowing of L3-L4 and L4-L5 disc spaces. Endplate spondylosis at multiple levels. INCLUDED ABDOMEN: Included bowel gas pattern is non-obstructive. RAD/L/S Spine Min 4 Views IMPRESSION: Mild degenerative changes. Electronically Signed: Bo Barrios MD at 14:44 EDT ,
== END | disposition home or self-care (01) ==
PROVIDERS: PCP Family Medicine; Referring Provider Family Medicine; Visit Provider Family Medicine
DX: M54.50 Low back pain, unspecified (principal)
CPT/HCPCS: 72110

== ENCOUNTER 2024-07-01 16:28 | Emergency (ER) | payer BC, SELFPAY ==
[2024-07-01 16:29] VITALS: BP 149/97; PULSE 75; RESP 16; TEMP 36.4; O2SAT 95; BMI 41.5
--- NOTE | 2024-07-01 17:12 | RAD_ITS ---
STUDY: X-RAY - RIGHT FEMUR REASON FOR STUDY: Male, 58 years old. pain swelling TECHNIQUE: 4 view(s) of the femur. COMPARISON: None. FINDINGS: Normal visualized femur. Normal visualized soft tissue structure. RAD/Femur Min 2 Views IMPRESSION: Normal x-ray examination of the femur. Electronically Signed: Scott Hawk MD at 18:01 EDT ,
[2024-07-01 18:53] VITALS: BP 154/97; PULSE 67; RESP 15; O2SAT 96
--- NOTE | 2024-07-01 19:43 | EDS_ITS ---
HPI History of Present Illness HPI Narrative: Patient presents with pain and swelling to his right distal femur that occurred today. Patient states he was walking and there was a piece of rebar sticking out from something. Patient states he hit his distal thigh on the piece of rebar. Patient states the pain and swelling has gotten progressively worse. The patient states it is worse with movement. The patient denies any paresthesias or weakness. Patient thinks his last tetanus was between 5 and 10 years ago. Patient states he had difficulty ambulating due to the pain. Chief Complaint: Lower Extremity Injury Occured/Mechanism Mechanism/Context: Yes blunt trauma Onset/Context/Timing Onset: Today Context: Sudden Onset Timing: Continuous Quality of Pain: Aching Location: Right distal femur Worsened by: Movement, weightbearing Relieved by: Nothing Associated Symptoms Associated Symptoms: Negative for Parasthesia, Weakness or Loss of Funtion Narrative Tetanus Immunization: 5-10 years [facility] Medical History (Updated 07/01/24 @ 20:[address] Oliver Kilpatrick, DO) RUQ pain CAP (community acquired pneumonia) due to Pneumococcus Influenza A H1N1 infection Hypoxia Lower extremity edema Obesity Hyperlipidemia GERD (gastroesophageal reflux disease) Depression Coronary artery disease Benign hypertension Home Medications ?Medication ?Instructions ?Recorded ?Last Taken ?Type clopidogrel 75 mg tablet 75 mg PO DAILY anti platelet 06/24/14 05/15/18 History lisinopril 2.5 mg tablet 2.5 mg PO BID blood pressure 06/24/14 05/22/18 10:00 History montelukast 10 mg tablet 10 mg PO QHS allergies 06/24/14 04/13/18 History aspirin 81 mg tablet,delayed 81 mg PO DAILY@0800 [facility] 10/11/16 05/15/18 History release albuterol sulfate 2.5 mg/3 mL 2.5 mg (3 mL) inhalation Q2H PRN 12/29/16 04/13/18 Rx (0.083 %) solution for nebulization PRN Shortness of breath/wheezing ##50 albuterol sulfate 90 mcg/actuation 2 puff inhalation Q4H PRN PRN Sob 12/29/16 04/13/18 Rx aerosol inhaler &/Or Wheezing ##60 mometasone-formoterol HFA 200 1 puff IH BID ##1 12/29/16 04/13/18 Rx mcg-5 mcg/actuation aerosol inhaler trazodone 50 mg tablet 50 mg PO QHS sleep 04/14/18 04/13/18 History escitalopram oxalate 20 mg tablet 30 mg PO QHS depression 05/16/18 Unknown History (Lexapro) omeprazole 40 mg capsule,delayed 40 mg PO QDAY reflux 05/16/18 05/22/18 10:00 History release atorvastatin 20 mg tablet 40 mg PO QHS cholesterol 05/21/18 Unknown History lamotrigine 150 mg tablet 150 mg PO DAILY ADHD 05/26/18 Unknown History mometasone-formoterol HFA 200 2 puff IH DAILY 12/19/18 Unknown History mcg-5 mcg/actuation aerosol inhaler azithromycin 250 mg tablet See Rx Instructions PO .COMPLEX #6 07/26/19 Unknown Rx (Zithromax Z-Eligio) tabs hydrocodone-acetaminophen 5-325mg 1 tab PO Q6H PRN PRN Pain 3 days 07/01/24 Unknown Rx 5mg-325mg #10 TABLETS Allergy/AdvReac Type Severity Reaction Status Date / Time metoclopramide HCl (From AdvReac Other Verified 07/01/24 16:31 Reglan) prochlorperazine edisylate AdvReac Other Verified 07/01/24 16:31 (From Compazine) prochlorperazine maleate AdvReac Other Verified 07/01/24 16:31 (From Compazine) Family History Father Colon cancer Lung cancer Diabetes Heart disease Hypertension High cholesterol Mother Cancer Lung cancer Diabetes Heart disease High cholesterol Hypertension Surgical History History of coronary artery stent placement (~2011) Social History Smoking Status: Never smoker alcohol intake: never substance use type: does not use ROS ROS ED Constitutional Constitutional ED: Denies chills or fever(s) Eyes Eyes: Denies blurry vision or change in vision ENT ENT ED: Denies rhinorrhea or sore throat Cardiovascular Cardiovascular: Denies chest pain or palpitations Respiratory/Chest Respiratory/Chest: Denies cough or dyspnea Gastrointestinal Gastrointestinal: Denies nausea or vomiting Genitourinary Genitourinary ED: Denies dysuria or hematuria Musculoskeletal Musculoskeletal: Denies back pain or neck pain Integumentary Denies abscess or rash Neurologic Neurologic: Denies headache(s) or weakness Allergic/Immunologic Allergic/Immunologic ED: Denies mouth swelling or urticaria EXAM Physical Exam Const Vital Signs: 07/01/24 16:29 07/01/24 18:53 Temperature 97.6 F L Temperature Source Temporal Pulse Rate 75 67 Respiratory Rate 16 15 Blood Pressure 149/97 H 154/97 H Blood Pressure Mean 114 116 Pulse Ox 95 96 Oxygen Delivery Method Room Air Room Air Positive well nourished and well developed General Appearance ED: well developed and NAD HEENT normocephalic and atraumatic Extremity Extremity Narrative: There is tenderness and a hematoma over the lateral aspect of the distal right femur. There is a superficial abrasion over this area. There is no active bleeding noted. Extensor mechanism is intact however, there is severe pain with extending his knee. Pedal pulses are equal bilaterally. Sensation was intact to light touch in all digits. Capillary refill is less than 2 seconds in all digits. There is good motion of the ankle and toes. Range of motion of the right knee was limited secondary to pain. General Extremety ED: Yes weight-bearing difficulty General Extremity: weight-bearing difficulty Neuro oriented x3, CN's II-XII intact bilaterally, moves all extremities and no sensory deficits noted Sensorium / Orientation: alert Motor Exam: strength 5/5 throughout Psych mental status grossly normal MDM MDM MDM Narrative Medical decision making narrative: Differential diagnosis includes fracture, contusion, and sprain. X-rays of the right femur will be obtained to assess for fracture. Radiography Diagnostic Testing: Clinical Impression(s) from Imaging Studies Femur X-Ray 07/01/24 17:12 IMPRESSION: Normal x-ray examination of the femur. Electronically Signed: Scott Hawk MD at 18:01 EDT , X-rays of the right femur were obtained. There are 4 views. On my independent interpretation, there is no acute fracture. There is no dislocation noted. Radiologist also interpreted the x-rays and agrees. Treatment and Re-Evaluation Narrative: The patient was advised of his findings. Patient was given a dose of Mccaulley here. Patient was given a knee immobilizer. Patient was given crutches. Patient was instructed to ice and elevate the right knee. Patient was given a prescription for a short course of Mccaulley. Patient was instructed to follow-up with his primary care physician in 5 to 7 days. Patient was instructed to weight-bear as tolerated. Patient and spouse understood and were agreeable with the plan. All questions were answered. Discharge Plan Triage Chief Complaint: Lower Extremity Injury ED Provider: Oliver Kilpatrick Dx/Rx/DC Orders Clinical Impression: Traumatic hematoma of right thigh, Benign hypertension Instructions: ED Hematoma Prescriptions: New hydrocodone-acetaminophen 5-325 mg tablet 1 tab PO Q6H PRN PRN (Reason: Pain) 3 Days Qty: 10 0RF No Action escitalopram oxalate [Lexapro] 20 mg tablet 30 mg PO QHS azithromycin [Zithromax Z-Eligio] 250 mg tablet See Rx Instructions PO .COMPLEX Qty: 6 0RF Rx Instructions: take 500 mg today (day 1), then 250 mg for 4 days (days 2-5) clopidogrel 75 MG tablet 75 mg PO DAILY montelukast 10 MG tablet 10 mg PO QHS Patient Comments: ASTHMA lisinopril 2.5 MG tablet 2.5 mg PO BID Patient Comments: BLOOD PRESSURE aspirin 81 MG tablet 81 mg PO DAILY@0800 omeprazole 40 mg capsule,delayed release(DR/EC) 40 mg PO QDAY Patient Comments: gerd albuterol sulfate 1 INHALER inhaler 2 puff INHALATION Q4H PRN PRN (Reason: Sob &/Or Wheezing) Qty: 60 0RF mometasone-formoterol 8.8 GM HFA aerosol inhaler 1 puff IH BID Qty: 1 0RF albuterol sulfate 2.5 MG/3 ML solution for nebulization 2.5 mg INHALATION Q2H PRN PRN (Reason: Shortness of breath/wheezing) Qty: 50 0RF trazodone 50 MG tablet 50 mg PO QHS atorvastatin 20 MG tablet 40 mg PO QHS lamotrigine 150 MG tablet 150 mg PO DAILY mometasone-formoterol 13 GM HFA aerosol inhaler 2 puff IH DAILY Primary Care Provider: Stacy Kaur Referrals: Stacy Kaur MD [Primary Care Provider] - 5-7 Days Print Language: Grenadian Disposition Disposition: Home, Self Care
[2024-07-01 20:41] VITALS: BP 134/77; PULSE 64; RESP 12; TEMP 36.4; O2SAT 100
[2024-07-01] MEDS: HYDROcodone Bitartrate/Apap 5/325 Tablet PO (20:45)
== END 2024-07-01 20:47 | disposition home or self-care (01) ==
PROVIDERS: Emergency Provider Emergency Medicine; PCP Family Medicine; Visit Provider Emergency Medicine
DX: S70.11XA Contusion of right thigh, initial encounter (principal); I10 Essential (primary) hypertension; E78.5 Hyperlipidemia, unspecified; I25.10 Atherosclerotic heart disease of native coronary artery without angina pectoris; W22.09XA Striking against other stationary object, initial encounter
CPT/HCPCS: 73552; 99285; A4216

== ENCOUNTER → 2024-11-22 | Outpatient (CLI) | payer BC, SELFPAY ==
[2024-11-22 12:27] LABS: Absolute Lymphocyte Count 2.71 X10^3/uL (0.83-4.51); Absolute Neutrophil Count 4.2 X10^3/uL (2.0-7.7); Basophil# 0.06 X10^3/uL; Basophil% 0.8 % (0-1); Eosinophil# 0.22 X10^3/uL; Eosinophils% 2.8 % (0-5); Hematocrit 42.8 % (40-54); Hemoglobin 13.4 g/dL (13.0-16.5); Lymphocyte # 2.71 X10^3/ul (0.83-4.51); Lymphocyte % 34.5 % (19-41); Mean Corp Hgb Conc 31.3 g/dL (32-36); Mean Corpuscular Hgb 26.9 pg (27.0-32.0); Mean Corpuscular Volume 85.8 fL (80-94); Mean Platelet Vol. 10.5 fl (6.2-12.0); Monocyte# 0.63 X10^3/uL; NRBC Flagged by Analyzer 0 % (0-5); Neutrophil # 4.21 X10^3/uL (2.7-7.7); Neutrophil % 53.6 % (47-70); Platelet Count 239 K/mm3 (150-450); RBC Distribution Width CV 14.6 % (11.6-14.6); RBC Distribution Width SD 45.9 fl (35.1-43.9); Red Blood Count 4.99 M/mm3 (4.6-6.2); White Blood Count 7.9 K/mm3 (4.4-11.0)
== END | disposition home or self-care (01) ==
LOC: LAB 11:17
PROVIDERS: PCP Family Medicine; Referring Provider Family Medicine; Visit Provider Family Medicine
DX: K92.1 Melena (principal)
CPT/HCPCS: 36415; 85025

== ENCOUNTER 2024-12-09 06:57 | Day surgery (SDC) | payer BC, SELFPAY ==
--- NOTE | 2024-12-04 15:52 | PAT.ANE_ITS ---
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 When Was Last Pacemaker Check QUESTION #4 FULL TEXT: You/Your Family Experience fever (hyperthermia) with Anesthesia Last Oral Intake Last Oral intake: Last Oral Intake NPO since Meds taken in AM with sips of water? 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 - tile setter apprentice: PONV - tile setter apprentice Female No 12/04/24 09:54 HX of Motion Sickness Yes 12/04/24 09:54 HX of N/V After Surgery No 12/04/24 09:54 Non-Smoker Yes 12/04/24 09:54 Duration of Surgery greater No 12/04/24 09:54 than 60 minutes Number of Risk Factors 2 12/04/24 09:54 PONV Score Moderate Risk 12/04/24 09:54 Height & Weight Height & Weight: Anesthesia: Height & Weight Height 5 ft 7 in 11/17/24 09:53 Respiratory Assessment Respiratory Assessment - tile setter apprentice: Respiratory Tract Infection Hx - tile setter apprentice Hx Respiratory Tract Infection Yes: 11/23/24 HAD RESP FLU/ 12/04/24 09:54 RESOLVING STOP Sleep Apnea STOP Sleep Apnea - tile setter apprentice: STOP Sleep Apnea - tile setter apprentice Hx Hypertension Yes: CONTROLLED WITH MED 12/04/24 09:54 Hx Sleep Apnea No 12/04/24 09:54 CPAP BIPAP Do you snore loudly (louder Yes 12/04/24 09:54 than talking or can be heard Do you often feel tired/ Yes 12/04/24 09:54 fatigued/ sleepy during daytime? Has anyone observed you stop No 12/04/24 09:54 breathing during sleep? STOP Results Positive 12/04/24 09:54 QUESTION #5 FULL TEXT : Do you snore loudly (louder than talking or can be heard through closed doors)? 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 Specify any problems Hx of Preganancy in last 3 N/A 12/04/24 09:54 Months Nurse Filling Out Transfusion DSCHRIBER 12/04/24 09:54 & Questions: Date: 12/04/24 12/04/24 09:54 Time: 09:58 12/04/24 09:54 Patient unable to answer at this time (ie. confused, unrespo /Reproduction History /Reproductive History - tile setter apprentice: /Reproductive Hx- tile setter apprentice Hx Now No 12/04/24 09:54 Gestational Age (in weeks): EDC: Hx Hx Para Hx Section SAB No 12/04/24 09:54 PFS Medical History (Updated 12/04/24 @ 10:13 by Soledad Huffman) Rhabdomyolysis History of stress test Wears glasses Anxiety Diabetes Arthritis High cholesterol Migraine headache Dietary restriction Chewing tobacco dependence Gastric reflux Asthma History of echocardiogram Cardiology follow-up encounter Hypertension History of Garcia esophagus RUQ pain CAP (community acquired pneumonia) due to Pneumococcus Influenza A H1N1 infection Hypoxia Lower extremity edema Obesity Hyperlipidemia GERD (gastroesophageal reflux disease) Depression Coronary artery disease Benign hypertension Home Medications ?Medication ?Instructions ?Recorded ?Last Taken ?Type clopidogrel 75 mg tablet 75 mg PO DAILY anti platelet 06/24/14 12/03/24 History lisinopril 2.5 mg tablet 2.5 mg PO BID blood pressure 06/24/14 05/22/18 10:00 History montelukast 10 mg tablet 10 mg PO QHS allergies 06/2404/13/18 History aspirin 81 mg tablet,delayed 81 mg PO DAILY@0800 [facility] 10/11/16 12/03/24 History release albuterol sulfate 2.5 mg/3 mL 2.5 mg (3 mL) inhalation Q2H PRN 12/29/16 04/13/18 Rx (0.083 %) solution for nebulization PRN Shortness of breath/wheezing ##50 albuterol sulfate 90 mcg/actuation 2 puff inhalation Q 4H PRN PRN Sob 12/29/16 04/13/18 Rx aerosol inhaler &/Or Wheezing ##60 trazodone 50 mg tablet 50 mg PO QHS sleep 04/14/18 04/13/18 History escitalopram oxalate 20 mg tablet 30 mg PO QHS depress ion 05/16/18 Unknown History (Lexapro) omeprazole 40 mg capsule,delayed 40 mg PO QDAY reflux 05/16/18 05/22/18 10:00 History release atorvastatin 20 mg tablet 40 mg PO QHS cholesterol 05/01 Unknown History lamotrigine 150 mg tablet 150 mg PO QHS ADHD 05/26/18 Unknown History adalimumab 40 mg/0.4 mL 40 mg subcut .every other we ek 11/17/24 Unknown History subcutaneous syringe kit (Humira(CF)) mometasone-formoterol HFA 200 2 puff inhalation DAILY 12/04/24 Unknown History mcg-5 mcg/actuation aerosol inhaler Allergy/AdvReac Type Severity Reaction Status Date / Time metoclopramide HCl (From AdvReac Other Verified 11/17/24 09:54 Reglan) prochlorperazine edisylate AdvReac Other Verified 11/17/24 09:54 (From Compazine) prochlorperazine maleate AdvReac Other Verified 11/17/24 09:54 (From Compazine) Family History Father Colon cancer Lung cancer Diabetes Heart disease Hypertension High cholesterol Mother Cancer Lung cancer Diabetes Heart disease High cholesterol Hypertension Surgical History (Updated 12/04/24 @ 10:07 by Soledad Huffman) History of cardiac catheterization History of esophagogastroduodenoscopy (EGD) Hx of colonoscopy Hx of arthroscopic knee surgery Hx of arthroscopic knee surgery History of cholecystectomy History of coronary artery stent placement (~2011) Social History Smoking Status: Former smoker alcohol intake: never substance use type: does not use Audit: Pertinent Findings Pertinent Findings EKG Perinent findings: last ecg per chart review was in 2019; will need a repeat Echo (EF%) pertinent findings: Normal LV size. The estimated ejection fraction is 60 %. No evidence for diastolic dysfunction. No regional wall motion abnormalities noted. Additional pertinent findings: CVS: per chart review; pt asymptomatic and unremarkable tests. Return CV visit on 05/19/25 Recommendation Anesthesia Recommendation Anesthesia recommendation: F/U recommended Follow up Details Cadiac/Pulmonary Imaging Recommendation: Yes Cadiac/Pulmonary Imaging Rec Details: 12 Lead ECG
--- NOTE | 2024-12-08 18:37 | PAT.ANE_ITS ---
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 When Was Last Pacemaker Check QUESTION #4 FULL TEXT: You/Your Family Experience fever (hyperthermia) with Anesthesia Last Oral Intake Last Oral intake: Last Oral Intake NPO since Meds taken in AM with sips of water? 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 Has anyone observed you stop No 12/04/24 09:54 breathing during sleep? STOP Results Positive 12/04/24 09:54 QUESTION #5 FULL TEXT : Do you snore loudly (louder than talking or can be heard through closed doors)? 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 Specify any problems Hx of Preganancy in last 3 N/A 12/04/24 09:54 Months Nurse Filling Out Transfusion DSCHRIBER 12/04/24 09:54 & Questions: Date: 12/04/24 12/04/24 09:54 Time: 09:58 12/04/24 09:54 Patient unable to answer at this time (ie. 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: /Reproductive Hx- unionmelt operator Hx Now No 12/04/24 09:54 Gestational Age (in weeks): EDC: Hx Hx Para Hx Section SAB No 12/04/24 09:54 PFS Medical History (Updated 12/04/24 @ 10:13 by Soledad Huffman) Rhabdomyolysis History of stress test Wears glasses Anxiety Diabetes Arthritis High cholesterol Migraine headache Dietary restriction Chewing tobacco dependence Gastric reflux Asthma History of echocardiogram Cardiology follow-up encounter Hypertension History of Garcia esophagus RUQ pain CAP (community acquired pneumonia) due to Pneumococcus Influenza A H1N1 infection Hypoxia Lower extremity edema Obesity Hyperlipidemia GERD (gastroesophageal reflux disease) Depression Coronary artery disease Benign hypertension Home Medications ?Medication ?Instructions ?Recorded ?Last Taken ?Type clopidogrel 75 mg tablet 75 mg PO DAILY anti platelet 06/24/14 12/03/24 History lisinopril 2.5 mg tablet 2.5 mg PO BID blood pressure 06/24/14 05/22/18 10:00 History montelukast 10 mg tablet 10 mg PO QHS allergies 06/2404/13/18 History aspirin 81 mg tablet,delayed 81 mg PO DAILY@0800 heart health 10/11/16 12/03/24 History release albuterol sulfate 2.5 mg/3 mL 2.5 mg (3 mL) inhalation Q2H PRN 12/29/16 04/13/18 Rx (0.083 %) solution for nebulization PRN Shortness of breath/wheezing ##50 albuterol sulfate 90 mcg/actuation 2 puff inhalation Q 4H PRN PRN Sob 12/29/16 04/13/18 Rx aerosol inhaler &/Or Wheezing ##60 trazodone 50 mg tablet 50 mg PO QHS sleep 04/14/18 04/13/18 History escitalopram oxalate 20 mg tablet 30 mg PO QHS depress ion 05/16/18 Unknown History (Lexapro) omeprazole 40 mg capsule,delayed 40 mg PO QDAY reflux 05/16/18 05/22/18 10:00 History release atorvastatin 20 mg tablet 40 mg PO QHS cholesterol 05/01 Unknown History lamotrigine 150 mg tablet 150 mg PO QHS ADHD 05/26/18 Unknown History adalimumab 40 mg/0.4 mL 40 mg subcut .every other we ek 11/17/24 Unknown History subcutaneous syringe kit (Humira(CF)) mometasone-formoterol HFA 200 2 puff inhalation DAILY 12/04/24 Unknown History mcg-5 mcg/actuation aerosol inhaler Allergy/AdvReac Type Severity Reaction Status Date / Time metoclopramide HCl (From AdvReac Other Verified 11/17/24 09:54 Reglan) prochlorperazine edisylate AdvReac Other Verified 11/17/24 09:54 (From Compazine) prochlorperazine maleate AdvReac Other Verified 11/17/24 09:54 (From Compazine) Family History Father Colon cancer Lung cancer Diabetes Heart disease Hypertension High cholesterol Mother Cancer Lung cancer Diabetes Heart disease High cholesterol Hypertension Surgical History (Updated 12/04/24 @ 10:07 by Soledad Huffman) History of cardiac catheterization History of esophagogastroduodenoscopy (EGD) Hx of colonoscopy Hx of arthroscopic knee surgery Hx of arthroscopic knee surgery History of cholecystectomy History of coronary artery stent placement (~2011) Social History Smoking Status: Former smoker alcohol intake: never substance use type: does not use Audit: Pertinent Findings HISTORY of Pertinent Findings History of Pertinent Findings: EKG Pertinent Findings EKG Perinent findings last ecg per chart review 12/04/24 16:03 was in 2020; will need a repeat Echo Pertinent Findings Echo (EF%) pertinent findings Normal LV size. The 12/04/24 16:00 estimated ejection fraction is 60 %. No evidence for diastolic dysfunction. No regional wall motion abnormalities noted. Additional Pertinent Findings Additional pertinent findings CVS: per chart review; pt 12/04/24 16:00 asymptomatic and unremarkable tests. Return CV visit on 05/19/25 Recommendation Anesthesia Recommendation Anesthesia recommendation: F/U recommended (need repeat EKg as recommended on last anesthesia PAT assessment)
[2024-12-09] VITALS (8 sets, daily range): BP systolic 103–152; BP diastolic 72–99; PULSE 63–74; RESP 14–17; TEMP 36.2–36.7; O2SAT 93–100; BMI 41.1
--- NOTE | 2024-12-09 | IMM_PTH ---
PATIENT: ASHLIE ARCOS LOC: EN U#:[id number] AGE/SX: 59/M ROOM: RE12/09/[address]: Dr. 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 Localization is made via biotin free immunoperoxidase method. Appropriate controls are performed and reacted as expected. Results on target cell population are indicated in the following table: RESULTS: ANTIBODY / CLONE RESULT P53 (DO-7) negative (null pattern) Ki-67 (30-9) positive, low These tests were developed and their performance characteristics determined by [facility]. They may not have been cleared or approved by the U.S. Food and Drug Administration. The FDA has determined that such clearance or approval is not necessary. The above immunohistochemical/dualISH markers are ordered and reviewed by the Pathologist. INTERPRETATION: Gastroesophageal junction, biopsy: Negative for dysplasia. 12/10/2024
--- NOTE | 2024-12-09 07:10 | EKG12_ITS ---
Test Reason : PREOP Blood Pressure : */* mmHG Vent. Rate : 74 BPM Atrial Rate : 74 BPM P-R Int : 152 ms QRS Dur : 94 ms QT Int : 402 ms P-R-T Axes : 18 65 56 degrees QTcB Int : 446 ms Normal sinus rhythm Normal ECG When compared with ECG of 24-May-2018 09:45, No significant change was found Confirmed by Juan Gray ([id number]), editor index SATHISH WOLFE ([id number]) on 12/09/2024 1:08:13 PM Referred By: Stacy Kaur Confirmed By: Juan Gray
--- NOTE | 2024-12-09 07:27 | PCM.PRE.AN2 ---
ASA Classification* ASA Classification ASA Classification: 3 Assessment & Plan Anesthesia* Anesthesia Assessment Anesthesia Assessment: Discussed sedation and/or anesthesia options, risks, benefits, and alternatives with patient/parents/legal guardian/POA. Questions invited. The patient/parents/legal guardian/POA seems to understand and agrees to proceed with anesthesia plan. Reviewed the physical assessment, medical history, allergy history and patient home medications list prior to surgery/procedure/anesthetic and documented any changes. Performed airway and anesthesia risk assessments. Anesthesia Type Anesthesia Type: MAC History Source History Obtained from:: Patient and Chart Anesthesia Focused Assessment* Temperature: 97.8 F Pulse Rate: 72 Blood Pressure: 152/87 Respiratory Rate: 17 Pulse Ox: 94 Oxygen Delivery Method: Room Air Airway Assessment Mouth opens: >3 cm Mallampati Score: IV Teeth Condition: Caps/Crowns (Patient has couple crowns. They are tight.) Neck Range of motion (ROM): Limited ROM (Slight decrease in extension) Focused Labs Anesthesia Preop lab: CBC WBC 7.9 K/mm3 (4.4-11.0) 11/22/24 11:11/22/24 RBC 4.99 M/mm3 (4.6-6.2) 11/22/24 11:11/22/24 Hgb 13.4 g/dL (13.0-16.5) 11/22/24 11:22 11/22/24 Hct 42.8 % (40-54) 11/22/24 11:22 11/22/24 Plt Count 239 K/mm3 (150-450) 11/22/24 11:22 11/22/24 CHEMISTRY Potassium 4.3 mmol/L (3.5-5.1) 02/19/21:02/19/21 Sodium 139 mmol/L (136-145) 02/19/21:02/19/21 Magnesium 1.8 mg/dL (1.8-2.4) 08/25/13 15:46 08/25/13 BUN 18 mg/dL (7-18) 02/19/21:34 02/19/21 Creatinine 0.92 mg/dL (0.70-1.30) 02/19/21:02/19/21 Glucose 80 mg/dL (74-106) 02/19/21 02/19/21 TSH 1.18 uIU/mL (0.358-3.74) 03/09/20 12:47 03/09/20 COAG PT 13.3 SECONDS (11.7-14.9) 03/28/18 15:49 03/28/18 Pre-Assessment Diagnosis/Proposed Procedure Planned Operative Procedure(s): EGD/CSCOPE Anesthesia History Anesthesia History - 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 When Was Last Pacemaker Check QUESTION #4 FULL TEXT: You/Your Family Experience fever (hyperthermia) with Anesthesia Last Oral Intake Last Oral intake: Last Oral Intake NPO since 06:30 12/09/24 07:19 Meds taken in AM with sips of Yes 12/09/24 07:19 water? Meds patient instructed to omeprazole 12/09/24 07:19 take am of surgery Any additional information?: Yes Meds taken in AM with sips of water?: Yes PONV PONV - merchandising team lead: PONV - merchandising team lead Female No 12/04/24 09:54 HX of Motion Sickness Yes 12/04/24 09:54 HX of N/V After Surgery No 12/04/24 09:54 Non-Smoker Yes 12/04/24 09:54 Duration of Surgery greater No 12/04/24 09:54 than 60 minutes Number of Risk Factors 2 12/04/24 09:54 PONV Score Moderate Risk 12/04/24 09:54 Height & Weight Height & Weight: Anesthesia: Height & Weight Height 5 ft 7 in 12/09/24 07:19 Weight: 119 kg 12/09/24 07:19 Body Mass Index (BMI) 41.1 12/09/24 07:19 Respiratory Assessment Respiratory Assessment - merchandising team lead: Respiratory Tract Infection Hx - merchandising team lead Hx Respiratory Tract Infection Yes: 11/23/24 HAD RESP FLU/ 12/04/24 09:54 RESOLVING STOP Sleep Apnea STOP Sleep Apnea - merchandising team lead: STOP Sleep Apnea - merchandising team lead Hx Hypertension Yes: CONTROLLED WITH MED 12/04/24 09:54 Hx Sleep Apnea No 12/04/24 09:54 CPAP BIPAP Do you snore loudly (louder Yes 12/04/24 09:54 than talking or can be heard Do you often feel tired/ Yes 12/04/24 09:54 fatigued/ sleepy during daytime? Has anyone observed you stop No 12/04/24 09:54 breathing during sleep? STOP Results Positive 12/04/24 09:54 QUESTION #5 FULL TEXT : Do you snore loudly (louder than talking or can be heard through closed doors)? 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 Specify any problems Hx of Preganancy in last 3 N/A 12/04/24 09:54 Months Nurse Filling Out Transfusion DSCHRIBER 12/04/24 09:54 & Questions: Date: 12/04/24 12/04/24 09:54 Time: 09:58 12/04/24 09:54 Patient unable to answer at this time (ie. confused, unrespo /Reproduction History /Reproductive History - merchandising team lead: /Reproductive Hx- merchandising team lead Hx Now No 12/04/24 09:54 Gestational Age (in weeks): EDC: Hx Hx Para Hx Section SAB No 12/04/24 09:54 PFSH Medical History Rhabdomyolysis History of stress test Wears glasses Anxiety Diabetes Arthritis High cholesterol Migraine headache Dietary restriction Chewing tobacco dependence Gastric reflux Asthma History of echocardiogram Cardiology follow-up encounter Hypertension History of Garcia esophagus RUQ pain CAP (community acquired pneumonia) due to Pneumococcus Influenza A H1N1 infection Hypoxia Lower extremity edema Obesity Hyperlipidemia GERD (gastroesophageal reflux disease) Depression Coronary artery disease Benign hypertension Home Medications ?Medication ?Instructions ?Recorded ?Last Taken ?Type clopidogrel 75 mg tablet 75 mg PO DAILY anti platelet 06/24/14 12/03/24 History lisinopril 2.5 mg tablet 2.5 mg PO BID blood pressure 06/24/14 12/08/24 History montelukast 10 mg tablet 10 mg PO QHS allergies 06/24/14 12/08/24 History aspirin 81 mg tablet,delayed 81 mg PO DAILY@0800 heart health 10/11/16 12/03/24 History release albuterol sulfate 2.5 mg/3 mL 2.5 mg (3 mL) inhalation Q2H PRN 12/29/16 04/13/18 Rx (0.083 %) solution for nebulization PRN Shortness of breath/wheezing ##50 albuterol sulfate 90 mcg/actuation 2 puff inhalation Q4H PRN PRN Sob 12/29/16 04/13/18 Rx aerosol inhaler &/Or Wheezing ##60 trazodone 50 mg tablet 50 mg PO QHS sleep 04/14/18 12/08/24 History escitalopram oxalate 20 mg tablet 30 mg PO QHS depression 05/16/18 12/08/24 History (Lexapro) omeprazole 40 mg capsule,delayed 40 mg PO QDAY reflux 05/16/18 12/09/24 History release atorvastatin 20 mg tablet 40 mg PO QHS cholesterol 05/21/18 12/08/24 History lamotrigine 150 mg tablet 150 mg PO QHS ADHD 05/26/18 12/08/24 History adalimumab 40 mg/0.4 mL 40 mg subcut .every other week 11/17/24 Unknown History subcutaneous syringe kit (Humira(CF)) mometasone-formoterol HFA 200 2 puff inhalation DAILY 12/04/24 12/08/24 History mcg-5 mcg/actuation aerosol inhaler Allergy/AdvReac Type Severity Reaction Status Date / Time metoclopramide HCl (From AdvReac Other Verified 12/09/24 07:18 Reglan) prochlorperazine edisylate AdvReac Other Verified 12/09/24 07:18 (From Compazine) prochlorperazine maleate AdvReac Other Verified 12/09/24 07:18 (From Compazine) Family History Father Colon cancer Lung cancer Diabetes Heart disease Hypertension High cholesterol Mother Cancer Lung cancer Diabetes Heart disease High cholesterol Hypertension Surgical History History of cardiac catheterization History of esophagogastroduodenoscopy (EGD) Hx of colonoscopy Hx of arthroscopic knee surgery Hx of arthroscopic knee surgery History of cholecystectomy History of coronary artery stent placement (~2011) Social History Smoking Status: Never smoker alcohol intake: never substance use type: does not use Review of Systems (Anesthesia) ROS Narrative System reviewed and no additional complaints, except as documented.
--- NOTE | 2024-12-09 07:38 | PCM.HP.BLA ---
History and Physical Date of Admission: 12/09/24 Intake Vital Signs 07/01/2416:29 11/17/2508:53 Height 5 ft 7 in 5 ft 7 in Weight: 270 lb BMI 42.3 BP 134/86 H Blood Pressure Location Rt brachial Position Sitting Respiration 17 Pulse 69 Pulse Source Monitor Pulse Oximetry (%) 95 Oxygen Delivery Method room air Intake Visit Reasons: INTERNAL HEMORRHOIDS Chief Complaint: internal hemorrhoids Is patient in pain?: No Allergies metoclopramide HCl (From Reglan) Adverse Reaction (Verified 11/17/24 09:54) Otherprochlorperazine edisylate (From Compazine) Adverse Reaction (Verified 11/17/24 09:54) Otherprochlorperazine maleate (From Compazine) Adverse Reaction (Verified 11/17/24 09:54) Other Medications ?Medication ?Instructions ?Recorded ?Confirmed ?Type clopidogrel 75 mg tablet 75 mg PO DAILY anti platelet 06/24/14 11/17/24 History lisinopril 2.5 mg tablet 2.5 mg PO BID blood pressure 06/24/14 11/17/24 History montelukast 10 mg tablet 10 mg PO QHS allergies 06/24/14 11/17/24 History aspirin 81 mg tablet,delayed 81 mg PO DAILY@0800 heart health 10/11/16 11/17/24 History release albuterol sulfate 2.5 mg/3 mL 2.5 mg (3 mL) inhalation Q2H PRN 12/29/16 11/17/24 Rx (0.083 %) solution for nebulization PRN Shortness of breath/wheezing ##50 albuterol sulfate 90 mcg/actuation 2 puff inhalation Q4H PRN PRN Sob 12/29/16 11/17/24 Rx aerosol inhaler &/Or Wheezing ##60 mometasone-formoterol HFA 200 1 puff IH BID ##1 12/29/16 11/17/24 Rx mcg-5 mcg/actuation aerosol inhaler trazodone 50 mg tablet 50 mg PO QHS sleep 04/14/18 11/17/24 History escitalopram oxalate 20 mg tablet 30 mg PO QHS depression 05/16/18 11/17/24 History (Lexapro) omeprazole 40 mg capsule,delayed 40 mg PO QDAY reflux 05/16/18 11/17/24 History release atorvastatin 20 mg tablet 40 mg PO QHS cholesterol 05/21/18 11/17/24 History lamotrigine 150 mg tablet 150 mg PO DAILY ADHD 05/26/18 11/17/24 History mometasone-formoterol HFA 200 2 puff IH DAILY 12/19/18 11/17/24 History mcg-5 mcg/actuation aerosol inhaler adalimumab 40 mg/0.4 mL 40 mg subcut .every other week 11/17/24 11/17/24 History subcutaneous syringe kit (Humira(CF)) [facility] Medical History (Updated 11/17/24 @ 10:07 by Aysha Hagan) Garcia esophagus RUQ pain CAP (community acquired pneumonia) due to Pneumococcus Influenza A H1N1 infection Hypoxia Lower extremity edema Obesity Hyperlipidemia GERD (gastroesophageal reflux disease) Depression Coronary artery disease Benign hypertension Surgical History (Updated 11/17/24 @ 09:52 by Annabel Blake) History of cholecystectomy History of coronary artery stent placement (~2011) Family History Father Colon cancer Lung cancer Diabetes Heart disease Hypertension High cholesterolMother Cancer Lung cancer Diabetes Heart disease High cholesterol Hypertension Social History Smoking Status: Never smoker alcohol intake: never substance use type: does not use HPI HPI HPI: Patient is a 59-year-old male here with blood in the stool. He also has a history of Garcia's esophagus and has not had an EGD in several years. The patient reports his last colonoscopy was 6 to 7 years ago. He reports blood in the stool for the last 3 months. He reports that it is bright. He does have some pressure in the area but no pain. The patient's father from colon cancer in his 60s ROS General General: Yes weight change and fatigue; No appetite, colon cancer, breast cancer or weakness HEENT HEENT: No difficulty swallowing, eye injury, eye surgery, swollen glands or hoarseness Endo Endocrine: No thyroid disease, diabetes mellitus, thyroid cancer, Hair loss, heat intolerance or cold intolerance Skin Skin: No rash or changing moles Musc Musculoskeletal: Yes back problems, arthritis and rheumatoid arthritis; No gout or joint pain Cardio Cardiovascular: Yes heart stent; No murmur, pacemaker, heart disease, atrial fibrillation, high blood pressure, heart attack, palpitations, shortness of breat with exertion or chest pain Psych Psychiatric: Yes depression and anxiety; No hearing voices Resp Respiratory: No shortness of breath, No sleep apnea, No cough, No COPD, Yes asthma, No emphysema and No wheezing Gastro Gastrointestinal: No abdominal pain, No nausea or vomiting, No diarrhea, No constipation, Yes blood in stool, No acid reflux, No hemorrhoids, No ulcers, No gallbladder problem and Yes black,tarry stools Niko Hematologic: Yes blood thinners, No blood disorders, No bleeding, No anemia and No blood clots Neuro Neurologic: No system reviewed and no additional complaints, except as documented, No as per HPI, No abnormal gait, No abnormal hearing, No abnormal movements, No abnormal speech, No behavioral changes, No burning sensations, No confusion, No convulsions, No disequilibrium, No dizziness, No localized weakness, No frequent falls, No headache(s), No lack of coordination, No loss of vision, No memory loss, No numbness, No other visual disturbances, No radicular pain, No restless legs, No sensory deficit, No syncope, No tingling, No tremor(s), No weakness and No other Exam Const General: cooperative Orientation: alert and oriented x3 HENMT Head: normal to inspection Neck Neck: normal visual inspection and full ROM Chest Chest palpation & inspection: normal inspection of the chest Resp Effort & Inspection: normal respiratory effort Auscultation: clear to auscultation bilaterally Cardio Rate: regular rate Rhythm: regular rhythm GI Inspection: non-distended Palpation: soft and nontender Skin General: no rashes or lesions noted Neuro General: patient alert and patient oriented x3 Extrem General: full ROM Psych Appearance: grossly normal Mental Status: mental status grossly normal Assessment and Plan Assessment and Plan (1) Garcia esophagus: Status: Acute Plan: Patient has a history of Garcia's esophagus and requires surveillance EGD. (2) Blood in stool: Status: Acute Plan: Patient is having blood in his stool and feels like there is something like a marble on the inside. I performed a rectal exam I do not feel anything hard but I would like to perform a full colonoscopy with retroflexion. I explained endoscopy in detail to the patient. I explained the risks including but not limited to stroke or heart attack with anesthesia, perforation of the GI tract, bleeding, infection. I explained that any of these could necessitate further emergency surgery. The patient understands and all questions were answered sufficiently. The patient wishes to proceed with procedure. Patient will hold aspirin and Plavix for 5 days. Omkar Delgado MD Pager: [facility] [address] [place] [address], [address] [place] [address] Office: I have examined the patient and the H&P has been reviewed. There are no clinical changes since date of exam.
--- NOTE | 2024-12-09 08:00 | EGD_PTH ---
PATIENT: ASHLIE ARCOS LOC: EN U#:[id number] AGE/SX: 59/M ROOM: RE12/09/[address]: Dr. Omkar Delgado MD : 1965 BED: DIS: 12/09/2024 SPEC #: [id number] RECD: 12/09/24 10:21 STATUS: OSCAR TORRES #: [id number] MARC: 12/09/24 08:[address]: Omkar Delgado DEPT: SURGICAL PATHOLOGY RECD BY: Missy Watkins ENTERED: 12/09/24 11:56 SP TYPE: EGD BIOPSY OTHR DR: Stacy Kaur MD Tissues: Esophagus, NOS Procedures: Special Stain Group I Surgery Specimen Level IV Alcian Blue/PAS (control) HEADER OPERATION: Colonoscopy, EGD, biopsy PRE-OP DIAGNOSIS: Garcia's esophagus, blood in stool TISSUE SUBMITTED: Gastroesophageal junction biopsy MICROSCOPIC DIAGNOSIS Gastroesophageal junction, biopsy: Fragments of gastroesophageal mucosa with focal intestinal metaplasia (goblet cell metaplasia), consistent with Garcia's esophagus. Chronic inflammation. Negative for dysplasia. See comment. 12/10/2024 COMMENT Alcian blue/PAS stain with matched control is used in the evaluation of the specimen. Immunohistochemistry ([id number]) for P53 and Ki-67 will be performed and results will be reported separately. MICROSCOPIC DESCRIPTION Slides are reviewed. GROSS DESCRIPTION Received in fixative is one container labeled with the patient's name and designated GE junction biopsy. The specimen consists of two irregular fragments of light eduardo soft tissue that in aggregate measure 0.8 x 0.3 x 0.2 cm. The specimen is totally submitted in one cassette. 12/09/2024 TC:3 CPT:41568
--- NOTE | 2024-12-09 08:22 | OP.EGD_ITS ---
Patient Name: Jeet Villasenor Procedure Date: 12/09/2024 7:58 AM Date of : 1965 Age: 59 Procedure: Upper GI endoscopy Indications: Follow-up of Garcia's esophagus Providers: Omkar Delgado MD Referring MD: Stacy Kaur Md Medicines: Propofol per Anesthesia Patient Profile: This is a 59 year old male. Refer to note in patient chart for documentation of history and physical. Complications: No immediate complications. Estimated blood loss: Minimal. Procedure: Pre-Anesthesia Assessment: - Prior to the procedure, a History and Physical was performed, and patient medications and allergies were reviewed. The patient's tolerance of previous anesthesia was also reviewed. The risks and benefits of the procedure and the sedation options and risks were discussed with the patient. All questions were answered, and informed consent was obtained. Prior Anticoagulants: The patient has taken Plavix (clopidogrel), last dose was 5 days prior to procedure. After reviewing the risks and benefits, the patient was deemed in satisfactory condition to undergo the procedure. After obtaining informed consent, the endoscope was passed under direct vision. Throughout the procedure, the patient's blood pressure, pulse, and oxygen saturations were monitored continuously. The Colonoscope was introduced through the mouth, and advanced to the fourth part of duodenum. The upper GI endoscopy was accomplished without difficulty. The patient tolerated the procedure well. Scope In: 7:59:15 AM Scope Out: 8:02:51 AM Total Procedure Duration Time 0 hours 3 minutes 36 seconds Findings: There were esophageal mucosal changes secondary to established short-segment Garcia's disease present in the lower third of the esophagus. Mucosa was biopsied with a cold forceps for histology in a targeted manner at the gastroesophageal junction. One specimen bottle was sent to pathology. The stomach was normal. The examined duodenum was normal. Impression: - Esophageal mucosal changes secondary to established short-segment Garcia's disease. Biopsied. - Normal stomach. - Normal examined duodenum. Recommendation: - Discharge patient to home. - Resume previous diet. - Continue present medications. - Resume Plavix (clopidogrel) at prior dose tomorrow. Procedure Code(s): --- Professional --- 77067, Esophagogastroduodenoscopy, flexible, transoral; with biopsy, single or multiple Diagnosis Code(s): --- Professional --- K22.70, Garcia's esophagus without dysplasia CPT copyright 2021 [employer]. All rights reserved. The codes documented in this report are preliminary and upon stretcher drier operator review may be revised to meet current compliance requirements. Omkar Delgado MD 12/09/2024 8:22:13 AM This report has been signed electronically. Number of Addenda: 0 Note Initiated On: 12/09/2024 7:58 AM
--- NOTE | 2024-12-09 08:23 | OP.CCLET_ITS ---
12/09/2024 Stacy Kaur Md Re : Upper GI endoscopy procedure for Jeet Villasenor Dear Vincent This procedure was performed on Monday, December 09, 2024. My impressions and recommendations are as follows: Impressions : - Esophageal mucosal changes secondary to established short-segment Garcia's disease. Biopsied. - Normal stomach. - Normal examined duodenum. Recommendations : - Discharge patient to home. - Resume previous diet. - Continue present medications. - Resume Plavix (clopidogrel) at prior dose tomorrow. My findings are described in the full procedure note, which is enclosed. If I can be of further assistance, please feel free to contact me at Doctor phone number(s): , Work: . Sincerely, Omkar Delgado MD 12/09/2024 8:22:13 AM This report has been signed electronically.
--- NOTE | 2024-12-09 08:24 | OP.CCLET_ITS ---
12/09/2024 Stacy Kaur Md Re : Colonoscopy procedure for Jeet Villasenor Dear Vincent This procedure was performed on Monday, December 09, 2024. My impressions and recommendations are as follows: Impressions : - The entire examined colon is normal on direct and retroflexion views. - No specimens collected. Recommendations : - Discharge patient to home. - Resume previous diet. - Continue present medications. - Repeat colonoscopy in 10 years for screening purposes. My findings are described in the full procedure note, which is enclosed. If I can be of further assistance, please feel free to contact me at Doctor phone number(s): , Work: . Sincerely, Omkar Delgado MD 12/09/2024 8:24:01 AM This report has been signed electronically.
--- NOTE | 2024-12-09 08:24 | OP.COLON_ITS ---
Patient Name: Jeet Villasenor Procedure Date: 12/09/2024 8:03 AM Date of : 1965 Age: 59 Procedure: Colonoscopy Indications: Rectal bleeding Providers: Omkar Delgado MD Referring MD: Stacy Kaur Md Medicines: Propofol per Anesthesia Patient Profile: This is a 59 year old male. Refer to note in patient chart for documentation of history and physical. Last Colonoscopy: none. The patient's first colonoscopy is today. Complications: No immediate complications. Procedure: Pre-Anesthesia Assessment: - Prior to the procedure, a History and Physical was performed, and patient medications and allergies were reviewed. The patient's tolerance of previous anesthesia was also reviewed. The risks and benefits of the procedure and the sedation options and risks were discussed with the patient. All questions were answered, and informed consent was obtained. Prior Anticoagulants: The patient has taken Plavix (clopidogrel), last dose was 5 days prior to procedure. After reviewing the risks and benefits, the patient was deemed in satisfactory condition to undergo the procedure. After I obtained informed consent, the scope was passed under direct vision. Throughout the procedure, the patient's blood pressure, pulse, and oxygen saturations were monitored continuously. The Colonoscope was introduced through the anus and advanced to the cecum, identified by appendiceal orifice and ileocecal valve. The colonoscopy was performed without difficulty. The patient tolerated the procedure well. The quality of the bowel preparation was good. Scope In: 8:04:28 AM Scope Withdrawal Time 0 hours 3 minutes 57 seconds Scope Out: 8:15:50 AM Total Procedure Duration Time 0 hours 11 minutes 22 seconds Findings: The entire examined colon appeared normal on direct and retroflexion views. Impression: - The entire examined colon is normal on direct and retroflexion views. - No specimens collected. Recommendation: - Discharge patient to home. - Resume previous diet. - Continue present medications. - Repeat colonoscopy in 10 years for screening purposes. Procedure Code(s): --- Professional --- 85014, Colonoscopy, flexible; diagnostic, including collection of specimen(s) by brushing or washing, when performed (separate procedure) Diagnosis Code(s): --- Professional --- K62.5, Hemorrhage of anus and rectum CPT copyright 2021 [employer]. All rights reserved. The codes documented in this report are preliminary and upon international coordinator review may be revised to meet current compliance requirements. Omkar Delgado MD 12/09/2024 8:24:01 AM This report has been signed electronically. Number of Addenda: 0 Note Initiated On: 12/09/2024 8:03 AM
--- NOTE | 2024-12-09 08:26 | PCM.POST.ANE ---
Anesthesia: Postop Eval I Current Vital Signs Temperature: 98.1 F Pulse Rate: 74 Blood Pressure: 113/99 Respiratory Rate: 16 Pulse Ox: 95 Oxygen Delivery Method: Room Air Assessment Airway patent: Yes Spontaneous unlabored respirations: Yes Mental status: Awake and Calm nausea: No Vomiting: No Anesthesia Complication: No Fluid Hydration Crystalloid volume administer (ml): 60 Total IV fluid infused: 60 Progress Note Anesthesia document: Postop Eval 1 completed: Yes
--- NOTE | 2024-12-09 18:31 | PCM.POSTANE2 ---
Anesthesia Postop Eval I Sum Postop Eval Completion status Anesthesia document: Postop Eval 1 completed: Yes Anesthesia Postop Eval I Summary Anesthesia Postop Eval I Summary: Anesthesia Postop Eval I: Assessment Summary Airway patent Yes 12/09/24 08:27 [email or web address] Spontaneous unlabored Yes 12/09/24 08:27 [email or web address] respirations Mental status Awake,Calm 12/09/24 08:27 [email or web address] nausea No 12/09/24 08:27 [email or web address] Vomiting No 12/09/24 08:27 [email or web address] Anesthesia Postop Eval I: Fluid Summary Crystalloid volume administer 60 12/09/24 08:27 [email or web address] (ml) Colloids volume administered ( ml) Blood Product volume administered (ml) Total IV fluid infused 60 12/09/24 08:27 [email or web address] Anesthesia Postop Eval I: Summary Notes Anesthesia Complication No 12/09/24 08:27 [email or web address] Anesthesia Complication Comment: Post-operative progress note Anesthesia: Postop Eval II Evaluation Mental status: Awake and Calm Pain Level: 0 nausea: No Vomiting: No Complications Anesthesia Complication: No
== END 2024-12-09 08:58 | disposition home or self-care (01) ==
LOC: EN 07:02 → AC 07:02
PROVIDERS: PCP Family Medicine; Referring Provider Family Medicine; Visit Provider Surgery
PROC: 0DJD8ZZ Inspection of Lower Intestinal Tract, Via Natural or Artificial Opening Endoscopic (ICD-10-PCS; CPT 45378; principal; 2024-12-09 07:55)
DX: K22.70 Barrett's esophagus without dysplasia (principal); E11.9 Type 2 diabetes mellitus without complications; K62.5 Hemorrhage of anus and rectum; I10 Essential (primary) hypertension; K64.8 Other hemorrhoids; I25.10 Atherosclerotic heart disease of native coronary artery without angina pectoris; Z80.0 Family history of malignant neoplasm of digestive organs; Z79.01 Long term (current) use of anticoagulants; Z79.02 Long term (current) use of antithrombotics/antiplatelets; Z79.82 Long term (current) use of aspirin; Z79.899 Other long term (current) drug therapy; Z87.891 Personal history of nicotine dependence; E78.00 Pure hypercholesterolemia, unspecified; K21.00 Gastro-esophageal reflux disease with esophagitis, without bleeding; J45.909 Unspecified asthma, uncomplicated
CPT/HCPCS: 45378; 43239; 88305; 88312; 88341; 88342; 93005; A4216; J2405

== ENCOUNTER → 2025-06-01 | Outpatient (CLI) | payer BC, SELFPAY ==
[2025-06-01 18:26] LABS: PSA,Total - Annual Screen 0.54 ng/mL (0.02-4.00)
== END | disposition home or self-care (01) ==
LOC: MTLAB 16:56
PROVIDERS: PCP Family Medicine
DX: Z12.5 Encounter for screening for malignant neoplasm of prostate (principal); Z13.1 Encounter for screening for diabetes mellitus
CPT/HCPCS: 36415; 83036; 84153; G0103

== ENCOUNTER → 2025-09-26 | Outpatient (CLI) | payer BC, SELFPAY ==
--- OUTSIDE RECORDS SUMMARY | 2025-09-26 08:44 | XMS RPT_ITS | CCD ---
Author Organization [facility] Care Team Providers Care Stock Preparation Supervisor Name Role Phone Jaren Ellisantonio Unavailable Unavailable Caleb Kurtis Unavailable Unavailable Aelxys Jett Unavailable Unavailable Alexys Bowling DO Primary Care Provider Alexys Bowling DO Primary Care Provider [phone] Mile Contreras MD Primary Care Provider Mile Contreras MD Primary Care Provider Mile Contreras MD Primary Care Provider Mile Contreras MD Primary Care Provider Dr. Teddy Contreras Primary Care Provider Dr. Teddy Contreras Referring Provider Dr. Devon Jaramillo Attending Provider Mile Contreras MD Primary Care Provider Mile Contreras MD Primary Care Provider Mile Contreras MD Primary Care Provider PHYSICIAN, NOT RECORDED Primary Care UnavailALEXYS Crews MD Attending Unavailable ALEXYS HUTTON MD Attending Unavailable PHYSICIAN, NOT RECORDED Primary Care UnavailAlexys Hernandez DO Primary Care Provider Stacy Kaur MD Primary Care Provider [phone] [place] MODELING AGENT-CGabino Attending Provider Yvanorrow MODELING AGENT-CGabino Referring Provider Omkar Delgado Attending Unavailable Vincent, Chalon Referring Unavailable Vincent, Chalon Primary Care Unavailable McMorrow MODELING AGENT, Gabino Attending Unavailable McMorrow MODELING AGENT, Gabino Referring Unavailable Vincent, Chalon Primary Care Unavailable Vincent, Chalon Attending Unavailable Vincent, Chalon Referring Unavailable Vincent, Chalon Primary Care Unavailable Vincent, Chalon Primary Care Unavailable Oliver Kilpatrick Attending Unavailable Vincent, Chalon Primary Care Unavailable Calabretta, Omkar Attending Unavailable Vincent, Chalon Referring Unavailable Vincent, Chalon Primary Care Unavailable Layton Daniel Referring Unavailable Juan Gray Attending Unavailable Calabretta, Omkar Attending Unavailable Vincent, Chalon Referring Unavailable Vincent, Chalon Primary Care Unavailable Omkar Delgado Consulting Unavailable RANNEY, CHRISTOPHER B Primary Care Unavailabl e SLOE, RAINA M Referring Unavailable RANNEY, CHRISTOPHER B Primary Care Unavailabl e SLOE, RAINA Referring Unavailable RANNEY, CHRISTOPHER B Primary Care Unavailabl e SLOE, RAINA Attending Unavailable RANBREVIG MISSION, CHRISTOPHER B Primary Care Unavailabl e SLOE, RAINA Attending Unavailable SELF Referring Unavailable RANBREVIG MISSION, CHRISTOPHER B Primary Care Unavailabl e SLOE, RAINA Attending Unavailable SELF Referring Unavailable RANNEY, CHRISTOPHER B Primary Care Unavailabl e SLOE, RAINA Referring Unavailable RANBREVIG MISSION, CHRISTOPHER B Primary Care Unavailabl e Allergies Allergy Classification Reported Allergen(s) Allergy Type Date of Onset Reaction(s) Facility (20 sources) Metoclopramide; Translations: [METOCLOPRAMIDE] Drug Allergy 02-26-20 04 [facility] (20 sources) Metoclopramide; Translations: [METOCLOPRAMIDE HCL] Drug Allergy 06-24-20 15 Intolerance [facility] (20 sources) Prochlorperazine; Translations: [PROCHLORPERAZINE EDISYLATE] Drug Allergy 06-24-20 15 Intolerance [facility] (20 sources) environmental [Other] Propensity to adverse reactions 01-12-20 05 [facility] (5 sources) Prochlorperazine; Translations: [prochlorperazine maleate] Drug Allergy 02-06-20 23 Other [facility] (16 sources) Pollen; Translations: [POLLEN EXTRACTS] Drug Allergy 08-11-20 24 Other: See Comments [facility] (1 source) Metoclopramide Drug Allergy 12-09-19 [facility] (1 source) Prochlorperazine Drug Allergy 12-09-19 [facility] (1 source) OTHER; Translations: [OTHER] Propensity to adverse reactions (disorder) 01-12-20 [facility] Medications Current Medications Medication Drug Class(es) Dates Sig (Normalized) Sig (Original) 0.4 ml adalimumab 100 mg/ml auto-injector (20 sources) Tumor Necrosis Factor Joy Start: 05-20-2025 adalimumab (HUMIRA,CF, PEN) 40 mg/0.4 mL pen kit Indications: Seronegative rheumatoid arthritis (HCC) Inject 40 mg (1 pen) subcutaneously every 2 weeks. 6 each 1 05/20/2025 Active Start: 11-17-2024 Adalimumab (Hu alvina(Cf)) 40 mg/0.4 mL syringe kit Active 40 mg SC .every other week November 17, 2024 1:00am Start: 11-05-2023 End: 01-26-2025 adalimumab (HUMIRA,CF, PEN) 40 mg/0.4 mL pen kit Indications: Seronegative rheumatoid arthritis (HCC) Inject 40 mg (1 pen) subcutaneously every 2 weeks. 6 each 1 04/27/2025 1:47 PM EDT 01/26/2025 Active Start: 03-01-2023 End: 05-21-2023 adalimumab (HUMIRA,CF, PEN) 40 mg/0.4 mL pen kit Inject 40 mg (1 pen) subcutaneously every 2 weeks. 6 Each 1 05/21/2023 Active Start: 09-13-2022 End: 12-05-2022 adalimumab (HUMIRA,CF, PEN) 40 mg/0.4 mL pen kit Inject 40 mg (1 pen) subcutaneously every 2 weeks. 6 Each 0 12/05/2022 Active Start: 06-02-2022 adalimumab (HU ALVINA,CF, PEN) 40 mg/0.4 mL pen kit Inject 40 mg (1 pen) subcutaneously every 2 weeks. 6 Pen 0 06/02/2022 Active Comment on above: Inject 40 mg (1 pen) subcutaneously every 2 weeks. adalimumab-aaty (YUFLYMA) 40 mg/0.4 mL auto-injector (1 source) Start: inject 0.4 mL by subcutaneous injection every other week adalimumab-aaty (YUFLYMA) 40 mg/0.4 mL auto-injector Inject 0.4 mL subcutaneously every other week. 2.4 mL 1 06/01/2025 Active albuterol 0.83 mg/ml inhalation solution (20 sources) beta2-Adrenergic Agonist Start: 017 take 2.5 mg by inhalation every two hours as needed for wheezing Albuterol Sulfate 2.5 MG/3 ML solution for nebulization Active 2.5 mg INHALATION EVERY 2 HOURS NEEDED as needed for Shortness of breath/wheezing 50 0 December 29, 2016 12:06pm Start: 12-29-2016 Albuterol Sulf ate 1 INHALER inhaler Active 2 NMA INHALATION EVERY 4 HOURS NEEDED as needed for Sob &/Or Wheezing 60 0 December 29, 2016 12:01pm Start: 10-11-2016 End: 12-29-2016 Albuterol Sulfate (Ventolin Hfa) 1 INHALER inhaler Discontinued 2 NMA INHALATION EVERY 4 HOURS NEEDED as needed for Sob &/Or Wheezing October 11, 2016 1:00am December 29, 2016 12:01pm Start: 10-11-2016 End: 12-29-2016 take 1 puff(s) by inhalation every four hours as needed Albuterol Sulfate Active 2 PUFF INHALATION EVERY 4 HOURS NEEDED 60 December 29, 2016 12:01pm Start: 02-22-2004 take 2 puff(s) by in halation three times daily VENTOLIN 90MCG INHALER (2)two puff tid 0 02/22/2004 Active Comment on above: (2)two puff tid aspirin 81 mg delayed release oral tablet (20 sources) Platelet Aggregation Inhibitor, Nonsteroidal Anti-inflammatory Drug Start: 10-11-2016 take 1 tablet by mouth once daily Aspirin 81 MG tablet Active 81 mg PO DAILY@0800 October 11, 2016 1:00am Slice take 1 tablet by mouth once brendan y aspirin 81 mg chewable tablet Take 81 mg by mouth once daily. Active Comment on above: Take 81 mg by mouth once daily. atorvastatin 40 mg oral tablet (20 sources) HMG-CoA Reductase Inhibitor Start: take 1 tablet by mouth once daily at bedtime atorvastatin (LIPITOR) 40 mg tablet Take 40 mg by mouth daily at bedtime. 11/12/2020 Active Start: 05-21-2018 take 2 tablets by mo [facility] at bedtime Atorvastatin 20 MG tablet Active 40 mg PO AT BEDTIME May 21, 2018 12:00am cholesterol Start: 05-21-2018 take 40 mg by mouth at bedtime Atorvastatin Active 40 MG PO AT BEDTIME May 21, 2018 12:00am Comment on above: Take 40 mg by mouth daily at bedtime. clopidogrel 75 mg oral tablet (20 sources) P2Y12 Platelet Inhibitor Start: 4 take 1 tablet by mouth once daily Clopidogrel 75 MG tablet Active 75 mg PO DAILY June 24, 2014 12:00am anti platelet Comment on above: once daily. escitalopram 20 mg oral tablet (20 sources) Serotonin Reuptake Inhibitor Start: 8 Escitalopram Oxalate (Lexapro) 20 mg tablet Active 30 mg PO AT BEDTIME May 16, 2018 12:00am depression Start: 06-24-2014 End: 05-16-2018 take 3 tablets by mouth at bedtime Escitalopram Oxalate 10 MG tablet Discontinued 30 mg PO AT BEDTIME June 24, 2014 12:00am May 16, 2018 10:39am Start: 06-24-2014 End: 05-16-2018 take 30 mg by mouth at bedtime Escitalopram Oxalate Di scontinued 30 MG PO AT BEDTIME June 24, 2014 12:00am May 16, 2018 10:39am escitalopram oxa late (LEXAPRO) 20 mg tablet Take 20 mg by mouth once daily. takes 30 mg total Active Comment on above: Take 20 mg by mouth once daily. takes 30 mg total 120 actuat formoterol fumarate 0.005 mg/actuat / mometasone furoate 0.2 mg/actuat metered dose inhaler (20 sources) Corticosteroid, beta2-Adrenergic Agonist Start: 12-19-2018 take 1 puff(s) by inhalation once daily Mometasone-Formo terol Active 2 PUFF IH DAILY December 19, 2018 1:00am Start: 12-29-2016 take 1 puff(s) by in halation twice daily Mometasone-Formoterol Active 1 PUFF IH TWICE A DAY December 29, 2016 12:01pm Start: 10-11-2016 End: 12-29-2016 Mometasone-Formoterol (Duler a) 8.8 GM Hfa.Aer.Ad Discontinued 1 NMA IH TWICE A DAY October 11, 2016 1:00am December 29, 2016 12:01pm Start: 10-11-2016 End: 12-29-2016 take 1 puff(s) by inhalation twice daily Mometasone-Formoterol (Dulera) 8.8 GM Hfa.Aer.Ad Discontinued 1 PUFF IH TWICE A DAY October 11, 2016 1:00am December 29, 2016 12:01pm take 2 puff(s) by in halation twice daily mometasone-formoterol (DULERA) 100-5 mcg/actuation inhaler Inhale 2 Puffs as instructed twice daily. Active Comment on above: Inhale 2 Puffs as in structed twice daily. lamoTRIgine 150 mg oral tablet (20 sources) Mood Stabilizer, Anti-epileptic Agent Start: 8 take 1 tablet by mouth at bedtime Lamotrigine 150 MG tablet Active 150 mg PO AT BEDTIME May 26, 2018 12:00am ADHD Comment on above: Take 150 mg by mouth once daily. lisinopril 2.5 mg oral tablet (20 sources) Angiotensin Converting Enzyme Inhibitor Start: 5 lisinopril 2.5 mg tablet once daily. 04/28/2015 Active Start: 06-24-2014 take 1 tablet by lavell th twice daily Lisinopril 2.5 MG tablet Active 2.5 mg PO TWICE A DAY June 24, 2014 12:00am blood pressure Comment on above: once daily. Mometasone-Formoterol 8.8 GM HFA aerosol inhaler (2 sources) Start: 12-04-2024 Mometasone-For moterol 8.8 GM HFA aerosol inhaler Active 2 NMA INHALATION DAILY December 04, 2024 1:00am Start: 12-29-2016 End: 12-04-2024 Mometasone-Formoterol 8.8 GM HFA aerosol inhaler Discontinued 1 NMA IH TWICE A DAY 1 December 29, 2016 12:01pm December 04, 2024 10:54am montelukast 10 mg oral tablet (20 sources) Leukotriene Receptor Antagonist Start: 06-24-2014 take 1 tablet by mouth at bedtime Montelukast 10 MG tablet Active 10 mg PO AT BEDTIME June 24, 2014 12:00am allergies naproxen 500 mg oral tablet (20 sources) Nonsteroidal Anti-inflammatory Drug Start: 01-09-2022 End: 05-12-2022 take 1 tablet by mouth twice daily as needed for pain naproxen (NAPROSYN) 500 mg tablet Indications: Seronegative rheumatoid arthritis (HCC) , 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 for pain. Take with food. 60 tablet 05/12/2022 Active Comment on above: Take 1 tablet by lavell twice daily as needed. for pain. Take with food. omeprazole 40 mg delayed release oral capsule (20 sources) Proton Pump Inhibitor Start: 05-16-2018 take 1 capsule by mouth once daily Omeprazole 40 mg capsule,delayed release(DR/EC) Active 40 mg PO daily May 16, 2018 10:38am reflux Start: 10-11-2016 End: 05-16-2018 take 1 capsule by mouth twice daily Omeprazole 40 MG capsule Discontinued 40 mg PO TWICE A DAY October 11, 2016 1:00am May 16, 2018 10:41am Comment on above: TAKE 1 CAPSULE TWICE A DAY predniSONE 10 mg oral tablet (20 sources) Start: 09-10-2023 End: 09-17-2023 take 1 tablet by mouth once daily predniSONE (DELTASONE) 10 mg tablet Indications: Seronegative rheumatoid arthritis (HCC) , Polyarthralgia Take 1 tablet by mouth once daily for 7 days. 7 tablet 0 09/10/2023 09/17/2023 Active Start: 12-19-2018 End: 07-26-2019 take 3 tablets by mouth once daily Prednisone 20 MG tablet Discontinued 60 mg PO DAILY December 19, 2018 1:00am July 26, 2019 11:51am Start: 12-19-2018 End: 07-26-2019 take 60 mg by mouth once daily Prednisone Discontinued 60 MG PO DAILY December 19, 2018 1:00am July 26, 2019 11:51am Start: 12-29-2016 End: 05-16-2018 Prednisone 10 MG tablet Discontinued 10 mg PO DAILY December 29, 2016 12:00am May 16, 2018 10:40am 40 mg daily for 3 days, 30 mg for next 3 days, 20 mg for next 3 days, 10 mg for the next 3 days Start: 12-29-2016 End: 05-16-2018 Prednisone Discontinued 10 M G PO DAILY December 29, 2016 12:00am May 16, 2018 10:40am 40 mg daily for 3 days, 30 mg for next 3 days, 20 mg for next 3 days, 10 mg for the next 3 days Start: 12-27-2016 End: 12-29-2016 take 1 tablet by mouth twice daily at mealtime Prednisone 10 MG tablet Discontinued 10 mg PO TWICE DAILY WITH MEALS December 27, 2016 12:00am December 29, 2016 11:59am Start: 10-12-2016 End: 12-27-2016 take 2 tablets by mouth once daily Prednisone 20 MG tablet Discontinued 40 mg PO DAILY@0800 10 0 October 12, 2016 5:51pm December 27, 2016 8:54am Start: 10-12-2016 End: 12-27-2016 take 40 mg by mouth once daily Prednisone Discontinued 40 MG PO DAILY@0800 10 October 12, 2016 5:51pm December 27, 2016 8:54am Comment on above: Take 1 tablet by lavell th once daily for 7 days. Syringe with Needle, Disp, (BD ALLERGY SYRINGE) (20 sources) Start: 05-12-2022 Syringe with Needle, Disp, (BD ALLERGY SYRINGE) Indications: Seronegative rheumatoid arthritis (HCC) , 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 1 Syringe one time a week. 10 Each 05/12/2022 Active Start: 05-12-2022 Syringe with N eedle, Disp, (BD ALLERGY SYRINGE) Indications: Seronegative rheumatoid arthritis (HCC) , 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 1 Syringe one time a week. 10 Each 0 05/12/2022 Active Start: 01-09-2022 End: 05-12-2022 Syringe with Needle, Disp, ( BD ALLERGY SYRINGE) Indications: Seronegative rheumatoid arthritis (HCC) 1 Syringe one time a week. 10 Each 0 01/09/2022 05/12/2022 Discontinued Start: 01-09-2022 Syringe with N eedle, Disp, (BD ALLERGY SYRINGE) Indications: Seronegative rheumatoid arthritis (HCC) 1 Syringe one time a week. 10 Each 0 01/09/2022 Active Start: 08-12-2021 End: 01-09-2022 Syringe with Needle, Disp, ( BD ALLERGY SYRINGE) Indications: Seronegative rheumatoid arthritis (HCC) 1 Syringe one time a week. 10 Each 0 08/12/2021 01/09/2022 Discontinued Start: 04-27-2021 End: 08-12-2021 Syringe with Needle, Disp, ( BD ALLERGY SYRINGE) Indications: Seronegative rheumatoid arthritis (HCC) 1 Syringe one time a week. 10 Syringe 1 04/27/2021 08/12/2021 Discontinued Comment on above: 1 Syringe one time a week. traZODone hydrochloride 50 mg oral tablet (20 sources) Serotonin Reuptake Inhibitor Start: 8 take 1 tablet by mouth at bedtime Trazodone 50 MG tablet Active 50 mg PO AT BEDTIME April 14, 2018 12:00am sleep Comment on above: Take 50 mg by mouth daily at bedtime. Completed/Discontinued Medications Medication Drug Class(es) Dates Sig (Normalized) Sig (Original) acetaminophen 325 mg / HYDROcodone bitartrate 5 mg oral tablet (1 source) Opioid Agonist Start: 07-01-2024 End: 11-17-2024 Hydrocodone-Acetamino phen 5-325 mg tablet Discontinued 1 {tbl} PO EVERY 6 HOURS NEEDED as needed for Pain 10 3 0 July 01, 2024 November 17, 2024 10:54am Traumatic hematoma of right thigh Contusion of right thigh, initial encounter acetaminophen 325 mg / oxyCODONE hydrochloride 5 mg oral tablet (8 sources) Opioid Agonist Start: 05-22-2018 End: 06-07-2018 Oxycodone-Acetaminoph en 5-325 mg tablet Discontinued 1 - 2 {tbl} PO EVERY 4 HOURS NEEDED as needed for Pain 10 2 0 June 05, 2018 June 06, 2018 12:00am June 07, 2018 12:08am Cholesterolosis of gallbladder Start: 05-22-2018 End: 06-07-2018 take 1 tablet by mouth every four hours as needed Oxycodone-Acetaminophen Discontinued 1 - 2 TABLET PO EVERY 4 HOURS NEEDED 10 2 June 05, 2018 June 07, 2018 12:08am ALPRAZolam 1 mg oral tablet (4 sources) Benzodiazepine Start: 06-24-2014 End: 05-16-2018 take 1 tablet by mouth at bedtime Alprazolam 1 MG tablet Discontinued 1 mg PO AT BEDTIME June 24, 2014 12:00am May 16, 2018 10:41am azithromycin 250 mg oral tablet (4 sources) Macrolide Antimicrobial Start: 07-26-2019 End: 11-17-2024 take 2-5 tablets by mouth once daily Azithromycin (Zithromax Z-Eligio) 250 mg tablet Discontinued 0 PO .COMPLEX 6 0 July 26, 2019 12:00am November 17, 2024 10:54am take 500 mg today (day 1), then 250 mg for 4 days (days 2-5) doxycycline hyclate 100 mg oral capsule (8 sources) Tetracycline-class Drug Start: 07-29-2019 End: 08-08-2019 take 1 capsule by mouth twice daily Doxycycline Hyclate 100 mg capsule Discontinued 100 mg PO TWICE A DAY 20 10 0 July 29, 2019 12:00am August 07, 2019 12:00am August 08, 2019 12:08am Acute sinusitis, unspecified Start: 12-27-2016 End: 12-29-2016 take 1 capsule by mouth twice daily Doxycycline Monohydrate 100 MG capsule Discontinued 100 mg PO TWICE A DAY December 27, 2016 12:00am December 29, 2016 11:58am folic acid 1 mg oral tablet (20 sources) Start: 04-27-2021 End: 08-12-2021 take 1 tablet by mouth once daily folic acid 1 mg tablet Indications: Seronegative rheumatoid arthritis (HCC) Take 1 tablet by mouth once daily. 30 tablet 11 04/27/2021 08/12/2021 Discontinued Start: 11-22-2020 End: 09-04-2022 take 2 tablets by mouth once daily folic acid 1 mg tablet Take 2 tablets by mouth once daily. 11/22/2020 09/04/2022 Discontinued (Course of therapy completed) Comment on above: Take 2 tablets by [facility] once daily. hydrocortisone 25 mg/ml topical cream (8 sources) Corticosteroid Start: 10-12-2016 End: 10-12-2016 Hydrocortisone 1 APPLIC Tube Discontinued 2 NMA TOPICAL TWICE A DAY 1 0 October 12, 2016 2:39pm October 12, 2016 5:52pm Start: 10-12-2016 End: 10-12-2016 Hydrocortisone Discontinued 2 APPLIC TOPICAL TWICE A DAY 1 October 12, 2016 2:39pm October 12, 2016 5:52pm methotrexate 25 mg/ml injectable solution (20 sources) Folate Analog Metabolic Inhibitor Start: 05-24-2022 inject 1 mL by subcutaneous injection every week methotrexate sodium 25 mg/mL soln Indications: Seronegative rheumatoid arthritis (HCC) INJECT 1 ML SUBCUTANEOUSLY ONCE A WEEK 10 mL 1 05/24/2022 Active Start: 12-16-2021 End: 05-22-2022 inject 1 mL by subcutaneous injection every week methotrexate sodium 25 mg/mL soln Indications: Seronegative rheumatoid arthritis (HCC) INJECT 1 ML SUBCUTANEOUSLY ONCE A WEEK 10 mL 1 05/22/2022 Active Start: 08-12-2021 End: 05-22-2022 inject 1 mL by subcutaneous injection every week methotrexate, PF, 25 mg/mL soln Indications: Seronegative rheumatoid arthritis (HCC) , 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 12/14/2020 08/12/2021 Discontinued Comment on above: Inject 1.0 ml subcut aneous each week INJECT 1 ML SUBCUTAN EOUSLY ONCE A WEEK Mometasone-Formotero l 13 GM HFA aerosol inhaler (1 source) Start: 12-19-2018 End: 12-04-2024 Mometasone-Formoterol 13 GM HFA aerosol inhaler Discontinued 2 NMA IH DAILY December 19, 2018 1:00am December 04, 2024 10:53am Problems Active Problems Problem Classification Problem Date Documented Da te Episodic/Chronic Abdominal pain (4 sources) Right upper quadrant pain; Translations: [Right upper quadrant pain] 12-19-2018 Episodic Acute myocardial infarction (4 sources) Myocardial infarction; Translations: [Non-ST elevation (NSTEMI) myocardial infarction] 12-19-2018 Chronic Asthma (4 sources) Asthmatic bronchitis; Translations: [Unspecified asthma, uncomplicated] 12-20-2018 Chronic Biliary tract disease (4 sources) Polyp of gallbladder; Translations: [Cholesterolosis of gallbladder] 12-19-2018 Episodic Coronary atherosclerosis and other heart disease (6 sources) Coronary atherosclerosis; Translations: [Atherosclerotic heart disease of [place] coronary artery without angina pectoris] Onset: 07-01-2024 12-19-2018 Chronic Disorders of lipid metabolism (6 sources) Hyperlipidemia; Translations: [Hyperlipidemia, unspecified] Onset: 07-01-2024 12-19-2018 Chronic Esophageal disorders (20 sources) Gastro-esophageal reflux disease with esophagitis; Translations: [Gastroesophageal reflux disease with esophagitis] Onset: 07-14-2015 07-14-2015 Chronic Essential hypertension (4 sources) Benign hypertension; Translations: [Essential (primary) hypertension] 12-19-2018 Chronic Headache; including migraine (20 sources) Refractory migraine variants; Translations: [Migraine with aura, intractable, without status migrainosus] Onset: 04-04-2004 04-04-2004 Chronic Influenza (4 sources) Influenza due to Influenza A virus subtype H1N1; Translations: [Influenza due to other identified influenza virus with other respiratory manifestations] 12-19-2018 Episodic Mood disorders (20 sources) Depressive disorder; Translations: [Depressive disorder] Onset: 05-12-2021 05-12-2021 Chronic Comment on above: ON MED Osteoarthritis (1 source) Unilateral primary osteoarthritis, right knee; Translations: [Primary osteoarthritis of right knee] Onset: 07-27-2025 Chronic Other aftercare (6 sources) Taking high risk medication; Translations: [Other termite treater (current) drug therapy] Episodic Other and unspecified benign neoplasm (4 sources) Lipoma of back; Translations: [Benign lipomatous neoplasm of skin and subcutaneous tissue of trunk] 02-05-2023 Episodic Other and unspecified benign neoplasm (3 sources) Benign lipomatous neoplasm of skin and subcutaneous tissue of trunk; Translations: [Lipoma of other specified sites] 02-05-2023 Episodic Other connective tissue disease (4 sources) Rhabdomyolysis; Translations: [Rhabdomyolysis] 12-19-2018 Episodic Other lower respiratory disease (4 sources) Hypoxia; Translations: [Hypoxemia] 12-19-2018 Episodic Other nervous system disorders (3 sources) Other chronic pain; Translations: [Chronic right shoulder pain] Onset: 07-08-2025 Chronic Other non-traumatic joint disorders (1 source) Multiple joint pain; Translations: [Pain in unspecified joint] 09-10-2023 Episodic Other non-traumatic joint disorders (2 sources) Pain in right shoulder; Translations: [Chronic right shoulder pain] Onset: 07-08-2025 Episodic Other non-traumatic joint disorders (1 source) Pain in right knee; Translations: [Chronic pain of right knee] Onset: 07-08-2025 Episodic Other nutritional; endocrine; and metabolic disorders (4 sources) Obesity; Translations: [Obesity, unspecified] 12-19-2018 Chronic Other screening for suspected conditions (not mental disorders or infectious disease) (1 source) Encounter for screening for malignant neoplasm of prostate; Translations: [Encounter for screening for malignant neoplasm of prostate] Onset: 06-03-2025 Episodic Other upper respiratory infections (8 sources) Acute maxillary sinusitis; Translations: [Acute maxillary sinusitis, unspecified] 07-26-2019 Episodic Pneumonia (except that caused by tuberculosis or sexually transmitted disease) (4 sources) Community acquired pneumonia; Translations: [Pneumonia due to Streptococcus pneumoniae] 12-19-2018 Episodic Residual codes; unclassified (4 sources) Edema of lower extremity; Translations: [Localized edema] 12-19-2018 Episodic Residual codes; unclassified (4 sources) Generalized aches and pains; Translations: [Pain, unspecified] 12-19-2018 Episodic Rheumatoid arthritis and related disease (20 sources) Seronegative rheumatoid arthritis; Translations: [Rheumatoid arthritis without rheumatoid factor, unspecified site] Onset: 05-12-2021 Chronic Superficial injury; contusion (1 source) Hematoma of right thigh; Translations: [Contusion of right thigh, initial encounter] 07-09-2024 Episodic Unclassified (1 source) Unknown / UNK(Unknown) Onset: 02-20-2018 Past or Other Problems Problem Classification Problem Date Documented Da te Episodic/Chronic Gastritis and duodenitis (20 sources) Acute gastritis; Translations: [Acute gastritis without bleeding] Onset: 07-14-2015 07-14-2015 Episodic Gastrointestinal hemorrhage (3 sources) Hematochezia; Translations: [Melena] Onset: 12-08-2024 11-17-2024 Episodic Other aftercare (20 sources) Patient encounter status; Translations: [Other shelter (current) drug therapy] Onset: 05-12-2021 Episodic Other aftercare (20 sources) 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; Translations: [Other shelter (current) drug therapy] Onset: 05-12-2021 Episodic Other aftercare (17 sources) Long-term current use of drug therapy; Translations: [Other shelter (current) drug therapy] Onset: 05-12-2021 05-12-2021 Episodic Other aftercare (1 source) Other shelter (current) drug therapy; Translations: [High risk medication use] Onset: 08-11-2024 Episodic Other injuries and conditions due to external causes (1 source) Encounter for examination and observation following other accident; Translations: [Encounter for examination and observation following other accident] Onset: 11-24-2024 Episodic Spondylosis; intervertebral disc disorders; other back problems (20 sources) Chronic low back pain; Translations: [Chronic bilateral low back pain without sciatica] Onset: 05-12-2021 Episodic Syncope (20 sources) Syncope and collapse; Translations: [Syncope and collapse] Onset: 04-04-2004 Resolved: 07-18-2016 07-18-2016 Episodic Unclassified (1 source) FATTY LIVER~ Onset: 02-20-2018 Results Test Name Value Interpretation Reference Range Facility [facility] 07-27-2025 CNOV Office Visit (BRADLY ) -------- ASHLIE VILLASENOR ([id number]) 1965 M Date Time Provider Department 07/27/25 3:00 PM RAINA MARCUS During your visit today, we recorded the following information about you: Temperature Pulse Respiration Blood pressure 97.3 degrees 58/minute 20/minute 135/87 Weight Height 111.6 kg 1.69 m Raina Marcus PA-C 07/28/2025 10:27 AM Addendum Rheumatology Outpatient Clinic Follow Up Date of Service: 07/27/2025 Patient: Ashlie Villasenor Medical Record: [id number] Primary Care Physician: Mile Contreras MD Referring Physician: Self Last Rheumatology visit: 07/27/2025 (with Raina Marcus) SUBJECTIVE INTERVAL HISTORY Ashlie Villasenor is a 59 year old White male with a PMH of depression, GERD with esophagitis, acute gastritis without bleeding, chronic daily headaches who presents on 07/27/2025 for an in-person visit for right should and right knee steroid injections Patient has never had joint injections before. Right shoulder and right knee are really the only joints that cause him an issue. 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 His pain wakes him up from sleep He takes acetaminophen for pain He feels the adalimumab biosimilar is working a little better than when we last spoke Current Outpatient Medications on File Prior to Visit Medication Sig adalimumab-aaty (YUFLYMA) 40 mg/0.4 mL auto-injector Inject 0.4 mL subcutaneously every other week. adalimumab (HUMIRA,CF, PEN) 40 mg/0.4 mL pen kit Inject 40 mg (1 pen) subcutaneously every 2 weeks. naproxen (NAPROSYN) 500 mg tablet Take 1 tablet by mouth twice daily as needed. for pain. Take with food. Syringe with Needle, Disp, (BD ALLERGY SYRINGE) 1 Syringe one time a week. traZODone (DESYREL) 50 mg tablet Take 50 mg by mouth daily at bedtime. atorvastatin (LIPITOR) 40 mg tablet Take 40 mg by mouth daily at bedtime. Omeprazole 40 mg capsule TAKE 1 CAPSULE TWICE A DAY mometasone-formoterol (DULERA) 100-5 mcg/actuation inhaler Inhale 2 Puffs as instructed twice daily. lamoTRIgine (LAMICTAL) 150 mg tablet Take 150 mg by mouth once daily. escitalopram oxalate (LEXAPRO) 20 mg tablet Take 20 mg by mouth once daily. takes 30 mg total clopidogrel (PLAVIX) 75 mg tablet once daily. lisinopril 2.5 mg tablet once daily. montelukast (SINGULAIR) 10 mg tablet aspirin 81 mg chewable tablet Take 81 mg by mouth once daily. VENTOLIN 90MCG INHALER (2)two puff tid PAST MEDICAL HISTORY Diagnosis Date ADHD (attention deficit hyperactivity disorder) Anxiety Asthma (HCC) CAD (coronary artery disease) HTN (hypertension) Rheumatoid arthritis (HCC) Snoring Spasmodic torticollis PAST SURGICAL HISTORY Procedure Laterality Date ARTHROSCOPY KNEE DIAGNOSTIC W/WO SYNOVIAL BX SPX Bilateral COLONOSCOPY FLX DX W/COLLJ SPEC WHEN PFRMD 07/09/15 normal - 10 year follow up EGD TRANSORAL BIOPSY SINGLE/MULTIPLE 07/09/15 gastritis, esophagitis - Garcia's EGD TRANSORAL BIOPSY SINGLE/MULTIPLE 10/06/15 esophagitis - Garcia's ESOPHAGOGASTRODUODENOSCO PY TRANSORAL DIAGNOSTIC 11/30/2017 EGD HEMORRHOID SURGERY HX 1992 PTCA CONSULT 2011 10 diag - promus - everolimus eluting stent FAMILY HISTORY Problem Relation Age of Onset Colon Cancer Father 65 other (lung) Father other (lung) Mother Prostate Cancer Paternal Grandfather SOCIAL HISTORY[1] PAIN EVALUATION 07/26/2025 1705 Pain Level: 7 Pain Location: Knee-Right Description: Aching;Dull Duration Amount of Time: 12 Duration Units: Hours Frequency: Intermittent Intervention/Comfort measure: Medication;Heat PROMIS Assessments 07/11/2024 08/04/2024 07/01/2025 PROMIS Assessments Physical Health Percentile 22 Mental Health Percentile 34 34 34 34 Pain Score 4 4 4 3 Pain Interference Percentile 27 12 Fatigue Percentile 38 24 Physical Function Percentile 27 31 Multiple values from one day are sorted in reverse-chronological order RAPID 3 Ortega Activities of Daily Living 07/01/2025 12:43 PM 08/04/2024 3:18 PM 07/11/2024 9:34 AM First answer obtained - 04/27/2021 3:43 PM Dress self? With SOME difficulty Without ANY difficulty Without ANY difficulty Without ANY difficulty Get in and out of bed? With SOME difficulty With SOME difficulty With SOME difficulty With SOME difficulty Walk outdoors? With SOME difficulty Without ANY difficulty Without ANY difficulty Without ANY difficulty Wash and dry body? Without ANY difficulty Without ANY difficulty Without ANY difficulty Without ANY difficulty Get in and out of car? Without ANY difficulty Without ANY difficulty Without ANY difficulty With SOME difficulty RAPID 3 Disease Activity Weighed Score Levels: 0 - 1: Near Remission 1.3 - 2.0: Low Severity 2.3 - 4.0: Moderate Severity 4.3 - 10.0: High Severity 07/11/2024 08/04/2024 07/01/2025 RAPID-3 Weighed Score RAPID 3 Weighed Score I (more content not included)... Normal [facility] XR KNEE 4V AP/PA BOTH+LAT/ME R RTon 07-08-2025 XR KNEE 4V AP/PA BOTH+LAT/JENARO RT * * *Final Report* * * DATE OF EXAM: Jul 08 2025 4:19PM UDX 5203 - XR KNEE 4V AP/PA BOTH+LAT/JENARO RT / PROCEDURE REASON: multiple diagnoses * * * * Physician Interpretation * * * * EXAMINATION: XR KNEE 4V AP/PA BOTH+LAT/JENARO RT CLINICAL HISTORY: Chronic pain of right knee Chronic pain of right knee Pain. Technique: XR KNEE 4V AP/PA BOTH+LAT/JENARO RT Comparison: None. RESULT: There are no acute osseous changes. Mild patellofemoral osteoarthrosis of the right knee. Small joint effusion. Mild lateral patellar subluxation on sunrise view. IMPRESSION: There are no acute osseous changes. Mild patellofemoral osteoarthrosis 3right knee. Small joint effusion. Manager Council: [facility] Transcribe Date/Time: Jul 08 2025 4:30P Dictated by : MARYANN CID MD This examination was interpreted and the report reviewed and electronically signed by: MARYANN CID MD on Jul 08 2025 4:32PM EST [id number]/=3V AP/FARHAD AP/OTH R RTon 07-08-2025 XR SHLDR >/=3V AP/FARHAD AP/OTHR RT * * *Final Report* * * DATE OF EXAM: Jul 08 2025 4:19PM UDX 5253 - XR SHLDR >/=3V AP/FARHAD AP/OTHR RT / PROCEDURE REASON: multiple diagnoses * * * * Physician Interpretation * * * * EXAMINATION: XR SHLDR >/=3V AP/FARHAD AP/OTHR RT CLINICAL HISTORY: Chronic right shoulder pain Chronic right shoulder pain Pain. Technique: XR SHLDR >/=3V AP/FARHAD AP/OTHR RT Comparison: None. RESULT: There are no acute osseous changes. Mild acromioclavicular osteoarthrosis. IMPRESSION: There are no acute osseous changes. Mild acromioclavicular osteoarthrosis. Manager Council: [facility] Transcribe Date/Time: Jul 08 2025 4:33P Dictated by : MARYANN ICD MD This examination was interpreted and the report reviewed and electronically signed by: MARYANN CID MD on Jul 08 2025 4:34PM EST [id number] CBC panel Auto (Bld)on 06-27 Erythrocyte distribution width (RBC) [Ratio] 15.9 % High 11.5-15.0 [facility] Comment on above: Order Comment: Speci men Type: BLOOD SPECIMENOrdering Facility: [facility] Address: [address] [place] [address] Performed By: #### 5 8410-2, 4537-7 ####[facility]CL[facility] [id number] [place] [address] [place] Hematocrit (Bld) [Volume fraction] 45.0 % Normal 39.0-51.0 [facility] Comment on above: Order Comment: Speci men Type: BLOOD SPECIMENOrdering Facility: [facility] Address: [address] [place] [address] Performed By: #### 5 8410-2, 4537-7 ####[facility] [id number] [place] [address] [place] Hemoglobin (Bld) [Mass/Vol] 14.1 g/dL Normal 13.0-17.0 [facility] Comment on above: Order Comment: Speci men Type: BLOOD SPECIMENOrdering Facility: [facility] Address: [address] [place] [address] Performed By: #### 5 8410-2, 4537-7 ####[facility] [id number] [place] [address] [place] MCH (RBC) [Entitic mass] 26.5 pg Normal 26.0-34.0 [facility] Comment on above: Order Comment: Speci men Type: BLOOD SPECIMENOrdering Facility: [facility] Address: [address] [place] [address] Performed By: #### 5 8410-2, 4537-7 ####[facility] [id number] [place] [address] [place] MCHC (RBC) [Mass/Vol] 31.3 g/dL Normal 30.5-36.0 [facility] Comment on above: Order Comment: Speci men Type: BLOOD SPECIMENOrdering Facility: [facility] Address: [address] [place] [address] Performed By: #### 5 8410-2, 4537-7 ####[facility]IA [id number] [address] [address] [place] MCV (RBC) [Entitic vol] 84.4 fL Normal 80.0-100.0 [facility] Comment on above: Order Comment: Speci men Type: BLOOD SPECIMENOrdering Facility: [facility] Address: [address] [place] [address] Performed By: #### 5 8410-2, 4537-7 ####[facility]IA [id number] [place] [address] [place] Nucleated RBC (Bld) [#/Vol] 10*3/uL Normal <0.01 [facility] Comment on above: Order Comment: Speci men Type: BLOOD SPECIMENOrdering Facility: [facility] Address: [address] [place] [address] Performed By: #### 5 8410-2, 4537-7 ####[facility] [id number] [place] [address] [place] Platelet mean volume (Bld) [Entitic vol] 11.4 fL Normal 9.0-12.7 [facility] Comment on above: Order Comment: Speci men Type: BLOOD SPECIMENOrdering Facility: [facility] Address: [address] [place], [place] [address] Performed By: #### 5 8410-2, 4537-7 ####[facility] [id number] [place] [address] [place] Platelets (Bld) [#/Vol] 234 10*3/uL Normal 150-400 [facility] Comment on above: Order Comment: Speci men Type: BLOOD SPECIMENOrdering Facility: [facility] Address: [address] [place] [address] Performed By: #### 5 8410-2, 4537-7 ####[facility] [id number] [place] [id number] [place] RBC (Bld) [#/Vol] 5.33 10*6/uL Normal 4.20-6.00 [facility] Comment on above: Order Comment: Speci men Type: BLOOD SPECIMENOrdering Facility: [facility] Address: [address] [place] [address] Performed By: #### 5 8410-2, 4537-7 ####[facility] [id number] [place] [address] [place] WBC (Bld) [#/Vol] 7.15 10*3/uL Normal 3.70-11.00 [facility] Comment on above: Order Comment: Speci men Type: BLOOD SPECIMENOrdering Facility: [facility] Address: [address] [place] [address] Performed By: #### 5 8410-2, 4537-7 ####[facility]IA [id number] [place] [address] [place] CRP SerPl-mCncon 06-27-2025 CRP [Mass/Vol] 0.4 mg/dL Normal <0.9 [facility] Comment on above: Order Comment: Speci men Type: BLOOD SPECIMENOrdering Facility: [facility] Address: [address] [place] [address] Performed By: #### 2 4325-3, 01608-8, 1988-02 ####[facility] [id number] [place] [address] [place] Creatinine and Glomerular fi ltration rate.predicted panel (S/P/Bld)on 06-27-2025 Creatinine [Mass/Vol] 1.10 mg/dL Normal 0.73-1.22 [facility] Comment on above: Order Comment: Speci men Type: BLOOD SPECIMENOrdering Facility: [facility] Address: [address] [place] [address] Performed By: #### 2 4325-3, 41834-0, 1988-02 ####[facility] [id number] [address] [address] [place] eGFRcr SerPlBld CKD-EPI 2020 78 mL/min/1.73m??? Normal >=60 [facility] Comment on above: Order Comment: Speci men Type: BLOOD SPECIMENOrdering Facility: [facility] Address: [address] [place] [address] Result Comment: Bronwyn mated Glomerular Filtration Rate (eGFR) is calculated using the 2020 CKD-EPI creatinine equation. This equation utilizes serum creatinine, sex, and age as parameters. The creatinine assay has traceable calibration to isotope dilution-mass spectrometry. Refer to KDIGO guidelines for clinical interpretation. In patients with unstable renal function, e.g. those with acute kidney injury, the eGFR may not accurately reflect actual GFR. Performed By: #### 2 4325-3, 98976-7, 1988-02 ####[facility] [id number] [place] [id number] [place] ESR Westergren method (Bld) [Velocity]on 06-27-2025 ESR (Bld) [Velocity] 20 mm/h High 0-15 [facility] Comment on above: Order Comment: Speci men Type: BLOOD SPECIMENOrdering Facility: [facility] Address: [address] [place] [address] Performed By: #### 5 8410-2, 4537-7 ####[facility] [id number] [place] [id number] [place] Hepatic function 2000 panelo n 06-27-2025 Albumin [Mass/Vol] 4.0 g/dL Normal 3.9-4.[address] [facility] Comment on above: Order Comment: Speci men Type: BLOOD SPECIMENOrdering Facility: [facility] Address: [address] [place] [address] Performed By: #### 2 4325-3, 40278-0, 1988-02 ####[facility] [id number] [place] [id number] [place] ALP [Catalytic activity/Vol] 109 U/L Normal 38-113 [facility] Comment on above: Order Comment: Speci men Type: BLOOD SPECIMENOrdering Facility: [facility] Address: [address] [place] [address] Performed By: #### 2 4325-3, 44618-0, 1988-02 ####[facility] [id number] [place] [address] [place] ALT [Catalytic activity/Vol] 34 U/L Normal 10-54 [facility] Comment on above: Order Comment: Speci men Type: BLOOD SPECIMENOrdering Facility: [facility] Address: [address] [place] [address] Performed By: #### 2 4325-3, 88525-4, 1988-02 ####[facility] [id number] [place] [id number] [place] AST [Catalytic activity/Vol] 35 U/L Normal 14-40 [facility] Comment on above: Order Comment: Speci men Type: BLOOD SPECIMENOrdering Facility: [facility] Address: [address] [place] [address] Performed By: #### 2 4325-3, 14240-3, 1988-02 ####[facility] [id number] [address] [address] [place] Bilirubin [Mass/Vol] 0.5 mg/dL Normal 0.2-1.3 [facility] Comment on above: Order Comment: Speci men Type: BLOOD SPECIMENOrdering Facility: [facility] Address: [address] [place] [address] Performed By: #### 2 4325-3, 07543-0, 1988-02 ####[facility] [id number] [address] [address] [place] Bilirubin.conjugated [Mass/Vol] 0.1 mg/dL Normal <0.3 [facility] Comment on above: Order Comment: Speci men Type: BLOOD SPECIMENOrdering Facility: [facility] Address: [address] [place] [address] Performed By: #### 2 4325-3, 30749-2, 1988-02 ####[facility] [id number] [address] [address] [place] Protein [Mass/Vol] 7.4 g/dL Normal 6.3-8.[address] [facility] Comment on above: Order Comment: Speci men Type: BLOOD SPECIMENOrdering Facility: [facility] Address: [address] [place] [address] Performed By: #### 2 432-3, 36810-8, 1988-02 ####[facility] [id number] [place] [id number] [place] Hemoglobin A1con 06-01-2025 HbA1c (Bld) [Mass fraction] 6.3 % High <=5.6 [facility] Comment on above: Order Comment: Order Date: 11/11/24 Order Info: 0184-1 - CBCD Result Comment: Norm al < 5.7 % Prediabetic 5.7 - 6.4 % Diabetic >or= 6.5 % Please note range changes. Performed By: #### L 100.0100 #### [facility] [address] [place], [address] Hemoglobin A1c percentageOrd ered By: Gabino Vazquez on 06-01-2025 HbA1c (Bld) [Mass fraction] 6.3 % High <5.7 [facility] Comment on above: Normal < 5.7 % Predi abetic 5.7 - 6.4 % Diabetic >or= 6.5 % Please note range changes. PSA,Total - Annual Screenon 06-01-2025 PSA,TOT SCREEN 0.54 ng/mL Normal 0.02-4.00 [facility] Comment on above: Order Comment: Order Date: 06/01/25 Order Info: 2857-1 - PSA Comments: screening for prostate cancer Result Comment: This test was performed using the [employer] tPSA method. Measured values of a patient??sample can vary depending on the testing procedure used. PSA values determined on patient samples by different testing procedures cannot be used interchangeably. If there is a change in PSA assays while monitoring therapy, sequential testing should be performed to confirm baseline values. Performed By: #### L 501.9910 #### [facility] [address] [facility] [place], [address] 12 Lead EKGon 12-09-[address] [facility] [address] [place] [address] 12 Lead EKG 12/09/24 0719 MR#: [id number] Acct: [id number] Name: ASHLIE VILLASENOR Rep #: [id number] : 1965 59 From: Juan Gray MD Attending Dr: Dr. Omkar Delgado MD Status: DEP [facility] Ordering Dr: Layton Daniel MD Date: 12/09/24 Location: EN Sex: M C Admitted: Test Reason : PREOP Blood Pressure : */* mmHG Vent. Rate : 74 BPM Atrial Rate : 74 BPM P-R Int : 152 ms QRS Dur : 94 ms QT Int : 402 ms P-R-T Axes : 18 65 56 degrees QTcB Int : 446 ms Normal sinus rhythm Normal ECG When compared with ECG of 24-May-2018 09:45, No significant change was found Confirmed by Juan Gray ([id number]), fashion editor SATHISH WOLFE ([id number]) on 12/09/2024 1:08:13 PM Referred By: Stacy Kaur Confirmed By: Juan Gray 12/09/24 1308 Date Juan Gray MD CC: Dr. Layton Daniel MD; Dr. Omkar Delgado MD; Dr. Stacy Kaur MD Signed Normal [facility] Colonoscopy Reporton [address] [facility] Medical Records Department [address] [place] [address] Colonoscopy Report MR#: [id number] Acct: [id number] Name: ASHLIE VILLASENOR Rep #: [id number] : 1965 59 From: Omkar Delgado MD PCP: Dr. Stacy Kaur MD Status:REG [facility] Patient Name: Ashlie Villasenor Procedure Date: 12/09/2024 8:03 AM Date of : 1965 Age: 59 Procedure: Colonoscopy Indications: Rectal bleeding Providers: Omkar Delgado MD Referring MD: Stacy Kaur Md Medicines: Propofol per Anesthesia Patient Profile: This is a 59 year old male. Refer to note in patient chart for documentation of history and physical. Last Colonoscopy: none. The patient's first colonoscopy is today. Complications: No immediate complications. Procedure: Pre-Anesthesia Assessment: - Prior to the procedure, a History and Physical was performed, and patient medications and allergies were reviewed. The patient's tolerance of previous anesthesia was also reviewed. The risks and benefits of the procedure and the sedation options and risks were discussed with the patient. All questions were answered, and informed consent was obtained. Prior Anticoagulants: The patient has taken Plavix (clopidogrel), last dose was 5 days prior to procedure. After reviewing the risks and benefits, the patient was deemed in satisfactory condition to undergo the procedure. After I obtained informed consent, the scope was passed under direct vision. Throughout the procedure, the patient's blood pressure, pulse, and oxygen saturations were monitored continuously. The Colonoscope was introduced through the anus and advanced to the cecum, identified by appendiceal orifice and ileocecal valve. The colonoscopy was performed without difficulty. The patient tolerated the procedure well. The quality of the bowel preparation was good. Scope In: 8:04:28 AM Scope Withdrawal Time 0 hours 3 minutes 57 seconds Scope Out: 8:15:50 AM Total Procedure Duration Time 0 hours 11 minutes 22 seconds Findings: The entire examined colon appeared normal on direct and retroflexion views. Impression: - The entire examined colon is normal on direct and retroflexion views. - No specimens collected. Recommendation: - Discharge patient to home. - Resume previous diet. - Continue present medications. - Repeat colonoscopy in 10 years for screening purposes. Procedure Code(s): --- Professional --- 21616, Colonoscopy, flexible; diagnostic, including collection of specimen(s) by brushing or washing, when performed (separate procedure) Diagnosis Code(s): --- Professional --- K62.5, Hemorrhage of anus and rectum CPT copyright 2021 [employer]. All rights reserved. The codes documented in this report are preliminary and upon application assistant review may be revised to meet current compliance requirements. Omkar Delgado MD 12/09/2024 8:24:01 AM This report has been signed electronically. Number of Addenda: 0 Note Initiated On: 12/09/2024 8:03 AM 12/09/24823 Date Omkar Delgado MD Cosigner Signature: Date (if indicated) CC: Dr. Omkar Delgado MD; Dr. Stacy Kaur MD Date Dictated: 12/09/24802 Date Transcribed: Manager Council: AC Signed Normal [facility] EGD Reporton 12-09-[address] [facility] Medical Records Department [address] [place] [address] EGD Report MR#: [id number] Acct: [id number] Name: ASHLIE VILLASENOR GENE Rep #: [id number] : 1965 59 From: Omkar Delgado MD PCP: Dr. Stacy Kaur MD Status:[facility] Patient Name: Ashlie Villasenor Procedure Date: 12/09/2024 7:58 AM Date of : 1965 Age: 59 Procedure: Upper GI endoscopy Indications: Follow-up of Garcia's esophagus Providers: Omkar Delgado MD Referring MD: Stacy Kaur Md Medicines: Propofol per Anesthesia Patient Profile: This is a 59 year old male. Refer to note in patient chart for documentation of history and physical. Complications: No immediate complications. Estimated blood loss: Minimal. Procedure: Pre-Anesthesia Assessment: - Prior to the procedure, a History and Physical was performed, and patient medications and allergies were reviewed. The patient's tolerance of previous anesthesia was also reviewed. The risks and benefits of the procedure and the sedation options and risks were discussed with the patient. All questions were answered, and informed consent was obtained. Prior Anticoagulants: The patient has taken Plavix (clopidogrel), last dose was 5 days prior to procedure. After reviewing the risks and benefits, the patient was deemed in satisfactory condition to undergo the procedure. After obtaining informed consent, the endoscope was passed under direct vision. Throughout the procedure, the patient's blood pressure, pulse, and oxygen saturations were monitored continuously. The Colonoscope was introduced through the mouth, and advanced to the fourth part of duodenum. The upper GI endoscopy was accomplished without difficulty. The patient tolerated the procedure well. Scope In: 7:59:15 AM Scope Out: 8:02:51 AM Total Procedure Duration Time 0 hours 3 minutes 36 seconds Findings: There were esophageal mucosal changes secondary to established short-segment Garcia's disease present in the lower third of the esophagus. Mucosa was biopsied with a cold forceps for histology in a targeted manner at the gastroesophageal junction. One specimen bottle was sent to pathology. The stomach was normal. The examined duodenum was normal. Impression: - Esophageal mucosal changes secondary to established short-segment Garcia's disease. Biopsied. - Normal stomach. - Normal examined duodenum. Recommendation: - Discharge patient to home. - Resume previous diet. - Continue present medications. - Resume Plavix (clopidogrel) at prior dose tomorrow. Procedure Code(s): --- Professional --- 71930, Esophagogastroduodenosco py, flexible, transoral; with biopsy, single or multiple Diagnosis Code(s): --- Professional --- K22.70, Garcia's esophagus without dysplasia CPT copyright 2021 [employer]. All rights reserved. The codes documented in this report are preliminary and upon application assistant review may be revised to meet current compliance requirements. Omkar Delgado MD 12/09/2024 8:22:13 AM This report has been signed electronically. Number of Addenda: 0 Note Initiated On: 12/09/2024 7:58 AM 12/09/24821 Date Omkar Solano Signature: Date (if indicated) CC: Dr. Omkar Delgado MD; Dr. Stacy Kaur MD Date Dictated: 12/09/24 0758 Date Transcribed: Manager Council: KIRAN Cruz [facility] MR/POSTOP.RAULITO 12-09-2024 MR/POSTOP.[facility] Medical Records Department [address] [place] [address] Anesthesia Postop Eval I 12/09/24825 MR#: [id number] Acct: [id number] Name: ASHLIE VILLASENOR GENE Rep #: [id number] : 1965 59 From: Bernardo Ghotra PCP: Dr. Stacy aKur MD Status:REG [facility] Race: C Location: [place] [address] Anesthesia: Postop Eval I Current Vital Signs Temperature: 98.1 F Pulse Rate: 74 Blood Pressure: 113/99 Respiratory Rate: 16 Pulse Ox: 95 Oxygen Delivery Method: Room Air Assessment Airway patent: Yes Spontaneous unlabored respirations: Yes Mental status: Awake and Calm nausea: No Vomiting: No Anesthesia Complication: No Fluid Hydration Crystalloid volume administer (ml): 60 Total IV fluid infused: 60 Progress Note Anesthesia document: Postop Eval 1 completed: Yes 12/09/24826 Date Bernardo Solano Signature: Date CC: Signed Normal [facility] MR/GBCYOQPI1mo 12-09-2024 MR/POSTOPAN2 [facility] Medical Records Department [address] [place] [address] Anesthesia Postop Eval II 12/09/241830 MR#: [id number] Acct: [id number] Name: ASHLIE VILLASENOR Rep #: [id number] : 1965 59 From: Layton Daniel MD PCP: Dr. Stacy Kaur MD Status:DEP [facility] [place] Race: C Location: EN Anesthesia Postop Eval I Sum Postop Eval Completion status Anesthesia document: Postop Eval 1 completed: Yes Anesthesia Postop Eval I Summary Anesthesia Postop Eval I Summary: Anesthesia Postop Eval I: Assessment Summary Airway patent Yes 12/09/24 08:27 [email or web address] Spontaneous unlabored Yes 12/09/24 08:27 [email or web address] respirations Mental status Awake,Calm 12/09/24 08:27 [email or web address] nausea No 12/09/24 08:27 [email or web address] Vomiting No 12/09/24 08:27 [email or web address] Anesthesia Postop Eval I: Fluid Summary Crystalloid volume administer 60 12/09/24 08:27 [email or web address] (ml) Colloids volume administered ( ml) Blood Product volume administered (ml) Total IV fluid infused 60 12/09/24 08:27 [email or web address] Anesthesia Postop Eval I: Summary Notes Anesthesia Complication No 12/09/24 08:27 [email or web address] Anesthesia Complication Comment: Post-operative progress note Anesthesia: Postop Eval II Evaluation Mental status: Awake and Calm Pain Level: 0 nausea: No Vomiting: No Complications Anesthesia Complication: No 12/09/241830 Date Layton Daniel MD Cosigner Signature: Date CC: Signed Normal [facility] P53 (initial)on 12-09-2024 P53 (initial) ---- Patient Age/Sex Location Account Attending Physician ASHLIE VILLASENOR 59/M EN [id number] Dr. Omkar Delgado MD Specimen: [id number] Received: 12/10/24 Status: OSCAR Ball Num: [id number] Spec Type: IMMUNO Subm Dr: Dr. Omkar Delgado MD PHYSICIAN INSTITUTION [place] [address] SPECIMEN INFORMATION: Tissue Source: Gastroesophageal junction biopsy Clinical Info: Garcia's esophagus, blood in stool Specimen Number: [id number] CPT code: 32036,62251 METHODOLOGY: Deparaffinized sections of prefer/formalin-fixed tissue or PAP/DQ stained slides are incubated with monoclonal/polyclonal antibodies/oligonucleoti de probes. Localization is made via biotin free immunoperoxidase method. Appropriate controls are performed and reacted as expected. Results on target cell population are indicated in the following table: RESULTS: ANTIBODY / CLONE RESULT P53 (DO-7) negative (null pattern) Ki-67 (30-9) positive, low These tests were developed and their performance characteristics determined by [facility]. They may not have been cleared or approved by the U.S. Food and Drug Administration. The FDA has determined that such clearance or approval is not necessary. The above immunohistochemical/dual LUIS markers are ordered and reviewed by the Pathologist. INTERPRETATION: Gastroesophageal junction, biopsy: Negative for dysplasia. 12/10/2024 Signed (signature on file) Dr. Devin Churchill MD 12/11/24 1339 Normal [facility] Comment on above: Performed By: #### P P53 #### [facility] [place] [place], [address] Special Stain Group Ion - Special Stain Group I ------ Patient Age/Sex Location Account Attending Physician ASHLIE VILLASENOR 59/M EN [id number] Dr. Omkar Delgado MD Specimen: [id number] Received: 12/09/24 Status: OSCAR Ball Num: [id number] Spec Type: EGD BIOPSY Subm Dr: Dr. Omkar Delgado MD HEADER OPERATION: Colonoscopy, EGD, biopsy PRE-OP DIAGNOSIS: Garcia's esophagus, blood in stool TISSUE SUBMITTED: Gastroesophageal junction biopsy MICROSCOPIC DIAGNOSIS Gastroesophageal junction, biopsy: Fragments of gastroesophageal mucosa with focal intestinal metaplasia (goblet cell metaplasia), consistent with Garcia's esophagus. Chronic inflammation. Negative for dysplasia. See comment. SJ. 12/10/2024 COMMENT Alcian blue/PAS stain with matched control is used in the evaluation of the specimen. Immunohistochemistry ([id number]) for P53 and Ki-67 will be performed and results will be reported separately. MICROSCOPIC DESCRIPTION Slides are reviewed. GROSS DESCRIPTION Received in fixative is one container labeled with the patient's name and designated GE junction biopsy. The specimen consists of two irregular fragments of light eduardo soft tissue that in aggregate measure 0.8 x 0.3 x 0.2 cm. The specimen is totally submitted in one cassette. BW. 12/09/2024 TC:3 CPT:48353 Patient Age/Sex Location Account Attending Physician ASHLIE VILLASENOR 59/M EN [id number] Dr. Omkar Delgado MD Signed (signature on file) Dr. Devin Churchill MD 12/10/24 1412 Normal [facility] Comment on above: Performed By: #### P SSI #### [facility] [address] [place], [place], [id number] /Shefali 12-08-2024 MR/PATRAHUL [facility] Medical Records Department [address] [place] [address] PAT - Anesthesia 12/08/24 1837 MR#: [id number] Acct: [id number] Name: ASHLIE VILLASENOR GENE Rep #: [id number] : 1965 59 From: Tucker Severino MD PCP: Dr. 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 When Was Last Pacemaker Check QUESTION #4 FULL TEXT: You/Your Family Experience fever (hyperthermia) with Anesthesia Last Oral Intake Last Oral intake: Last Oral Intake NPO since Meds taken in AM with sips of water? 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 Female No 12/04/24 09:54 HX of Motion Sickness Yes 12/04/24 09:54 HX of N/V After Surgery No 12/04/24 09:54 Non-Smoker Yes 12/04/24 09:54 Duration of Surgery greater No 12/04/24 09:54 than 60 minutes Number of Risk Factors 2 12/04/24 09:54 PONV Score Moderate Risk 12/04/24 09:54 Height Weight Height Weight: Anesthesia: Height Weight Height 5 ft 7 in 11/17/24 09:53 Respiratory Assessment Respiratory Assessment - coal feeder operator: Respiratory Tract Infection Hx - coal feeder operator Hx Respiratory Tract Infection Yes: 11/23/24 HAD RESP FLU/ 12/04/24 09:54 RESOLVING STOP Sleep Apnea STOP Sleep Apnea - coal feeder operator: STOP Sleep Apnea - coal feeder operator Hx Hypertension Yes: CONTROLLED WITH MED 12/04/24 09:54 Hx Sleep Apnea No 12/04/24 09:54 CPAP BIPAP Do you snore loudly (louder Yes 12/04/24 09:54 than talking or can be heard Do you often feel tired/ Yes 12/04/24 09:54 fatigued/ sleepy during daytime? Has anyone observed you stop No 12/04/24 09:54 breathing during sleep? STOP Results Positive 12/04/24 09:54 QUESTION #5 FULL TEXT : Do you snore loudly (louder than talking or can be heard through closed doors)? 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 Specify any problems Hx of Preganancy in last 3 N/A 12/04/24 09:54 Months Nurse Filling Out Transfusion DSCHRIBER 12/04/24 09:54 Questions: Date: 12/04/24 12/04/24 09:54 Time: 09:58 12/04/24 09:54 Patient unable to answer at this time (ie. confused, unrespo /Reproduction History /Reproductive History - coal feeder operator: /Reproductive Hx- coal feeder operator Hx Now No 12/04/24 09:54 Gestational Age (in weeks): EDC: Hx Hx Para Hx Section SAB No 12/04/24 09:54 PFSH Medical History (Updated 12/04/24 @ 10:13 by Soledad Huffman) Rhabdomyolysis History of stress test Wears glasses Anxiety Diabetes Arthritis High cholesterol Migraine headache Dietary restriction Chewing tobacco dependence Gastric reflux Asthma History of echocardiogram Cardiology follow-up encounter Hypertension History of Garcia esophagus RUQ pain CAP (community acquired pneumonia) due to Pneumococcus Influenza A H1N1 infection Hypoxia Lower extremity edema Obesity Hyperlipidemia GERD (gastroesophageal reflux disease) Depression Coronary artery disease Benign hypertension Home Medications ???Medication ???Instructions ???Recorded ???Last Taken ???Type clopidogrel 75 mg tablet 75 mg PO DAILY anti platelet 06/24 (more content not included)... Normal [facility] MR/PAT.Deejay 12-04-2024 MR/PAT.RAULITO [facility] Medical Records Department [address] [place] [address] PAT - Anesthesia 12/04/24 1552 MR#: [id number] Acct: [id number] Name: ASHLIE VILLASENOR GENE Rep #: [id number] : 1965 59 From: Ed Henry MD PCP: Dr. 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 When Was Last Pacemaker Check QUESTION #4 FULL TEXT: You/Your Family Experience fever (hyperthermia) with Anesthesia Last Oral Intake Last Oral intake: Last Oral Intake NPO since Meds taken in AM with sips of water? 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 Female No 12/04/24 09:54 HX of Motion Sickness Yes 12/04/24 09:54 HX of N/V After Surgery No 12/04/24 09:54 Non-Smoker Yes 12/04/24 09:54 Duration of Surgery greater No 12/04/24 09:54 than 60 minutes Number of Risk Factors 2 12/04/24 09:54 PONV Score Moderate Risk 12/04/24 09:54 Height Weight Height Weight: Anesthesia: Height Weight Height 5 ft 7 in 11/17/24 09:53 Respiratory Assessment Respiratory Assessment - coal feeder operator: Respiratory Tract Infection Hx - coal feeder operator Hx Respiratory Tract Infection Yes: 11/23/24 HAD RESP FLU/ 12/04/24 09:54 RESOLVING STOP Sleep Apnea STOP Sleep Apnea - coal feeder operator: STOP Sleep Apnea - coal feeder operator Hx Hypertension Yes: CONTROLLED WITH MED 12/04/24 09:54 Hx Sleep Apnea No 12/04/24 09:54 CPAP BIPAP Do you snore loudly (louder Yes 12/04/24 09:54 than talking or can be heard Do you often feel tired/ Yes 12/04/24 09:54 fatigued/ sleepy during daytime? Has anyone observed you stop No 12/04/24 09:54 breathing during sleep? STOP Results Positive 12/04/24 09:54 QUESTION #5 FULL TEXT : Do you snore loudly (louder than talking or can be heard through closed doors)? 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 Specify any problems Hx of Preganancy in last 3 N/A 12/04/24 09:54 Months Nurse Filling Out Transfusion DSCHRIBER 12/04/24 09:54 Questions: Date: 12/04/24 12/04/24 09:54 Time: 09:58 12/04/24 09:54 Patient unable to answer at this time (ie. confused, unrespo /Reproduction History /Reproductive History - coal feeder operator: /Reproductive Hx- coal feeder operator Hx Now No 12/04/24 09:54 Gestational Age (in weeks): EDC: Hx Hx Para Hx Section SAB No 12/04/24 09:54 [facility] Medical History (Updated 12/04/24 @ 10:13 by Soledad Huffman) Rhabdomyolysis History of stress test Wears glasses Anxiety Diabetes Arthritis High cholesterol Migraine headache Dietary restriction Chewing tobacco dependence Gastric reflux Asthma History of echocardiogram Cardiology follow-up encounter Hypertension History of Garcia esophagus RUQ pain CAP (community acquired pneumonia) due to Pneumococcus Influenza A H1N1 infection Hypoxia Lower extremity edema Obesity Hyperlipidemia GERD (gastroesophageal reflux disease) Depression Coronary artery disease Benign hypertension Home Medications ???Medication ???Instructions ???Recorded ???Last Taken ???Type clopidogrel 75 mg tablet 75 mg PO DAILY anti platelet (more content not included)... Normal [facility] CBC W/Diff, Automatedon Absolute Lymph 2.71 X10 3/uL Normal 0.83-4.51 [facility] Comment on above: Order Comment: Order Date: 11/11/24 Order Info: 0184-1 - CBCD Performed By: #### L 100.0100 #### [facility] [address] [place], [address] Absolute Neut 4.2 X10 3/uL Normal 2.0-7.7 [facility] Comment on above: Order Comment: Order Date: 11/11/24 Order Info: 0184-1 - CBCD Performed By: #### L 100.0100 #### [facility] [address] [place], [address] Basophils/100 WBC (Bld) 0.8 % Normal 0-1 [facility] Comment on above: Order Comment: Order Date: 11/11/24 Order Info: 0184-1 - CBCD Performed By: #### L 100.0100 #### [facility] [address] [place], [address] Eosinophils/100 WBC (Bld) 2.8 % Normal 0-5 [facility] Comment on above: Order Comment: Order Date: 11/11/24 Order Info: 0184-1 - CBCD Performed By: #### L 100.0100 #### [facility] [address] [place], [address] Erythrocyte distribution width (RBC) [Ratio] 14.6 % Normal 11.6-14.6 [facility] Comment on above: Order Comment: Order Date: 11/11/24 Order Info: 0184-1 - CBCD Performed By: #### L 100.0100 #### [facility] [address] [place], [address] Hematocrit (Bld) [Volume fraction] 42.8 % Normal 40-54 [facility] Comment on above: Order Comment: Order Date: 11/11/24 Order Info: 0184- - CBCD Performed By: #### L 100.0100 #### [facility] [address] [place], [address] Hemoglobin (Bld) [Mass/Vol] 13.4 g/dL Normal 13.0-16.5 [facility] Comment on above: Order Comment: Order Date: 11/11/24 Order Info: 0184- - CBCD Performed By: #### L 100.0100 #### [facility] [address] [place], [address] IG% 0.300 Normal 0.0-0.9 [facility] Comment on above: Order Comment: Order Date: 11/11/24 Order Info: 0184-1 - CBCD Result Comment: IG% - Immature Granulocytes (promyelocytes, myelocytes and metamyelocytes) > 1% indicates that a LEFT SHIFT is Present. Performed By: #### L 100.0100 #### [facility] [address] [place], [address] Lymphocytes/100 WBC (Bld) 34.5 % Normal 19-41 [facility] Comment on above: Order Comment: Order Date: 11/11/24 Order Info: 0184-1 - CBCD Performed By: #### L 100.0100 #### [facility] [address] [place], [address] MCH (RBC) [Entitic mass] 26.9 pg Low 27.0-32.0 [facility] Comment on above: Order Comment: Order Date: 11/11/24 Order Info: 0184-1 - CBCD Performed By: #### L 100.0100 #### [facility] [address] [place], [address] MCHC (RBC) [Mass/Vol] 31.3 g/dL Low 32-36 [facility] Comment on above: Order Comment: Order Date: 11/11/24 Order Info: 0184-1 - CBCD Performed By: #### L 100.0100 #### [facility] [address] [place], [address] MCV (RBC) [Entitic vol] 85.8 fL Normal 80-94 [facility] Comment on above: Order Comment: Order Date: 11/11/24 Order Info: 0184-1 - CBCD Performed By: #### L 100.0100 #### [facility] [address] [place], [address] Monocytes/100 WBC (Bld) 8.0 % Normal 0-10 [facility] Comment on above: Order Comment: Order Date: 11/11/24 Order Info: 0184-1 - CBCD Performed By: #### L 100.0100 #### [facility] [address] [place], [address] Neutrophils/100 WBC (Bld) 53.6 % Normal 47-70 [facility] Comment on above: Order Comment: Order Date: 11/11/24 Order Info: 0184-1 - CBCD Performed By: #### L 100.0100 #### [facility] [address] [place], [address] Nucleated RBC (Bld) [#/Vol] 0 10*3/uL Normal 0-5 [facility] Comment on above: Order Comment: Order Date: 11/11/24 Order Info: 0184- - CBCD Performed By: #### L 100.0100 #### [facility] [address] [place], [address] Platelet mean volume (Bld) [Entitic vol] 10.5 fL Normal 6.2-12.0 [facility] Comment on above: Order Comment: Order Date: 11/11/24 Order Info: 0184- - CBCD Performed By: #### L 100.0100 #### [facility] [address] [place], [address] Platelets (Bld) [#/Vol] 239 10*3/uL Normal 150-450 [facility] Comment on above: Order Comment: Order Date: 11/11/24 Order Info: 0184- - CBCD Performed By: #### L 100.0100 #### [facility] [address] [place], [address] RBC (Bld) [#/Vol] 4.99 10*6/uL Normal 4.6-6.2 [facility] Comment on above: Order Comment: Order Date: 11/11/24 Order Info: 0184- - CBCD Performed By: #### L 100.0100 #### [facility] [address] [place], [address] RDW SD 45.9 fl High 35.1-43.9 [facility] Comment on above: Order Comment: Order Date: 11/11/24 Order Info: 0184-1 - CBCD Performed By: #### L 100.0100 #### [facility] [address] [place], [address] WBC (Bld) [#/Vol] 7.9 10*3/uL Normal 4.4-11.0 [facility] Comment on above: Order Comment: Order Date: 11/11/24 Order Info: 0184-1 - CBCD Performed By: #### L 100.0100 #### [facility] [address] [place], [address] Surgery Visit Reporton 11-17 Surgery Visit Report [facility] [address] [place] [address] OFFICE VISIT Date of Service: 11/17/24 MR#: [id number] Acct: [id number] Name: ASHLIE VILLASENOR GENE Rep #: [id number] : 1965 Provider: Dr. Omkar govea MD Age/Sex: 59/M Location: [facility] Status: Signed Intake Vital Signs 07/01/24 16:29 11/17/24 09:53 Height 5 ft 7 in 5 ft 7 in Weight: 270 lb BMI 42.3 BP 134/86 H Blood Pressure Location Rt brachial Position Sitting Respiration 17 Pulse 69 Pulse Source Monitor Pulse Oximetry (%) 95 Oxygen Delivery Method room air Intake Visit Reasons: INTERNAL HEMORRHOIDS Chief Complaint: internal hemorrhoids Is patient in pain?: No Allergies metoclopramide HCl (From Reglan) Adverse Reaction (Verified 11/17/24 09:54) Other prochlorperazine edisylate (From Compazine) Adverse Reaction (Verified 11/17/24 09:54) Other prochlorperazine maleate (From Compazine) Adverse Reaction (Verified 11/17/24 09:54) Other Medications ???Medication ???Instructions ???Recorded ???Confirmed ???Type clopidogrel 75 mg tablet 75 mg PO DAILY anti platelet 06/2411/17/24 History lisinopril 2.5 mg tablet 2.5 mg PO BID blood pressure 06/2411/17/24 History montelukast 10 mg tablet 10 mg PO QHS allergies 06/24/14 History aspirin 81 mg tablet,delayed 81 mg PO DAILY@0800 heart health 1 12/12/15 11/17/24 History release albuterol sulfate 2.5 mg/3 mL 2.5 mg (3 mL) inhalation Q2H PRN 0 12/29/16 11/17/24 Rx (0.083 %) solution for nebulization PRN Shortness of breath/wheezi ng ##50 albuterol sulfate 90 mcg/actuation 2 puff inhalation Q4H PRN PRN So b 12/29/16 11/17/24 Rx aerosol inhaler /Or Wheezing ##60 mometasone-formoterol HFA 200 1 puff IH BID ##1 12/29/16 5 Rx mcg-5 mcg/actuation aerosol inhaler trazodone 50 mg tablet 50 mg PO QHS sleep 04/14/18 History escitalopram oxalate 20 mg tablet 30 mg PO QHS depression 05/16/18 11/17/24 History (Lexapro) omeprazole 40 mg capsule,delayed 40 mg PO QDAY reflux 05/16/1801/06 History release atorvastatin 20 mg tablet 40 mg PO QHS cholesterol 05/21/18 11/17/24 History lamotrigine 150 mg tablet 150 mg PO DAILY ADHD 05/26/1801/06 History mometasone-formoterol HFA 200 2 puff IH DAILY 12/19/18 11/17/24 History mcg-5 mcg/actuation aerosol inhaler adalimumab 40 mg/0.4 mL 40 mg subcut .every other week 01/0611/17/24 History subcutaneous syringe kit (Humira(CF)) [facility] Medical History (Updated 11/17/24 @ 10:07 by Aysha Hagan) Garcia esophagus RUQ pain CAP (community acquired pneumonia) due to Pneumococcus Influenza A H1N1 infection Hypoxia Lower extremity edema Obesity Hyperlipidemia GERD (gastroesophageal reflux disease) Depression Coronary artery disease Benign hypertension Surgical History (Updated 11/17/24 @ 09:52 by Annabel Blake) History of cholecystectomy History of coronary artery stent placement ( 2011) Family History Father Colon cancer Lung cancer Diabetes Heart disease Hypertension High cholesterol Mother Cancer Lung cancer Diabetes Heart disease High cholesterol Hypertension Social History Smoking Status: Never smoker alcohol intake: never substance use type: does not use HPI HPI HPI: Patient is a 59-year-old male here with blood in the stool. He also has a history of Garcia's esophagus and has not had an EGD in several years. The patient reports his last colonoscopy was 6 to 7 years ago. He reports blood in the stool for the last 3 months. He reports that it is bright. He does have some pressure in the area but no pain. The patient's father from colon cancer in his 60s ROS General General: Yes weight change and fatigue; No appetite, colon cancer, breast cancer or weakness HEENT HEENT: No difficulty swallowing, eye injury, eye surgery, swollen glands or hoarseness Endo Endocrine: No thyroid disease, diabetes mellitus, thyroid cancer, Hair loss, heat intolerance or cold intolerance Skin Skin: No rash or changing moles Musc Musculoskeletal: Yes back problems, arthritis and rheumatoid arthritis; No gout or joint pain Cardio Cardiovascular: Yes heart stent; No murmur, pacemaker, heart disease, atrial fibrillation, high blood pressure, heart attack, palpitations, shortness of breat with exertion or chest pain Psych Psychiatric: Yes depression and anxiety; No hearing voices Resp Respiratory: No shortness of breath, No sleep apnea, No cough, No COPD, Yes asthma, No emphysema and No wheezing Gastro Gastrointestinal: No abdominal pain, No nausea or vomiting, N (more content not included)... Normal [facility] CBC W Auto Differential pane l (Bld)on 08-11-2024 Basophils (Bld) [#/Vol] 0.06 10*3/uL [facility] Basophils/100 WBC (Bld) 0.7 % [facility] Differential cell count method Nom (Bld) Auto [facility] Eosinophils (Bld) [#/Vol] 0.33 10*3/uL [facility] Eosinophils/100 WBC (Bld) 4.0 % [facility] Erythrocyte distribution width (RBC) [Ratio] 14.1 % 11.5 - 15.0 % [facility] Hematocrit (Bld) [Volume fraction] 45.0 % 39.0 - 51.0 % [facility] Hemoglobin (Bld) [Mass/Vol] 13.8 g/dL 13.0 - 17.0 g/dL [facility] Immature granulocytes (Bld) [#/Vol] [facility] Immature granulocytes/100 WBC (Bld) 0.1 % [facility] Lymphocytes (Bld) [#/Vol] 3.02 10*3/uL [facility] Lymphocytes/100 WBC (Bld) 36.7 % [facility] MCH (RBC) [Entitic mass] 27.4 pg 26.0 - 34.0 pg [facility] MCHC (RBC) [Mass/Vol] 30.7 g/dL 30.5 - 36.0 g/dL [facility] MCV (RBC) [Entitic vol] 89.5 fL 80.0 - 100.0 fL [facility] Monocytes (Bld) [#/Vol] 0.70 10*3/uL [facility] Monocytes/100 WBC (Bld) 8.5 % [facility] Neutrophils (Bld) [#/Vol] 4.10 10*3/uL [facility] Neutrophils/100 WBC (Bld) 50.0 % [facility] Nucleated RBC (Bld) [#/Vol] NINF [facility] Nucleated RBC/100 WBC (Bld) [Ratio] 0.0 % /100 WBC [facility] Platelet mean volume (Bld) [Entitic vol] 10.6 fL 9.0 - 12.7 fL [facility] Platelets (Bld) [#/Vol] 232 10*3/uL [facility] RBC (Bld) [#/Vol] 5.03 10*6/uL 4.20 - 6.0 0 m/uL [facility] WBC (Bld) [#/Vol] 8.22 10*3/uL [facility] Basophils (Bld) [#/Vol] 0.06 10*3/uL Normal <0.11 [facility] Comment on above: Order Comment: Speci men Type: BLOOD SPECIMENOrdering Facility: [facility] Address: [address] [place] [address] Performed By: #### 4 537-7, 83473-6 ####[facility] [id number] [address] [place] Basophils/100 WBC (Bld) 0.7 % Normal [facility] Comment on above: Order Comment: Speci men Type: BLOOD SPECIMENOrdering Facility: [facility] Address: [address] [place] [address] Performed By: #### 4 537-7, 79740-3 ####[facility] [id number] [place] [address] [place] Differential cell count method Nom (Bld) Auto Normal [facility] Comment on above: Order Comment: Speci men Type: BLOOD SPECIMENOrdering Facility: [facility] Address: [address] [place] [address] Performed By: #### 4 537-7, 84084-4 ####[facility] [id number] [place] [address] [place] Eosinophils (Bld) [#/Vol] 0.33 10*3/uL Normal <0.46 [facility] Comment on above: Order Comment: Speci men Type: BLOOD SPECIMENOrdering Facility: [facility] Address: [address] [place] [address] Performed By: #### 4 537-7, 98483-5 ####[facility] [id number] [place] [address] [place] Eosinophils/100 WBC (Bld) 4.0 % Normal [facility] Comment on above: Order Comment: Speci men Type: BLOOD SPECIMENOrdering Facility: [facility] Address: [address] [place] [address] Performed By: #### 4 537-7, 68155-2 ####[facility] [id number] [place] [address] [place] Erythrocyte distribution width (RBC) [Ratio] 14.1 % Normal 11.5-15.0 [facility] Comment on above: Order Comment: Speci men Type: BLOOD SPECIMENOrdering Facility: [facility] Address: [address] [place] [address] Performed By: #### 4 537-7, 50889-6 ####[facility] [id number] [place] [address] [place] Hematocrit (Bld) [Volume fraction] 45.0 % Normal 39.0-51.0 [facility] Comment on above: Order Comment: Speci men Type: BLOOD SPECIMENOrdering Facility: [facility] Address: [address] [place] [address] Performed By: #### 4 537-7, 32770-8 ####[facility] [id number] [place] [address] [place] Hemoglobin (Bld) [Mass/Vol] 13.8 g/dL Normal 13.0-17.0 [facility] Comment on above: Order Comment: Speci men Type: BLOOD SPECIMENOrdering Facility: [facility] Address: [address] [place] [address] Performed By: #### 4 537-7, 79244-0 ####[facility] [id number] [place] [address] [place] Immature granulocytes (Bld) [#/Vol] 10*3/uL Normal <0.10 [facility] Comment on above: Order Comment: Speci men Type: BLOOD SPECIMENOrdering Facility: [facility] Address: [address] [place] [address] Performed By: #### 4 537-7, 80619-3 ####[facility] [id number] [place] [address] [place] Immature granulocytes/100 WBC (Bld) 0.1 % Normal [facility] Comment on above: Order Comment: Speci men Type: BLOOD SPECIMENOrdering Facility: [facility] Address: [address] [place] [address] Performed By: #### 4 537-7, 16667-7 ####[facility] [id number] [place] [address] [place] Lymphocytes (Bld) [#/Vol] 3.02 10*3/uL Normal 1.00-4.00 [facility] Comment on above: Order Comment: Speci men Type: BLOOD SPECIMENOrdering Facility: [facility] Address: [address] [place] [address] Performed By: #### 4 537-7, 74679-0 ####[facility] [id number] [place] [address] [place] Lymphocytes/100 WBC (Bld) 36.7 % Normal [facility] Comment on above: Order Comment: Speci men Type: BLOOD SPECIMENOrdering Facility: [facility] Address: [address] [place] [address] Performed By: #### 4 537-7, 68359-8 ####[facility] [id number] [place] [address] [place] MCH (RBC) [Entitic mass] 27.4 pg Normal 26.0-34.0 [facility] Comment on above: Order Comment: Speci men Type: BLOOD SPECIMENOrdering Facility: [facility] Address: [address] [place] [address] Performed By: #### 4 537-7, 47451-6 ####[facility] [id number] [place] [address] [place] MCHC (RBC) [Mass/Vol] 30.7 g/dL Normal 30.5-36.0 [facility] Comment on above: Order Comment: Speci men Type: BLOOD SPECIMENOrdering Facility: [facility] Address: [address] [place] [address] Performed By: #### 4 537-7, 68375-8 ####[facility] [id number] [place] [address] [place] MCV (RBC) [Entitic vol] 89.5 fL Normal 80.0-100.0 [facility] Comment on above: Order Comment: Speci men Type: BLOOD SPECIMENOrdering Facility: [facility] Address: [address] [place] [address] Performed By: #### 4 537-7, 19417-8 ####[facility] [id number] [place] [address] [place] Monocytes (Bld) [#/Vol] 0.70 10*3/uL Normal <0.87 [facility] Comment on above: Order Comment: Speci men Type: BLOOD SPECIMENOrdering Facility: [facility] Address: [address] [place] [address] Performed By: #### 4 537-7, 96439-5 ####[facility] [id number] [place] [address] [place] Monocytes/100 WBC (Bld) 8.5 % Normal [facility] Comment on above: Order Comment: Speci men Type: BLOOD SPECIMENOrdering Facility: [facility] Address: [address] [place] [address] Performed By: #### 4 537-7, 56013-7 ####[facility] [id number] [place] [address] [place] Neutrophils (Bld) [#/Vol] 4.10 10*3/uL Normal 1.45-7.50 [facility] Comment on above: Order Comment: Speci men Type: BLOOD SPECIMENOrdering Facility: [facility] Address: [address] [place] [address] Performed By: #### 4 537-7, 84419-9 ####[facility] [id number] [place] [address] [place] Neutrophils/100 WBC (Bld) 50.0 % Normal [facility] Comment on above: Order Comment: Speci men Type: BLOOD SPECIMENOrdering Facility: [facility] Address: [address] [place] [address] Performed By: #### 4 537-7, 09587-8 ####[facility] [id number] [place] [address] [place] Nucleated RBC (Bld) [#/Vol] 10*3/uL Normal <0.01 [facility] Comment on above: Order Comment: Speci men Type: BLOOD SPECIMENOrdering Facility: [facility] Address: [address] [place] [address] Performed By: #### 4 537-7, 27006-5 ####[facility] [id number] [place] [address] [place] Nucleated RBC/100 WBC (Bld) [Ratio] 0.0 /100 WBC Normal [facility] Comment on above: Order Comment: Speci men Type: BLOOD SPECIMENOrdering Facility: [facility] Address: [address] [place] [address] Performed By: #### 4 537-7, 58817-7 ####[facility] [id number] [place] [address] [place] Platelet mean volume (Bld) [Entitic vol] 10.6 fL Normal 9.0-12.7 [facility] Comment on above: Order Comment: Speci men Type: BLOOD SPECIMENOrdering Facility: [facility] Address: [address] [place] [address] Performed By: #### 4 537-7, 94985-2 ####[facility] [id number] [place] [address] [place] Platelets (Bld) [#/Vol] 232 10*3/uL Normal 150-400 [facility] Comment on above: Order Comment: Speci men Type: BLOOD SPECIMENOrdering Facility: [facility] Address: [address] [place] [address] Performed By: #### 4 537-7, 44688-9 ####[facility] [id number] [place] [address] [place] RBC (Bld) [#/Vol] 5.03 10*6/uL Normal 4.20-6.00 [facility] Comment on above: Order Comment: Speci men Type: BLOOD SPECIMENOrdering Facility: [facility] Address: [address] [place] [address] Performed By: #### 4 537-7, 87041-0 ####[facility] [id number] [place] [address] [place] WBC (Bld) [#/Vol] 8.22 10*3/uL Normal 3.70-11.00 [facility] Comment on above: Order Comment: Speci men Type: BLOOD SPECIMENOrdering Facility: [facility] Address: [address] [place] [address] Performed By: #### 4 537-7, 19605-5 ####[facility] [id number] [address] [place] CNOVon 08-11-2024 CNOV Office Visit (RHEUMN ) -------- ISRRAELASHLIE Clyde ([id number]) 1965 M Date Time Provider Department 08/11/24 3:00 PM RAINA MARCUS RHEUMRufino During your visit today, we recorded the following information about you: Temperature Pulse Blood pressure Weight 96.9 degrees 63/minute 142/76 120.2 kg Height 1.702 m Raina Marcus PA-C 08/11/2024 3:19 PM Signed Rheumatology Outpatient Clinic Follow Up Date of Service: 08/11/2024 Patient: Ashlie Villasenor Medical Record: [id number] Primary Care Physician: Mile Contreras MD Last Rheumatology visit: 01/01/2024 (with Raina Marcus) SUBJECTIVE History of Present Illness Patient is a 56 year-old male presenting to discuss the improvement of musculoskeletal symptoms. Patient is the primary historian. Patient has a significant past medical history of seronegative Rheumatoid Arthritis (RA), major depressive disorder, chronic bilateral low back pain without sciatica, and Garcia's esophagus without dysplasia Relevant Serology Results: 08/20/2021: Rheumatoid factor: <10 08/20/2021: CCP antibody, IgG: <15 Current Rheumatologic Medications: Adalimumab 40-mg/0.4-mL: inject contents of pen subcutaneously every 2 weeks Past Rheumatologic Medications: Medication Length of Use Reason for Discontinuation methotrexate 12/2020-08/2022 side effects AND lacked efficacy Mr. Ashlie Villasenor is a pleasant 56 year-old male with long-standing history of polyarthropathy Patient reports first experiencing polyarticular joint pain in March 2020 Patient denies experiencing an eliciting, traumatic, or infectious etiology to account for symptom onset Consulted a local [employer] Technician, Dr. Jessa Yates, whom diagnosed patient with inflammatory polyarthropathy and prescribed oral Methotrexate for management States that symptoms were not improved with DMARD monotherapy Patient consulted [facility] [employer] Team Technician, Dr. Brody Conrad, in April 2021 for a second opinion Patient endorsed symmetric polyarticular joint pain, prolonged morning joint stiffness Prescribed oral liquid Methotrexate in place of tablets to assess for improvement of symptoms with a more bioavailable modality Despite noting improvement in inflammatory symptoms, patient endorsed significant gastrointestinal upset resulting in use of subcutaneous Methotrexate in July 2021 Subcutaneous mechanism was successful in improving both musculoskeletal and gastrointestinal symptoms, however, subsequent flu-like symptoms were noted In April 2022, patient endorsed progression of inflammatory symptom flare activity and synovitis Dr. Conrad prescribed Adalimumab as adjuvant therapy to assess for improvement 12/19/2021 follow-up Patient reports 90% symptom improvement on adalimumab Interval History Ashlie Villasenor is a 58 year old White male who presents on 08/11/2024 for an in-person visit for rheumatoid arthritis Patient is doing well. Taking Humira every other week. No side effects. No issues with reoccurring illness. Still has some morning stiffness but not like he use to and mostly just his back Doesn't feel the need to take any OTC pain relief No joint swelling Already got flu shot this year. Hasn't done Shingles shot yet Current Outpatient Medications on File Prior to Visit Medication Sig adalimumab (HUMIRA,CF, PEN) 40 mg/0.4 mL pen kit Inject 40 mg (1 pen) subcutaneously every 2 weeks. naproxen (NAPROSYN) 500 mg tablet Take 1 tablet by mouth twice daily as needed. for pain. Take with food. Syringe with Needle, Disp, (BD ALLERGY SYRINGE) 1 Syringe one time a week. traZODone (DESYREL) 50 mg tablet Take 50 mg by mouth daily at bedtime. atorvastatin (LIPITOR) 40 mg tablet Take 40 mg by mouth daily at bedtime. Omeprazole 40 mg capsule TAKE 1 CAPSULE TWICE A DAY mometasone-formoterol (DULERA) 100-5 mcg/actuation inhaler Inhale 2 Puffs as instructed twice daily. lamoTRIgine (LAMICTAL) 150 mg tablet Take 150 mg by mouth once daily. escitalopram oxalate (LEXAPRO) 20 mg tablet Take 20 mg by mouth once daily. takes 30 mg total clopidogrel (PLAVIX) 75 mg tablet once daily. lisinopril 2.5 mg tablet once daily. montelukast (SINGULAIR) 10 mg tablet aspirin 81 mg chewable tablet Take 81 mg by mouth once daily. VENTOLIN 90MCG INHALER (2)two puff tid Review of Systems CONSTITUTION: Negative for: Fever and Recent weight change HEENT: Negative for: Nosebleeds, Mouth sores, Trouble swallowing and Dry mouth RESPIRATORY: Negative for: Cough, Shortness of breath and Pain with breathing GASTROINTESTINAL: Negative for: Melena, Diarrhea, Heartburn and Abdominal pain MUSCULOSKELETAL: Positive for: Arthralgias, Myalgias, Joint swelling and Morning Joint Stiffness Negative for: Muscle weakness NEUROLOGICAL: Negative for: Headaches, Numbness and Memory loss SKIN: Negative for: Rash, Skin changes, Hair loss and Nail changes EYES: N (more content not included)... Normal [facility] CREATININE [facility] 08-11-2024 Creatinine [Mass/Vol] 0.99 mg/dL Normal 0.73-1.22 [facility] Comment on above: Order Comment: Speci men Type: BLOOD SPECIMENOrdering Facility: [facility] Address: [address] [place] [address] Performed By: #### C RET1, 99933-2, 1988-02 ####[facility] [id number] [place] [address] [place] Creatinine and Glomerular filtration rate.predicted panel (S/P/Bld) 89 mL/min/1.73m??? Normal >=60 [facility] Comment on above: Order Comment: Celso sánchez Type: BLOOD SPECIMENOrdering Facility: [facility] Address: [address] [place] [address] Result Comment: Bronwyn mated Glomerular Filtration Rate (eGFR) is calculated using the 2020 CKD-EPI creatinine equation. This equation utilizes serum creatinine, sex, and age as parameters. The creatinine assay has traceable calibration to isotope dilution-mass spectrometry. Refer to KDIGO guidelines for clinical interpretation. In patients with unstable renal function, e.g. those with acute kidney injury, the eGFR may not accurately reflect actual GFR. Performed By: #### C SHIRA1, 56312-4, 1988-02 ####[facility] [id number] [place] [address] [place] CRP SerPl-mCncon 08-11-2024 CRP [Mass/Vol] 0.4 mg/dL Normal <0.9 [facility] Comment on above: Order Comment: Celso sánchez Type: BLOOD SPECIMENOrdering Facility: [facility] Address: [address] [place] [address] Performed By: #### Maame SILVA1, 33389-5, 1988-02 ####[facility] [id number] [place] [address] [place] ESR Westergren method (Bld) [Velocity]on 08-11-2024 ESR (Bld) [Velocity] 24 mm/h High 0-15 [facility] Comment on above: Order Comment: Celso sánchez Type: BLOOD SPECIMENOrdering Facility: [facility] Address: [address] [place] [address] Performed By: #### 4 537-7, 96284-2 ####[facility] [id number] [place] [address] [place] Hepatic function 2000 panelo n 08-11-2024 Albumin [Mass/Vol] 4.0 g/dL Normal 3.9-4.[address] [facility] Comment on above: Order Comment: Speci men Type: BLOOD SPECIMENOrdering Facility: [facility] Address: [address] [place] [address] Performed By: #### Maame RET1, , 1988-02 ####[facility] [id number] [place] [address] [place] ALP [Catalytic activity/Vol] 104 U/L Normal 38-113 [facility] Comment on above: Order Comment: Speci men Type: BLOOD SPECIMENOrdering Facility: [facility] Address: [address] [place] [address] Performed By: #### Maame SILVA1, , 1988-02 ####[facility] [id number] [place] [address] [place] ALT [Catalytic activity/Vol] 23 U/L Normal 10-54 [facility] Comment on above: Order Comment: Speci men Type: BLOOD SPECIMENOrdering Facility: [facility] Address: [address] [place] [address] Performed By: #### Maame SILVA1, , 1988-02 ####[facility] [id number] [place] [address] [place] AST [Catalytic activity/Vol] 24 U/L Normal 14-40 [facility] Comment on above: Order Comment: Speci men Type: BLOOD SPECIMENOrdering Facility: [facility] Address: [address] [place] [address] Performed By: #### Maame RET1, , 1988-02 ####[facility] [id number] [place] [address] [place] Bilirubin [Mass/Vol] 0.3 mg/dL Normal 0.2-1.3 [facility] Comment on above: Order Comment: Speci men Type: BLOOD SPECIMENOrdering Facility: [facility] Address: [address] [place] [address] Performed By: #### C RET1, 43408-5, 1988-02 ####[facility] [id number] [place] [address] [place] Bilirubin.conjugated [Mass/Vol] mg/dL Normal <0.2 [facility] Comment on above: Order Comment: Speci men Type: BLOOD SPECIMENOrdering Facility: [facility] Address: [address] [place] [address] Performed By: #### C RET1, 03300-7, 1988-02 ####[facility] [id number] [place] [address] [place] Protein [Mass/Vol] 7.3 g/dL Normal 6.3-8.[address] [facility] Comment on above: Order Comment: Speci men Type: BLOOD SPECIMENOrdering Facility: [facility] Address: [address] [place] [address] Performed By: #### C RET1, 97965-6, 1988-02 ####[facility] [id number] [place] [address] [place] ALT/SGPTon 07-01-2024 ALT [Catalytic activity/Vol] 36 U/L Normal 16-63 [facility] Comment on above: Performed By: #### A ST, ALT, LIPID #### Ani [address] [address] [place] 07-01-2024 AST [Catalytic activity/Vol] 23 U/L Normal 10-40 [facility] Comment on above: Performed By: #### A ST, ALT, LIPID #### [address] [address] Emergency Department Summary on 07-01-2024 Emergency Department Summary [facility] Medical Records Department [address] [place] [address] Emergency Department Summary 07/01/24 MR#: [id number] Acct: [id number] Name: ASHLIE VILLASENOR GENE Rep #: [id number] : 1965 58 From: Oliver Kilpatrick DO PCP: Dr. Stacy Kaur MD Status:DEP ER Location: ED HPI History of Present Illness HPI Narrative: Patient presents with pain and swelling to his right distal femur that occurred today. Patient states he was walking and there was a piece of rebar sticking out from something. Patient states he hit his distal thigh on the piece of rebar. Patient states the pain and swelling has gotten progressively worse. The patient states it is worse with movement. The patient denies any paresthesias or weakness. Patient thinks his last tetanus was between 5 and 10 years ago. Patient states he had difficulty ambulating due to the pain. Chief Complaint: Lower Extremity Injury Occured/Mechanism Mechanism/Context: Yes blunt trauma Onset/Context/Timing Onset: Today Context: Sudden Onset Timing: Continuous Quality of Pain: Aching Location: Right distal femur Worsened by: Movement, weightbearing Relieved by: Nothing Associated Symptoms Associated Symptoms: Negative for Parasthesia, Weakness or Loss of Funtion Narrative Tetanus Immunization: 5-10 years [facility] Medical History (Updated 07/01/24 @ 20:[address] Oliver Kilpatrick DO) RUQ pain CAP (community acquired pneumonia) due to Pneumococcus Influenza A H1N1 infection Hypoxia Lower extremity edema Obesity Hyperlipidemia GERD (gastroesophageal reflux disease) Depression Coronary artery disease Benign hypertension Home Medications ???Medication ???Instructions ???Recorded ???Last Taken ???Type clopidogrel 75 mg tablet 75 mg PO DAILY anti platelet 06/24/14 05/15/18 History lisinopril 2.5 mg tablet 2.5 mg PO BID blood pressure 06/24/14 05/22/18 10:00 History montelukast 10 mg tablet 10 mg PO QHS allergies 06/24/14 04/13/18 History aspirin 81 mg tablet,delayed 81 mg PO DAILY@0800 heart [facility] 10/11/16 05/15/18 History release albuterol sulfate 2.5 mg/3 mL 2.5 mg (3 mL) inhalation Q2H PRN 12/29/16 04/13/18 Rx (0.083 %) solution for nebulization PRN Shortness of breath/wheezing ##50 albuterol sulfate 90 mcg/actuation 2 puff inhalation Q4H PRN PRN Sob 12/29/16 04/13/18 Rx aerosol inhaler /Or Wheezing ##60 mometasone-formoterol HFA 200 1 puff IH BID ##1 12/29/16 04/13/18 Rx mcg-5 mcg/actuation aerosol inhaler trazodone 50 mg tablet 50 mg PO QHS sleep 04/14/18 04/13/18 History escitalopram oxalate 20 mg tablet 30 mg PO QHS depression 05/16/18 Unknown History (Lexapro) omeprazole 40 mg capsule,delayed 40 mg PO QDAY reflux 05/16/18 05/22/18 10:00 History release atorvastatin 20 mg tablet 40 mg PO QHS cholesterol 05/21/18 Unknown History lamotrigine 150 mg tablet 150 mg PO DAILY ADHD 05/26/18 Unknown History mometasone-formoterol HFA 200 2 puff IH DAILY 12/19/18 Unknown History mcg-5 mcg/actuation aerosol inhaler azithromycin 250 mg tablet See Rx Instructions PO .COMPLEX #6 07/26/19 Unknown Rx (Zithromax Z-Eligio) tabs hydrocodone-acetaminophe n 5-325mg 1 tab PO Q6H PRN PRN Pain 3 days 07/01/24 Unknown Rx 5mg-325mg #10 TABLETS Allergy/AdvReac Type Severity Reaction Status Date / Time metoclopramide HCl (From AdvReac Other Verified 07/01/24 16:31 Reglan) prochlorperazine edisylate AdvReac Other Verified 07/01/24 16:31 (From Compazine) prochlorperazine maleate AdvReac Other Verified 07/01/24 16:31 (From Compazine) Family History Father Colon cancer Lung cancer Diabetes Heart disease Hypertension High cholesterol Mother Cancer Lung cancer Diabetes Heart disease High cholesterol Hypertension Surgical History History of coronary artery stent placement ( 2011) Social History Smoking Status: Never smoker alcohol intake: never substance use type: does not use ROS ROS ED Constitutional Constitutional ED: Denies chills or fever(s) Eyes Eyes: Denies blurry vision or change in vision ENT ENT ED: Denies rhinorrhea or sore throat Cardiovascular Cardiovascular: Denies chest pain or palpitations Respiratory/Chest Respiratory/Chest: Denies cough or dyspnea Gastrointestinal Gastrointestinal: Denies nausea or vomiting Genitourinary Genitourinary ED: Denies dysuria or hematuria Musculoskeletal Musculoskeletal: Denies back pain or neck pain Integumentary Denies abscess or rash Neurologic Neurologic: Denies headache(s) or weakness Allergic/Immunologic Allergic/Immunologic ED: Denies mouth swelling or urticaria EXAM Physical Exam Const Rekha (more content not included)... Normal [facility] Femur Min 2 Viewson 07-01-[address] [facility] Imaging Services [address] [place], [place] [id number] Femur Min 2 Views MR#: [id number] Acct: [id number] Name: ASHLIE VILLASENOR GENE Rep #: [id number] : 1965 M 58 From: Scott Hawk MD PCP: Dr. Stacy Kaur MD Status: PRE ER Study: Femur Min 2 Views Date of Exam: 07/01/24 Exam# [id number] Ordering Dr: Nabil,Rio P. [id number] STUDY: X-RAY - RIGHT FEMUR REASON FOR STUDY: Male, 58 years old. pain swelling TECHNIQUE: 4 view(s) of the femur. COMPARISON: None. FINDINGS: Normal visualized femur. Normal visualized soft tissue structure. RAD/Femur Min 2 Views IMPRESSION: Normal x-ray examination of the femur. Electronically Signed: Scott Hawk MD at 18:01 EDT , CC: Dr. Stacy Kaur MD; ED PHYSICIAN PROVIDER Manager Council: Signed Normal [facility] LIPIDon 07-01-2024 Cholesterol [Mass/Vol] 161 mg/dL Normal 0-200 [facility] Comment on above: Result Comment: Chol esterol Reference Interval: Less than 200 Desirable 200-239 Borderline high risk 240 and above High risk Performed By: #### A ST, ALT, LIPID #### [address] [place], [place] [address] Cholesterol in HDL [Mass/Vol] 52 mg/dL Normal 40-60 [facility] Comment on above: Performed By: #### A ST, ALT, LIPID #### [address] [place], [place] [address] Cholesterol in LDL [Mass/Vol] 89 mg/dL Normal 0-130 [facility] Comment on above: Performed By: #### A ST, ALT, LIPID #### [address] [place], [place] [address] Triglyceride [Mass/Vol] 100 mg/dL Normal 0-150 [facility] Comment on above: Result Comment: Trig lyceride Reference Interval: Less than 150 Normal 150-199 Borderline high risk 200-499 High risk 500 or higher Very high risk Performed By: #### A ST, ALT, LIPID #### [address] [address] XR CHEST 2V FRONTAL/LATon [facility] XR Hand - bilateral PA and L ateral and Obliqueon 05-02-2021 IMPRESSION: Refer to the result. Manager Council: NEHA Transcribe Date/Time: May 02 2021 11:31A Dictated by : CHRISTINA DREW MD This examination was interpreted and the report reviewed and electronically signed by: CHRISTINA DREW MD on May 02 2021 4:42PM [facility] DIVISION OF RADIOLOGY * * *Final Report* * * DATE OF EXAM: Apr 30 2021 10:13AM WOX [id number] - XR HAND 3V PA/LAT/OBL JOSE RAFAEL / PROCEDURE REASON: Seronegative rheumatoid arthritis (HCC) * * * * Physician Interpretation * * * * EXAMINATION: XR HAND 3V PA/LAT/OBL JOSE RAFAEL CLINICAL HISTORY: pt states for the last year weakness, stiffness and pain in fingers. 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 The joint spaces are maintained. Scattered minimal spurring is present at some of the metacarpophalangeal joints and interphalangeal joints of the RIGHT hand. Nonspecific subchondral cystic change is present in the distal middle phalanges of the 2nd and 3rd digits. There is a linear density measuring approximately 2 mm in the soft tissues medial to the RIGHT 3rd distal interphalangeal joint suspicious for body of unknown chronicity. Clinical correlation is necessary. LEFT hand: No acute fracture or dislocation. The joint spaces of the LEFT hand are maintained. No significant degenerative spurring is appreciated. Nonspecific subchondral cystic change is present in the distal LEFT 2nd middle phalanx. There is a rounded bone density associated with the lateral distal interphalangeal joints of the 2nd digit which may relate to degenerative change/remote traumatic injury. No radiopaque foreign body. DIVISION OF RADIOLOGY Provider, [facility] - 05/02/2021 * * *Final Report* * * DATE OF EXAM: Apr 30 2021 10:13AM WOX [id number] - XR HAND 3V PA/LAT/OBL JOSE RAFAEL / PROCEDURE REASON: Seronegative rheumatoid arthritis (HCC) * * * * Physician Interpretation * * * * EXAMINATION: XR HAND 3V PA/LAT/OBL JOSE RAFAEL CLINICAL HISTORY: pt states for the last year weakness, stiffness and pain in fingers. 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 The joint spaces are maintained. Scattered minimal spurring is present at some of the metacarpophalangeal joints and interphalangeal joints of the RIGHT hand. Nonspecific subchondral cystic change is present in the distal middle phalanges of the 2nd and 3rd digits. There is a linear density measuring approximately 2 mm in the soft tissues medial to the RIGHT 3rd distal interphalangeal joint suspicious for body of unknown chronicity. Clinical correlation is necessary. LEFT hand: No acute fracture or dislocation. The joint spaces of the LEFT hand are maintained. No significant degenerative spurring is appreciated. Nonspecific subchondral cystic change is present in the distal LEFT 2nd middle phalanx. There is a rounded bone density associated with the lateral distal interphalangeal joints of the 2nd digit which may relate to degenerative change/remote traumatic injury. No radiopaque foreign body. IMPRESSION IMPRESSION: Refer to the result. Manager Council: NEHA Transcribe Date/Time: May 02 2021 11:31A Dictated by : CHRISTINA DREW MD This examination was interpreted and the report reviewed and electronically signed by: CHRISTINA DREW MD on May 02 2021 4:42PM EST [facility] XR Hand - bilateral PA and L ateral and ObliqueOrdered By: Ccf Provider on 05-02-2021 [facility] XR Hand - bilateral PA and L ateral and Obliqueon 04-30-2021 Radiology Study observation (narrative) [facility] ELASTOGRAPHY WITH IMAGINGon 03-07-2018 ELASTOGRAPHY WITH IMAGING ELASTOGRAPHY WITH IMAGING, US LIVEROrdering Physician: Kurtis Ellis03/07/2018 1:15 PMULTRASOUND OF THE LIVER WITH ELASTOGRAPHYClinical Statement: Fatty change of liver not elsewhere specified.autoimmune hepatitisNo comparisonFINDINGS: The liver is normal in size measuring 16.3 cm in length.Hepatic echogenicity is diffusely increased with coarsening of thehepatic echotexture.Elastography was performed targeting the right lobe of the liver.ARFI median: 2.15 M/secIQR - 0.54IQR/median ratio equals 0.25 (must be 0.3 or less to ensuretechnical adequacy)Optimal cutoffs for ARFI:F greater than or equal to 1 - 1.02 M/secF greater than or equal to 2 (significant fibrosis) - 1.34 M/secF greater than or equal to 3 (severe fibrosis) - 1.55 M/secF greater than or equal to 4 (cirrhosis) - 1.8 M/sec IMPRESSION:Nonenlarged liver with generalized increased echogenicity andcoarsening of the hepatic echotexture without focal abnormality.Elastography findings suggestive of cirrhosis. ---- Electronic Signature on File ----Signed By: Callie Hutchins [email or web address] johnson: 03/07/2018 1:53 PMSigned: 03/07/2018 1:56 PM Reported By: CALLIE HUTCHINS M.D. Signed By: CALLIE HUTCHINS M.D. [facility] US LIVERon 03-07-2018 US LIVER ELASTOGRAPHY WITH IMAGING, US LIVEROrdering Physician: Kurtis Ellis03/07/2018 1:15 PMULTRASOUND OF THE LIVER WITH ELASTOGRAPHYClinical Statement: Fatty change of liver not elsewhere specified.autoimmune hepatitisNo comparisonFINDINGS: The liver is normal in size measuring 16.3 cm in length.Hepatic echogenicity is diffusely increased with coarsening of thehepatic echotexture.Elastography was performed targeting the right lobe of the liver.ARFI median: 2.15 M/secIQR - 0.54IQR/median ratio equals 0.25 (must be 0.3 or less to ensuretechnical adequacy)Optimal cutoffs for ARFI:F greater than or equal to 1 - 1.02 M/secF greater than or equal to 2 (significant fibrosis) - 1.34 M/secF greater than or equal to 3 (severe fibrosis) - 1.55 M/secF greater than or equal to 4 (cirrhosis) - 1.8 M/sec IMPRESSION:Nonenlarged liver with generalized increased echogenicity andcoarsening of the hepatic echotexture without focal abnormality.Elastography findings suggestive of cirrhosis. ---- Electronic Signature on File ----Signed By: Antoine [email or web address] johnson: 03/07/2018 1:53 PMSigned: 03/07/2018 1:56 PM Reported By: CALLIE HUTCHINS M.D. Signed By: CALLIE HUTCHINS M.D. [facility] Vital Signs Date Time Vital Sign Value Performing Clinician Facility 08-11-2024 14:47-0400 Body height 170.2 cm Raina Marcus PA-C Work Phone: [facility] 08-11-2024 14:47-0400 Body mass index (BMI) [Ratio] 41.5 kg/m2 Raina Sloe PA-C Work Phone: [facility] 08-11-2024 14:47-0400 Body temperature 96.91 [degF] Raina Sloe PA-C Work Phone: [facility] 08-11-2024 14:47-0400 Body weight 120.2 kg Raina Sloe PA-C Work Phone: [facility] 08-11-2024 14:47-0400 Diastolic blood pressure 76 mm[Hg] Raina Sloe PA-C Work Phone: [facility] 08-11-2024 14:47-0400 Heart rate 63 /min Raina Sloe PA-C Work Phone: [facility] 08-11-2024 14:47-0400 Systolic blood pressure 142 mm[Hg] Raina Sloe PA-C Work Phone: [facility] 02-05-2023 15:21-0400 Body height 170.[address] Teddy Contreras Work Phone: [facility] 02-05-2023 15:21-0400 Body mass index (BMI) [Ratio] 42.5 kg/m2 Dr. Teddy Contreras Work Phone: [facility] 02-05-2023 15:21-0400 Body temperature 97.6 [degF] Dr. Teddy Contreras Work Phone: [facility] 02-05-2023 15:21-0400 Body weight 123.[address] Teddy Contreras Work Phone: [facility] 02-05-2023 15:21-0400 Diastolic blood pressure 85 mm[Hg] Dr. Teddy Contreras Work Phone: [facility] 02-05-2023 15:21-0400 Heart rate 73 /min Dr. Teddy Contreras Work Phone: [facility] 02-05-2023 15:21-0400 Respiratory rate 16 /min Dr. Teddy Contreras Work Phone: [facility] 02-05-2023 15:21-0400 SaO2% (BldA) [Mass fraction] 95 % Dr. Teddy Contreras Work Phone: [facility] 02-05-2023 15:21-0400 Systolic blood pressure 142 mm[Hg] Dr. Teddy Contreras Work Phone: [facility] Encounters Encounter Date Encounter Type Care Provider Facility Start: 07-27-2025 End: 07-27-2025 ambulatory RAINA MARCUS Facility:[facility] Start: 07-08-2025 ambulatory MILE CONTRERAS Fa cility:[id number] Start: 07-06-2025 End: 07-06-2025 [facility] Start: 06-27-2025 End: 06-27-2025 ambulatory RAINA MARCUS Facility:[facility] Start: 06-01-2025 End: 06-01-2025 Patient encounter procedure Gabino Vazquez [employer] [place] Work Phone: Start: 06-01-2025 End: 06-01-2025 ambulatory Raina ARANGOC Work Phone: Rheumatology Comment on above: Medication question Start: 06-01-2025 End: 06-01-2025 ambulatory Gabino Vazquez [employer] Facility:[facility] Start: 05-19-2025 End: 05-19-2025 ambulatory MILE CONTRERAS Facility:[facility] Start: 05-12-2025 End: 05-12-2025 Orders Only Raina MARLEY-C Work Phone: Rheumatology Comment on above: Seronegative rheumat oid arthritis (HCC) (Primary Dx); High risk medication use Start: 04-21-2025 End: 04-21-2025 Specialty [facility] Comment on above: SPP Inflammatory Con ditions - Medication Refill (Humira CF) Start: 03-24-2025 End: 03-24-2025 [facility] Comment on above: SPP Inflammatory Con ditions - Medication Refill (Humira) Start: 02-24-2025 End: 02-24-2025 [facility] Comment on above: SPP Inflammatory Con ditions - Medication Refill (Humira) Start: 01-27-2025 End: 01-27-2025 [facility] Comment on above: SPP Inflammatory Con ditions - Medication Refill (Humira) Start: 01-26-2025 End: 01-26-2025 Refill Raina Marcus PA-C Work Phone: Rheumatology Comment on above: Refill Request Start: 12-30-2024 End: 12-30-2024 [facility] Comment on above: SPP Inflammatory Con ditions - Medication Refill (Humira) Start: 12-09-2024 End: 12-09-2024 ambulatory Omkar Delgado Facility:[facility] Start: 12-02-2024 End: 12-02-2024 [facility] Comment on above: SPP Inflammatory Con ditions - Medication Refill (Humira) Start: 11-22-2024 End: 11-22-2024 ambulatory [facility] Facility:[facility] Start: 11-17-2024 End: 11-17-2024 ambulatory [facility] Facility:[facility] Start: 11-04-2024 End: 11-04-2024 [facility] Comment on above: SPP Inflammatory Con ditions - Medication Refill (Humira) Start: 10-06-2024 End: 10-06-2024 [facility]ty [facility] Comment on above: SPP Inflammatory Con ditions - Medication Refill (Humira) Start: 09-09-2024 End: 09-09-2024 [facility]ty [facility] Comment on above: SPP Inflammatory Con ditions - Medication Refill (Humira) Start: 08-12-2024 End: 08-12-2024 [facility] Comment on above: SPP Inflammatory Con ditions - Medication Refill (Humira) Start: 08-11-2024 End: 08-11-2024 ambulatory RAINA MARCUS Facility:[facility] Start: 08-11-2024 End: 08-11-2024 Patient encounter procedure Raina Marcus PA-C Work Phone: Rheumatology Comment on above: Seronegative rheumat oid arthritis (HCC) (Primary Dx); High risk medication use Start: 07-15-2024 End: 07-15-2024 [facility] Comment on above: SPP Inflammatory Con ditions - Medication Refill (Humira) Start: 07-01-2024 End: 07-01-2024 Emergency department patient visit Stacy Kaur Facility:[facility] Start: 07-01-2024 End: 07-05-2024 ambulatory NOT RECORDED PHYSICIAN Facility:A Start: 06-17-2024 End: 06-17-2024 [facility] Comment on above: SPP Inflammatory Con ditions - Medication Refill (Humira) Start: 05-20-2024 [facility] Comment on above: SPP Inflammatory Con ditions - Medication Refill (Humira - NCA 11/2024) Start: 04-24-2024 [facility]ty [facility] Comment on above: SPP Inflammatory Con ditions - Medication Refill (Humira - NCA 11/2024) Start: 04-22-2024 Refill Raina Leigh Work Phone: Rheumatology Comment on above: Refill Request Start: 03-25-2024 [facility]ty [facility] Comment on above: SPP Inflammatory Con ditions - Medication Refill (Humira - NCA 11/2024) Start: 02-26-2024 [facility] Comment on above: SPP Inflammatory Con ditions - Medication Refill (Humira) Start: 01-29-2024 [facility] Comment on above: SPP Inflammatory Con ditions - Medication Refill (Humira) Start: 01-01-2024 End: 01-01-2024 [facility] Comment on above: SPP Inflammatory Con ditions - Medication Refill (Humira) Seronegative rheumat oid arthritis (HCC) (Primary Dx); High risk medication use Start: 12-04-2023 [facility] Comment on above: SPP Inflammatory Con ditions - Medication Refill (Humira) Start: 09-09-2023 ambulatory Raina ferrera PA-C Work Phone: Rheumatology Comment on above: arthritis flare up Start: 08-14-2023 [facility] Comment on above: SPP Inflammatory Con ditions - Medication Refill (Humira) Start: 06-22-2023 [facility]ty [facility] Comment on above: SPP Inflammatory Con ditions - Medication Refill (Humira) Start: 06-20-2023 ambulatory [facility] Start: 06-20-2023 Follow-up encounter [facility] Comment on above: SPP Inflammatory Con ditions - Follow-up (Humira); Insurance Authorization (PA Submitted (New Insurance Plan)) Start: 05-21-2023 Refill Raina ferrera PA-C Work Phone: Rheumatology Comment on above: Refill Request SPP Inflammatory Con ditions - Medication Refill (Humira) Start: 04-24-2023 End: 04-24-2023 ambulatory Raina Yuvec PA-C Work Phone: Rheumatology Comment on above: Seronegative rheumat oid arthritis (HCC) (Primary Dx); High risk medication use Start: 04-24-2023 End: 04-24-2023 Telemedicine consultation with patient Raina Yuvec PA-C Work Phone: [facility] Start: 04-23-2023 [facility]ty [facility] Comment on above: SPP Inflammatory Con ditions - Medication Refill (Humira) Start: 04-18-2023 End: 04-18-[address] Teddy Contreras Work Phone: [facility] Work Phone: Start: 04-18-2023 End: 04-18-[address] Teddy Contreras Work Phone: [facility] Work Phone: Start: 02-16-2023 End: 02-16-[address] Teddy Contreras Work Phone: [facility] Work Phone: Start: 02-16-2023 End: 02-16-[address] Teddy Contreras Work Phone: [facility] Start: 02-07-2023 End: 02-07-[address] Teddy Contreras Work Phone: [facility] Work Phone: Start: 02-07-2023 End: 02-07-[address] Teddy Contreras Work Phone: [facility] Start: 02-05-2023 End: 02-05-[address] Teddy Contreras Work Phone: [facility] Start: 12-29-2022 Specialty [facility] Comment on above: SPP Inflammatory Con ditions - Medication Refill (Humira) Start: 12-19-2022 End: 12-19-2022 ambulatory Raina Redmond PA-C Work Phone: Rheumatology Comment on above: Seronegative rheumat oid arthritis (HCC) (Primary Dx); High risk medication use Start: 12-19-2022 End: 12-19-2022 Telemedicine consultation with patient Raina Redmond PA-C Work Phone: [facility] Start: 12-06-2022 [facility] Comment on above: SPP Inflammatory Con ditions - Medication Refill (Humira) Start: 12-05-2022 Refill Raina Banuelos Work Phone: Rheumatology Comment on above: Refill Request Start: 11-07-2022 [facility] Comment on above: SPP Inflammatory Con ditions - Medication Refill (Humira) Start: 09-13-2022 [facility] Comment on above: SPP Inflammatory Con ditions - Medication Refill (Humira) Start: 09-06-2022 End: 09-06-2022 Subsequent hospital visit by physician Xr Chest Main A21 Radiology Comment on above: Seronegative rheumat oid arthritis (HCC) [M06.00] Start: 08-03-2022 [facility] [facility] Comment on above: SPP Inflammatory Con ditions - Medication Refill (Humira) Start: 07-13-2022 Specialty Pharmacy [facility] Comment on above: SPP Inflammatory Con ditions - Medication Refill (Humira) Start: 06-02-2022 Refill Brody Conrad MD Work Phone: Rheumatology Comment on above: SPP Inflammatory Con ditions - Follow-up (Humira ); Insurance Authorization (PA Submission Pending ) Start: 05-22-2022 Refill Brody Conrad MD Work Phone: Rheumatology Comment on above: Medication Problem Start: 05-12-2022 End: 05-12-2022 ambulatory Brody Conrad MD Work Phone: Rheumatology Comment on above: Seronegative rheumat oid arthritis (HCC) (Primary Dx); 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; Inflammatory polyarthropathy (HCC); Chronic bilateral low back pain without sciatica; Garcia's esophagus without dysplasia; Encounter for long-term current use of high risk medication Start: 05-12-2022 End: 05-12-2022 Telemedicine consultation with patient Brody Conrad MD Work Phone: [facility] Start: 05-12-2022 Telephone encounter Brody lopez MD Work Phone: Rheumatology Comment on above: Medication Problem Start: 03-23-2022 Refill Brody Conrad MD Work Phone: Rheumatology Comment on above: Refill Request Start: 01-09-2022 End: 01-09-2022 ambulatory Brody Conrad MD Work Phone: Rheumatology Comment on above: Seronegative rheumat oid arthritis (HCC) (Primary Dx); Encounter for long-term current use of high risk medication; 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; Inflammatory polyarthropathy (HCC); Chronic bilateral low back pain without sciatica Start: 01-09-2022 End: 01-09-2022 Telemedicine consultation with patient Brody Conrad MD Work Phone: [facility] Start: 08-19-2021 Telephone encounter Brody lopez MD Work Phone: Rheumatology Comment on above: Medication Problem Start: 04-30-2021 End: 04-30-2021 Subsequent hospital visit by physician Xr [facility] Joe Work Phone: Radiology Comment on above: Seronegative rheumat oid arthritis (HCC) [M06.00] Start: 03-07-2018 [facility] Facility :[facility] Start: 02-20-2018 [facility] Facility :[facility] Procedures Date Procedure Procedure Detail Performing Clinician Start: 06-01-2025 Prostate specific an tigen measurement Stacy Kaur MD Work Phone: Comment on above: This test was perfor med using the [employer] tPSA method. Measured values of a patient sample can vary depending on the testing procedure used. PSA values determined on patient samples by different testing procedures cannot be used interchangeably. If there is a change in PSA assays while monitoring therapy, sequential testing should be performed to confirm baseline values. Start: 02-16-2023 X-ray of chest posteroanterior view Dr. Teddy Contreras Work Phone: Start: 02-07-2023 Other BP Soft Tissue Dr Petra Contreras Work Phone: Start: 09-06-2022 Radiologic exam ches t 2 views Raina Conrad PA-C Work Phone: Start: 05-06-2022 Lipid 1996 panel - S nehemiah or Plasma [facility] Start: 04-30-2021 Radex hand minimum 3 views Brody Conrad MD Work Phone: Start: 07-09-2015 Colonoscopy Brody olguin MD Work Phone: Plan of Treatment Date Care Activity Detail Author Start: 04-14-2032 Urine microalbumin profile [facility] Start: 05-06-2027 Lipid 1996 panel - S nehemiah or Plasma Lipid Screening [facility] Start: 05-06-2027 Lipid panel Lipid Screening [facility] Start: 05-06-2027 LIPID SCREEN LIPID SCREEN [facility] Start: 05-06-2027 PROSTATE CANCER SCREENING DISCUSSION PROSTATE CANCER SCREENING DISCUSSION [facility] Start: 05-06-2027 Prostate specific antigen measurement Prostate Cancer Screening Discussion [facility] Start: 09-11-2026 Diabetes Screening Diabetes Screenin [facility] Start: 03-24-2026 DIABETES SCREEN DIABETES SCREEN [facility] Start: 03-24-2026 [facility] Start: 09-06-2025 DIABETES SCREEN DIABETES SCREEN [facility] Start: 07-09-2025 Colonoscopy COLONOSCOPY [facility] Start: 07-09-2025 COLORECTAL CANCER SCREENING COLORECTAL CANCER SCREENING [facility] Start: 07-09-2025 Screening for malign ant neoplasm of colon [facility] Start: 07-06-2025 End: 07-06-2025 Patient encounter procedure Rheumatology Comment on above: annual visit for RA Start: 06-27-2025 End: 06-27-2025 ambulatory 06/27/2025 9:30 AM EDT Results Only [facility] [address] [place] [address] [facility] Start: 06-15-2025 Influenza vaccination C [facility] Start: 05-27-2025 DIABETES SCREEN DIABETES SCREEN [facility] Start: 05-19-2025 End: 05-19-2025 Specialty Pharmacy 05/19/2025 7:00 AM EDT Specialty Pharmacy [facility] [address] [place] [phone] Pharmacist, [facility] [phone] [place] [address] [place] [address] REFILL Humira - ND 05/29 [facility] Comment on above: REFILL Humira - ND 0 05/29 Start: 05-12-2025 End: 08-11-2025 C reactive protein [Mass/volume] in Serum or Plasma C-REACTIVE PROTEIN Lab Routine Seronegative rheumatoid arthritis (HCC) High risk medication use Expected: 05/12/2025 (Approximate), Expires: 08/11/2025 [facility] Comment on above: Expected: 05/12/2025 (Approximate), Expires: 08/11/2025 Start: 05-12-2025 End: 08-11-2025 CBC panel - Blood by Automated count COMPLETE BLOOD COUNT Lab Routine Seronegative rheumatoid arthritis (HCC) High risk medication use Expected: 05/12/2025 (Approximate), Expires: 08/11/2025 [facility] Work Phone: Comment on above: Expected: 05/12/2025 (Approximate), Expires: 08/11/2025 Start: 05-12-2025 End: 08-11-2025 Creatinine and Glomerular filtration rate.predicted panel - Serum, Plasma or Blood CREATININE BLD Lab Routine Seronegative rheumatoid arthritis (HCC) High risk medication use Expected: 05/12/2025 (Approximate), Expires: 08/11/2025 [facility] Comment on above: Expected: 05/12/2025 (Approximate), Expires: 08/11/2025 Start: 05-12-2025 End: 08-11-2025 Erythrocyte sedimentation rate SEDIMENTATION RATE, WESTERGREN Lab Routine Seronegative rheumatoid arthritis (HCC) High risk medication use Expected: 05/12/2025 (Approximate), Expires: 08/11/2025 [facility] Comment on above: Expected: 05/12/2025 (Approximate), Expires: 08/11/2025 Start: 05-12-2025 End: 08-11-2025 Hepatic function 2000 panel - Serum or Plasma HEPATIC FUNCTION PNL Lab Routine Seronegative rheumatoid arthritis (HCC) High risk medication use Expected: 05/12/2025 (Approximate), Expires: 08/11/2025 [facility] Comment on above: Expected: 05/12/2025 (Approximate), Expires: 08/11/2025 Start: 05-06-2025 DIABETES SCREEN DIABETES SCREEN [facility] Start: 04-21-2025 End: 04-21-2025 Specialty Pharmacy 04/21/2025 8:00 AM EDT Specialty Pharmacy [facility] [address] [place] [address] [place] [phone] Pharmacist, [facility] [address] [place] [address] REFILL Humira - ND 05/01 [facility] Comment on above: REFILL Humira - ND 0 05/01 Start: 03-24-2025 End: 03-24-2025 Specialty Pharmacy 03/24/2025 8:00 AM EDT Specialty Pharmacy [facility] [employer] [address] [place] [phone] Pharmacist, [facility] [address] [place] [phone] REFILL Humira - ND 04/03 [facility] Comment on above: REFILL Humira - ND 0 04/03 Start: 02-24-2025 End: 02-24-2025 Specialty Pharmacy 02/24/2025 8:00 AM EDT Specialty Pharmacy [facility] [address] [place] [address] [place] [phone] Pharmacist, [facility] [address] [place] [address] [place] [address] REFILL Humira - ND 03/06 [facility] Comment on above: REFILL Humira - ND 0 03/06 Start: 02-04-2025 DIABETES SCREEN DIABETES SCREEN [facility] Start: 01-27-2025 End: 01-27-2025 Specialty Pharmacy 01/27/2025 8:00 AM EDT Specialty Pharmacy [facility] [address] [place] [address] [address] Pharmacist, [facility] [address] [place] [address] [address] [address] REFILL Humira - ND 02/06 (working way back to fridays) rf req'd 01/26/25 [facility] Comment on above: REFILL Humira - ND 0 02/06 (working way back to fridays) rf req'd 01/26/25 Start: 01-01-2025 End: 01-01-2025 Specialty Pharmacy 01/01/2025 8:15 AM EDT Specialty Pharmacy [facility] [address] [place] [phone] Pharmacist, [facility] [address] [place] [address] [address] [place] [address] REFILL Humira -ND 01/10 ? (working way back to fridays) - [facility] 12/30 [facility] Comment on above: REFILL Humira -ND ? (working way back to fridays) - [facility] 12/30 Start: 12-30-2024 End: 12-30-2024 Specialty Pharmacy 12/30/2024 8:00 AM EDT Specialty Pharmacy [facility] [address] [place] [phone] Pharmacist, [facility] [address] [place] [address] [place] [address] REFILL Humira -ND 01/10 ? (working way back to fridays) [facility] Comment on above: REFILL Humira -ND ? (working way back to fridays) Start: 12-02-2024 End: 12-02-2024 Specialty Pharmacy 12/02/2024 8:00 AM EST Specialty [facility]acy [facility] [address] [place] [phone] Pharmacist, [facility] [address] [place] [address] [address] [address] REFILL Humira -ND 12/12 [facility] Comment on above: REFILL Humira -ND Start: 11-05-2024 DIABETES SCREEN DIABETES SCREEN [facility] Start: 11-04-2024 End: 11-04-2024 Specialty Pharmacy 11/04/2024 8:00 AM EST Specialty Pharmacy [facility] [address] [place] [phone] Pharmacist, [facility] [address] [place] [address] [place] [address] REFILL Humira -ND 11/14 [facility] Comment on above: REFILL Humira -ND Start: 10-06-2024 End: 10-06-2024 Specialty Pharmacy 10/06/2024 8:00 AM EST Specialty Pharmacy [facility] [address] [place] [phone] Pharmacist, [facility] [address] [place] [phone] REFILL Humira -ND 10/17 [facility] Comment on above: REFILL Humira -ND Start: 09-03-2024 End: 09-03-2024 Specialty Pharmacy 09/03/2024 8:00 AM EST Specialty Pharmacy [facility] [address] [place] [phone] Pharmacist, [facility] [address] [place] [address] [place] [address] REFILL Humira - PAx 06/20/2409/19 - PA RENEWAL? [facility] Comment on above: REFILL Humira - PAx 06/20/24 - 09/19 - PA RENEWAL? Start: 08-12-2024 End: 08-12-2024 Specialty Pharmacy 08/12/2024 8:00 AM EDT Specialty Pharmacy [facility] [address] [place] [phone] Pharmacist, [facility] [address] [place] [address] [address] [place] [address] REFILL Humira - PAx 06/20/24 - 08/22 [facility] Comment on above: REFILL Humira - PAx 06/20/24 - 08/22 Start: 08-11-2024 End: 08-11-2024 Patient encounter procedure 08/11/2024 3:00 PM EDT Office Visit Rheumatology [address] [address] Raina Marcus PA-C [address] [place] [address] RA Rheumatology Comment on above: RA Start: 08-11-2024 End: 11-10-2024 C reactive protein [Mass/volume] in Serum or Plasma [facility] Comment on above: Expected: 08/11/2024 (Approximate), Expires: 11/10/2024 Start: 08-11-2024 End: 11-10-2024 CREATININE BLD [facility] Work Phone: Comment on above: Expected: 08/11/2024 (Approximate), Expires: 11/10/2024 Start: 08-11-2024 End: 11-10-2024 Erythrocyte sedimentation rate [facility] Comment on above: Expected: 08/11/2024 (Approximate), Expires: 11/10/2024 Start: 08-11-2024 End: 11-10-2024 Hepatic function 2000 panel - Serum or Plasma [facility] Comment on above: Expected: 08/11/2024 (Approximate), Expires: 11/10/2024 Start: 08-06-2024 End: 08-06-2024 Specialty Pharmacy 08/06/2024 8:00 AM EDT Specialty Pharmacy [facility] [place] [address] Pharmacist, [facility] [address] [place] [phone] REFILL Humira - PAx 06/20/24 - 08/22 - PA RENEWAL? [facility] Comment on above: REFILL Humira - PAx 06/20/24 - 08/22 - PA RENEWAL? Start: 07-17-2024 End: 07-17-2024 Patient encounter procedure 07/17/2024 3:00 PM EDT Office Visit Rheumatology [address] [address] Raina Marcus PA-C [address] [place] [address] RA follow-up Rheumatology Comment on above: RA follow-up Start: 07-16-2024 End: 07-16-2024 Patient encounter procedure 07/16/2024 3:00 PM EDT Office Visit Rheumatology [address] [address] Raina Marcus PA-C [address] [place] [address] RA Rheumatology Comment on above: RA Start: 07-09-2024 End: 07-09-2024 Specialty Pharmacy 07/09/2024 8:00 AM EDT Specialty Pharmacy [facility] [address] [place] [phone] Pharmacist, [facility] [address] [place] [address] [place] [address] REFILL Humira - PAx 06/20/24 - - PA RENEWAL [facility] Comment on above: REFILL Humira - PAx 06/20/24 - ND07/25 - PA RENEWAL Start: 06-17-2024 End: 06-17-2024 Specialty Pharmacy 06/17/2024 8:00 AM EDT Specialty Pharmacy [facility] [address] [place] [phone] Pharmacist, [facility] [address] [place] [address] [address] [place] [address] REFILL Humira - PAx 06/20/24 - ND 06/27 [facility] Comment on above: REFILL Humira - PAx 06/20/24 - ND 06/27 Start: 06-15-2024 Covid-19 Vaccine () Covid-19 Vaccine ( season) [facility] Start: 06-15-2024 Covid-19 Vaccine ( season) Covid-19 Vaccine () [facility] Start: 06-15-2024 Influenza vaccination C [facility] Start: 05-20-2024 End: 05-20-2024 Specialty Pharmacy 05/20/2024 8:00 AM EDT Specialty Pharmacy [facility] [address] [place] [phone] Pharmacist, [facility] [address] [place] [address] [address] [place] [address] REFILL Humira - PAx 06/20/24 - 05/30 [facility] Comment on above: REFILL Humira - PAx 06/20/24 - ND 05/30 Start: 04-24-2024 End: 04-24-2024 Specialty Pharmacy 04/24/2024 8:15 AM EDT Specialty Pharmacy [facility] [address] [place] [phone] Pharmacist, [facility] [address] [place] [address] [address] [place] [address] REFILL Humira - PAx 06/20/24 - 05/02 - Pending Refill Request [facility] Comment on above: REFILL Humira - PAx 06/20/24 - 05/02 - Pending Refill Request Start: 04-22-2024 End: 04-22-2024 Specialty Pharmacy 04/22/2024 8:00 AM EDT Specialty Pharmacy [facility] [address] [place] [phone] Pharmacist, [facility] [address] [place] [address] [address] [place] [address] REFILL Humira - PAx 06/20/24 - ND 05/02 [facility] Comment on above: REFILL Humira - PAx 06/20/24 - ND 05/02 Start: 03-25-2024 End: 03-25-2024 Specialty Pharmacy 03/25/2024 8:00 AM EDT Specialty Pharmacy [facility] [address] [place] [address] Pharmacist, [facility] [address] [place] [address] [place] [address] REFILL Humira - PAx 06/20/24 - 04/04 [facility] Comment on above: REFILL Humira - PAx 06/20/24 - 04/04 Start: 01-01-2024 End: 04-01-2024 C reactive protein [Mass/volume] in Serum or Plasma C-REACTIVE PROTEIN (CRP) Lab Routine Seronegative rheumatoid arthritis (HCC) High risk medication use Expected: 01/01/2024 (Approximate), Expires: 04/01/2024 [facility] Work Phone: Comment on above: Expected: 01/01/2024 (Approximate), Expires: 04/01/2024 Start: 01-01-2024 End: 04-01-2024 CBC W Auto Differential panel - Blood CBC + DIFF Lab Routine Seronegative rheumatoid arthritis (HCC) High risk medication use Expected: 01/01/2024 (Approximate), Expires: 04/01/2024 [facility] Work Phone: Comment on above: Expected: 01/01/2024 (Approximate), Expires: 04/01/2024 Start: 01-01-2024 End: 04-01-2024 CREATININE BLD CREATININE BLD Lab Routine Seronegative rheumatoid arthritis (HCC) High risk medication use Expected: 01/01/2024 (Approximate), Expires: 04/01/2024 [facility] Work Phone: Comment on above: Expected: 01/01/2024 (Approximate), Expires: 04/01/2024 Start: 01-01-2024 End: 04-01-2024 Erythrocyte sedimentation rate SED RATE WESTERGREN Lab Routine Seronegative rheumatoid arthritis (HCC) High risk medication use Expected: 01/01/2024 (Approximate), Expires: 04/01/2024 [facility] Work Phone: Comment on above: Expected: 01/01/2024 (Approximate), Expires: 04/01/2024 Start: 01-01-2024 End: 04-01-2024 Hepatic function 2000 panel - Serum or Plasma HEPATIC FUNCTION PNL Lab Routine Seronegative rheumatoid arthritis (HCC) High risk medication use Expected: 01/01/2024 (Approximate), Expires: 04/01/2024 [facility] Work Phone: Comment on above: Expected: 01/01/2024 (Approximate), Expires: 04/01/2024 Start: 09-10-2023 End: 09-10-2024 C reactive protein [Mass/volume] in Serum or Plasma C-REACTIVE PROTEIN (CRP) Lab Routine Seronegative rheumatoid arthritis (HCC) High risk medication use Encounter for long-term current use of high risk medication Polyarthralgia Expected: 09/10/2023 (Approximate), Expires: 09/10/2024 [facility] Work Phone: Comment on above: Expected: 09/10/2023 (Approximate), Expires: 09/10/2024 Start: 09-10-2023 End: 09-10-2024 CBC W Auto Differential panel - Blood CBC + DIFF Lab Routine Seronegative rheumatoid arthritis (HCC) High risk medication use Encounter for long-term current use of high risk medication Polyarthralgia Expected: 09/10/2023 (Approximate), Expires: 09/10/2024 [facility] Work Phone: Comment on above: Expected: 09/10/2023 (Approximate), Expires: 09/10/2024 Start: 09-10-2023 End: 09-10-2024 Comprehensive metabolic 2000 panel - Serum or Plasma COMP METABOLIC PANEL Lab Routine Seronegative rheumatoid arthritis (HCC) High risk medication use Encounter for long-term current use of high risk medication Polyarthralgia Expected: 09/10/2023 (Approximate), Expires: 09/10/2024 [facility] Work Phone: Comment on above: Expected: 09/10/2023 (Approximate), Expires: 09/10/2024 Start: 09-10-2023 End: 09-10-2024 Erythrocyte sedimentation rate SED RATE WESTERGREN Lab Routine Seronegative rheumatoid arthritis (HCC) High risk medication use Encounter for long-term current use of high risk medication Polyarthralgia Expected: 09/10/2023 (Approximate), Expires: 09/10/2024 [facility] Work Phone: Comment on above: Expected: 09/10/2023 (Approximate), Expires: 09/10/2024 Start: 06-15-2023 Covid-19 Vaccine () Covid-19 Vaccine () [facility] Start: 06-15-2023 Influenza vaccination C [facility] Start: 12-19-2022 End: 02-18-2023 CBC W Auto Differential panel - Blood CBC + DIFF Lab Routine High risk medication use Expected: 12/19/2022 (Approximate), Expires: 02/18/2023 [facility] Work Phone: Comment on above: Expected: 12/19/2022 (Approximate), Expires: 02/18/2023 Start: 12-19-2022 End: 02-18-2023 CREATININE BLD CREATININE BLD Lab Routine High risk medication use Expected: 12/19/2022 (Approximate), Expires: 02/18/2023 [facility] Work Phone: Comment on above: Expected: 12/19/2022 (Approximate), Expires: 02/18/2023 Start: 12-19-2022 End: 02-18-2023 Hepatic function 2000 panel - Serum or Plasma HEPATIC FUNCTION PNL Lab Routine High risk medication use Expected: 12/19/2022 (Approximate), Expires: 02/18/2023 [facility] Work Phone: Comment on above: Expected: 12/19/2022 (Approximate), Expires: 02/18/2023 Start: 06-15-2022 Influenza vaccination C [facility] Start: 06-09-2022 COVID-19 VACCINE (4 - Booster for Pfizer series) COVID-19 VACCINE (4 - Booster for Pfizer series) [facility] Start: 06-09-2022 COVID-19 VACCINE (4 - Pfizer risk series) COVID-19 VACCINE (4 - Pfizer risk series) [facility] Start: 05-12-2022 End: 07-12-2022 BLOOD TB SCREEN BLOOD TB SCREEN Lab Routine Seronegative rheumatoid arthritis (HCC) 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 Expected: 05/12/2022, Expires: 07/12/2022 [facility] Work Phone: Comment on above: Expected: 05/12/2022 , Expires: 07/12/2022 Start: 05-12-2022 End: 07-12-2022 C reactive protein [Mass/volume] in Serum or Plasma C-REACTIVE PROTEIN (CRP) Lab Routine Seronegative rheumatoid arthritis (HCC) 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 Expected: 05/12/2022, Expires: 07/12/2022 [facility] Work Phone: Comment on above: Expected: 05/12/2022 , Expires: 07/12/2022 Start: 05-12-2022 End: 07-12-2022 Chronic hepatitis differentiation between hepatitis B and C virus panel - Serum or Plasma HEP REMOTE PANEL BL Lab Routine Seronegative rheumatoid arthritis (HCC) 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 Expected: 05/12/2022, Expires: 07/12/2022 [facility] Work Phone: Comment on above: Expected: 05/12/2022 , Expires: 07/12/2022 Start: 05-12-2022 End: 07-12-2022 Erythrocyte sedimentation rate SED RATE WESTERGREN Lab Routine Seronegative rheumatoid arthritis (HCC) 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 Expected: 05/12/2022, Expires: 07/12/2022 [facility] Work Phone: Comment on above: Expected: 05/12/2022 , Expires: 07/12/2022 Start: 2021 PROSTATE CANCER SCREENING DISCUSSION PROSTATE CANCER SCREENING DISCUSSION [facility] Start: 2016 SHINGRIX VACCINE (1 of 2) SHINGRIX VACCINE (1 of 2) [facility] Start: 2011 COLOGUARD (FIT-DNA) COLOGUARD (FIT-D NA) [facility] Start: [address] COLONOGRAPHY [facility] Start: 2011 FECAL OCCULT BLOOD FECAL OCCULT BLOO D [facility] Start: 2011 Screening for malign ant neoplasm of colon [facility] Start: [address] [facility] Start: 2001 LIPID SCREEN LIPID SCREEN [facility] Start: 1985 Hepatitis B Vaccine (1 of 3 - 19+ 3-dose series) Hepatitis B Vaccine (1 of 3 - 19+ 3-dose series) [facility] Start: 1985 Pneumococcal Vaccine : 50+ (1 of 2 - PCV) Pneumococcal Vaccine: 50+ (1 of 2 - PCV) [facility] Start: 1985 SHINGRIX VACCINE (1 of 2) SHINGRIX VACCINE (1 of 2) [facility] Start: 1985 Urine microalbumin profile DTAP,TDAP,TD (1 - Tdap) [facility] Start: 1984 Anxiety Screening Anxiety Screening [facility] Start: 1984 HIV [address]CRE[address] HIV SCREEN[address] [facility] Start: [address] HIV [address] [facility] [facility]: [facility] COVID-19 VACCINE (1) COVID-19 VACCIN E (1) [facility] Start: 1972 PNEUMOCOCCAL (1 - PCV) PNEUMOCOCCAL (1 - PCV) [facility] Start: 1972 Pneumococcal vaccination [facility] Start: 1971 COVID-19 VACCINE (#1) COVID-19 VACCI NE (#1) [facility] Start: 05-14-1967 COVID-19 VACCINE (#1) COVID-19 VACCI NE (#1) [facility] Start: 1966 HEPATITIS B (1 of 3 - 3-dose series) HEPATITIS B (1 of 3 - 3-dose series) [facility] Start: 1966 Hepatitis B Vaccine (1 of 3 - 3-dose series) Hepatitis B Vaccine (1 of 3 - 3-dose series) [facility] End: 05-12-2023 CBC panel - Blood by Automated count CBC Lab Routine Seronegative rheumatoid arthritis (HCC) 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 Every 3 months for 6 Occurrences starting 05/12/2022 until 05/12/2023 [facility] Work Phone: Comment on above: Every 3 months for 6 Occurrences starting 05/12/2022 until 05/12/2023 End: 05-12-2023 Comprehensive metabolic 2000 panel - Serum or Plasma COMP METABOLIC PANEL Lab Routine Seronegative rheumatoid arthritis (HCC) 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 Every 3 months for 6 Occurrences starting 05/12/2022 until 05/12/2023 [facility] Work Phone: Comment on above: Every 3 months for 6 Occurrences starting 05/12/2022 until 05/12/2023 [facility] Immunizations Immunization Date Immunization Notes Care Provider Fa cili 04-14-2022 tetanus toxoid, reduced diphtheria toxoid, and acellular pertussis vaccine, adsorbed Xr A21 [facility] 08-16-2016 influenza, injectabl e, quadrivalent, preservative free Stacy Kaur MD Work Phone: [facility] 08-16-2016 influenza, seasonal, injectable Dr. Teddy Contreras Work Phone: [facility] 08-16-2016 influenza, seasonal, injectable, preservative free Brody Conrad MD Work Phone: [facility] 08-16-2016 influenza virus vaccine, unspecified formulation [facility] Payers Date Payer Category Payer Self-pay [id number] 2022 [facility] BLUE CARD PPO OOS [id number] 2022 Unknown [id number] 2020 Unknown [employer] BLUE CARD PPO OOS [id number] 2020-Present [phone] [address] [place] [address] PPO [id number] 2020 Unknown [id number] 2011 Unknown [id number] 1966 Unknown [id number] 1966 Unknown [id number] Unknown [id number] Unknown [facility] [id number] Unknown [id number] Unknown [id number] Unknown [id number] Unknown [id number] Unknown [id number] Unknown [id number] Unknown [id number] Social History Date Type Detail Facility Start: 06-24-2015 End: 09-06-2022 Tobacco smoking status NHIS Never smoked tobacco [facility] Work Phone: Start: 06-24-2015 End: 09-06-2022 Tobacco use and exposure Former smokeless tobacco user [facility] Work Phone: End: 06-24-2010 History of tobacco use User of smokeless tobacco [facility] Work Phone: Start: 01-09-2022 End: 08-11-2024 Alcohol intake Current non-drinker of alcohol (finding) [facility] Start: 1965 Sex Assigned At Male C [facility] Start: 03-30-2021 End: 09-06-2022 Exposure to SARS-CoV-2 (event) Not sure [facility] Work Phone: Start: 05-06-2022 End: 05-16-2022 Exposure to SARS-CoV-2 (event) Unable to assess [facility] Work Phone: Start: 02-05-[facility]23 [facility] Start: 02-19-2021 None [facility] Start: 12-19-2018 Spouse/ Signif icant Other [facility] Start: 02-19-2021 Non-smoker [facility] Start: 09-06-2022 End: 03-05-2023 History of Social function [facility] Start: 09-06-2022 End: 03-05-2023 Tobacco use panel [facility] Start: 09-15-2012 Adult Depression Screening Assessment 2 [facility] Start: 04-24-2021 Gender identity Identifies as male gender (finding) [facility] Start: 04-24-2021 Sexual orientation Heterosexual (fin ding) [facility] Start: 12-04-2024 Tobacco smoking stat us NHIS Ex-smoker (finding) [facility] Clinical Notes 04-04-2004 to 07-27-2025 Telephone Encounter - Enedina Marcano RN - 06/01/2025 4:59 PM EDTTelephone Encounter - Enedina Marcano RN - 06/01/2025 4:59 PM EDTRicDilcia burk - 04/21/2025 1:39 PM EDT Note Date & Type Note Facility 07-27-2025 Note HNO ID: [id number] Author: RAINA MARCUS PA-C Service: ? Author Type: Physician Outboard Technician Type: Progress Notes Filed: 07/28/2025 10:27 Note Text: Rheumatology Outpatient Clinic Follow Up Date of Service: 07/27/2025 Patient: Ashlie Villasenor Medical Record: [id number] Primary Care Physician: Mile Contreras MD Referring Physician: Self Last Rheumatology visit: 07/27/2025 (with Raina Marcus) SUBJECTIVE INTERVAL HISTORY Ashlie Villasenor is a 59 year old White male with a PMH of depression, GERD with esophagitis, acute gastritis without bleeding, chronic daily headaches who presents on 07/27/2025 for an in-person visit for right should and right knee steroid injections Patient has never had joint injections before. Right shoulder and right knee are really the only joints that cause him an issue. 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 His pain wakes him up from sleep He takes acetaminophen for pain He feels the adalimumab biosimilar is working a little better than when we last spoke Current Outpatient Medications on File Prior to Visit Medication Sig adalimumab-aaty (YUFLYMA) 40 mg/0.4 mL auto-injector Inject 0.4 mL subcutaneously every other week. adalimumab (HUMIRA,CF, PEN) 40 mg/0.4 mL pen kit Inject 40 mg (1 pen) subcutaneously every 2 weeks. naproxen (NAPROSYN) 500 mg tablet Take 1 tablet by mouth twice daily as needed. for pain. Take with food. Syringe with Needle, Disp, (BD ALLERGY SYRINGE) 1 Syringe one time a week. traZODone (DESYREL) 50 mg tablet Take 50 mg by mouth daily at bedtime. atorvastatin (LIPITOR) 40 mg tablet Take 40 mg by mouth daily at bedtime. Omeprazole 40 mg capsule TAKE 1 CAPSULE TWICE A DAY mometasone-formoterol (DULERA) 100-5 mcg/actuation inhaler Inhale 2 Puffs as instructed twice daily. lamoTRIgine (LAMICTAL) 150 mg tablet Take 150 mg by mouth once daily. escitalopram oxalate (LEXAPRO) 20 mg tablet Take 20 mg by mouth once daily. takes 30 mg total clopidogrel (PLAVIX) 75 mg tablet once daily. lisinopril 2.5 mg tablet once daily. montelukast (SINGULAIR) 10 mg tablet aspirin 81 mg chewable tablet Take 81 mg by mouth once daily. VENTOLIN 90MCG INHALER (2)two puff tid PAST MEDICAL HISTORY Diagnosis Date ADHD (attention deficit hyperactivity disorder) Anxiety Asthma (HCC) CAD (coronary artery disease) HTN (hypertension) Rheumatoid arthritis (HCC) Snoring Spasmodic torticollis PAST SURGICAL HISTORY Procedure Laterality Date ARTHROSCOPY KNEE DIAGNOSTIC W/WO SYNOVIAL BX SPX Bilateral COLONOSCOPY FLX DX W/COLLJ SPEC WHEN PFRMD 07/09/15 normal - 10 year follow up EGD TRANSORAL BIOPSY SINGLE/MULTIPLE 07/09/15 gastritis, esophagitis - Garcia's EGD TRANSORAL BIOPSY SINGLE/MULTIPLE 10/06/15 esophagitis - [facility] ESOPHAGOGASTRODUODENOSCOPY TRANSORAL DIAGNOSTIC 11/30/2017 EGD HEMORRHOID SURGERY HX 1992 PTCA CONSULT 2011 10 diag - promus - everolimus eluting stent FAMILY HISTORY Problem Relation Age of Onset Colon Cancer Father 65 other (lung) Father other (lung) Mother Prostate Cancer Paternal Grandfather SOCIAL HISTORY[1] PAIN EVALUATION 07/26/2025 1705 Pain Level: 7 Pain Location: Knee-Right Description: Aching;Dull Duration Amount of Time: 12 Duration Units: Hours Frequency: Intermittent Intervention/Comfort measure: Medication;Heat PROMIS Assessments 07/11/2024 08/04/2024 07/01/2025 PROMIS Assessments Physical Health Percentile 22 Mental Health Percentile 34 34 34 34 Pain Score 4 4 4 3 Pain Interference Percentile 27 12 Fatigue Percentile 38 24 Physical Function Percentile 27 31 Multiple values from one day are sorted in reverse-chronological order RAPID 3 Ortega Activities of Daily Living 07/01/2025 12:43 PM 08/04/2024 3:18 PM 07/11/2024 9:34 AM First answer obtained - 04/27/2021 3:43 PM Dress self? With SOME difficulty Without ANY difficulty Without ANY difficulty Without ANY difficulty Get in and out of bed? With SOME difficulty With SOME difficulty With SOME difficulty With SOME difficulty Walk outdoors? With SOME difficulty Without ANY difficulty Without ANY difficulty Without ANY difficulty Wash and dry body? Without ANY difficulty Without ANY difficulty Without ANY difficulty Without ANY difficulty Get in and out of car? Without ANY difficulty Without ANY difficulty Without ANY difficulty With SOME difficulty RAPID 3 Disease Activity Weighed Score Levels: 0 - 1: Near Remission 1.3 - 2.0: Low Severity 2.3 - 4.0: Moderate Severity 4.3 - 10.0: High Severity 07/11/2024 08/04/2024 07/01/2025 RAPID-3 Weighed Score RAPID 3 Weighed Score Incomplete Incomplete 5.67 (High severity ) OBJECTIVE BP 135/87 Pulse 58 Temp (Src) 97.3 (Oral) Resp 20 Ht 5' 6.535 (1.69m) Wt 246 lb (111.6kg) SpO2 97% BMI 39.07 kg/(m2). Physical Exam Vitals reviewed. Constitutional: General: He is not in acute distress. Appearance: Normal ap (more content not included)... [facility] 07-08-2025 Note HNO ID: [id number] Author: UYEN STEWART RT(R) Service: Radiology Author Type: Technologist Type: Progress Notes Filed: 07/08/2025 16:19 Note Text: Radiology Service Progress Note PATIENT NAME: Ashlie Villasenor DATE OF SERVICE: July 08, 2025 TIME: 4:19 PM PATIENT IDENTITY VERIFICATION COMPLETED USING TWO (2) IDENTIFIERS: Name and Date of confirmed by patient verbally and Name and Date of confirmed by identification band. FALL SCREENING: Has the patient had 2 falls in the last year or 1 fall with injury or currently using an Ambulatory Assistive Device (Walker, Cane, Wheelchair, Crutches, etc.)? No PATIENT GENDER DATA: Assigned male at PATIENT RELEVANT IMPLANT DATA REVIEWED: Not Applicable PATIENT PRESENTS WITH AN IMPLANTABLE OR ATTACHED DROPPER TANK STORAGE: No RADIOLOGY DEPARTMENT: General X-ray: Exam(s) Completed: Lower Extremity X-Ray(s): Knee, AP / Lat / Tunne / Merchant Right Upper Extremity X-Ray(s): Shoulder, Y VIEW right PERIPHERAL IV DATA: Not applicable SIGNED BY: RT oB(R) July 08, 2025 4:19 PM [facility] 07-06-2025 Note HNO ID: [id number] Author: RAINA MARUCS PA-C Service: ? Author Type: Physician Outboard Technician Type: Progress Notes Filed: 07/07/2025 16:39 Note Text: Rheumatology Outpatient Clinic Follow Up Date of Service: 07/06/2025 Patient: Ashlie Villasenor Medical Record: [id number] Primary Care Physician: Mile Contreras MD Referring Physician: Self Last Rheumatology visit: 07/06/2025 (with Raina Marcus) * This visit was conducted virtually via Zoom Platform * Power went out, HPI was written down by hand and later info transferred to EMR. Did Zoom meeting over work phone Patient name verified Patient consents to virtual visit Patient location: Home SUBJECTIVE INTERVAL HISTORY Ashlie Villasenor is a 59 year old White male with a PMH of depression, GERD with esophagitis, acute gastritis without bleeding, chronic daily headaches who presents on 07/06/2025 for an virtual visit for RA follow-up Patient states that insurance made him change from Humira to Yuflyma. Started Yuflyma last week of May. He states all this joints are hurting like they did before he was on Humira. Taking adalimumab every 2 weeks. He's done 2-3 injections of the biosimilar so far. For the joint pain he is currently taking 10mg prednisone and acetaminophen. This is keeping pain manageable. Pain is mostly at wrists, knees and shoulders. He's having some swelling at wrists and ankles. He did not have swelling when on Humira. He states his joint pain is worse in the mornings. Describes gelling phenomenon. Patient reports right shoulder pain and crepitus. Had this even on Humira. Also right knee pain. His right knee and shoulder are what bother him the most. He states if these two joints were better managed then he'd be in good shape. Based on thumb / thenar eminence is were most of his hand pain is. He denies numbness and tingling in the fingers He has not gotten shingles or pneumonia vaccines Current Outpatient Medications on File Prior to Visit Medication Sig adalimumab-aaty (YUFLYMA) 40 mg/0.4 mL auto-injector Inject 0.4 mL subcutaneously every other week. adalimumab (HUMIRA,CF, PEN) 40 mg/0.4 mL pen kit Inject 40 mg (1 pen) subcutaneously every 2 weeks. naproxen (NAPROSYN) 500 mg tablet Take 1 tablet by mouth twice daily as needed. for pain. Take with food. Syringe with Needle, Disp, (BD ALLERGY SYRINGE) 1 Syringe one time a week. traZODone (DESYREL) 50 mg tablet Take 50 mg by mouth daily at bedtime. atorvastatin (LIPITOR) 40 mg tablet Take 40 mg by mouth daily at bedtime. Omeprazole 40 mg capsule TAKE 1 CAPSULE TWICE A DAY mometasone-formoterol (DULERA) 100-5 mcg/actuation inhaler Inhale 2 Puffs as instructed twice daily. lamoTRIgine (LAMICTAL) 150 mg tablet Take 150 mg by mouth once daily. escitalopram oxalate (LEXAPRO) 20 mg tablet Take 20 mg by mouth once daily. takes 30 mg total clopidogrel (PLAVIX) 75 mg tablet once daily. lisinopril 2.5 mg tablet once daily. montelukast (SINGULAIR) 10 mg tablet aspirin 81 mg chewable tablet Take 81 mg by mouth once daily. VENTOLIN 90MCG INHALER (2)two puff tid Review of Systems CONSTITUTION: Negative for: Fever and Recent weight change HEENT: Negative for: Nosebleeds, Mouth sores, Trouble swallowing and Dry mouth RESPIRATORY: Negative for: Cough, Shortness of breath and Pain with breathing GASTROINTESTINAL: Negative for: Melena, Diarrhea and Abdominal pain MUSCULOSKELETAL: Positive for: Arthralgias, Myalgias, Muscle weakness, Joint swelling and Morning Joint Stiffness NEUROLOGICAL: Negative for: Headaches, Numbness and Memory loss SKIN: Negative for: Rash, Skin changes, Hair loss and Nail changes EYES: Negative for: Eye pain, Eye redness, Eye dryness and visual disturbance CARDIOVASCULAR: Negative for: Chest pain and Leg swelling GENITOURINARY: Negative for: Dysuria and Hematuria HEMATOLOGIC/LYMPHATIC: Negative for: Swollen glands All other reviewed and negative other than HPI. PAST MEDICAL HISTORY Diagnosis Date ADHD (attention deficit hyperactivity disorder) Anxiety Asthma CAD (coronary artery disease) HTN (hypertension) Rheumatoid arthritis (HCC) Snoring Spasmodic torticollis PAST SURGICAL HISTORY Procedure Laterality Date ARTHROSCOPY KNEE DIAGNOSTIC W/WO SYNOVIAL BX SPX Bilateral COLONOSCOPY FLX DX W/COLLJ SPEC WHEN PFRMD 07/09/15 normal - 10 year follow up EGD TRANSORAL BIOPSY SINGLE/MULTIPLE 07/09/15 gastritis, esophagitis - [facility] EGD TRANSORAL BIOPSY SINGLE/MULTIPLE 10/06/15 esophagitis - [facility] ESOPHAGOGASTRODUODENOSCOPY TRANSORAL DIAGNOSTIC 11/30/2017 EGD HEMORRHOID SURGERY HX 1992 PTCA CONSULT 2011 10 diag - promus - everolimus eluting stent FAMILY HISTORY Problem Relation Age of Onset Colon Cancer Father 65 other (lung) Father other (lung) Mother Prostate Cancer Paternal Grandfather SOCIAL HISTORY[1] PAIN EVALUATION 07/01/2025 1240 Pain Location: Knee-Right Description: Aching (more content not included)... [facility] 06-01-2025 Telephone encounter Note See 05/19/25 refill encounter. [facility] 06-01-2025 Miscellaneous Notes See 05/19/25 refill encounter. documented in this encounter [facility] 05-19-2025 Note HNO ID: [id number] Author: ?, ?, ? Service: ? Author Type: ? Type: Progress Notes Filed: 05/19/2025 12:44 Note Text: [facility] had been filling Humira for this patient. However, s/he is now required to use [facility] to fill this medication. Will queue prescription(s) to go to designated specialty pharmacy. For reference, their pharmacy phone number is [phone]. No further action by [facility]. PLEASE NOTE: Future prior authorization renewals will be the responsibility of the provider's office, unless medication dose or patient's insurance coverage change. Roseanne Llamas [facility] 04-21-2025 History of Presen t illness Narrative [facility] Specialty Refill Assessment Medication(s): Humira Patient's current medication list and adherence status to current therapy were reviewed by Specialty Pharmacy clinical pharmacist to identify any new drug interactions or non-compliance to therapy. Therapy continues to be appropriate for disease, patient response, and medical condition. Verification of therapeutic benefit and effectiveness with current therapy was completed. Adverse events, barriers in adherence, and side effects were assessed and addressed if applicable. Will proceed with refill with no changes in therapy - patient progressing towards achieving therapeutic goals based on medication-specific laboratory parameters, disease state markers and outcomes. Office/provider notes have been reviewed prior to dispensing the medication. Receiver Setter Assessment Patient confirmed: Yes Med/dose confirmed: Yes Supplies needed: No supplies needed Missed doses: No Estimated days supply on hand: 0 Next cycle/dose due: 05/01/25 Copay amount: 0 Delivery method: FedEx Signature required: Waived on patient request Delivery address: [address] [place] [address] [address] [facility] [address] Delivery date: 04/28/25 Questions or concerns for the pharmacist?: No Did you have any side effects believed to be related to this medication, that resulted in hospitalization?: No Current Outpatient Medications on File Prior to Visit Medication Sig adalimumab (HUMIRA,CF, PEN) 40 mg/0.4 mL pen kit Inject 40 mg (1 pen) subcutaneously every 2 weeks. naproxen (NAPROSYN) 500 mg tablet Take 1 tablet by mouth twice daily as needed. for pain. Take with food. Syringe with Needle, Disp, (BD ALLERGY SYRINGE) 1 Syringe one time a week. traZODone (DESYREL) 50 mg tablet Take 50 mg by mouth daily at bedtime. atorvastatin (LIPITOR) 40 mg tablet Take 40 mg by mouth daily at bedtime. Omeprazole 40 mg capsule TAKE 1 CAPSULE TWICE A DAY mometasone-formoterol (DULERA) 100-5 mcg/actuation inhaler Inhale 2 Puffs as instructed twice daily. lamoTRIgine (LAMICTAL) 150 mg tablet Take 150 mg by mouth once daily. escitalopram oxalate (LEXAPRO) 20 mg tablet Take 20 mg by mouth once daily. takes 30 mg total clopidogrel (PLAVIX) 75 mg tablet once daily. lisinopril 2.5 mg tablet once daily. montelukast (SINGULAIR) 10 mg tablet aspirin 81 mg chewable tablet Take 81 mg by mouth once daily. VENTOLIN 90MCG INHALER (2)two puff tid No current facility-administered medications on file prior to visit. [facility] RX SPECIALTY CLINICAL ASSESSMENT - INFLAMMATORY CONDITIONS V6: Assessment to use: Refill Date of influenza vaccination reminder: 06/18/2024 Date of most recent vaccination assessment: 06/18/2024 Treatment Plan Information: Inject 40 mg (1 pen) subcutaneously every 2 weeks. Est. Tx Plan Start Date: 06/22/2022 Estimated Start Date Info: No information available Est. Estimated Treatment Duration: Until lack of efficacy Dilcia Rizzo documented in this encounter [facility] 04-21-2025 Note HNO ID: [id number] Author: ?, ?, ? Service: ? Author Type: ? Type: Progress Notes Filed: 04/21/2025 13:54 Note Text: [facility] Specialty Refill Assessment Medication(s): Humira Patient's current medication list and adherence status to current therapy were reviewed by Specialty Pharmacy clinical pharmacist to identify any new drug interactions or non-compliance to therapy. Therapy continues to be appropriate for disease, patient response, and medical condition. Verification of therapeutic benefit and effectiveness with current therapy was completed. Adverse events, barriers in adherence, and side effects were assessed and addressed if applicable. Will proceed with refill with no changes in therapy - patient progressing towards achieving therapeutic goals based on medication-specific laboratory parameters, disease state markers and outcomes. Office/provider notes have been reviewed prior to dispensing the medication. Receiver Setter Assessment Patient confirmed: Yes Med/dose confirmed: Yes Supplies needed: No supplies needed Missed doses: No Estimated days supply on hand: 0 Next cycle/dose due: 05/01/25 Copay amount: 0 Delivery method: FedEx Signature required: Waived on patient request Delivery address: [address] [place] [address] Delivery date: 04/28/25 Questions or concerns for the pharmacist?: No Did you have any side effects believed to be related to this medication, that resulted in hospitalization?: No Current Outpatient Medications on File Prior to Visit Medication Sig adalimumab (HUMIRA,CF, PEN) 40 mg/0.4 mL pen kit Inject 40 mg (1 pen) subcutaneously every 2 weeks. naproxen (NAPROSYN) 500 mg tablet Take 1 tablet by mouth twice daily as needed. for pain. Take with food. Syringe with Needle, Disp, (BD ALLERGY SYRINGE) 1 Syringe one time a week. traZODone (DESYREL) 50 mg tablet Take 50 mg by mouth daily at bedtime. atorvastatin (LIPITOR) 40 mg tablet Take 40 mg by mouth daily at bedtime. Omeprazole 40 mg capsule TAKE 1 CAPSULE TWICE A DAY mometasone-formoterol (DULERA) 100-5 mcg/actuation inhaler Inhale 2 Puffs as instructed twice daily. lamoTRIgine (LAMICTAL) 150 mg tablet Take 150 mg by mouth once daily. escitalopram oxalate (LEXAPRO) 20 mg tablet Take 20 mg by mouth once daily. takes 30 mg total clopidogrel (PLAVIX) 75 mg tablet once daily. lisinopril 2.5 mg tablet once daily. montelukast (SINGULAIR) 10 mg tablet aspirin 81 mg chewable tablet Take 81 mg by mouth once daily. VENTOLIN 90MCG INHALER (2)two puff tid No current facility-administered medications on file prior to visit. [facility] RX SPECIALTY CLINICAL ASSESSMENT - INFLAMMATORY CONDITIONS V6: Assessment to use: Refill Date of influenza vaccination reminder: 06/18/2024 Date of most recent vaccination assessment: 06/18/2024 Treatment Plan Information: Inject 40 mg (1 pen) subcutaneously every 2 weeks. Est. Tx Plan Start Date: 06/22/2022 Estimated Start Date Info: No information available Est. Estimated Treatment Duration: Until lack of efficacy Dilciayue Rizzo [facility] 03-24-2025 History of Presen t illness Narrative [facility] Specialty Refill Assessment Medication(s): Antonio Patient's current medication list and adherence status to current therapy were reviewed by Specialty Pharmacy clinical pharmacist to identify any new drug interactions or non-compliance to therapy. Therapy continues to be appropriate for disease, patient response, and medical condition. Verification of therapeutic benefit and effectiveness with current therapy was completed. Adverse events, barriers in adherence, and side effects were assessed and addressed if applicable. Will proceed with refill with no changes in therapy - patient progressing towards achieving therapeutic goals based on medication-specific laboratory parameters, disease state markers and outcomes. Office/provider notes have been reviewed prior to dispensing the medication. Receiver Setter Assessment Patient confirmed: Yes Med/dose confirmed: Yes Supplies needed: No supplies needed Missed doses: No Estimated days supply on hand: 0 Next cycle/dose due: 04/03/25 Copay amount: 0 Delivery method: FedEx Signature required: No Delivery address: [address] [place] [address] [address], [place] [address] Delivery date: 03/31/25 Questions or concerns for the pharmacist?: No Did you have any side effects believed to be related to this medication, that resulted in hospitalization?: No Current Outpatient Medications on File Prior to Visit Medication Sig adalimumab (HUMIRA,CF, PEN) 40 mg/0.4 mL pen kit Inject 40 mg (1 pen) subcutaneously every 2 weeks. naproxen (NAPROSYN) 500 mg tablet Take 1 tablet by mouth twice daily as needed. for pain. Take with food. Syringe with Needle, Disp, (BD ALLERGY SYRINGE) 1 Syringe one time a week. traZODone (DESYREL) 50 mg tablet Take 50 mg by mouth daily at bedtime. atorvastatin (LIPITOR) 40 mg tablet Take 40 mg by mouth daily at bedtime. Omeprazole 40 mg capsule TAKE 1 CAPSULE TWICE A DAY mometasone-formoterol (DULERA) 100-5 mcg/actuation inhaler Inhale 2 Puffs as instructed twice daily. lamoTRIgine (LAMICTAL) 150 mg tablet Take 150 mg by mouth once daily. escitalopram oxalate (LEXAPRO) 20 mg tablet Take 20 mg by mouth once daily. takes 30 mg total clopidogrel (PLAVIX) 75 mg tablet once daily. lisinopril 2.5 mg tablet once daily. montelukast (SINGULAIR) 10 mg tablet aspirin 81 mg chewable tablet Take 81 mg by mouth once daily. VENTOLIN 90MCG INHALER (2)two puff tid No current facility-administered medications on file prior to visit. [facility] RX SPECIALTY CLINICAL ASSESSMENT - INFLAMMATORY CONDITIONS V6: Assessment to use: Refill Date of influenza vaccination reminder: 06/18/2024 Date of most recent vaccination assessment: 06/18/2024 Treatment Plan Information: Inject 40 mg (1 pen) subcutaneously every 2 weeks. Est. Tx Plan Start Date: 06/22/2022 Estimated Start Date Info: No information available Est. Estimated Treatment Duration: Until lack of efficacy Roseanne Llamas documented in this encounter [facility] 03-24-2025 Note HNO ID: [id number] Author: ?, ?, ? Service: ? Author Type: ? Type: Progress Notes Filed: 03/24/2025 12:22 Note Text: [facility] Refill Assessment Medication(s): Humira Patient's current medication list and adherence status to current therapy were reviewed by Specialty Pharmacy clinical pharmacist to identify any new drug interactions or non-compliance to therapy. Therapy continues to be appropriate for disease, patient response, and medical condition. Verification of therapeutic benefit and effectiveness with current therapy was completed. Adverse events, barriers in adherence, and side effects were assessed and addressed if applicable. Will proceed with refill with no changes in therapy - patient progressing towards achieving therapeutic goals based on medication-specific laboratory parameters, disease state markers and outcomes. Office/provider notes have been reviewed prior to dispensing the medication. Receiver Setter Assessment Patient confirmed: Yes Med/dose confirmed: Yes Supplies needed: No supplies needed Missed doses: No Estimated days supply on hand: 0 Next cycle/dose due: 04/03/25 Copay amount: 0 Delivery method: FedEx Signature required: No Delivery address: [address] [place] [address] [address], [place] [address] Delivery date: 03/31/25 Questions or concerns for the pharmacist?: No Did you have any side effects believed to be related to this medication, that resulted in hospitalization?: No Current Outpatient Medications on File Prior to Visit Medication Sig adalimumab (HUMIRA,CF, PEN) 40 mg/0.4 mL pen kit Inject 40 mg (1 pen) subcutaneously every 2 weeks. naproxen (NAPROSYN) 500 mg tablet Take 1 tablet by mouth twice daily as needed. for pain. Take with food. Syringe with Needle, Disp, (BD ALLERGY SYRINGE) 1 Syringe one time a week. traZODone (DESYREL) 50 mg tablet Take 50 mg by mouth daily at bedtime. atorvastatin (LIPITOR) 40 mg tablet Take 40 mg by mouth daily at bedtime. Omeprazole 40 mg capsule TAKE 1 CAPSULE TWICE A DAY mometasone-formoterol (DULERA) 100-5 mcg/actuation inhaler Inhale 2 Puffs as instructed twice daily. lamoTRIgine (LAMICTAL) 150 mg tablet Take 150 mg by mouth once daily. escitalopram oxalate (LEXAPRO) 20 mg tablet Take 20 mg by mouth once daily. takes 30 mg total clopidogrel (PLAVIX) 75 mg tablet once daily. lisinopril 2.5 mg tablet once daily. montelukast (SINGULAIR) 10 mg tablet aspirin 81 mg chewable tablet Take 81 mg by mouth once daily. VENTOLIN 90MCG INHALER (2)two puff tid No current facility-administered medications on file prior to visit. [facility] RX SPECIALTY CLINICAL ASSESSMENT - INFLAMMATORY CONDITIONS V6: Assessment to use: Refill Date of influenza vaccination reminder: 06/18/2024 Date of most recent vaccination assessment: 06/18/2024 Treatment Plan Information: Inject 40 mg (1 pen) subcutaneously every 2 weeks. Est. Tx Plan Start Date: 06/22/2022 Estimated Start Date Info: No information available Est. Estimated Treatment Duration: Until lack of efficacy Roseanne Llamas [facility] 02-24-2025 History of Presen t illness Narrative [facility] Refill Assessment Medication(s): Humira Patient's current medication list and adherence status to current therapy were reviewed by Specialty Pharmacy clinical pharmacist to identify any new drug interactions or non-compliance to therapy. Therapy continues to be appropriate for disease, patient response, and medical condition. Verification of therapeutic benefit and effectiveness with current therapy was completed. Adverse events, barriers in adherence, and side effects were assessed and addressed if applicable. Will proceed with refill with no changes in therapy - patient progressing towards achieving therapeutic goals based on medication-specific laboratory parameters, disease state markers and outcomes. Office/provider notes have been reviewed prior to dispensing the medication. Receiver Setter Assessment Patient confirmed: Yes Med/dose confirmed: Yes Supplies needed: No supplies needed Missed doses: No Estimated days supply on hand: 0 Next cycle/dose due: 03/06/25 Copay amount: 0 Delivery method: FedEx Signature required: No Delivery address: [address] [place] [address] [address], [place] [address] Delivery date: 03/03/25 Questions or concerns for the pharmacist?: No Did you have any side effects believed to be related to this medication, that resulted in hospitalization?: No Current Outpatient Medications on File Prior to Visit Medication Sig adalimumab (HUMIRA,CF, PEN) 40 mg/0.4 mL pen kit Inject 40 mg (1 pen) subcutaneously every 2 weeks. naproxen (NAPROSYN) 500 mg tablet Take 1 tablet by mouth twice daily as needed. for pain. Take with food. Syringe with Needle, Disp, (BD ALLERGY SYRINGE) 1 Syringe one time a week. traZODone (DESYREL) 50 mg tablet Take 50 mg by mouth daily at bedtime. atorvastatin (LIPITOR) 40 mg tablet Take 40 mg by mouth daily at bedtime. Omeprazole 40 mg capsule TAKE 1 CAPSULE TWICE A DAY mometasone-formoterol (DULERA) 100-5 mcg/actuation inhaler Inhale 2 Puffs as instructed twice daily. lamoTRIgine (LAMICTAL) 150 mg tablet Take 150 mg by mouth once daily. escitalopram oxalate (LEXAPRO) 20 mg tablet Take 20 mg by mouth once daily. takes 30 mg total clopidogrel (PLAVIX) 75 mg tablet once daily. lisinopril 2.5 mg tablet once daily. montelukast (SINGULAIR) 10 mg tablet aspirin 81 mg chewable tablet Take 81 mg by mouth once daily. VENTOLIN 90MCG INHALER (2)two puff tid No current facility-administered medications on file prior to visit. [facility] RX SPECIALTY CLINICAL ASSESSMENT - INFLAMMATORY CONDITIONS V6: Assessment to use: Refill Date of influenza vaccination reminder: 06/18/2024 Date of most recent vaccination assessment: 06/18/2024 Treatment Plan Information: Inject 40 mg (1 pen) subcutaneously every 2 weeks. Est. Tx Plan Start Date: 06/22/2022 Estimated Start Date Info: No information available Est. Estimated Treatment Duration: Until lack of efficacy Roseanne Llamas documented in this encounter [facility] 02-24-2025 Note HNO ID: [id number] Author: JOHNSON BUCK bhaskar Service: ? Author Type: ? Type: Progress Notes Filed: 02/28/2025 11:07 Note Text: [facility] Refill Assessment Medication(s): Humira Patient's current medication list and adherence status to current therapy were reviewed by Specialty Pharmacy clinical pharmacist to identify any new drug interactions or non-compliance to therapy. Therapy continues to be appropriate for disease, patient response, and medical condition. Verification of therapeutic benefit and effectiveness with current therapy was completed. Adverse events, barriers in adherence, and side effects were assessed and addressed if applicable. Will proceed with refill with no changes in therapy - patient progressing towards achieving therapeutic goals based on medication-specific laboratory parameters, disease state markers and outcomes. Office/provider notes have been reviewed prior to dispensing the medication. Johnson Buck, Jimmie Clinical Pharmacist [facility] Specialty Pharmacy Pool: [facility] Pool #: [id number] Receiver Setter Assessment Patient confirmed: Yes Med/dose confirmed: Yes Supplies needed: No supplies needed Missed doses: No Estimated days supply on hand: 0 Next cycle/dose due: 03/06/25 Copay amount: 0 Delivery method: FedEx Signature required: No Delivery address: [address] [place] [address] [address], [place] [address] Delivery date: 03/03/25 Questions or concerns for the pharmacist?: No Did you have any side effects believed to be related to this medication, that resulted in hospitalization?: No Current Outpatient Medications on File Prior to Visit Medication Sig adalimumab (HUMIRA,CF, PEN) 40 mg/0.4 mL pen kit Inject 40 mg (1 pen) subcutaneously every 2 weeks. naproxen (NAPROSYN) 500 mg tablet Take 1 tablet by mouth twice daily as needed. for pain. Take with food. Syringe with Needle, Disp, (BD ALLERGY SYRINGE) 1 Syringe one time a week. traZODone (DESYREL) 50 mg tablet Take 50 mg by mouth daily at bedtime. atorvastatin (LIPITOR) 40 mg tablet Take 40 mg by mouth daily at bedtime. Omeprazole 40 mg capsule TAKE 1 CAPSULE TWICE A DAY mometasone-formoterol (DULERA) 100-5 mcg/actuation inhaler Inhale 2 Puffs as instructed twice daily. lamoTRIgine (LAMICTAL) 150 mg tablet Take 150 mg by mouth once daily. escitalopram oxalate (LEXAPRO) 20 mg tablet Take 20 mg by mouth once daily. takes 30 mg total clopidogrel (PLAVIX) 75 mg tablet once daily. lisinopril 2.5 mg tablet once daily. montelukast (SINGULAIR) 10 mg tablet aspirin 81 mg chewable tablet Take 81 mg by mouth once daily. VENTOLIN 90MCG INHALER (2)two puff tid No current facility-administered medications on file prior to visit. [facility] RX SPECIALTY CLINICAL ASSESSMENT - INFLAMMATORY CONDITIONS V6: Ivent complete: No Assessment to use: Refill Assessment of injection issues: Yes Infection screening, including annual TB assessment when applicable to medication: Yes Current medication list (including drug interaction assessment): Yes Experience of adverse reactions to the medication: Yes Date of influenza vaccination reminder: 06/18/2024 Date of most recent vaccination assessment: 06/18/2024 Treatment Plan Information: Inject 40 mg (1 pen) subcutaneously every 2 weeks. Est. Tx Plan Start Date: 06/22/2022 Estimated Start Date Info: No information available Est. Estimated Treatment Duration: Until lack of efficacy Roseanne Llamas [facility] 01-27-2025 History of Presen t illness Narrative [facility] Refill Assessment Medication(s): Humira Patient's current medication list and adherence status to current therapy were reviewed by Specialty Pharmacy clinical pharmacist to identify any new drug interactions or non-compliance to therapy. Therapy continues to be appropriate for disease, patient response, and medical condition. Verification of therapeutic benefit and effectiveness with current therapy was completed. Adverse events, barriers in adherence, and side effects were assessed and addressed if applicable. Will proceed with refill with no changes in therapy - patient progressing towards achieving therapeutic goals based on medication-specific laboratory parameters, disease state markers and outcomes. Office/provider notes have been reviewed prior to dispensing the medication. Receiver Setter Assessment Patient confirmed: Yes Med/dose confirmed: Yes Supplies needed: No supplies needed Missed doses: No Estimated days supply on hand: 0 Next cycle/dose due: 02/06/25 Copay amount: 0 Delivery method: FedEx Signature required: Waived on patient request Delivery address: [address] [place] [address] [place] [address] Delivery date: 02/03/25 Questions or concerns for the pharmacist?: No Did you have any side effects believed to be related to this medication, that resulted in hospitalization?: No Current Outpatient Medications on File Prior to Visit Medication Sig adalimumab (HUMIRA,CF, PEN) 40 mg/0.4 mL pen kit Inject 40 mg (1 pen) subcutaneously every 2 weeks. naproxen (NAPROSYN) 500 mg tablet Take 1 tablet by mouth twice daily as needed. for pain. Take with food. Syringe with Needle, Disp, (BD ALLERGY SYRINGE) 1 Syringe one time a week. traZODone (DESYREL) 50 mg tablet Take 50 mg by mouth daily at bedtime. atorvastatin (LIPITOR) 40 mg tablet Take 40 mg by mouth daily at bedtime. Omeprazole 40 mg capsule TAKE 1 CAPSULE TWICE A DAY mometasone-formoterol (DULERA) 100-5 mcg/actuation inhaler Inhale 2 Puffs as instructed twice daily. lamoTRIgine (LAMICTAL) 150 mg tablet Take 150 mg by mouth once daily. escitalopram oxalate (LEXAPRO) 20 mg tablet Take 20 mg by mouth once daily. takes 30 mg total clopidogrel (PLAVIX) 75 mg tablet once daily. lisinopril 2.5 mg tablet once daily. montelukast (SINGULAIR) 10 mg tablet aspirin 81 mg chewable tablet Take 81 mg by mouth once daily. VENTOLIN 90MCG INHALER (2)two puff tid No current facility-administered medications on file prior to visit. [facility] RX SPECIALTY CLINICAL ASSESSMENT - INFLAMMATORY CONDITIONS V7 Date of influenza vaccination reminder: 06/18/2024 Date of most recent vaccination assessment: 06/18/2024 Treatment Plan Information: Inject 40 mg (1 pen) subcutaneously every 2 weeks. Est. Tx Plan Start Date: 06/22/2022 Estimated Start Date Info: No information available Est. Estimated Treatment Duration: Until lack of efficacy Liyah Rodas RPh documented in this encounter [facility] 01-27-2025 Note HNO ID: [id number] Author: LIYAH RODAS RPh Service: ? Author Type: Pharmacist Type: Progress Notes Filed: 01/27/2025 12:29 Note Text: [facility] Refill Assessment Medication(s): Antonio Patient's current medication list and adherence status to current therapy were reviewed by Specialty Pharmacy clinical pharmacist to identify any new drug interactions or non-compliance to therapy. Therapy continues to be appropriate for disease, patient response, and medical condition. Verification of therapeutic benefit and effectiveness with current therapy was completed. Adverse events, barriers in adherence, and side effects were assessed and addressed if applicable. Will proceed with refill with no changes in therapy - patient progressing towards achieving therapeutic goals based on medication-specific laboratory parameters, disease state markers and outcomes. Office/provider notes have been reviewed prior to dispensing the medication. Receiver Setter Assessment Patient confirmed: Yes Med/dose confirmed: Yes Supplies needed: No supplies needed Missed doses: No Estimated days supply on hand: 0 Next cycle/dose due: 02/06/25 Copay amount: 0 Delivery method: FedEx Signature required: Waived on patient request Delivery address: [address] [place] [id number] Delivery date: 02/03/25 Questions or concerns for the pharmacist?: No Did you have any side effects believed to be related to this medication, that resulted in hospitalization?: No Current Outpatient Medications on File Prior to Visit Medication Sig adalimumab (HUMIRA,CF, PEN) 40 mg/0.4 mL pen kit Inject 40 mg (1 pen) subcutaneously every 2 weeks. naproxen (NAPROSYN) 500 mg tablet Take 1 tablet by mouth twice daily as needed. for pain. Take with food. Syringe with Needle, Disp, (BD ALLERGY SYRINGE) 1 Syringe one time a week. traZODone (DESYREL) 50 mg tablet Take 50 mg by mouth daily at bedtime. atorvastatin (LIPITOR) 40 mg tablet Take 40 mg by mouth daily at bedtime. Omeprazole 40 mg capsule TAKE 1 CAPSULE TWICE A DAY mometasone-formoterol (DULERA) 100-5 mcg/actuation inhaler Inhale 2 Puffs as instructed twice daily. lamoTRIgine (LAMICTAL) 150 mg tablet Take 150 mg by mouth once daily. escitalopram oxalate (LEXAPRO) 20 mg tablet Take 20 mg by mouth once daily. takes 30 mg total clopidogrel (PLAVIX) 75 mg tablet once daily. lisinopril 2.5 mg tablet once daily. montelukast (SINGULAIR) 10 mg tablet aspirin 81 mg chewable tablet Take 81 mg by mouth once daily. VENTOLIN 90MCG INHALER (2)two puff tid No current facility-administered medications on file prior to visit. [facility] RX SPECIALTY CLINICAL ASSESSMENT - INFLAMMATORY CONDITIONS V7 Date of influenza vaccination reminder: 06/18/2024 Date of most recent vaccination assessment: 06/18/2024 Treatment Plan Information: Inject 40 mg (1 pen) subcutaneously every 2 weeks. Est. Tx Plan Start Date: 06/22/2022 Estimated Start Date Info: No information available Est. Estimated Treatment Duration: Until lack of efficacy Liyah Rodas [facility] 01-26-2025 Telephone encounter Note Patient needs refill of Humira Date of Ashlie Villasenor's last Rheumatology office visit: 08/11/2024 Next appointment date: not yet scheduled Last labs: 08/11/2024 Last TB test: TB Result Date Value Ref Range Status 05/27/2022 Negative Final Requested Prescriptions Pending Prescriptions Disp Refills adalimumab (HUMIRA,CF, PEN) 40 mg/0.4 mL pen kit 6 each 1 Sig: Inject 40 mg (1 pen) subcutaneously every 2 weeks. Patient prefers: [facility] Johnson Buck PharmD Clinical Pharmacist [facility] Pharm[facility] Pool: [facility] Pool #: [id number] [facility] 01-26-2025 Miscellaneous Notes Patient needs refill of Humira Date of Ashlie Villasenor's last Rheumatology office visit: 08/11/2024 Next appointment date: not yet scheduled Last labs: 08/11/2024 Last TB test: TB Result Date Value Ref Range Status 05/27/2022 Negative Final Requested Prescriptions Pending Prescriptions Disp Refills adalimumab (HUMIRA,CF, PEN) 40 mg/0.4 mL pen kit 6 each 1 Sig: Inject 40 mg (1 pen) subcutaneously every 2 weeks. Patient prefers: [facility] Johnson Buck PharmD Clinical Pharmacist [facility] Pool: [facility] Pool #: [id number] documented in this encounter [facility] 12-30-2024 Note HNO ID: [id number] Author: ?, ?, ? Service: ? Author Type: ? Type: Progress Notes Filed: 12/31/2024 09:29 Note Text: [facility] Refill Assessment Medication(s): Humira Patient's current medication list and adherence status to current therapy were reviewed by Specialty Pharmacy clinical pharmacist to identify any new drug interactions or non-compliance to therapy. Therapy continues to be appropriate for disease, patient response, and medical condition. Verification of therapeutic benefit and effectiveness with current therapy was completed. Adverse events, barriers in adherence, and side effects were assessed and addressed if applicable. Will proceed with refill with no changes in therapy - patient progressing towards achieving therapeutic goals based on medication-specific laboratory parameters, disease state markers and outcomes. Office/provider notes have been reviewed prior to dispensing the medication. Receiver Setter Assessment Patient confirmed: Yes Med/dose confirmed: Yes Supplies needed: No supplies needed Missed doses: No Estimated days supply on hand: 0 Next cycle/dose due: 01/09/25 Copay amount: 0 Payment confirmed: Yes Delivery method: FedEx Signature required: No Delivery address: [address] [place] [address] [address] [facility] [address] Delivery date: 01/06/25 Questions or concerns for the pharmacist?: No Did you have any side effects believed to be related to this medication, that resulted in hospitalization?: No Current Outpatient Medications on File Prior to Visit Medication Sig adalimumab (HUMIRA,CF, PEN) 40 mg/0.4 mL pen kit Inject 40 mg (1 pen) subcutaneously every 2 weeks. naproxen (NAPROSYN) 500 mg tablet Take 1 tablet by mouth twice daily as needed. for pain. Take with food. Syringe with Needle, Disp, (BD ALLERGY SYRINGE) 1 Syringe one time a week. traZODone (DESYREL) 50 mg tablet Take 50 mg by mouth daily at bedtime. atorvastatin (LIPITOR) 40 mg tablet Take 40 mg by mouth daily at bedtime. Omeprazole 40 mg capsule TAKE 1 CAPSULE TWICE A DAY mometasone-formoterol (DULERA) 100-5 mcg/actuation inhaler Inhale 2 Puffs as instructed twice daily. lamoTRIgine (LAMICTAL) 150 mg tablet Take 150 mg by mouth once daily. escitalopram oxalate (LEXAPRO) 20 mg tablet Take 20 mg by mouth once daily. takes 30 mg total clopidogrel (PLAVIX) 75 mg tablet once daily. lisinopril 2.5 mg tablet once daily. montelukast (SINGULAIR) 10 mg tablet aspirin 81 mg chewable tablet Take 81 mg by mouth once daily. VENTOLIN 90MCG INHALER (2)two puff tid No current facility-administered medications on file prior to visit. [facility] RX SPECIALTY CLINICAL ASSESSMENT - INFLAMMATORY CONDITIONS V6: Assessment to use: Refill Date of influenza vaccination reminder: 06/18/2024 Date of most recent vaccination assessment: 06/18/2024 Treatment Plan Information: Inject 40 mg (1 pen) subcutaneously every 2 weeks. Est. Tx Plan Start Date: 06/22/2022 Estimated Start Date Info: No information available Est. Estimated Treatment Duration: Until lack of efficacy Herber Dubois ([facility]) [facility] FAX: [facility] 12-09-2024 Note [facility] Medical Records Department [address] [place] [address] History Physical Exam 12/09/24 0738 MR#: [id number] Acct: [id number] Name: ASHLIE VILLASENOR Rep #: [id number] : 1965 59 From: Omkar Delgado MD PCP: Dr. Stacy Karu MD Status:[facility] Location: [place] [address] History and Physical Date of Admission: 12/09/24 Intake Vital Signs 07/01/2416:29 11/17/2508:53 Height 5 ft 7 in 5 ft 7 in Weight: 270 lb BMI 42.3 BP 134/86 H Blood Pressure Location Rt brachial Position Sitting Respiration 17 Pulse 69 Pulse Source Monitor Pulse Oximetry (%) 95 Oxygen Delivery Method room air Intake Visit Reasons: INTERNAL HEMORRHOIDS Chief Complaint: internal hemorrhoids Is patient in pain?: No Allergies metoclopramide HCl (From Reglan) Adverse Reaction (Verified 11/17/24 09:54) Otherprochlorperazine edisylate (From Compazine) Adverse Reaction (Verified 11/17/24 09:54) Otherprochlorperazine maleate (From Compazine) Adverse Reaction (Verified 11/17/24 09:54) Other Medications ???Medication ???Instructions ???Recorded ???Confirmed ???Type clopidogrel 75 mg tablet 75 mg PO DAILY anti platelet 06/24/14 11/17/24 His tory lisinopril 2.5 mg tablet 2.5 mg PO BID blood pressure 06/24/14 11/17/24 His tory montelukast 10 mg tablet 10 mg PO QHS allergies 06/24/14 11/17/24 History aspirin 81 mg tablet,delayed 81 mg PO DAILY@0800 heart health 10/11/16 11/17/24 History release albuterol sulfate 2.5 mg/3 mL 2.5 mg (3 mL) inhalation Q2H PRN 12/29/16 11/17/24 Rx (0.083 %) solution for nebulization PRN Shortness of breath/wheezing ##50 albuterol sulfate 90 mcg/actuation 2 puff inhalation Q4H PRN PRN Sob 12/29/16 5 Rx aerosol inhaler /Or Wheezing ##60 mometasone-formoterol HFA 200 1 puff IH BID ##1 12/29/16 11/17/24 Rx mcg-5 mcg/actuation aerosol inhaler trazodone 50 mg tablet 50 mg PO QHS sleep 04/14/18 11/17/24 History escitalopram oxalate 20 mg tablet 30 mg PO QHS depression 05/16/18 11/17/24 History (Lexapro) omeprazole 40 mg capsule,delayed 40 mg PO QDAY reflux 05/16/18 11/17/24 History release atorvastatin 20 mg tablet 40 mg PO QHS cholesterol 05/21/18 11/17/24 History lamotrigine 150 mg tablet 150 mg PO DAILY ADHD 05/26/18 11/17/24 History mometasone-formoterol HFA 200 2 puff IH DAILY 12/19/18 11/17/24 History mcg-5 mcg/actuation aerosol inhaler adalimumab 40 mg/0.4 mL 40 mg subcut .every other week 11/17/24 11/17/24 H istory subcutaneous syringe kit (Humira(CF)) [facility] Medical History (Updated 11/17/24 @ 10:07 by Aysha Hagan) Garcia esophagus RUQ pain CAP (community acquired pneumonia) due to Pneumococcus Influenza A H1N1 infection Hypoxia Lower extremity edema Obesity Hyperlipidemia GERD (gastroesophageal reflux disease) Depression Coronary artery disease Benign hypertension Surgical History (Updated 11/17/24 @ 09:52 by Annabel Blake) History of cholecystectomy History of coronary artery stent placement ( 2011) Family History Father Colon cancer Lung cancer Diabetes Heart disease Hypertension High cholesterolMother Cancer Lung cancer Diabetes Heart disease High cholesterol Hypertension Social History Smoking Status: Never smoker alcohol intake: never substance use type: does not use HPI HPI HPI: Patient is a 59-year-old male here with blood in the stool. He also has a history of Garcia's esophagus and has not had an EGD in several years. The patient reports his last colonoscopy was 6 to 7 years ago. He reports blood in the stool for the last 3 months. He reports that it is bright. He does have some pressure in the area but no pain. The patient's father from colon cancer in his 60s ROS General General: Yes weight change and fatigue; No appetite, colon cancer, breast cancer or weakness HEENT HEENT: No difficulty swallowing, eye injury, eye surgery, swollen glands or hoarseness Endo Endocrine: No thyroid disease, diabetes mellitus, thyroid cancer, Hair loss, heat intolerance or cold intolerance Skin Skin: No rash or changing moles Musc Musculoskeletal: Yes back problems, arthritis and rheumatoid arthritis; No gout or joint pain Cardio Cardiovascular: Yes heart stent; No murmur, pacemaker, heart disease, atrial fibrillation, high blood pressure, heart attack, palpitations, shortness of breat with exertion or chest pain Psych Psychiatric: Yes depression and anxiety; No hearing voices Resp Respiratory: No shortness of breath, No sleep apnea, No cough, No COPD, Yes asthma, No emphysema and No wheezing Gastro Gastrointestinal: No abdominal pain, No nausea or vomiting, No diarrhea, No co (more content not included)... [facility] 12-02-2024 History of Presen t illness Narrative [facility] Refill Assessment Medication(s): Humira Patient's current medication list and adherence status to current therapy were reviewed by Specialty Pharmacy clinical pharmacist to identify any new drug interactions or non-compliance to therapy. Therapy continues to be appropriate for disease, patient response, and medical condition. Verification of therapeutic benefit and effectiveness with current therapy was completed. Adverse events, barriers in adherence, and side effects were assessed and addressed if applicable. Will proceed with refill with no changes in therapy - patient progressing towards achieving therapeutic goals based on medication-specific laboratory parameters, disease state markers and outcomes. Office/provider notes have been reviewed prior to dispensing the medication. Receiver Setter Assessment Patient confirmed: Yes Med/dose confirmed: Yes Supplies needed: No supplies needed Missed doses: No Estimated days supply on hand: 0 Next cycle/dose due: 12/15/24 Copay amount: 0 Delivery method: FedEx Signature required: No Delivery address: [address] [place] [address] [address], [place] [address] Delivery date: 12/10/24 Questions or concerns for the pharmacist?: No Did you have any side effects believed to be related to this medication, that resulted in hospitalization?: No Current Outpatient Medications on File Prior to Visit Medication Sig adalimumab (HUMIRA,CF, PEN) 40 mg/0.4 mL pen kit Inject 40 mg (1 pen) subcutaneously every 2 weeks. naproxen (NAPROSYN) 500 mg tablet Take 1 tablet by mouth twice daily as needed. for pain. Take with food. Syringe with Needle, Disp, (BD ALLERGY SYRINGE) 1 Syringe one time a week. traZODone (DESYREL) 50 mg tablet Take 50 mg by mouth daily at bedtime. atorvastatin (LIPITOR) 40 mg tablet Take 40 mg by mouth daily at bedtime. Omeprazole 40 mg capsule TAKE 1 CAPSULE TWICE A DAY mometasone-formoterol (DULERA) 100-5 mcg/actuation inhaler Inhale 2 Puffs as instructed twice daily. lamoTRIgine (LAMICTAL) 150 mg tablet Take 150 mg by mouth once daily. escitalopram oxalate (LEXAPRO) 20 mg tablet Take 20 mg by mouth once daily. takes 30 mg total clopidogrel (PLAVIX) 75 mg tablet once daily. lisinopril 2.5 mg tablet once daily. montelukast (SINGULAIR) 10 mg tablet aspirin 81 mg chewable tablet Take 81 mg by mouth once daily. VENTOLIN 90MCG INHALER (2)two puff tid No current facility-administered medications on file prior to visit. [facility] RX SPECIALTY CLINICAL ASSESSMENT - INFLAMMATORY CONDITIONS V6: Assessment to use: Refill Date of influenza vaccination reminder: 06/18/2024 Date of most recent vaccination assessment: 06/18/2024 Treatment Plan Information: Inject 40 mg (1 pen) subcutaneously every 2 weeks. Est. Tx Plan Start Date: 06/22/2022 Estimated Start Date Info: No information available Est. Estimated Treatment Duration: Until lack of efficacy Roseanne Llamas documented in this encounter [facility] 12-02-2024 Note HNO ID: [id number] Author: ?, ?, ? Service: ? Author Type: ? Type: Progress Notes Filed: 12/02/2024 12:59 Note Text: [facility] Refill Assessment Medication(s): Antonio Patient's current medication list and adherence status to current therapy were reviewed by Specialty Pharmacy clinical pharmacist to identify any new drug interactions or non-compliance to therapy. Therapy continues to be appropriate for disease, patient response, and medical condition. Verification of therapeutic benefit and effectiveness with current therapy was completed. Adverse events, barriers in adherence, and side effects were assessed and addressed if applicable. Will proceed with refill with no changes in therapy - patient progressing towards achieving therapeutic goals based on medication-specific laboratory parameters, disease state markers and outcomes. Office/provider notes have been reviewed prior to dispensing the medication. Receiver Setter Assessment Patient confirmed: Yes Med/dose confirmed: Yes Supplies needed: No supplies needed Missed doses: No Estimated days supply on hand: 0 Next cycle/dose due: 12/15/24 Copay amount: 0 Delivery method: FedEx Signature required: No Delivery address: [address] [place] [address] [address], [place] [address] Delivery date: 12/10/24 Questions or concerns for the pharmacist?: No Did you have any side effects believed to be related to this medication, that resulted in hospitalization?: No Current Outpatient Medications on File Prior to Visit Medication Sig adalimumab (HUMIRA,CF, PEN) 40 mg/0.4 mL pen kit Inject 40 mg (1 pen) subcutaneously every 2 weeks. naproxen (NAPROSYN) 500 mg tablet Take 1 tablet by mouth twice daily as needed. for pain. Take with food. Syringe with Needle, Disp, (BD ALLERGY SYRINGE) 1 Syringe one time a week. traZODone (DESYREL) 50 mg tablet Take 50 mg by mouth daily at bedtime. atorvastatin (LIPITOR) 40 mg tablet Take 40 mg by mouth daily at bedtime. Omeprazole 40 mg capsule TAKE 1 CAPSULE TWICE A DAY mometasone-formoterol (DULERA) 100-5 mcg/actuation inhaler Inhale 2 Puffs as instructed twice daily. lamoTRIgine (LAMICTAL) 150 mg tablet Take 150 mg by mouth once daily. escitalopram oxalate (LEXAPRO) 20 mg tablet Take 20 mg by mouth once daily. takes 30 mg total clopidogrel (PLAVIX) 75 mg tablet once daily. lisinopril 2.5 mg tablet once daily. montelukast (SINGULAIR) 10 mg tablet aspirin 81 mg chewable tablet Take 81 mg by mouth once daily. VENTOLIN 90MCG INHALER (2)two puff tid No current facility-administered medications on file prior to visit. [facility] RX SPECIALTY CLINICAL ASSESSMENT - INFLAMMATORY CONDITIONS V6: Assessment to use: Refill Date of influenza vaccination reminder: 06/18/2024 Date of most recent vaccination assessment: 06/18/2024 Treatment Plan Information: Inject 40 mg (1 pen) subcutaneously every 2 weeks. Est. Tx Plan Start Date: 06/22/2022 Estimated Start Date Info: No information available Est. Estimated Treatment Duration: Until lack of efficacy Roseanne Llamas [facility] 11-04-2024 History of Presen t illness Narrative [facility] Refill Assessment Medication(s): Humira Patient's current medication list and adherence status to current therapy were reviewed by Specialty Pharmacy clinical pharmacist to identify any new drug interactions or non-compliance to therapy. Therapy continues to be appropriate for disease, patient response, and medical condition. Verification of therapeutic benefit and effectiveness with current therapy was completed. Adverse events, barriers in adherence, and side effects were assessed and addressed if applicable. Will proceed with refill with no changes in therapy - patient progressing towards achieving therapeutic goals based on medication-specific laboratory parameters, disease state markers and outcomes. Office/provider notes have been reviewed prior to dispensing the medication. Receiver Setter Assessment Patient confirmed: Yes Med/dose confirmed: Yes Supplies needed: No supplies needed Missed doses: No Count of missed doses: 0 (clicked in error) Estimated days supply on hand: 0 Next cycle/dose due: 11/18/24 Copay amount: 0 Delivery method: FedEx Signature required: No Delivery address: [address] [place] [address] Delivery date: 11/13/24 Questions or concerns for the pharmacist?: Yes Patient questions/concerns: Medication dose (Pt had question about holding dose due to flu. [facility] CB answered all questions) Did you have any side effects believed to be related to this medication, that resulted in hospitalization?: No Current Outpatient Medications on File Prior to Visit Medication Sig adalimumab (HUMIRA,CF, PEN) 40 mg/0.4 mL pen kit Inject 40 mg (1 pen) subcutaneously every 2 weeks. naproxen (NAPROSYN) 500 mg tablet Take 1 tablet by mouth twice daily as needed. for pain. Take with food. Syringe with Needle, Disp, (BD ALLERGY SYRINGE) 1 Syringe one time a week. traZODone (DESYREL) 50 mg tablet Take 50 mg by mouth daily at bedtime. atorvastatin (LIPITOR) 40 mg tablet Take 40 mg by mouth daily at bedtime. Omeprazole 40 mg capsule TAKE 1 CAPSULE TWICE A DAY mometasone-formoterol (DULERA) 100-5 mcg/actuation inhaler Inhale 2 Puffs as instructed twice daily. lamoTRIgine (LAMICTAL) 150 mg tablet Take 150 mg by mouth once daily. escitalopram oxalate (LEXAPRO) 20 mg tablet Take 20 mg by mouth once daily. takes 30 mg total clopidogrel (PLAVIX) 75 mg tablet once daily. lisinopril 2.5 mg tablet once daily. montelukast (SINGULAIR) 10 mg tablet aspirin 81 mg chewable tablet Take 81 mg by mouth once daily. VENTOLIN 90MCG INHALER (2)two puff tid No current facility-administered medications on file prior to visit. [facility] RX SPECIALTY CLINICAL ASSESSMENT - INFLAMMATORY CONDITIONS V6: Assessment to use: Refill Date of influenza vaccination reminder: 06/18/2024 Date of most recent vaccination assessment: 06/18/2024 Treatment Plan Information: Inject 40 mg (1 pen) subcutaneously every 2 weeks. Est. Tx Plan Start Date: 06/22/2022 Estimated Start Date Info: No information available Est. Estimated Treatment Duration: Until lack of efficacy Hoa Marquez documented in this encounter [facility] 11-04-2024 Note HNO ID: [id number] Author: ?, ?, ? Service: ? Author Type: ? Type: Progress Notes Filed: 11/04/2024 14:02 Note Text: [facility] Refill Assessment Medication(s): Humira Patient's current medication list and adherence status to current therapy were reviewed by Specialty Pharmacy clinical pharmacist to identify any new drug interactions or non-compliance to therapy. Therapy continues to be appropriate for disease, patient response, and medical condition. Verification of therapeutic benefit and effectiveness with current therapy was completed. Adverse events, barriers in adherence, and side effects were assessed and addressed if applicable. Will proceed with refill with no changes in therapy - patient progressing towards achieving therapeutic goals based on medication-specific laboratory parameters, disease state markers and outcomes. Office/provider notes have been reviewed prior to dispensing the medication. Receiver Setter Assessment Patient confirmed: Yes Med/dose confirmed: Yes Supplies needed: No supplies needed Missed doses: No Count of missed doses: 0 (clicked in error) Estimated days supply on hand: 0 Next cycle/dose due: 11/18/24 Copay amount: 0 Delivery method: FedEx Signature required: No Delivery address: [address] [place] [address] [address] [facility] [address] Delivery date: 11/13/24 Questions or concerns for the pharmacist?: Yes Patient questions/concerns: Medication dose (Pt had question about holding dose due to flu. [facility] CB answered all questions) Did you have any side effects believed to be related to this medication, that resulted in hospitalization?: No Current Outpatient Medications on File Prior to Visit Medication Sig adalimumab (HUMIRA,CF, PEN) 40 mg/0.4 mL pen kit Inject 40 mg (1 pen) subcutaneously every 2 weeks. naproxen (NAPROSYN) 500 mg tablet Take 1 tablet by mouth twice daily as needed. for pain. Take with food. Syringe with Needle, Disp, (BD ALLERGY SYRINGE) 1 Syringe one time a week. traZODone (DESYREL) 50 mg tablet Take 50 mg by mouth daily at bedtime. atorvastatin (LIPITOR) 40 mg tablet Take 40 mg by mouth daily at bedtime. Omeprazole 40 mg capsule TAKE 1 CAPSULE TWICE A DAY mometasone-formoterol (DULERA) 100-5 mcg/actuation inhaler Inhale 2 Puffs as instructed twice daily. lamoTRIgine (LAMICTAL) 150 mg tablet Take 150 mg by mouth once daily. escitalopram oxalate (LEXAPRO) 20 mg tablet Take 20 mg by mouth once daily. takes 30 mg total clopidogrel (PLAVIX) 75 mg tablet once daily. lisinopril 2.5 mg tablet once daily. montelukast (SINGULAIR) 10 mg tablet aspirin 81 mg chewable tablet Take 81 mg by mouth once daily. VENTOLIN 90MCG INHALER (2)two puff tid No current facility-administered medications on file prior to visit. [facility] RX SPECIALTY CLINICAL ASSESSMENT - INFLAMMATORY CONDITIONS V6: Assessment to use: Refill Date of influenza vaccination reminder: 06/18/2024 Date of most recent vaccination assessment: 06/18/2024 Treatment Plan Information: Inject 40 mg (1 pen) subcutaneously every 2 weeks. Est. Tx Plan Start Date: 06/22/2022 Estimated Start Date Info: No information available Est. Estimated Treatment Duration: Until lack of efficacy Hoa Marquez [facility] 10-06-2024 History of Presen t illness Narrative [facility] Refill Assessment Medication(s): Humira Patient's current medication list and adherence status to current therapy were reviewed by Specialty Pharmacy clinical pharmacist to identify any new drug interactions or non-compliance to therapy. Therapy continues to be appropriate for disease, patient response, and medical condition. Verification of therapeutic benefit and effectiveness with current therapy was completed. Adverse events, barriers in adherence, and side effects were assessed and addressed if applicable. Will proceed with refill with no changes in therapy - patient progressing towards achieving therapeutic goals based on medication-specific laboratory parameters, disease state markers and outcomes. Office/provider notes have been reviewed prior to dispensing the medication. Receiver Setter Assessment Patient confirmed: Yes Med/dose confirmed: Yes Supplies needed: No supplies needed Missed doses: No Estimated days supply on hand: 0 Next cycle/dose due: 10/17/24 Copay amount: 0 Delivery method: FedEx Signature required: No Delivery address: [address] [place] [address] [address], [place] [address] Delivery date: 10/14/24 Questions or concerns for the pharmacist?: No Did you have any side effects believed to be related to this medication, that resulted in hospitalization?: No Current Outpatient Medications on File Prior to Visit Medication Sig adalimumab (HUMIRA,CF, PEN) 40 mg/0.4 mL pen kit Inject 40 mg (1 pen) subcutaneously every 2 weeks. naproxen (NAPROSYN) 500 mg tablet Take 1 tablet by mouth twice daily as needed. for pain. Take with food. Syringe with Needle, Disp, (BD ALLERGY SYRINGE) 1 Syringe one time a week. traZODone (DESYREL) 50 mg tablet Take 50 mg by mouth daily at bedtime. atorvastatin (LIPITOR) 40 mg tablet Take 40 mg by mouth daily at bedtime. Omeprazole 40 mg capsule TAKE 1 CAPSULE TWICE A DAY mometasone-formoterol (DULERA) 100-5 mcg/actuation inhaler Inhale 2 Puffs as instructed twice daily. lamoTRIgine (LAMICTAL) 150 mg tablet Take 150 mg by mouth once daily. escitalopram oxalate (LEXAPRO) 20 mg tablet Take 20 mg by mouth once daily. takes 30 mg total clopidogrel (PLAVIX) 75 mg tablet once daily. lisinopril 2.5 mg tablet once daily. montelukast (SINGULAIR) 10 mg tablet aspirin 81 mg chewable tablet Take 81 mg by mouth once daily. VENTOLIN 90MCG INHALER (2)two puff tid No current facility-administered medications on file prior to visit. [facility] RX SPECIALTY CLINICAL ASSESSMENT - INFLAMMATORY CONDITIONS V6: Assessment to use: Refill Date of influenza vaccination reminder: 06/18/2024 Date of most recent vaccination assessment: 06/18/2024 Treatment Plan Information: Inject 40 mg (1 pen) subcutaneously every 2 weeks. Est. Tx Plan Start Date: 06/22/2022 Estimated Start Date Info: No information available Est. Estimated Treatment Duration: Until lack of efficacy Roseanne Llamas documented in this encounter [facility] 10-06-2024 Note HNO ID: [id number] Author: ?, ?, ? Service: ? Author Type: ? Type: Progress Notes Filed: 10/06/2024 12:09 Note Text: [facility] Refill Assessment Medication(s): Humira Patient's current medication list and adherence status to current therapy were reviewed by Specialty Pharmacy clinical pharmacist to identify any new drug interactions or non-compliance to therapy. Therapy continues to be appropriate for disease, patient response, and medical condition. Verification of therapeutic benefit and effectiveness with current therapy was completed. Adverse events, barriers in adherence, and side effects were assessed and addressed if applicable. Will proceed with refill with no changes in therapy - patient progressing towards achieving therapeutic goals based on medication-specific laboratory parameters, disease state markers and outcomes. Office/provider notes have been reviewed prior to dispensing the medication. Receiver Setter Assessment Patient confirmed: Yes Med/dose confirmed: Yes Supplies needed: No supplies needed Missed doses: No Estimated days supply on hand: 0 Next cycle/dose due: 10/17/24 Copay amount: 0 Delivery method: FedEx Signature required: No Delivery address: [address] [place] [address], [place] [address] Delivery date: 10/14/24 Questions or concerns for the pharmacist?: No Did you have any side effects believed to be related to this medication, that resulted in hospitalization?: No Current Outpatient Medications on File Prior to Visit Medication Sig adalimumab (HUMIRA,CF, PEN) 40 mg/0.4 mL pen kit Inject 40 mg (1 pen) subcutaneously every 2 weeks. naproxen (NAPROSYN) 500 mg tablet Take 1 tablet by mouth twice daily as needed. for pain. Take with food. Syringe with Needle, Disp, (BD ALLERGY SYRINGE) 1 Syringe one time a week. traZODone (DESYREL) 50 mg tablet Take 50 mg by mouth daily at bedtime. atorvastatin (LIPITOR) 40 mg tablet Take 40 mg by mouth daily at bedtime. Omeprazole 40 mg capsule TAKE 1 CAPSULE TWICE A DAY mometasone-formoterol (DULERA) 100-5 mcg/actuation inhaler Inhale 2 Puffs as instructed twice daily. lamoTRIgine (LAMICTAL) 150 mg tablet Take 150 mg by mouth once daily. escitalopram oxalate (LEXAPRO) 20 mg tablet Take 20 mg by mouth once daily. takes 30 mg total clopidogrel (PLAVIX) 75 mg tablet once daily. lisinopril 2.5 mg tablet once daily. montelukast (SINGULAIR) 10 mg tablet aspirin 81 mg chewable tablet Take 81 mg by mouth once daily. VENTOLIN 90MCG INHALER (2)two puff tid No current facility-administered medications on file prior to visit. [facility] RX SPECIALTY CLINICAL ASSESSMENT - INFLAMMATORY CONDITIONS V6: Assessment to use: Refill Date of influenza vaccination reminder: 06/18/2024 Date of most recent vaccination assessment: 06/18/2024 Treatment Plan Information: Inject 40 mg (1 pen) subcutaneously every 2 weeks. Est. Tx Plan Start Date: 06/22/2022 Estimated Start Date Info: No information available Est. Estimated Treatment Duration: Until lack of efficacy Roseanne Strangelalo [facility] 10-06-2024 Note HNO ID: [id number] Author: ?, ?, ? Service: ? Author Type: ? Type: Progress Notes Filed: 10/06/2024 12:08 Note Text: [facility] Refill Assessment Medication(s): Humira Patient's current medication list and adherence status to current therapy were reviewed by Specialty Pharmacy clinical pharmacist to identify any new drug interactions or non-compliance to therapy. Therapy continues to be appropriate for disease, patient response, and medical condition. Verification of therapeutic benefit and effectiveness with current therapy was completed. Adverse events, barriers in adherence, and side effects were assessed and addressed if applicable. Will proceed with refill with no changes in therapy - patient progressing towards achieving therapeutic goals based on medication-specific laboratory parameters, disease state markers and outcomes. Office/provider notes have been reviewed prior to dispensing the medication. Receiver Setter Assessment Patient confirmed: Yes Med/dose confirmed: Yes Supplies needed: No supplies needed Missed doses: No Estimated days supply on hand: 0 Next cycle/dose due: 10/17/23 Copay amount: 0 Delivery method: FedEx Signature required: No Delivery address: [address] [place] [address] [address], [place] [address] Delivery date: 10/14/24 Questions or concerns for the pharmacist?: No Did you have any side effects believed to be related to this medication, that resulted in hospitalization?: No Current Outpatient Medications on File Prior to Visit Medication Sig adalimumab (HUMIRA,CF, PEN) 40 mg/0.4 mL pen kit Inject 40 mg (1 pen) subcutaneously every 2 weeks. naproxen (NAPROSYN) 500 mg tablet Take 1 tablet by mouth twice daily as needed. for pain. Take with food. Syringe with Needle, Disp, (BD ALLERGY SYRINGE) 1 Syringe one time a week. traZODone (DESYREL) 50 mg tablet Take 50 mg by mouth daily at bedtime. atorvastatin (LIPITOR) 40 mg tablet Take 40 mg by mouth daily at bedtime. Omeprazole 40 mg capsule TAKE 1 CAPSULE TWICE A DAY mometasone-formoterol (DULERA) 100-5 mcg/actuation inhaler Inhale 2 Puffs as instructed twice daily. lamoTRIgine (LAMICTAL) 150 mg tablet Take 150 mg by mouth once daily. escitalopram oxalate (LEXAPRO) 20 mg tablet Take 20 mg by mouth once daily. takes 30 mg total clopidogrel (PLAVIX) 75 mg tablet once daily. lisinopril 2.5 mg tablet once daily. montelukast (SINGULAIR) 10 mg tablet aspirin 81 mg chewable tablet Take 81 mg by mouth once daily. VENTOLIN 90MCG INHALER (2)two puff tid No current facility-administered medications on file prior to visit. [facility] RX SPECIALTY CLINICAL ASSESSMENT - INFLAMMATORY CONDITIONS V6: Assessment to use: Refill Date of influenza vaccination reminder: 06/18/2024 Date of most recent vaccination assessment: 06/18/2024 Treatment Plan Information: Inject 40 mg (1 pen) subcutaneously every 2 weeks. Est. Tx Plan Start Date: 06/22/2022 Estimated Start Date Info: No information available Est. Estimated Treatment Duration: Until lack of efficacy Roseanne Llamas [facility] 09-09-2024 History of Presen t illness Narrative [facility] Refill Assessment Medication(s): Humira Patient's current medication list and adherence status to current therapy were reviewed by Specialty Pharmacy clinical pharmacist to identify any new drug interactions or non-compliance to therapy. Therapy continues to be appropriate for disease, patient response, and medical condition. Verification of therapeutic benefit and effectiveness with current therapy was completed. Adverse events, barriers in adherence, and side effects were assessed and addressed if applicable. Will proceed with refill with no changes in therapy - patient progressing towards achieving therapeutic goals based on medication-specific laboratory parameters, disease state markers and outcomes. Office/provider notes have been reviewed prior to dispensing the medication. Receiver Setter Assessment Patient confirmed: Yes Med/dose confirmed: Yes Supplies needed: No supplies needed Missed doses: No Estimated days supply on hand: 0 Next cycle/dose due: 09/19/24 Copay amount: 0 Delivery method: FedEx Signature required: No Delivery address: [address] [place] [address] [address], [place] [address] Delivery date: 09/17/24 Questions or concerns for the pharmacist?: No Did you have any side effects believed to be related to this medication, that resulted in hospitalization?: No Current Outpatient Medications on File Prior to Visit Medication Sig adalimumab (HUMIRA,CF, PEN) 40 mg/0.4 mL pen kit Inject 40 mg (1 pen) subcutaneously every 2 weeks. naproxen (NAPROSYN) 500 mg tablet Take 1 tablet by mouth twice daily as needed. for pain. Take with food. Syringe with Needle, Disp, (BD ALLERGY SYRINGE) 1 Syringe one time a week. traZODone (DESYREL) 50 mg tablet Take 50 mg by mouth daily at bedtime. atorvastatin (LIPITOR) 40 mg tablet Take 40 mg by mouth daily at bedtime. Omeprazole 40 mg capsule TAKE 1 CAPSULE TWICE A DAY mometasone-formoterol (DULERA) 100-5 mcg/actuation inhaler Inhale 2 Puffs as instructed twice daily. lamoTRIgine (LAMICTAL) 150 mg tablet Take 150 mg by mouth once daily. escitalopram oxalate (LEXAPRO) 20 mg tablet Take 20 mg by mouth once daily. takes 30 mg total clopidogrel (PLAVIX) 75 mg tablet once daily. lisinopril 2.5 mg tablet once daily. montelukast (SINGULAIR) 10 mg tablet aspirin 81 mg chewable tablet Take 81 mg by mouth once daily. VENTOLIN 90MCG INHALER (2)two puff tid No current facility-administered medications on file prior to visit. [facility] RX SPECIALTY CLINICAL ASSESSMENT - INFLAMMATORY CONDITIONS V6: Assessment to use: Refill Date of influenza vaccination reminder: 06/18/2024 Date of most recent vaccination assessment: 06/18/2024 Treatment Plan Information: Inject 40 mg (1 pen) subcutaneously every 2 weeks. Est. Tx Plan Start Date: 06/22/2022 Estimated Start Date Info: No information available Est. Estimated Treatment Duration: Until lack of efficacy Roseanne Llamas documented in this encounter [facility] 09-09-2024 Note HNO ID: [id number] Author: JOHNSON BUCK RPh Service: ? Author Type: ? Type: Progress Notes Filed: 09/12/2024 10:22 Note Text: [facility] Refill Assessment Medication(s): Humira Patient's current medication list and adherence status to current therapy were reviewed by Specialty Pharmacy clinical pharmacist to identify any new drug interactions or non-compliance to therapy. Therapy continues to be appropriate for disease, patient response, and medical condition. Verification of therapeutic benefit and effectiveness with current therapy was completed. Adverse events, barriers in adherence, and side effects were assessed and addressed if applicable. Will proceed with refill with no changes in therapy - patient progressing towards achieving therapeutic goals based on medication-specific laboratory parameters, disease state markers and outcomes. Office/provider notes have been reviewed prior to dispensing the medication. Johnson Buck, PharmD Clinical Pharmacist [facility] Specialty Pharmacy Pool: [facility] Pool #: [id number] Receiver Setter Assessment Patient confirmed: Yes Med/dose confirmed: Yes Supplies needed: No supplies needed Missed doses: No Estimated days supply on hand: 0 Next cycle/dose due: 09/19/24 Copay amount: 0 Delivery method: FedEx Signature required: No Delivery address: [address] [place] [address] [address], [place] [address] Delivery date: 09/17/24 Questions or concerns for the pharmacist?: No Did you have any side effects believed to be related to this medication, that resulted in hospitalization?: No Current Outpatient Medications on File Prior to Visit Medication Sig adalimumab (HUMIRA,CF, PEN) 40 mg/0.4 mL pen kit Inject 40 mg (1 pen) subcutaneously every 2 weeks. naproxen (NAPROSYN) 500 mg tablet Take 1 tablet by mouth twice daily as needed. for pain. Take with food. Syringe with Needle, Disp, (BD ALLERGY SYRINGE) 1 Syringe one time a week. traZODone (DESYREL) 50 mg tablet Take 50 mg by mouth daily at bedtime. atorvastatin (LIPITOR) 40 mg tablet Take 40 mg by mouth daily at bedtime. Omeprazole 40 mg capsule TAKE 1 CAPSULE TWICE A DAY mometasone-formoterol (DULERA) 100-5 mcg/actuation inhaler Inhale 2 Puffs as instructed twice daily. lamoTRIgine (LAMICTAL) 150 mg tablet Take 150 mg by mouth once daily. escitalopram oxalate (LEXAPRO) 20 mg tablet Take 20 mg by mouth once daily. takes 30 mg total clopidogrel (PLAVIX) 75 mg tablet once daily. lisinopril 2.5 mg tablet once daily. montelukast (SINGULAIR) 10 mg tablet aspirin 81 mg chewable tablet Take 81 mg by mouth once daily. VENTOLIN 90MCG INHALER (2)two puff tid No current facility-administered medications on file prior to visit. [facility] RX SPECIALTY CLINICAL ASSESSMENT - INFLAMMATORY CONDITIONS V6: Ivent complete: No Assessment to use: Refill Assessment of injection issues: Yes Infection screening, including annual TB assessment when applicable to medication: Yes Current medication list (including drug interaction assessment): Yes Experience of adverse reactions to the medication: Yes Date of influenza vaccination reminder: 06/18/2024 Date of most recent vaccination assessment: 06/18/2024 Treatment Plan Information: Inject 40 mg (1 pen) subcutaneously every 2 weeks. Est. Tx Plan Start Date: 06/22/2022 Estimated Start Date Info: No information available Est. Estimated Treatment Duration: Until lack of efficacy Roseanne Llamas [facility] 08-12-2024 History of Presen t illness Narrative [facility] Refill Assessment Medication(s): Humira Patient's current medication list and adherence status to current therapy were reviewed by Specialty Pharmacy clinical pharmacist to identify any new drug interactions or non-compliance to therapy. Therapy continues to be appropriate for disease, patient response, and medical condition. Verification of therapeutic benefit and effectiveness with current therapy was completed. Adverse events, barriers in adherence, and side effects were assessed and addressed if applicable. Will proceed with refill with no changes in therapy - patient progressing towards achieving therapeutic goals based on medication-specific laboratory parameters, disease state markers and outcomes. Office/provider notes have been reviewed prior to dispensing the medication. Receiver Setter Assessment Patient confirmed: Yes Med/dose confirmed: Yes Supplies needed: No supplies needed Missed doses: No Estimated days supply on hand: 0 Next cycle/dose due: 08/22/24 Copay amount: 0 Delivery method: FedEx Signature required: No Delivery address: [address] [place] [address] [address], [place] [address] Delivery date: 08/19/24 Questions or concerns for the pharmacist?: No Did you have any side effects believed to be related to this medication, that resulted in hospitalization?: No Current Outpatient Medications on File Prior to Visit Medication Sig adalimumab (HUMIRA,CF, PEN) 40 mg/0.4 mL pen kit Inject 40 mg (1 pen) subcutaneously every 2 weeks. naproxen (NAPROSYN) 500 mg tablet Take 1 tablet by mouth twice daily as needed. for pain. Take with food. Syringe with Needle, Disp, (BD ALLERGY SYRINGE) 1 Syringe one time a week. traZODone (DESYREL) 50 mg tablet Take 50 mg by mouth daily at bedtime. atorvastatin (LIPITOR) 40 mg tablet Take 40 mg by mouth daily at bedtime. Omeprazole 40 mg capsule TAKE 1 CAPSULE TWICE A DAY mometasone-formoterol (DULERA) 100-5 mcg/actuation inhaler Inhale 2 Puffs as instructed twice daily. lamoTRIgine (LAMICTAL) 150 mg tablet Take 150 mg by mouth once daily. escitalopram oxalate (LEXAPRO) 20 mg tablet Take 20 mg by mouth once daily. takes 30 mg total clopidogrel (PLAVIX) 75 mg tablet once daily. lisinopril 2.5 mg tablet once daily. montelukast (SINGULAIR) 10 mg tablet aspirin 81 mg chewable tablet Take 81 mg by mouth once daily. VENTOLIN 90MCG INHALER (2)two puff tid No current facility-administered medications on file prior to visit. [facility] RX SPECIALTY CLINICAL ASSESSMENT - INFLAMMATORY CONDITIONS V6: Assessment to use: Refill Date of influenza vaccination reminder: 06/18/2024 Date of most recent vaccination assessment: 06/18/2024 Treatment Plan Information: Inject 40 mg (1 pen) subcutaneously every 2 weeks. Est. Tx Plan Start Date: 06/22/2022 Estimated Start Date Info: No information available Est. Estimated Treatment Duration: Until lack of efficacy Roseanne Llamas ([employer]) documented in this encounter [facility] 08-12-2024 Note HNO ID: [id number] Author: JOHNSON BUCK [facility] Service: ? Author Type: ? Type: Progress Notes Filed: 08/13/2024 18:08 Note Text: [facility] Refill Assessment Medication(s): Humira Patient's current medication list and adherence status to current therapy were reviewed by Specialty Pharmacy clinical pharmacist to identify any new drug interactions or non-compliance to therapy. Therapy continues to be appropriate for disease, patient response, and medical condition. Verification of therapeutic benefit and effectiveness with current therapy was completed. Adverse events, barriers in adherence, and side effects were assessed and addressed if applicable. Will proceed with refill with no changes in therapy - patient progressing towards achieving therapeutic goals based on medication-specific laboratory parameters, disease state markers and outcomes. Office/provider notes have been reviewed prior to dispensing the medication. Johnson Buck, PharmD Clinical Pharmacist [facility] Specialty Pharmacy Pool: P [facility] Pool #: [id number] Receiver Setter Assessment Patient confirmed: Yes Med/dose confirmed: Yes Supplies needed: No supplies needed Missed doses: No Estimated days supply on hand: 0 Next cycle/dose due: 08/22/24 Copay amount: 0 Delivery method: FedEx Signature required: No Delivery address: [address] [place] [id number] Delivery date: 08/19/24 Questions or concerns for the pharmacist?: No Did you have any side effects believed to be related to this medication, that resulted in hospitalization?: No Current Outpatient Medications on File Prior to Visit Medication Sig adalimumab (HUMIRA,CF, PEN) 40 mg/0.4 mL pen kit Inject 40 mg (1 pen) subcutaneously every 2 weeks. naproxen (NAPROSYN) 500 mg tablet Take 1 tablet by mouth twice daily as needed. for pain. Take with food. Syringe with Needle, Disp, (BD ALLERGY SYRINGE) 1 Syringe one time a week. traZODone (DESYREL) 50 mg tablet Take 50 mg by mouth daily at bedtime. atorvastatin (LIPITOR) 40 mg tablet Take 40 mg by mouth daily at bedtime. Omeprazole 40 mg capsule TAKE 1 CAPSULE TWICE A DAY mometasone-formoterol (DULERA) 100-5 mcg/actuation inhaler Inhale 2 Puffs as instructed twice daily. lamoTRIgine (LAMICTAL) 150 mg tablet Take 150 mg by mouth once daily. escitalopram oxalate (LEXAPRO) 20 mg tablet Take 20 mg by mouth once daily. takes 30 mg total clopidogrel (PLAVIX) 75 mg tablet once daily. lisinopril 2.5 mg tablet once daily. montelukast (SINGULAIR) 10 mg tablet aspirin 81 mg chewable tablet Take 81 mg by mouth once daily. VENTOLIN 90MCG INHALER (2)two puff tid No current facility-administered medications on file prior to visit. [facility] RX SPECIALTY CLINICAL ASSESSMENT - INFLAMMATORY CONDITIONS V6: Ivent complete: No Assessment to use: Refill Assessment of injection issues: Yes Infection screening, including annual TB assessment when applicable to medication: Yes Current medication list (including drug interaction assessment): Yes Experience of adverse reactions to the medication: Yes Date of influenza vaccination reminder: 06/18/2024 Date of most recent vaccination assessment: 06/18/2024 Treatment Plan Information: Inject 40 mg (1 pen) subcutaneously every 2 weeks. Est. Tx Plan Start Date: 06/22/2022 Estimated Start Date Info: No information available Est. Estimated Treatment Duration: Until lack of efficacy Roseanne Llamas (Vamp Cut Out Worker) [facility] 08-11-2024 History of Presen t illness Narrative Images from the original note were not included. Rheumatology Outpatient Clinic Follow Up Date of Service: 08/11/2024 Patient: Ashlie Villasenor Medical Record: [id number] Primary Care Physician: Mile Contreras MD Last Rheumatology visit: 01/01/2024 (with Raina Marcus) SUBJECTIVE History of Present Illness Patient is a 56 year-old male presenting to discuss the improvement of musculoskeletal symptoms. Patient is the primary historian. Patient has a significant past medical history of seronegative Rheumatoid Arthritis (RA), major depressive disorder, chronic bilateral low back pain without sciatica, and Garcia's esophagus without dysplasia Relevant Serology Results: 08/20/2021: Rheumatoid factor: <10 08/20/2021: CCP antibody, IgG: <15 Current Rheumatologic Medications: Adalimumab 40-mg/0.4-mL: inject contents of pen subcutaneously every 2 weeks Past Rheumatologic Medications: Medication Length of Use Reason for Discontinuation methotrexate 12/2020-08/2022 side effects & lacked efficacy Mr. Ashlie Villasenor is a pleasant 56 year-old male with long-standing history of polyarthropathy Patient reports first experiencing polyarticular joint pain in March 2020 Patient denies experiencing an eliciting, traumatic, or infectious etiology to account for symptom onset Consulted a local [employer] Team Technician, Dr. Jessa Yates, whom diagnosed patient with inflammatory polyarthropathy and prescribed oral Methotrexate for management States that symptoms were not improved with DMARD monotherapy Patient consulted [facility] [employer] Team Technician, Dr. Brody Conrad, in April 2021 for a second opinion Patient endorsed symmetric polyarticular joint pain, prolonged morning joint stiffness Prescribed oral liquid Methotrexate in place of tablets to assess for improvement of symptoms with a more bioavailable modality Despite noting improvement in inflammatory symptoms, patient endorsed significant gastrointestinal upset resulting in use of subcutaneous Methotrexate in July 2021 Subcutaneous mechanism was successful in improving both musculoskeletal and gastrointestinal symptoms, however, subsequent flu-like symptoms were noted In April 2022, patient endorsed progression of inflammatory symptom flare activity and synovitis Dr. Conrad prescribed Adalimumab as adjuvant therapy to assess for improvement 12/19/2021 follow-up Patient reports 90% symptom improvement on adalimumab Interval History Ashlie Villasenor is a 58 year old White male who presents on 08/11/2024 for an in-person visit for rheumatoid arthritis Patient is doing well. Taking Humira every other week. No side effects. No issues with reoccurring illness. Still has some morning stiffness but not like he use to and mostly just his back Doesn't feel the need to take any OTC pain relief No joint swelling Already got flu shot this year. Hasn't done Shingles shot yet Current Outpatient Medications on File Prior to Visit Medication Sig adalimumab (HUMIRA,CF, PEN) 40 mg/0.4 mL pen kit Inject 40 mg (1 pen) subcutaneously every 2 weeks. naproxen (NAPROSYN) 500 mg tablet Take 1 tablet by mouth twice daily as needed. for pain. Take with food. Syringe with Needle, Disp, (BD ALLERGY SYRINGE) 1 Syringe one time a week. traZODone (DESYREL) 50 mg tablet Take 50 mg by mouth daily at bedtime. atorvastatin (LIPITOR) 40 mg tablet Take 40 mg by mouth daily at bedtime. Omeprazole 40 mg capsule TAKE 1 CAPSULE TWICE A DAY mometasone-formoterol (DULERA) 100-5 mcg/actuation inhaler Inhale 2 Puffs as instructed twice daily. lamoTRIgine (LAMICTAL) 150 mg tablet Take 150 mg by mouth once daily. escitalopram oxalate (LEXAPRO) 20 mg tablet Take 20 mg by mouth once daily. takes 30 mg total clopidogrel (PLAVIX) 75 mg tablet once daily. lisinopril 2.5 mg tablet once daily. montelukast (SINGULAIR) 10 mg tablet aspirin 81 mg chewable tablet Take 81 mg by mouth once daily. VENTOLIN 90MCG INHALER (2)two puff tid Review of Systems CONSTITUTION: Negative for: Fever and Recent weight change HEENT: Negative for: Nosebleeds, Mouth sores, Trouble swallowing and Dry mouth RESPIRATORY: Negative for: Cough, Shortness of breath and Pain with breathing GASTROINTESTINAL: Negative for: Melena, Diarrhea, Heartburn and Abdominal pain MUSCULOSKELETAL: Positive for: Arthralgias, Myalgias, Joint swelling and Morning Joint Stiffness Negative for: Muscle weakness NEUROLOGICAL: Negative for: Headaches, Numbness and Memory loss SKIN: Negative for: Rash, Skin changes, Hair loss and Nail changes EYES: Negative for: Eye pain, Eye redness, Eye dryness and visual disturbance CARDIOVASCULAR: Negative for: Chest pain and Leg swelling GENITOURINARY: Negative for: Dysuria and Hematuria HEMATOLOGIC/LYMPHATIC: Negative for: Swollen glands All other reviewed and negative other than HPI. PAST MEDICAL HISTORY Diagnosis Date ADHD (attention deficit hyperactivity disorder) Anxiety Asthma CAD (coronary artery disease) HTN (hypertension) Rheumatoid arthritis (HCC) Snoring Spasmodic torticollis PAST SURGICAL HISTORY Procedure Laterality Date ARTHROSCOPY KNEE DIAGNOSTIC W/WO SYNOVIAL BX SPX Bilateral COLONOSCOPY FLX DX W/COLLJ SPEC WHEN PFRMD 07/09/15 normal - 10 year follow up EGD TRANSORAL BIOPSY SINGLE/MULTIPLE 07/09/15 gastritis, esophagitis - Garcia's EGD TRANSORAL BIOPSY SINGLE/MULTIPLE 10/06/15 esophagitis - Garcia's ESOPHAGOGASTRODUODENOSCOPY TRANSORAL DIAGNOSTIC 11/30/2017 EGD HEMORRHOID SURGERY HX 1992 PTCA CONSULT 2011 10 diag - promus - everolimus eluting stent FAMILY HISTORY Problem Relation Age of Onset Colon Cancer Father 65 other (lung) Father other (lung) Mother Prostate Cancer Paternal Grandfather Social History Tobacco Use Smoking status: Never Smokeless tobacco: Former Quit date: 06/24/2010 Substance Use Topics Alcohol use: No Drug use: No PAIN EVALUATION No data found in the last 1 encounters. PROMIS Assessments 12/24/2023 07/11/2024 08/04/2024 PROMIS Assessments Physical Health Percentile 22 Mental Health Percentile 26 34 34 34 Pain Score 3 4 4 4 Pain Interference Percentile 12 27 Fatigue Percentile 24 38 Physical Function Percentile 21 27 Multiple values from one day are sorted in reverse-chronological order RAPID 3 [place] Activities of Daily Living 08/04/2024 3:18 PM 07/11/2024 9:34 AM 12/24/2023 9:29 AM First answer obtained - 04/27/2021 3:43 PM Dress self? Without ANY difficulty Without ANY difficulty Without ANY difficulty Without ANY difficulty Get in and out of bed? With SOME difficulty With SOME difficulty With SOME difficulty With SOME difficulty Walk outdoors? Without ANY difficulty Without ANY difficulty Without ANY difficulty Without ANY difficulty Wash and dry body? Without ANY difficulty Without ANY difficulty Without ANY difficulty Get in and out of car? Without ANY difficulty Without ANY difficulty With SOME difficulty RAPID 3 Disease Activity Weighed Score Levels: 0 - 1: Near Remission 1.3 - 2.0: Low Severity 2.3 - 4.0: Moderate Severity 4.3 - 10.0: High Severity 12/24/2023 07/11/2024 08/04/2024 RAPID-3 Weighed Score RAPID 3 Weighed Score Incomplete Incomplete Incomplete OBJECTIVE BP 142/76 Pulse 63 Temp (Src) 96.9 (Temporal) Ht 5' 7 (1.70m) Wt 265 lb (120.2kg) BMI 41.50 kg/(m^2). Physical Exam Vitals reviewed. Constitutional: General: He is not in acute distress. Appearance: Normal appearance. He is well-developed and well-groomed. He is not ill-appearing, toxic-appearing or diaphoretic. HENT: Head: Normocephalic and atraumatic. Eyes: Extraocular Movements: Extraocular movements intact. Conjunctiva/sclera: Conjunctivae normal. Cardiovascular: Rate and Rhythm: Normal rate and regular rhythm. Heart sounds: Normal heart sounds. No murmur heard. No friction rub. No gallop. Pulmonary: Effort: Pulmonary effort is normal. No respiratory distress. Breath sounds: No stridor. Wheezing (RLL) present. No rhonchi or rales. Musculoskeletal: Right elbow: No swelling. Normal range of motion. No tenderness. Left elbow: No swelling. Normal range of motion. No tenderness. Right wrist: No swelling, deformity or tenderness. Normal range of motion. Left wrist: No swelling, deformity or tenderness. Normal range of motion. Right hand: No swelling, deformity or tenderness. Normal range of motion. Normal strength. Left hand: No swelling, deformity or tenderness. Normal range of motion. Normal strength. Right knee: No swelling, deformity or crepitus. Normal range of motion. Left knee: No swelling, deformity or crepitus. Normal range of motion. Right lower leg: No swelling. No edema. Left lower leg: No swelling. No edema. Right ankle: No swelling. Normal range of motion. Left ankle: No swelling. Normal range of motion. Comments: Right ankle larger than left No joint deformities No swelling or bogginess Skin: General: Skin is warm and dry. Findings: No erythema or rash. Neurological: General: No focal deficit present. Mental Status: He is alert and oriented to person, place, and time. Cranial Nerves: Cranial nerves 2-12 are intact. Psychiatric: Mood and Affect: Mood normal. Behavior: Behavior normal. Behavior is cooperative. 08/11/2024 09/06/2022 08/12/2021 12/20/2020 11/15/2017 Weight Weight 265 lb 272 lb 4.8 oz 266 lb 247 lb 12.8 oz 289 lb 08/11/2024 09/06/2022 08/12/2021 12/20/2020 11/30/2017 Blood Pressure Systolic 142 155 130 130 142 Diastolic 76 85 65 88 85 LABS Latest Ref Rng & Units 03/24/2023 09/11/2023 02/09/2024 CBC WBC 3.70 - 11.00 k/uL 7.99 9.76 7.05 Hemoglobin 13.0 - 17.0 g/dL 14.3 14.5 15.0 Hematocrit 39.0 - 51.0 % 45.5 46.1 46.9 Platelet Count 150 - 400 k/uL 208 221 211 Abs Neut (ANC) 1.45 - 7.50 k/uL 5.79 3.42 Abs Lymph 1.00 - 4.00 k/uL 3.03 2.84 Latest Ref Rng & Units 03/24/2023 09/11/2023 02/09/2024 CMP Sodium 136 - 144 mmol/L 141 144 Potassium 3.7 - 5.1 mmol/L 4.8 4.2 Chloride 97 - 105 mmol/L 106 104 CO2 22 - 30 mmol/L 25 22 Glucose 74 - 99 mg/dL 115 106 BUN 9 - 24 mg/dL 17 23 Creatinine 0.73 - 1.22 mg/dL 0.95 1.13 0.96 Calcium 8.5 - 10.2 mg/dL 9.2 9.1 AST 14 - 40 U/L 26 24 32 ALT 10 - 54 U/L 28 32 34 Alkaline Phosphatase 38 - 113 U/L 96 95 97 Latest Ref Rng & Units 09/06/2022 09/11/2023 02/09/2024 ESR, WSR WSR 0 - 15 mm/hr 15 9 20 Latest Ref Rng & Units 09/06/2022 09/11/2023 02/09/2024 CRP CRP <0.9 mg/dL 0.4 0.3 0.4 Latest Ref Rng & Units 05/06/2004 05/06/2004 05/07/2004 CK CK 30 - 220 U/L 128 131 125 Latest Ref Rng & Units 04/30/2021 08/20/2021 RF and CCP Rheumatoid Factor <16 IU/mL <10 <10 CCP Antibody, IgG <20 Units <15 <15 Latest Ref Rng & Units 04/30/2021 08/20/2021 05/27/2022 Hepatitis Screen Hep B Core Ab, Total Negative Negative Negative Negative Hep B Surf Ab Qual Negative Negative Negative Negative Hep C Antibody IA Negative Negative Negative Negative Hep B Surface Ag Negative Negative HBsAg Negative Negative Negative 08/20/2021 05/27/2022 TB Screen TB Interpretation No evidence of current or previous infection with Mycobacterium tuberculosis. Infection with M. tuberculosis complex is unlikely. If latent tuberculosis infection is highly suspected, a negative result does not rule out the infection. Specimens from immunocompromised patients and those <5 years of age may show false negative results. In case of a contact investigation, please repeat 8-12 weeks after a known exposure. TB Result Negative Negative Latest Ref Rng & Units 11/05/2021 02/04/2022 05/27/2022 Urinalysis Protein, Urine Negative Negative Negative Negative RBC, Urine 0-3 /HPF 0-3 0-3 /HPF 0-3 /HPF IMAGING XR Chest 09/06/2022 IMPRESSION: No acute radiographic findings in the chest. ASSESSMENT & PLAN Ashlie Villasenor is a 58 year old White male who presents on 08/11/2024 for an in-person visit for rheumatoid arthritis. RA currently very well controlled on adalimumab monotherapy, dosed every other week. Was previously of methotrexate but discontinued on August 2022 because of intolerable side effects and he is glad to not be on methotrexate anymore. He denies any issues or side effects from the adalimumab. PLAN: 1. Seronegative rheumatoid arthritis (HCC) - ICD9: 714.0, ICD10: M06.00 (primary diagnosis) 2. High risk medication use - ICD9: V58.69, ICD10: Z79.899 - Continue Humira every other week - Labs - CREATININE BLD - HEPATIC FUNCTION PNL - SEDIMENTATION RATE, WESTERGREN - C-REACTIVE PROTEIN - COMPLETE BLOOD COUNT AND DIFFERENTIAL - Recommend Shingrix vaccine series. Discussed timing with Antonio - He will check with PCPs office about if he's had any past pneumonia vaccines Follow-up in 9 months Raina Marcus PA-C Rheumatology Date: August 11, 2024 I spent a total of 20 minutes on the date of the service which included preparing to see the patient, [id number] patient care, completing clinical documentation, obtaining and/or reviewing separately obtained history, performing a medically appropriate examination, counseling and educating the patient/family/caregiver, and ordering medications, tests, or procedures. documented in this encounter [facility] 08-11-2024 Note HNO ID: [id number] Author: RAINA MARCUS PA-C Service: ? Author Type: Physician Outboard Technician Type: Progress Notes Filed: 08/11/2024 15:19 Note Text: Rheumatology Outpatient Clinic Follow Up Date of Service: 08/11/2024 Patient: Ashlie Villasenor Medical Record: [id number] Primary Care Physician: Mile Contreras MD Last Rheumatology visit: 01/01/2024 (with Raina Marcus) SUBJECTIVE History of Present Illness Patient is a 56 year-old male presenting to discuss the improvement of musculoskeletal symptoms. Patient is the primary historian. Patient has a significant past medical history of seronegative Rheumatoid Arthritis (RA), major depressive disorder, chronic bilateral low back pain without sciatica, and Garcia's esophagus without dysplasia Relevant Serology Results: 08/20/2021: Rheumatoid factor: <10 08/20/2021: CCP antibody, IgG: <15 Current Rheumatologic Medications: Adalimumab 40-mg/0.4-mL: inject contents of pen subcutaneously every 2 weeks Past Rheumatologic Medications: Medication Length of Use Reason for Discontinuation methotrexate 12/2020-08/2022 side effects AND lacked efficacy Mr. Ashlie Villasenor is a pleasant 56 year-old male with long-standing history of polyarthropathy Patient reports first experiencing polyarticular joint pain in March 2020 Patient denies experiencing an eliciting, traumatic, or infectious etiology to account for symptom onset Consulted a local [employer] Team Technician, Dr. Jessa Yates, whom diagnosed patient with inflammatory polyarthropathy and prescribed oral Methotrexate for management States that symptoms were not improved with DMARD monotherapy Patient consulted [facility] Delivery [employer] Team Technician, Dr. Brody Conrad, in April 2021 for a second opinion Patient endorsed symmetric polyarticular joint pain, prolonged morning joint stiffness Prescribed oral liquid Methotrexate in place of tablets to assess for improvement of symptoms with a more bioavailable modality Despite noting improvement in inflammatory symptoms, patient endorsed significant gastrointestinal upset resulting in use of subcutaneous Methotrexate in July 2021 Subcutaneous mechanism was successful in improving both musculoskeletal and gastrointestinal symptoms, however, subsequent flu-like symptoms were noted In April 2022, patient endorsed progression of inflammatory symptom flare activity and synovitis Dr. Conrad prescribed Adalimumab as adjuvant therapy to assess for improvement 12/19/2021 follow-up Patient reports 90% symptom improvement on adalimumab Interval History Ashlie Villasenor is a 58 year old White male who presents on 08/11/2024 for an in-person visit for rheumatoid arthritis Patient is doing well. Taking Humira every other week. No side effects. No issues with reoccurring illness. Still has some morning stiffness but not like he use to and mostly just his back Doesn't feel the need to take any OTC pain relief No joint swelling Already got flu shot this year. Hasn't done Shingles shot yet Current Outpatient Medications on File Prior to Visit Medication Sig adalimumab (HUMIRA,CF, PEN) 40 mg/0.4 mL pen kit Inject 40 mg (1 pen) subcutaneously every 2 weeks. naproxen (NAPROSYN) 500 mg tablet Take 1 tablet by mouth twice daily as needed. for pain. Take with food. Syringe with Needle, Disp, (BD ALLERGY SYRINGE) 1 Syringe one time a week. traZODone (DESYREL) 50 mg tablet Take 50 mg by mouth daily at bedtime. atorvastatin (LIPITOR) 40 mg tablet Take 40 mg by mouth daily at bedtime. Omeprazole 40 mg capsule TAKE 1 CAPSULE TWICE A DAY mometasone-formoterol (DULERA) 100-5 mcg/actuation inhaler Inhale 2 Puffs as instructed twice daily. lamoTRIgine (LAMICTAL) 150 mg tablet Take 150 mg by mouth once daily. escitalopram oxalate (LEXAPRO) 20 mg tablet Take 20 mg by mouth once daily. takes 30 mg total clopidogrel (PLAVIX) 75 mg tablet once daily. lisinopril 2.5 mg tablet once daily. montelukast (SINGULAIR) 10 mg tablet aspirin 81 mg chewable tablet Take 81 mg by mouth once daily. VENTOLIN 90MCG INHALER (2)two puff tid Review of Systems CONSTITUTION: Negative for: Fever and Recent weight change HEENT: Negative for: Nosebleeds, Mouth sores, Trouble swallowing and Dry mouth RESPIRATORY: Negative for: Cough, Shortness of breath and Pain with breathing GASTROINTESTINAL: Negative for: Melena, Diarrhea, Heartburn and Abdominal pain MUSCULOSKELETAL: Positive for: Arthralgias, Myalgias, Joint swelling and Morning Joint Stiffness Negative for: Muscle weakness NEUROLOGICAL: Negative for: Headaches, Numbness and Memory loss SKIN: Negative for: Rash, Skin changes, Hair loss and Nail changes EYES: Negative for: Eye pain, Eye redness, Eye dryness and visual disturbance CARDIOVASCULAR: Negative for: Chest pain and Leg swelling GENITOURINARY: Negative for: Dysuria and Hematuria HEMATOLOGIC/LYMPHATIC: Negative for: Swollen glands All other reviewed and negative other than H (more content not included)... [facility] 07-15-2024 History of Presen t illness Narrative [facility] Refill Assessment Medication(s): Humira Patient's current medication list and adherence status to current therapy were reviewed by Specialty Pharmacy clinical pharmacist to identify any new drug interactions or non-compliance to therapy. Therapy continues to be appropriate for disease, patient response, and medical condition. Verification of therapeutic benefit and effectiveness with current therapy was completed. Adverse events, barriers in adherence, and side effects were assessed and addressed if applicable. Will proceed with refill with no changes in therapy - patient progressing towards achieving therapeutic goals based on medication-specific laboratory parameters, disease state markers and outcomes. Office/provider notes have been reviewed prior to dispensing the medication. Receiver Setter Assessment Patient confirmed: Yes Med/dose confirmed: Yes Supplies needed: No supplies needed Missed doses: No Estimated days supply on hand: 0 Next cycle/dose due: 07/25/24 Copay amount: 0 Delivery method: FedEx Signature required: No Delivery address: [address] [place] [address] [address], [place] [address] Delivery date: 07/22/24 Questions or concerns for the pharmacist?: No Did you have any side effects believed to be related to this medication, that resulted in hospitalization?: No Current Outpatient Medications on File Prior to Visit Medication Sig adalimumab (HUMIRA,CF, PEN) 40 mg/0.4 mL pen kit Inject 40 mg (1 pen) subcutaneously every 2 weeks. naproxen (NAPROSYN) 500 mg tablet Take 1 tablet by mouth twice daily as needed. for pain. Take with food. Syringe with Needle, Disp, (BD ALLERGY SYRINGE) 1 Syringe one time a week. traZODone (DESYREL) 50 mg tablet Take 50 mg by mouth daily at bedtime. atorvastatin (LIPITOR) 40 mg tablet Take 40 mg by mouth daily at bedtime. Omeprazole 40 mg capsule TAKE 1 CAPSULE TWICE A DAY mometasone-formoterol (DULERA) 100-5 mcg/actuation inhaler Inhale 2 Puffs as instructed twice daily. lamoTRIgine (LAMICTAL) 150 mg tablet Take 150 mg by mouth once daily. escitalopram oxalate (LEXAPRO) 20 mg tablet Take 20 mg by mouth once daily. takes 30 mg total clopidogrel (PLAVIX) 75 mg tablet once daily. lisinopril 2.5 mg tablet once daily. montelukast (SINGULAIR) 10 mg tablet aspirin 81 mg chewable tablet Take 81 mg by mouth once daily. VENTOLIN 90MCG INHALER (2)two puff tid No current facility-administered medications on file prior to visit. [facility] SPECIALTY CLINICAL ASSESSMENT - INFLAMMATORY CONDITIONS V6: Assessment to use: Refill Date of influenza vaccination reminder: 06/18/2024 Date of most recent vaccination assessment: 06/18/2024 Treatment Plan Information: Inject 40 mg (1 pen) subcutaneously every 2 weeks. Est. Tx Plan Start Date: 06/22/2022 Estimated Start Date Info: No information available Est. Estimated Treatment Duration: Until lack of efficacy Roseanne Llamas (Netscape) documented in this encounter [facility] 06-17-2024 History of Presen t illness Narrative [facility] Refill Assessment Medication(s): Humira Patient's current medication list and adherence status to current therapy were reviewed by Specialty Pharmacy clinical pharmacist to identify any new drug interactions or non-compliance to therapy. Therapy continues to be appropriate for disease, patient response, and medical condition. Verification of therapeutic benefit and effectiveness with current therapy was completed. Adverse events, barriers in adherence, and side effects were assessed and addressed if applicable. Will proceed with refill with no changes in therapy - patient progressing towards achieving therapeutic goals based on medication-specific laboratory parameters, disease state markers and outcomes. Office/provider notes have been reviewed prior to dispensing the medication. Receiver Setter Assessment Patient confirmed: Yes Med/dose confirmed: Yes Supplies needed: No supplies needed Missed doses: No Estimated days supply on hand: 0 Next cycle/dose due: 06/27/24 Copay amount: 0 Delivery method: FedEx Signature required: No Delivery address: [address] [place] [address] [address], [place] [address] Delivery date: 06/24/24 Questions or concerns for the pharmacist?: No Did you have any side effects believed to be related to this medication, that resulted in hospitalization?: No Current Outpatient Medications on File Prior to Visit Medication Sig adalimumab (HUMIRA,CF, PEN) 40 mg/0.4 mL pen kit Inject 40 mg (1 pen) subcutaneously every 2 weeks. naproxen (NAPROSYN) 500 mg tablet Take 1 tablet by mouth twice daily as needed. for pain. Take with food. Syringe with Needle, Disp, (BD ALLERGY SYRINGE) 1 Syringe one time a week. traZODone (DESYREL) 50 mg tablet Take 50 mg by mouth daily at bedtime. atorvastatin (LIPITOR) 40 mg tablet Take 40 mg by mouth daily at bedtime. Omeprazole 40 mg capsule TAKE 1 CAPSULE TWICE A DAY mometasone-formoterol (DULERA) 100-5 mcg/actuation inhaler Inhale 2 Puffs as instructed twice daily. lamoTRIgine (LAMICTAL) 150 mg tablet Take 150 mg by mouth once daily. escitalopram oxalate (LEXAPRO) 20 mg tablet Take 20 mg by mouth once daily. takes 30 mg total clopidogrel (PLAVIX) 75 mg tablet once daily. lisinopril 2.5 mg tablet once daily. montelukast (SINGULAIR) 10 mg tablet aspirin 81 mg chewable tablet Take 81 mg by mouth once daily. VENTOLIN 90MCG INHALER (2)two puff tid No current facility-administered medications on file prior to visit. [facility] RX SPECIALTY CLINICAL ASSESSMENT - INFLAMMATORY CONDITIONS V6: Assessment to use: Refill Date of influenza vaccination reminder: 06/24/2023 Date of most recent vaccination assessment: 06/24/2023 Treatment Plan Information: Inject 40 mg (1 pen) subcutaneously every 2 weeks. Est. Tx Plan Start Date: 06/22/2022 Estimated Start Date Info: No information available Est. Estimated Treatment Duration: Until lack of efficacy Roseanne Llamas (Netscape) documented in this encounter [facility] 05-20-2024 History of Presen t illness Narrative [facility] Refill Assessment Medication(s): Humira Patient's current medication list and adherence status to current therapy were reviewed by Specialty Pharmacy clinical pharmacist to identify any new drug interactions or non-compliance to therapy. Therapy continues to be appropriate for disease, patient response, and medical condition. Verification of therapeutic benefit and effectiveness with current therapy was completed. Adverse events, barriers in adherence, and side effects were assessed and addressed if applicable. Will proceed with refill with no changes in therapy - patient progressing towards achieving therapeutic goals based on medication-specific laboratory parameters, disease state markers and outcomes. Receiver Setter Assessment Patient confirmed: Yes Med/dose confirmed: Yes Supplies needed: No supplies needed Missed doses: No Estimated days supply on hand: 0 Next cycle/dose due: 05/30/24 Copay amount: 0 Payment confirmed: Yes Delivery method: FedEx Signature required: Waived on patient request Delivery address: [address] [place] [address] [address] [facility] [address] Delivery date: 05/23/24 Questions or concerns for the pharmacist?: No Did you have any side effects believed to be related to this medication, that resulted in hospitalization?: No Current Outpatient Medications on File Prior to Visit Medication Sig adalimumab (HUMIRA,CF, PEN) 40 mg/0.4 mL pen kit Inject 40 mg (1 pen) subcutaneously every 2 weeks. naproxen (NAPROSYN) 500 mg tablet Take 1 tablet by mouth twice daily as needed. for pain. Take with food. Syringe with Needle, Disp, (BD ALLERGY SYRINGE) 1 Syringe one time a week. traZODone (DESYREL) 50 mg tablet Take 50 mg by mouth daily at bedtime. atorvastatin (LIPITOR) 40 mg tablet Take 40 mg by mouth daily at bedtime. Omeprazole 40 mg capsule TAKE 1 CAPSULE TWICE A DAY mometasone-formoterol (DULERA) 100-5 mcg/actuation inhaler Inhale 2 Puffs as instructed twice daily. lamoTRIgine (LAMICTAL) 150 mg tablet Take 150 mg by mouth once daily. escitalopram oxalate (LEXAPRO) 20 mg tablet Take 20 mg by mouth once daily. takes 30 mg total clopidogrel (PLAVIX) 75 mg tablet once daily. lisinopril 2.5 mg tablet once daily. montelukast (SINGULAIR) 10 mg tablet aspirin 81 mg chewable tablet Take 81 mg by mouth once daily. VENTOLIN 90MCG INHALER (2)two puff tid No current facility-administered medications on file prior to visit. [facility] RX SPECIALTY CLINICAL ASSESSMENT - INFLAMMATORY CONDITIONS V6: Assessment to use: Refill Date of influenza vaccination reminder: 06/24/2023 Date of most recent vaccination assessment: 06/24/2023 Treatment Plan Information: Inject 40 mg (1 pen) subcutaneously every 2 weeks. Est. Tx Plan Start Date: 06/22/2022 Estimated Start Date Info: No information available Est. Estimated Treatment Duration: Until lack of efficacy Aniya Guardado CPhT, Inflammatory/Allergy [facility] [phone] documented in this encounter [facility] 04-24-2024 History of Presen t illness Narrative [facility] Refill Assessment Medication(s): Antonio Patient's current medication list and adherence status to current therapy were reviewed by Specialty Pharmacy clinical pharmacist to identify any new drug interactions or non-compliance to therapy. Therapy continues to be appropriate for disease, patient response, and medical condition. Verification of therapeutic benefit and effectiveness with current therapy was completed. Adverse events, barriers in adherence, and side effects were assessed and addressed if applicable. Will proceed with refill with no changes in therapy - patient progressing towards achieving therapeutic goals based on medication-specific laboratory parameters, disease state markers and outcomes. Receiver Setter Assessment Patient confirmed: Yes Med/dose confirmed: Yes Supplies needed: No supplies needed Missed doses: No Estimated days supply on hand: 0 Next cycle/dose due: 04/29/24 Copay amount: 0 Delivery method: FedEx Signature required: No Delivery address: [address] [place] [address] [address], [place] [address] Delivery date: 04/29/24 Questions or concerns for the pharmacist?: No Did you have any side effects believed to be related to this medication, that resulted in hospitalization?: No Current Outpatient Medications on File Prior to Visit Medication Sig adalimumab (HUMIRA,CF, PEN) 40 mg/0.4 mL pen kit Inject 40 mg (1 pen) subcutaneously every 2 weeks. naproxen (NAPROSYN) 500 mg tablet Take 1 tablet by mouth twice daily as needed. for pain. Take with food. Syringe with Needle, Disp, (BD ALLERGY SYRINGE) 1 Syringe one time a week. traZODone (DESYREL) 50 mg tablet Take 50 mg by mouth daily at bedtime. atorvastatin (LIPITOR) 40 mg tablet Take 40 mg by mouth daily at bedtime. Omeprazole 40 mg capsule TAKE 1 CAPSULE TWICE A DAY mometasone-formoterol (DULERA) 100-5 mcg/actuation inhaler Inhale 2 Puffs as instructed twice daily. lamoTRIgine (LAMICTAL) 150 mg tablet Take 150 mg by mouth once daily. escitalopram oxalate (LEXAPRO) 20 mg tablet Take 20 mg by mouth once daily. takes 30 mg total clopidogrel (PLAVIX) 75 mg tablet once daily. lisinopril 2.5 mg tablet once daily. montelukast (SINGULAIR) 10 mg tablet aspirin 81 mg chewable tablet Take 81 mg by mouth once daily. VENTOLIN 90MCG INHALER (2)two puff tid No current facility-administered medications on file prior to visit. [facility] Visit Assessment - Inflammatory Conditions: Assessment to use: Refill Vaccination Assessment: Date of influenza vaccination reminder: 06/24/2023 Date of most recent vaccination assessment: 06/24/2023 Treatment Plan Information: Treatment Plan Information: Inject 40 mg (1 pen) subcutaneously every 2 weeks. Est. Tx Plan Start Date: 06/22/2022 Estimated Treatment Duration: Until lack of efficacy Roseanne Llamas (Vamp Cut Out Worker) documented in this encounter [facility] 04-22-2024 Telephone encounter Note Patient needs refill of Humira Date of Ashlie Villasenor's last Rheumatology office visit: 01/01/2024 Next appointment date: 07/17/2024 Last labs: 02/09/2024 Last TB test: TB Result Date Value Ref Range Status 05/27/2022 Negative Final Requested Prescriptions Pending Prescriptions Disp Refills adalimumab (HUMIRA,CF, PEN) 40 mg/0.4 mL pen kit 6 Each 1 Sig: Inject 40 mg (1 pen) subcutaneously every 2 weeks. Patient prefers: [facility] Bryce ScottD Clinical Pharmacist [facility] Pool: [facility] Pool #: [id number] [facility] 04-22-2024 Miscellaneous Notes Patient needs refill of Humira Date of Ashlie Villasneor's last Rheumatology office visit: 01/01/2024 Next appointment date: 07/17/2024 Last labs: 02/09/2024 Last TB test: TB Result Date Value Ref Range Status 05/27/2022 Negative Final Requested Prescriptions Pending Prescriptions Disp Refills adalimumab (HUMIRA,CF, PEN) 40 mg/0.4 mL pen kit 6 Each 1 Sig: Inject 40 mg (1 pen) subcutaneously every 2 weeks. Patient prefers: [facility] Johnson Buck PharmD Clinical Pharmacist [facility] Pool: P [facility] Pool #: [id number] documented in this encounter [facility] 03-25-2024 History of Presen t illness Narrative [facility] Refill Assessment Medication(s): Humira Patient's current medication list and adherence status to current therapy were reviewed by Specialty Pharmacy clinical pharmacist to identify any new drug interactions or non-compliance to therapy. Therapy continues to be appropriate for disease, patient response, and medical condition. Verification of therapeutic benefit and effectiveness with current therapy was completed. Adverse events, barriers in adherence, and side effects were assessed and addressed if applicable. Will proceed with refill with no changes in therapy - patient progressing towards achieving therapeutic goals based on medication-specific laboratory parameters, disease state markers and outcomes. Receiver Setter Assessment Patient confirmed: Yes Med/dose confirmed: Yes Supplies needed: No supplies needed Missed doses: No Estimated days supply on hand: 0 Next cycle/dose due: 04/04/24 Copay amount: 0 Delivery method: FedEx Signature required: No Delivery address: [address] [place] [address], [place] [address] Delivery date: 04/01/24 Questions or concerns for the pharmacist?: No Current Outpatient Medications on File Prior to Visit Medication Sig adalimumab (HUMIRA,CF, PEN) 40 mg/0.4 mL pen kit Inject 40 mg (1 pen) subcutaneously every 2 weeks. naproxen (NAPROSYN) 500 mg tablet Take 1 tablet by mouth twice daily as needed. for pain. Take with food. Syringe with Needle, Disp, (BD ALLERGY SYRINGE) 1 Syringe one time a week. traZODone (DESYREL) 50 mg tablet Take 50 mg by mouth daily at bedtime. atorvastatin (LIPITOR) 40 mg tablet Take 40 mg by mouth daily at bedtime. Omeprazole 40 mg capsule TAKE 1 CAPSULE TWICE A DAY mometasone-formoterol (DULERA) 100-5 mcg/actuation inhaler Inhale 2 Puffs as instructed twice daily. lamoTRIgine (LAMICTAL) 150 mg tablet Take 150 mg by mouth once daily. escitalopram oxalate (LEXAPRO) 20 mg tablet Take 20 mg by mouth once daily. takes 30 mg total clopidogrel (PLAVIX) 75 mg tablet once daily. lisinopril 2.5 mg tablet once daily. montelukast (SINGULAIR) 10 mg tablet aspirin 81 mg chewable tablet Take 81 mg by mouth once daily. VENTOLIN 90MCG INHALER (2)two puff tid No current facility-administered medications on file prior to visit. [facility] Visit Assessment - Inflammatory Conditions: Assessment to use: Refill Vaccination Assessment: Date of influenza vaccination reminder: 06/24/2023 Date of most recent vaccination assessment: 06/24/2023 Treatment Plan Information: Treatment Plan Information: Inject 40 mg (1 pen) subcutaneously every 2 weeks. Est. Tx Plan Start Date: 06/22/2022 Estimated Treatment Duration: Until lack of efficacy Roseanne Llamas (Netscape) documented in this encounter [facility] 02-26-2024 History of Presen t illness Narrative [facility] Refill Assessment Medication(s): Humira Patient's current medication list and adherence status to current therapy were reviewed by Specialty Pharmacy clinical pharmacist to identify any new drug interactions or non-compliance to therapy. Therapy continues to be appropriate for disease, patient response, and medical condition. Verification of therapeutic benefit and effectiveness with current therapy was completed. Adverse events, barriers in adherence, and side effects were assessed and addressed if applicable. Will proceed with refill with no changes in therapy - patient progressing towards achieving therapeutic goals based on medication-specific laboratory parameters, disease state markers and outcomes. Receiver Setter Assessment Patient confirmed: Yes Med/dose confirmed: Yes Supplies needed: No supplies needed Missed doses: No Estimated days supply on hand: 0 Next cycle/dose due: 03/07/24 Copay amount: 0 Delivery method: FedEx Signature required: No Delivery address: [address] [place] [address] [address], [place] [address] Delivery date: 03/04/24 Questions or concerns for the pharmacist?: No Current Outpatient Medications on File Prior to Visit Medication Sig adalimumab (HUMIRA,CF, PEN) 40 mg/0.4 mL pen kit Inject 40 mg (1 pen) subcutaneously every 2 weeks. naproxen (NAPROSYN) 500 mg tablet Take 1 tablet by mouth twice daily as needed. for pain. Take with food. Syringe with Needle, Disp, (BD ALLERGY SYRINGE) 1 Syringe one time a week. traZODone (DESYREL) 50 mg tablet Take 50 mg by mouth daily at bedtime. atorvastatin (LIPITOR) 40 mg tablet Take 40 mg by mouth daily at bedtime. Omeprazole 40 mg capsule TAKE 1 CAPSULE TWICE A DAY mometasone-formoterol (DULERA) 100-5 mcg/actuation inhaler Inhale 2 Puffs as instructed twice daily. lamoTRIgine (LAMICTAL) 150 mg tablet Take 150 mg by mouth once daily. escitalopram oxalate (LEXAPRO) 20 mg tablet Take 20 mg by mouth once daily. takes 30 mg total clopidogrel (PLAVIX) 75 mg tablet once daily. lisinopril 2.5 mg tablet once daily. montelukast (SINGULAIR) 10 mg tablet aspirin 81 mg chewable tablet Take 81 mg by mouth once daily. VENTOLIN 90MCG INHALER (2)two puff tid No current facility-administered medications on file prior to visit. [facility] Specialty Pharmacy Visit Assessment - Inflammatory Conditions: Assessment to use: Refill Vaccination Assessment: Date of influenza vaccination reminder: 06/24/2023 Date of most recent vaccination assessment: 06/24/2023 Treatment Plan Information: Treatment Plan Information: Inject 40 mg (1 pen) subcutaneously every 2 weeks. Est. Tx Plan Start Date: 06/22/2022 Estimated Treatment Duration: Until lack of efficacy Roseanne Llamas (Netscape) documented in this encounter [facility] 01-29-2024 History of Presen t illness Narrative [facility] Ref[facility] Assessment Medication(s): Antonio Patient's current medication list and adherence status to current therapy were reviewed by Specialty Pharmacy clinical pharmacist to identify any new drug interactions or non-compliance to therapy. Therapy continues to be appropriate for disease, patient response, and medical condition. Verification of therapeutic benefit and effectiveness with current therapy was completed. Adverse events, barriers in adherence, and side effects were assessed and addressed if applicable. Will proceed with refill with no changes in therapy - patient progressing towards achieving therapeutic goals based on medication-specific laboratory parameters, disease state markers and outcomes. Johnson Buck, PharmD Clinical Pharmacist [facility] Pharmacy Pool: P [facility] Pool #: [id number] Receiver Setter Assessment Patient confirmed: Yes Med/dose confirmed: Yes Supplies needed: No supplies needed Missed doses: No Estimated days supply on hand: 0 Next cycle/dose due: 02/08/24 Copay amount: 5 Copay form of payment: Credit card on file (FSA [id number]) Payment confirmed: Yes Delivery method: FedEx Signature required: No Delivery address: [address] [place] [address] [address], [place] [address] Delivery date: 01/31/24 Questions or concerns for the pharmacist?: No Current Outpatient Medications on File Prior to Visit Medication Sig adalimumab (HUMIRA,CF, PEN) 40 mg/0.4 mL pen kit Inject 40 mg (1 pen) subcutaneously every 2 weeks. naproxen (NAPROSYN) 500 mg tablet Take 1 tablet by mouth twice daily as needed. for pain. Take with food. Syringe with Needle, Disp, (BD ALLERGY SYRINGE) 1 Syringe one time a week. traZODone (DESYREL) 50 mg tablet Take 50 mg by mouth daily at bedtime. atorvastatin (LIPITOR) 40 mg tablet Take 40 mg by mouth daily at bedtime. Omeprazole 40 mg capsule TAKE 1 CAPSULE TWICE A DAY mometasone-formoterol (DULERA) 100-5 mcg/actuation inhaler Inhale 2 Puffs as instructed twice daily. lamoTRIgine (LAMICTAL) 150 mg tablet Take 150 mg by mouth once daily. escitalopram oxalate (LEXAPRO) 20 mg tablet Take 20 mg by mouth once daily. takes 30 mg total clopidogrel (PLAVIX) 75 mg tablet once daily. lisinopril 2.5 mg tablet once daily. montelukast (SINGULAIR) 10 mg tablet aspirin 81 mg chewable tablet Take 81 mg by mouth once daily. VENTOLIN 90MCG INHALER (2)two puff tid No current facility-administered medications on file prior to visit. [facility] Pharmacy Visit Assessment - Inflammatory Conditions: Ivent complete: No Assessment to use: Refill Vaccination Assessment: Date of influenza vaccination reminder: 06/24/2023 Date of most recent vaccination assessment: 06/24/2023 Treatment Plan Information: Treatment Plan Information: Inject 40 mg (1 pen) subcutaneously every 2 weeks. Est. Tx Plan Start Date: 06/22/2022 Estimated Treatment Duration: Until lack of efficacy Refill Assessment: Concurrent med therapy and DMARD screening: Yes Assessment of injection issues: Yes Screening for infection: Yes Adverse reactions and mitigation: Yes COPD monitoring (Orencia): N/A Assessment of efficacy: Yes Roseanne Llamas (Vamp Cut Out Worker) documented in this encounter [facility] 01-01-2024 History of Presen t illness Narrative Images from the original note were not included. Rheumatology Outpatient Clinic Virtual Visit Date of Service: 01/01/2024 Patient: Ashlie Villasenor Medical Record: [id number] Primary Care Physician: Mile Contreras MD Last Rheumatology visit: 04/24/2023 (with Raina Marcus) * This visit was conducted virtually via [employer] * Patient name verified Patient consents to virtual visit Patient location: Home SUBJECTIVE History of Present Illness Patient is a 56 year-old male presenting to discuss the improvement of musculoskeletal symptoms. Patient is the primary historian. Patient has a significant past medical history of seronegative Rheumatoid Arthritis (RA), major depressive disorder, chronic bilateral low back pain without sciatica, and Garcia's esophagus without dysplasia Relevant Serology Results: 08/20/2021: Rheumatoid factor: <10 08/20/2021: CCP antibody, IgG: <15 Current Rheumatologic Medications: Adalimumab 40-mg/0.4-mL: inject contents of pen subcutaneously every 2 weeks Past Rheumatologic Medications: Medication Length of Use Reason for Discontinuation methotrexate 12/2020-08/2022 side effects & lacked efficacy Mr. Ashlie Villasenor is a pleasant 56 year-old male with long-standing history of polyarthropathy Patient reports first experiencing polyarticular joint pain in March 2020 Patient denies experiencing an eliciting, traumatic, or infectious etiology to account for symptom onset Consulted a local [employer] Technician, Dr. Jessa Yates, whom diagnosed patient with inflammatory polyarthropathy and prescribed oral Methotrexate for management States that symptoms were not improved with DMARD monotherapy Patient consulted [facility] Team Technician, Dr. Brody Conrad, in April 2021 for a second opinion Patient endorsed symmetric polyarticular joint pain, prolonged morning joint stiffness Prescribed oral liquid Methotrexate in place of tablets to assess for improvement of symptoms with a more bioavailable modality Despite noting improvement in inflammatory symptoms, patient endorsed significant gastrointestinal upset resulting in use of subcutaneous Methotrexate in July 2021 Subcutaneous mechanism was successful in improving both musculoskeletal and gastrointestinal symptoms, however, subsequent flu-like symptoms were noted In April 2022, patient endorsed progression of inflammatory symptom flare activity and synovitis Dr. Conrad prescribed Adalimumab as adjuvant therapy to assess for improvement 12/19/2021 follow-up Patient reports 90% symptom improvement on adalimumab Interval History Ashlie Villasenor is a 58 year old White male who presents on 01/01/2024 for virtual visit for rheumatoid arthritis Things have been stable. No joint pain or swelling Humira every other week No illnesses or infections Current Outpatient Medications on File Prior to Visit Medication Sig adalimumab (HUMIRA,CF, PEN) 40 mg/0.4 mL pen kit Inject 40 mg (1 pen) subcutaneously every 2 weeks. naproxen (NAPROSYN) 500 mg tablet Take 1 tablet by mouth twice daily as needed. for pain. Take with food. Syringe with Needle, Disp, (BD ALLERGY SYRINGE) 1 Syringe one time a week. traZODone (DESYREL) 50 mg tablet Take 50 mg by mouth daily at bedtime. atorvastatin (LIPITOR) 40 mg tablet Take 40 mg by mouth daily at bedtime. Omeprazole 40 mg capsule TAKE 1 CAPSULE TWICE A DAY mometasone-formoterol (DULERA) 100-5 mcg/actuation inhaler Inhale 2 Puffs as instructed twice daily. lamoTRIgine (LAMICTAL) 150 mg tablet Take 150 mg by mouth once daily. escitalopram oxalate (LEXAPRO) 20 mg tablet Take 20 mg by mouth once daily. takes 30 mg total clopidogrel (PLAVIX) 75 mg tablet once daily. lisinopril 2.5 mg tablet once daily. montelukast (SINGULAIR) 10 mg tablet aspirin 81 mg chewable tablet Take 81 mg by mouth once daily. VENTOLIN 90MCG INHALER (2)two puff tid Review of Systems CONSTITUTION: Negative for: Fever and Recent weight change HEENT: Negative for: Nosebleeds, Mouth sores, Trouble swallowing and Dry mouth RESPIRATORY: Negative for: Cough, Shortness of breath and Pain with breathing GASTROINTESTINAL: Negative for: Melena, Diarrhea, Heartburn and Abdominal pain MUSCULOSKELETAL: Positive for: Arthralgias, Myalgias, Joint swelling and Morning Joint Stiffness Negative for: Muscle weakness NEUROLOGICAL: Negative for: Headaches, Numbness and Memory loss SKIN: Negative for: Rash, Skin changes, Hair loss and Nail changes EYES: Negative for: Eye pain, Eye redness, Eye dryness and visual disturbance CARDIOVASCULAR: Negative for: Chest pain and Leg swelling GENITOURINARY: Negative for: Dysuria and Hematuria HEMATOLOGIC/LYMPHATIC: Negative for: Swollen glands All other reviewed and negative other than HPI. PAST MEDICAL HISTORY Diagnosis Date ADHD (attention deficit hyperactivity disorder) Anxiety Asthma CAD (coronary artery disease) HTN (hypertension) Rheumatoid arthritis (HCC) Snoring Spasmodic torticollis PAST SURGICAL HISTORY Procedure Laterality Date ARTHROSCOPY KNEE DIAGNOSTIC W/WO SYNOVIAL BX SPX Bilateral COLONOSCOPY FLX DX W/COLLJ SPEC WHEN PFRMD 07/09/15 normal - 10 year follow up EGD TRANSORAL BIOPSY SINGLE/MULTIPLE 07/09/15 gastritis, esophagitis - Garcia's EGD TRANSORAL BIOPSY SINGLE/MULTIPLE 10/06/15 esophagitis - Garcia's ESOPHAGOGASTRODUODENOSCOPY TRANSORAL DIAGNOSTIC 11/30/2017 EGD HEMORRHOID SURGERY HX 1992 PTCA CONSULT 2011 10 diag - promus - everolimus eluting stent FAMILY HISTORY Problem Relation Age of Onset Colon Cancer Father 65 other (lung) Father other (lung) Mother Prostate Cancer Paternal Grandfather Social History Tobacco Use Smoking status: Never Smokeless tobacco: Former Quit date: 06/24/2010 Substance Use Topics Alcohol use: No Drug use: No PAIN EVALUATION No data found in the last 1 encounters. PROMIS Assessments 12/14/2022 04/19/2023 12/24/2023 PROMIS Assessments Physical Health Percentile 31 41 22 Mental Health Percentile 26 26 26 Pain Score 4 4 3 Pain Interference Percentile 27 27 12 Fatigue Percentile 31 46 24 Physical Function Percentile 18 34 21 RAPID 3 Ortega Activities of Daily Living 12/24/2023 9:29 AM 04/19/2023 10:28 AM 12/14/2022 10:36 AM First answer obtained - 04/27/2021 3:43 PM Dress self? Without ANY difficulty Without ANY difficulty Without ANY difficulty Without ANY difficulty Get in and out of bed? With SOME difficulty With SOME difficulty Without ANY difficulty With SOME difficulty Walk outdoors? Without ANY difficulty Without ANY difficulty Without ANY difficulty Without ANY difficulty Wash and dry body? Without ANY difficulty Without ANY difficulty Without ANY difficulty Get in and out of car? Without ANY difficulty Without ANY difficulty With SOME difficulty RAPID 3 Disease Activity Weighed Score Levels: 0 - 1: Near Remission 1.3 - 2.0: Low Severity 2.3 - 4.0: Moderate Severity 4.3 - 10.0: High Severity 12/14/2022 04/19/2023 12/24/2023 RAPID-3 Weighed Score RAPID 3 Weighed Score Incomplete Incomplete Incomplete OBJECTIVE There were no vitals taken for this visit. Limited physical exam due to visit being conducted virtually Physical Exam Constitutional: General: He is not in acute distress. Appearance: Normal appearance. He is not ill-appearing, toxic-appearing or diaphoretic. HENT: Head: Normocephalic and atraumatic. Eyes: Extraocular Movements: Extraocular movements intact. Conjunctiva/sclera: Conjunctivae normal. Neurological: General: No focal deficit present. Mental Status: He is alert and oriented to person, place, and time. Psychiatric: Mood and Affect: Mood normal. Behavior: Behavior normal. Behavior is cooperative. 09/06/2022 08/12/2021 12/20/2020 11/15/2017 11/06/2016 Weight Weight 272 lb 4.8 oz 266 lb 247 lb 12.8 oz 289 lb 275 lb 09/06/2022 08/12/2021 12/20/2020 11/30/2017 11/30/2017 Blood Pressure Systolic 155 130 130 142 140 Diastolic 85 65 88 85 89 LABS Latest Ref Rng & Units 01/06/2023 03/24/2023 09/11/2023 CBC WBC 3.70 - 11.00 k/uL 8.03 7.99 9.76 Hemoglobin 13.0 - 17.0 g/dL 14.8 14.3 14.5 Hematocrit 39.0 - 51.0 % 47.3 45.5 46.1 Platelet Count 150 - 400 k/uL 228 208 221 Abs Neut (ANC) 1.45 - 7.50 k/uL 4.33 5.79 Abs Lymph 1.00 - 4.00 k/uL 2.95 3.03 Latest Ref Rng & Units 01/06/2023 03/24/2023 09/11/2023 CMP Sodium 136 - 144 mmol/L 141 144 Potassium 3.7 - 5.1 mmol/L 4.8 4.2 Chloride 97 - 105 mmol/L 106 104 CO2 22 - 30 mmol/L 25 22 Glucose 74 - 99 mg/dL 115 106 BUN 9 - 24 mg/dL 17 23 Creatinine 0.73 - 1.22 mg/dL 1.01 0.95 1.13 Calcium 8.5 - 10.2 mg/dL 9.2 9.1 AST 14 - 40 U/L 26 26 24 ALT 10 - 54 U/L 25 28 32 Alkaline Phosphatase 38 - 113 U/L 100 96 95 Latest Ref Rng & Units 05/27/2022 09/06/2022 09/11/2023 ESR, WSR WSR 0 - 15 mm/hr 15 15 9 Latest Ref Rng & Units 05/27/2022 09/06/2022 09/11/2023 CRP CRP <0.9 mg/dL <0.3 0.4 0.3 Latest Ref Rng & Units 05/06/2004 05/06/2004 05/07/2004 CK CK 30 - 220 U/L 128 131 125 Latest Ref Rng & Units 04/30/2021 08/20/2021 RF and CCP Rheumatoid Factor <16 IU/mL <10 <10 CCP Antibody, IgG <20 Units <15 <15 Latest Ref Rng & Units 04/30/2021 08/20/2021 05/27/2022 Hepatitis Screen Hep B Core Ab, Total Negative Negative Negative Negative Hep B Surf Ab Qual Negative Negative Negative Negative Hep C Antibody IA Negative Negative Negative Negative Hep B Surface Ag Negative Negative HBsAg Negative Negative Negative 08/20/2021 05/27/2022 TB Screen TB Interpretation No evidence of current or previous infection with Mycobacterium tuberculosis. Infection with M. tuberculosis complex is unlikely. If latent tuberculosis infection is highly suspected, a negative result does not rule out the infection. Specimens from immunocompromised patients and those <5 years of age may show false negative results. In case of a contact investigation, please repeat 8-12 weeks after a known exposure. TB Result Negative Negative Latest Ref Rng & Units 11/05/2021 02/04/2022 05/27/2022 Urinalysis Protein, Urine Negative Negative Negative Negative RBC, Urine 0-3 /HPF 0-3 0-3 /HPF 0-3 /HPF IMAGING XR Chest 09/06/2022 IMPRESSION: No acute radiographic findings in the chest. ASSESSMENT & PLAN Ashlie Villasenor is a 58 year old White male who presents on 01/01/2024 for virtual visit for rheumatoid arthritis. RA currently very well controlled on adalimumab monotherapy, dosed every other week. Was previously of methotrexate but discontinued on August 2022 because of intolerable side effects and he is glad to not be on methotrexate anymore. He denies any issues or side effects from the adalimumab and feel his symptoms are about 90% improved since being on adalimumab rather than methotrexate. PLAN: 1. Seronegative rheumatoid arthritis (HCC) - ICD9: 714.0, ICD10: M06.00 (primary diagnosis) 2. High risk medication use - ICD9: V58.69, ICD10: Z79.899 - stable - continues to do very well on adalimumab, continue - Labs due in February - CBC + DIFF - CREATININE BLD - HEPATIC FUNCTION PNL - C-REACTIVE PROTEIN (CRP) - SED RATE BRIAN In-person follow-up July 17 Raina Marcus PA-C Rheumatology Date: January 01, 2024 I spent a total of 15 minutes on the date of the service which included preparing to see the patient, [id number] patient care, completing clinical documentation, obtaining and/or reviewing separately obtained history, performing a medically appropriate examination, counseling and educating the patient/family/caregiver, and ordering medications, tests, or procedures. documented in this encounter [facility] 01-01-2024 History of Presen t illness Narrative [facility] Assessment Medication(s): Humira Patient's current medication list and adherence status to current therapy were reviewed by Specialty Pharmacy clinical pharmacist to identify any new drug interactions or non-compliance to therapy. Therapy continues to be appropriate for disease, patient response, and medical condition. Verification of therapeutic benefit and effectiveness with current therapy was completed. Adverse events, barriers in adherence, and side effects were assessed and addressed if applicable. Will proceed with refill with no changes in therapy - patient progressing towards achieving therapeutic goals based on medication-specific laboratory parameters, disease state markers and outcomes. Receiver Setter Assessment Patient confirmed: Yes Med/dose confirmed: Yes Missed doses: No Estimated days supply on hand: 0 Next cycle/dose due: 01/11/24 Copay amount: 5 Copay form of payment: Credit card on file (FSA card) Payment confirmed: Yes Delivery method: FedEx Signature required: No Delivery address: [address] [place], [place] [address] [facility] [address] Delivery date: 01/04/24 Questions or concerns for the pharmacist?: No [facility] Specialty Pharmacy Visit Assessment - Inflammatory Conditions: Assessment to use: Refill Vaccination Assessment: Date of influenza vaccination reminder: 06/24/2023 Date of most recent vaccination assessment: 06/24/2023 Treatment Plan Information: Treatment Plan Information: Inject 40 mg (1 pen) subcutaneously every 2 weeks. Est. Tx Plan Start Date: 06/22/2022 Estimated Treatment Duration: Until lack of efficacy Herber Dubois ([facility]) [facility] Pharm[facility] FAX: documented in this encounter [facility] 12-04-2023 History of Presen t illness Narrative [facility] Assessment Medication(s): Humira Patient's current medication list and adherence status to current therapy were reviewed by Specialty Pharmacy clinical pharmacist to identify any new drug interactions or non-compliance to therapy. Therapy continues to be appropriate for disease, patient response, and medical condition. Verification of therapeutic benefit and effectiveness with current therapy was completed. Adverse events, barriers in adherence, and side effects were assessed and addressed if applicable. Will proceed with refill with no changes in therapy - patient progressing towards achieving therapeutic goals based on medication-specific laboratory parameters, disease state markers and outcomes. Receiver Setter Assessment Patient confirmed: Yes Med/dose confirmed: Yes Supplies needed: No supplies needed Missed doses: No Estimated days supply on hand: 0 Next cycle/dose due: 12/14/23 Copay amount: 5 Copay form of payment: Credit card on file (FSA [id number]) Payment confirmed: Yes Delivery method: FedEx Signature required: No Delivery address: [address] [place], [place] [id number] Delivery date: 12/11/23 Questions or concerns for the pharmacist?: No [facility] Specialty Pharmacy Visit Assessment - Inflammatory Conditions: Assessment to use: Refill Vaccination Assessment: Date of influenza vaccination reminder: 06/24/2023 Date of most recent vaccination assessment: 06/24/2023 Treatment Plan Information: Treatment Plan Information: Inject 40 mg (1 pen) subcutaneously every 2 weeks. Est. Tx Plan Start Date: 06/22/2022 Estimated Treatment Duration: Until lack of efficacy Roseanne Llamas (Vamp Cut Out Worker) documented in this encounter [facility] 09-09-2023 Miscellaneous Notes Addended by: REBECA DILLON I on: 09/10/2023 01:45 PM Modules accepted: Orders NAPROSYN 500 mg BID prn documented in this encounter [facility] 06-22-2023 History of Presen t illness Narrative [facility] Assessment Medication(s): Nickiira Patient's current medication list and adherence status to current therapy were reviewed by Specialty Pharmacy clinical pharmacist to identify any new drug interactions or non-compliance to therapy. Therapy continues to be appropriate for disease, patient response, and medical condition. Verification of therapeutic benefit and effectiveness with current therapy was completed. Adverse events, barriers in adherence, and side effects were assessed and addressed if applicable. Will proceed with refill with no changes in therapy - patient progressing towards achieving therapeutic goals based on medication-specific laboratory parameters, disease state markers and outcomes. Receiver Setter Assessment Patient confirmed: Yes Med/dose confirmed: Yes Supplies needed: No supplies needed Missed doses: No Estimated days supply on hand: 0 Next cycle/dose due: 06/29/23 Copay amount: 0 Payment confirmed: Yes Delivery method: FedEx Signature required: No Delivery address: [address] [place] [id number] Delivery date: 06/27/23 Questions or concerns for the pharmacist?: No [facility] Specialty Pharmacy Visit Assessment - Inflammatory Conditions: Assessment to use: Refill Vaccination Assessment: Date of influenza vaccination reminder: 06/20/2022 Date of most recent vaccination assessment: 06/20/2022 Treatment Plan Information: Treatment Plan Information: Inject 40 mg (1 pen) subcutaneously every 2 weeks. Est. Tx Plan Start Date: 06/22/2022 Estimated Treatment Duration: Until lack of efficacy Leeanna Henriquez (Netscape) documented in this encounter [facility] 06-20-2023 History of Presen t illness Narrative [facility] received prescription(s) for Humira from Dr. Raina Redmond's office. Benefits investigation was conducted, indicating that a prior authorization is required. PA was initiated and pending review. Plan Name: [employer] [place] Plan Agent/Ortega: CMM Phone/ / Case: Ortega# [id number] Timeline: Marked urgent Leeanna Henriquez (Netscape) documented in this encounter [facility] 05-21-2023 History of Presen t illness Narrative [facility] Specialty Refill Assessment Medication(s): Humira Patient's current medication list and adherence status to current therapy were reviewed by Specialty Pharmacy clinical pharmacist to identify any new drug interactions or non-compliance to therapy. Therapy continues to be appropriate for disease, patient response, and medical condition. Verification of therapeutic benefit and effectiveness with current therapy was completed. Adverse events, barriers in adherence, and side effects were assessed and addressed if applicable. Will proceed with refill with no changes in therapy - patient progressing towards achieving therapeutic goals based on medication-specific laboratory parameters, disease state markers and outcomes. Receiver Setter Assessment Patient confirmed: Yes Med/dose confirmed: Yes Supplies needed: No supplies needed Missed doses: No Estimated days supply on hand: 0 Next cycle/dose due: 06/01/23 Copay amount: 0 Payment confirmed: Yes Delivery method: FedEx Signature required: No Delivery address: [address] [place] [address] [place] [id number] Delivery date: 05/25/23 Questions or concerns for the pharmacist?: No [facility] Visit Assessment - Inflammatory Conditions: Assessment to use: Refill Vaccination Assessment: Date of influenza vaccination reminder: 06/20/2022 Date of most recent vaccination assessment: 06/20/2022 Treatment Plan Information: Treatment Plan Information: Inject 40 mg (1 pen) subcutaneously every 2 weeks. Est. Tx Plan Start Date: 06/22/2022 Estimated Treatment Duration: Until lack of efficacy Leeanna GaliciaNetscape) documented in this encounter [facility] 05-21-2023 Miscellaneous Notes Ashlie Villasenor will be due for a refill soon. Last office visit: 04/24/23 Pended Orders ID Status Description Pended By When Reason [id number] Pended adalimumab (HUMIRA,CF, PEN) 40 mg/0.4 mL pen kit-EVERY 2 WEEKS Florence GaliciaNetscapeLeeanna Park 05/21/23 0800 If above therapy is being continued, please sign this order request to send refill(s) via eRx to [facility]. Thank you. David High, PharmD Clinical Pharmacist, Biologics, Neurology, and Hepatology [facility] ; Pool: P [facility] Pool #: [id number] documented in this encounter [facility] 04-24-2023 History of Presen t illness Narrative Images from the original note were not included. Rheumatology Outpatient Clinic Virtual Visit Date of Service: 04/24/2023 Patient: Ashlie Villasenor Medical Record: [id number] Primary Care Physician: Mile Contreras MD Referring Physician: Raina Redmond Last Rheumatology visit: 12/19/2022 (with Raina Redmond) * This visit was conducted virtually via [employer] Platform * Patient name verified Patient consents to virtual visit Patient location: Home SUBJECTIVE History of Present Illness Patient is a 56 year-old male presenting to discuss the improvement of musculoskeletal symptoms. Patient is the primary historian. Patient has a significant past medical history of seronegative Rheumatoid Arthritis (RA), major depressive disorder, chronic bilateral low back pain without sciatica, and Garcia's esophagus without dysplasia Relevant Serology Results: 08/20/2021: Rheumatoid factor: <10 08/20/2021: CCP antibody, IgG: <15 Current Rheumatologic Medications: Adalimumab 40-mg/0.4-mL: inject contents of pen subcutaneously every 2 weeks Past Rheumatologic Medications: Medication Length of Use Reason for Discontinuation methotrexate 12/2020-08/2022 side effects & lacked efficacy Mr. Ashlie Villasenor is a pleasant 56 year-old male with long-standing history of polyarthropathy Patient reports first experiencing polyarticular joint pain in March 2020 Patient denies experiencing an eliciting, traumatic, or infectious etiology to account for symptom onset Consulted a local [employer] Team Technician, Dr. Jessa Yates, whom diagnosed patient with inflammatory polyarthropathy and prescribed oral Methotrexate for management States that symptoms were not improved with DMARD monotherapy Patient consulted [facility] Se[employer] Delivery [employer] Team Technician, Dr. Brody Conrad, in April 2021 for a second opinion Patient endorsed symmetric polyarticular joint pain, prolonged morning joint stiffness Prescribed oral liquid Methotrexate in place of tablets to assess for improvement of symptoms with a more bioavailable modality Despite noting improvement in inflammatory symptoms, patient endorsed significant gastrointestinal upset resulting in use of subcutaneous Methotrexate in July 2021 Subcutaneous mechanism was successful in improving both musculoskeletal and gastrointestinal symptoms, however, subsequent flu-like symptoms were noted In April 2022, patient endorsed progression of inflammatory symptom flare activity and synovitis Dr. Conrad prescribed Adalimumab as adjuvant therapy to assess for improvement 12/19/2021 follow-up Patient reports 90% symptom improvement on adalimumab Interval History Ashlie Villasenor is a 57 year old White male who presents on 04/24/2023 for virtual visit for for rheumatoid arthritis Patient reports that everything is the same. Still doing well. He tells me he is a lot better (90%) than he was on methotrexate and states he is 95% better on Humira versus without medication Only symptom is some mild morning stiffness that goes away once he gets moving No issues with getting his Humira. Labs are up to date and normal Patient has no questions or concerns Current Outpatient Medications on File Prior to Visit Medication Sig adalimumab (HUMIRA,CF, PEN) 40 mg/0.4 mL pen kit Inject 40 mg (1 pen) subcutaneously every 2 weeks. naproxen (NAPROSYN) 500 mg tablet Take 1 tablet by mouth twice daily as needed. for pain. Take with food. Syringe with Needle, Disp, (BD ALLERGY SYRINGE) 1 Syringe one time a week. traZODone (DESYREL) 50 mg tablet Take 50 mg by mouth daily at bedtime. atorvastatin (LIPITOR) 40 mg tablet Take 40 mg by mouth daily at bedtime. Omeprazole 40 mg capsule TAKE 1 CAPSULE TWICE A DAY mometasone-formoterol (DULERA) 100-5 mcg/actuation inhaler Inhale 2 Puffs as instructed twice daily. lamoTRIgine (LAMICTAL) 150 mg tablet Take 150 mg by mouth once daily. escitalopram oxalate (LEXAPRO) 20 mg tablet Take 20 mg by mouth once daily. takes 30 mg total clopidogrel (PLAVIX) 75 mg tablet once daily. lisinopril 2.5 mg tablet once daily. montelukast (SINGULAIR) 10 mg tablet aspirin 81 mg chewable tablet Take 81 mg by mouth once daily. VENTOLIN 90MCG INHALER (2)two puff tid Review of Systems CONSTITUTION: Negative for: Fever and Recent weight change HEENT: Negative for: Nosebleeds, Mouth sores, Trouble swallowing and Dry mouth RESPIRATORY: Negative for: Cough, Shortness of breath and Pain with breathing GASTROINTESTINAL: Negative for: Melena, Diarrhea, Heartburn and Abdominal pain MUSCULOSKELETAL: Positive for: Morning Joint Stiffness Negative for: Arthralgias, Myalgias, Muscle weakness and Joint swelling NEUROLOGICAL: Negative for: Headaches, Numbness and Memory loss SKIN: Negative for: Rash, Skin changes, Hair loss and Nail changes EYES: Negative for: Eye pain, Eye redness, Eye dryness and visual disturbance CARDIOVASCULAR: Negative for: Chest pain and Leg swelling GENITOURINARY: Negative for: Dysuria and Hematuria HEMATOLOGIC/LYMPHATIC: Negative for: Swollen glands All other reviewed and negative other than HPI. PAST MEDICAL HISTORY Diagnosis Date ADHD (attention deficit hyperactivity disorder) Anxiety Asthma CAD (coronary artery disease) HTN (hypertension) Rheumatoid arthritis (HCC) Snoring Spasmodic torticollis PAST SURGICAL HISTORY Procedure Laterality Date ARTHROSCOPY KNEE DIAGNOSTIC W/WO SYNOVIAL BX SPX Bilateral COLONOSCOPY FLX DX W/COLLJ SPEC WHEN PFRMD 07/09/15 normal - 10 year follow up EGD TRANSORAL BIOPSY SINGLE/MULTIPLE 07/09/15 gastritis, esophagitis - Garcia's EGD TRANSORAL BIOPSY SINGLE/MULTIPLE 10/06/15 esophagitis - Garcia's ESOPHAGOGASTRODUODENOSCOPY TRANSORAL DIAGNOSTIC 11/30/2017 EGD HEMORRHOID SURGERY HX 1991 PTCA CONSULT 2011 10 diag - promus - everolimus eluting stent FAMILY HISTORY Problem Relation Age of Onset Colon Cancer Father 65 other (lung) Father other (lung) Mother Prostate Cancer Paternal Grandfather Social History Tobacco Use Smoking status: Never Smokeless tobacco: Former Quit date: 06/24/2010 Substance Use Topics Alcohol use: No Drug use: No PAIN EVALUATION No data found in the last 1 encounters. PROMIS Assessments PROMIS Assessments 09/05/2022 12/14/2022 04/19/2023 Physical Health Percentile - 31 % 41 % Mental Health Percentile 26 % 26 % 26 % Pain Score 4 4 4 Pain Interference Percentile 27 % 27 % 27 % Fatigue Percentile 62 % 31 % 46 % Physical Function Percentile 42 % 18 % 34 % RAPID 3 [place] Activities of Daily Living 04/19/2023 10:28 AM 12/14/2022 10:36 AM 09/05/2022 1:04 PM First answer obtained - 04/27/2021 3:43 PM Dress self? Without ANY difficulty Without ANY difficulty Without ANY difficulty Without ANY difficulty Get in and out of bed? With SOME difficulty Without ANY difficulty Without ANY difficulty With SOME difficulty Walk outdoors? Without ANY difficulty Without ANY difficulty Without ANY difficulty Without ANY difficulty Wash and dry body? Without ANY difficulty Without ANY difficulty Without ANY difficulty Without ANY difficulty Get in and out of car? Without ANY difficulty Without ANY difficulty Without ANY difficulty With SOME difficulty RAPID 3 Disease Activity Weighed Score Levels: 0 - 1: Near Remission 1.3 - 2.0: Low Severity 2.3 - 4.0: Moderate Severity 4.3 - 10.0: High Severity RAPID-3 Weighed Score 09/05/2022 12/14/2022 04/19/2023 RAPID 3 Weighed Score 1.67 (Low Severity (LS)) Incomplete Incomplete OBJECTIVE There were no vitals taken for this visit. Limited physical exam due to visit being conducted virtually Physical Exam Constitutional: General: He is not in acute distress. Appearance: Normal appearance. He is well-groomed. He is not ill-appearing, toxic-appearing or diaphoretic. HENT: Head: Normocephalic and atraumatic. Eyes: Extraocular Movements: Extraocular movements intact. Conjunctiva/sclera: Conjunctivae normal. Skin: Findings: No erythema. Neurological: General: No focal deficit present. Mental Status: He is alert and oriented to person, place, and time. Psychiatric: Mood and Affect: Mood normal. Behavior: Behavior normal. Behavior is cooperative. Weight 09/06/2022 08/12/2021 12/20/2020 11/15/2017 11/06/2016 WEIGHT 272 lb 4.8 oz 266 lb 247 lb 12.8 oz 289 lb 275 lb Blood Pressure 09/06/2022 08/12/2021 12/20/2020 11/30/2017 11/15/2017 Systolic 155 130 130 142 160 Diastolic 85 65 88 85 70 LABS CBC Latest Ref Rng & Units 09/06/2022 01/06/2023 03/24/2023 WBC 3.70 - 11.00 k/uL 8.10 8.03 7.99 HEMOGLOBIN 13.0 - 17.0 g/dL 14.5 14.8 14.3 HEMATOCRIT 39.0 - 51.0 % 45.6 47.3 45.5 PLATELETS 150 - 400 k/uL 211 228 208 ABS NEUT (ANC) 1.45 - 7.50 k/uL 3.99 4.33 - ABS LYMPH 1.00 - 4.00 k/uL 2.98 2.95 - CMP Latest Ref Rng & Units 09/06/2022 01/06/2023 03/24/2023 SODIUM 136 - 144 mmol/L 137 - 141 POTASSIUM 3.7 - 5.1 mmol/L 4.3 - 4.8 CHLORIDE 97 - 105 mmol/L 101 - 106(H) CO2 22 - 30 mmol/L 22 - 25 GLUCOSE 74 - 99 mg/dL 87 - 115(H) BUN 9 - 24 mg/dL 24 - 17 CREATININE 0.73 - 1.22 mg/dL 1.58(H) 1.01 0.95 CALCIUM, TOTAL 8.5 - 10.2 mg/dL 9.2 - 9.2 AST 14 - 40 U/L 25 26 26 ALT 10 - 54 U/L 27 25 28 ALKALINE PHOSPHATASE 38 - 113 U/L 94 100 96 ESR, WSR Latest Ref Rng & Units 08/20/2021 05/27/2022 09/06/2022 WSR 0 - 15 mm/hr 17(H) 15 15 CRP Latest Ref Rng & Units 08/20/2021 05/27/2022 09/06/2022 CRP <0.9 mg/dL 0.5 <0.3 0.4 CK Latest Ref Rng & Units 05/06/2004 05/06/2004 05/07/2004 CK 30 - 220 U/L 128 131 125 RF and CCP Latest Ref Rng & Units 04/30/2021 08/20/2021 RHEUMATOID FACTOR <16 IU/mL <10 <10 CCP ANTIBODY, IGG <20 Units <15 <15 Hepatitis Screen Latest Ref Rng & Units 04/30/2021 08/20/2021 05/27/2022 HEPBCOTOL Negative Negative Negative Negative HEPSABQ Negative Negative Negative Negative HEPCABEIA Negative Negative Negative Negative HBSAG Negative - - Negative HBSAGR Negative Negative Negative - TB Screen 08/20/2021 05/27/2022 TBGINT No evidence of current or previous infection with Mycobacterium tuberculosis. Infection with M. tuberculosis complex is unlikely. If latent tuberculosis infection is highly suspected, a negative result does not rule out the infection. Specimens from immunocompromised patients and those <5 years of age may show false negative results. In case of a contact investigation, please repeat 8-12 weeks after a known exposure. TBGRES Negative Negative Urinalysis Latest Ref Rng & Units 11/05/2021 02/04/2022 05/27/2022 PROTEIN, URINE Negative Negative Negative Negative RBC, URINE 0-3 /HPF 0-3 0-3 /HPF 0-3 /HPF IMAGING XR Chest 09/06/2022 IMPRESSION: No acute radiographic findings in the chest. ASSESSMENT & PLAN Ashlie Villasenor is a 57 year old White male who presents on 04/24/2023 for virtual visit for for rheumatoid arthritis. RA currently very well controlled on adalimumab monotherapy, dosed every other week. Was previously of methotrexate but discontinued on August 2022 because of intolerable side effects and he is glad to not be on methotrexate anymore. He denies any issues or side effects from the adalimumab and feel his symptoms are about 90% improved since being on adalimumab rather than methotrexate. PLAN: 1. Seronegative rheumatoid arthritis (HCC) - ICD9: 714.0, ICD10: M06.00 (primary diagnosis) - stable - continues to do very well on adalimumab, continue 2. High risk medication use - ICD9: V58.69, ICD10: Z79.899 - normal CBC and CMP 03/2023 - repeat 09/2023 Follow-up in 8-9 months Raina Redmond PA-C Rheumatology Date: April 24, 2023 I spent a total of 9 minutes on the date of the service which included preparing to see the patient, [id number] patient care, completing clinical documentation, obtaining and/or reviewing separately obtained history, and counseling and educating the patient/family/caregiver. documented in this encounter [facility] 04-23-2023 History of Presen t illness Narrative [facility] Specialty Refill Assessment Medication(s): Humira Patient's current medication list and adherence status to current therapy were reviewed by Specialty Pharmacy clinical pharmacist to identify any new drug interactions or non-compliance to therapy. Therapy continues to be appropriate for disease, patient response, and medical condition. Verification of therapeutic benefit and effectiveness with current therapy was completed. Adverse events, barriers in adherence, and side effects were assessed and addressed if applicable. Will proceed with refill with no changes in therapy - patient progressing towards achieving therapeutic goals based on medication-specific laboratory parameters, disease state markers and outcomes. Receiver Setter Assessment Patient confirmed: Yes Med/dose confirmed: Yes Supplies needed: No supplies needed Missed doses: No Estimated days supply on hand: 0 Next cycle/dose due: 05/04/23 Copay amount: 0 Payment confirmed: Yes Delivery method: FedEx Signature required: Waived on patient request Delivery address: [address] [place] [address], [place], [address] Delivery date: 04/27/23 Questions or concerns for the pharmacist?: No [facility] Visit Assessment - Inflammatory Conditions: Assessment to use: Refill Vaccination Assessment: Date of influenza vaccination reminder: 06/20/2022 Date of most recent vaccination assessment: 06/20/2022 Treatment Plan Information: Treatment Plan Information: Inject 40 mg (1 pen) subcutaneously every 2 weeks. Est. Tx Plan Start Date: 06/22/2022 Estimated Treatment Duration: Until lack of efficacy Reina Solano documented in this encounter [facility] 04-18-2023 Discharge summary Note Date/Time April 18, 2023 6:53p m [facility] [address] [place] [address]. [address] [place] [address] / REHABILITATION SERVICES DISCHARGE SUMMARY MR#: [id number] Acct: [id number] Name: ASHLIE VILLASENOR Rep #: [id number] : 1965 57 From: Hoa Zabala MP T Referring Dr.: Dr. Cortney Mace MD Status: REG RCR Insurance: [employer]ANCE Discharge Summary D/C summary: It has been my pleasure to treat ASHLIE VILLASENOR referred by Dr. Cortney Mace MD, with the diagnosis of Back pain/ R post rib pain for a total of 6 visit(s). Discharge Date: 04/18/23 Please see the following information for a summary of their discharge status. Subjective Subjective: The spot does not hurt as bad anymore Pain R sided back pain: Pain Intensity (Out of 10): 2 Overall Improvement % Improvement: 90 Objective Objective/Function: Trunk AROM: flexion 85%, B SB 75%, Rot B 50%, Ext 75% Goals Goal 1:: I HEP Goal Progress: Goal Met Goal 2:: Abolish R sided back pain Goal Progress: Progressing Goal 3:: Sit with upright posture during the day Goal Progress: Goal Met Goal 4:: Increase pain free trunk AROM (at the time of the eval: Trunk AROM: flexion 75%, R SB (increase pain) 50 and L 75, R Rot (increase pain )50% and L 50). Goal Progress: Goal Met Plan Plan: DC PT but pt will get a hold of Dr if he feels that he needs additional PT. D/C Information Discharge Comments: DC PT to HEP d/c sentence: If there are questions or concerns regarding this patient's physical therapy, please feel free to call me at [phone]. Thank you for the referral of thispatient. Sincerely, VICTORINA Linares Balance/Gait/Functional tests Balance/Special Test Scores Oswestry Low Back Score: 4 <Electronically signed by Hoa Zabala MPT> 04/18/23 [id number] CC: Dr. Cortney Mace MD; Diane Mendez, DO ~ Signed [facility] Work Phone: [phone]) [phone] History of Present illness Narrative* Leeanna Henriquez ([employer] Out Worker) - 12/29/2022 5:31 PM EDT [facility] Specialty Refill Assessment Medication(s): Humira Patient's current medication list and adherence status to current therapy were reviewed by Specialty Pharmacy clinical pharmacist to identify any new drug interactions or non-compliance to therapy. Therapy continues to be appropriate for disease, patient response, and medical condition. Verification of therapeutic benefit and effectiveness with current therapy was completed. Adverse events, barriers in adherence, and side effects were assessed and addressed if applicable. Will proceed with refill with no changes in therapy - patient progressing towards achieving therapeutic goals based on medication- specific laboratory parameters, disease state markers and outcomes. Receiver Setter Assessment Patient confirmed: Yes Med/dose confirmed: Yes Supplies needed: No supplies needed Missed doses: No Estimated days supply on hand: 1 Next cycle/dose due: 12/29/22 Copay amount: 5 Copay form of payment: Credit card on file Payment confirmed: Yes Delivery method: FedEx Signature required: No Delivery address: [address] [place] [address] Delivery date: 01/05/23 Questions or concerns for the pharmacist?: No [facility] Visit Assessment - Inflammatory Conditions: Assessment to use: Refill Vaccination Assessment: Date of influenza vaccination reminder: 06/20/2022 Date of most recent vaccination assessment: 06/20/2022 Treatment Plan Information: Treatment Plan Information: Inject 40 mg (1 pen) subcutaneously every 2 weeks. Est. Tx Plan Start Date: 06/22/2022 Estimated Treatment Duration: Until lack of efficacy Leeanna Henriquez (Netscape) [facility] History of Present illness Narrative* Raina Redmond PA-C - 12/19/2022 3:30 PM EST Images from the original note were not included. Rheumatology Outpatient Clinic New Patient To [place] Date of Service: 12/19/2022 Patient: Ashlie Villasenor Medical Record: [id number] Primary Care Physician: Mile Contreras MD Last Rheumatology visit: 09/06/2022 (with Raina Conrad) * This visit was conducted virtually via [employer] Platform * Patients name verified Patient consents to virtual visit Patient location: Home SUBJECTIVE History of Present Illness Patient is a 56 year-old male presenting to discuss the improvement of musculoskeletal symptoms. Patient is the primary historian. Patient has a significant past medical history of seronegative Rheumatoid Arthritis (RA), major depressive disorder, chronic bilateral low back pain without sciatica, and Garcia's esophagus without dysplasia Relevant Serology Results: 08/20/2021: Rheumatoid factor: <10 08/20/2021: CCP antibody, IgG: <15 Current Rheumatologic Medications: Adalimumab 40-mg/0.4-mL: inject contents of pen subcutaneously every 2 weeks Past Rheumatologic Medications: Medication Length of Use Reason for Discontinuation methotrexate 12/2020-08/2022 side effects & lacked efficacy Mr. Ashlie Villasenor is a pleasant 56 year-old male with long-standing history of polyarthropathy Patient reports first experiencing polyarticular joint pain in March 2020 Patient denies experiencing an eliciting, traumatic, or infectious etiology to account for symptom onset Consulted a local [employer] Team Technician, Dr. Jessa Yates, whom diagnosed patient with inflammatory polyarthropathy and prescribed oral Methotrexate for management States that symptoms were not improved with DMARD monotherapy Patient consulted [facility] Se[employer] Delivery Vehicle Team Technician, Dr. Brody Conrad, in April 2021 for a second opinion Patient endorsed symmetric polyarticular joint pain, prolonged morning joint stiffness Prescribed oral liquid Methotrexate in place of tablets to assess for improvement of symptoms with a more bioavailable modality Despite noting improvement in inflammatory symptoms, patient endorsed significant gastrointestinal upset resulting in use of subcutaneous Methotrexate in July 2021 Subcutaneous mechanism was successful in improving both musculoskeletal and gastrointestinal symptoms, however, subsequent flu-like symptoms were noted In April 2022, patient endorsed progression of inflammatory symptom flare activity and synovitis Dr. Conrad prescribed Adalimumab as adjuvant therapy to assess for improvement Interval History Ashlie Villasenor is a 57 year old White male who presents on 12/19/2022 for a virtual visit for rheumatoid arthritis Patient reports that things have been going rather well. Humira seems to be working very well for him. He is glad to be off the methotrexate because of side effect he was having from it. Humira is atevery other week dosing. He denies side effects. He denies any recent illnesses or infections otherthan typical run of the [employer] URIs. Patient feels his symptoms have improved about 90% since being on Humira Current Outpatient Medications on File Prior to Visit Medication Sig adalimumab (HUMIRA,CF, PEN) 40 mg/0.4 mL pen kit Inject 40 mg (1 pen) subcutaneously every 2 weeks. naproxen (NAPROSYN) 500 mg tablet Take 1 tablet by mouth twice daily as needed. for pain. Take withfood. Syringe with Needle, Disp, (BD ALLERGY SYRINGE) 1 Syringe one time a week. traZODone (DESYREL) 50 mg tablet Take 50 mg by mouth daily at bedtime. atorvastatin (LIPITOR) 40 mg tablet Take 40 mg by mouth daily at bedtime. Omeprazole 40 mg capsule TAKE 1 CAPSULE TWICE A DAY mometasone-formoterol (DULERA) 100-5 mcg/actuation inhaler Inhale 2 Puffs as instructed twice daily. lamoTRIgine (LAMICTAL) 150 mg tablet Take 150 mg by mouth once daily. escitalopram oxalate (LEXAPRO) 20 mg tablet Take 20 mg by mouth once daily. takes 30 mg total clopidogrel (PLAVIX) 75 mg tablet once daily. lisinopril 2.5 mg tablet once daily. montelukast (SINGULAIR) 10 mg tablet aspirin 81 mg chewable tablet Take 81 mg by mouth once daily. VENTOLIN 90MCG INHALER (2)two puff tid Review of Systems CONSTITUTION: Negative for: Fever and Recent weight change HEENT: Negative for: Nosebleeds, Mouth sores, Trouble swallowing and Dry mouth RESPIRATORY: Negative for: Cough, Shortness of breath and Pain with breathing GASTROINTESTINAL: Negative for: Melena, Diarrhea, Heartburn and Abdominal pain MUSCULOSKELETAL: Positive for: Arthralgias, Myalgias and Morning Joint Stiffness Negative for: Muscle weakness and Joint swelling NEUROLOGICAL: Negative for: Headaches, Numbness and Memory loss SKIN: Negative for: Rash, Skin changes, Hair loss and Nail changes EYES: Negative for: Eye pain, Eye redness, Eye dryness and visual disturbance CARDIOVASCULAR: Negative for: Chest pain and Leg swelling GENITOURINARY: Negative for: Dysuria and Hematuria HEMATOLOGIC/LYMPHATIC: Negative for: Swollen glands All other reviewed and negative other than HPI. PAST MEDICAL HISTORY Diagnosis Date ADHD (attention deficit hyperactivity disorder) Anxiety Asthma CAD (coronary artery disease) HTN (hypertension) Rheumatoid arthritis (HCC) Snoring Spasmodic torticollis PAST SURGICAL HISTORY Procedure Laterality Date ARTHROSCOPY KNEE DIAGNOSTIC W/WO SYNOVIAL BX SPX Bilateral COLONOSCOPY FLX DX W/COLLJ SPEC WHEN PFRMD 07/09/15 normal - 10 year follow up EGD TRANSORAL BIOPSY SINGLE/MULTIPLE 07/09/15 gastritis, esophagitis - Garcia's EGD TRANSORAL BIOPSY SINGLE/MULTIPLE 10/06/15 esophagitis - Garcia's ESOPHAGOGASTRODUODENOSCOPY TRANSORAL DIAGNOSTIC 11/30/2017 EGD HEMORRHOID SURGERY HX 1992 PTCA CONSULT 2011 10 diag - promus - everolimus eluting stent FAMILY HISTORY Problem Relation Age of Onset Colon Cancer Father 65 other (lung) Father other (lung) Mother Prostate Cancer Paternal Grandfather Social History Tobacco Use Smoking status: Never Smokeless tobacco: Former Quit date: 06/24/2010 Substance Use Topics Alcohol use: No Drug use: No PAIN EVALUATION No data found in the last 1 encounters. PROMIS Assessments PROMIS Assessments 05/11/2022 09/05/2022 12/14/2022 Physical Health Percentile 10 % - 31 % Mental Health Percentile 26 % 26 % 26 % Pain Score 3 4 4 Pain Interference Percentile 12 % 27 % 27 % Fatigue Percentile 18 % 62 % 31 % Physical Function Percentile 18 % 42 % 18 % RAPID 3 Ortega Activities of Daily Living 12/14/2022 10:36 AM 09/05/2022 1:04 PM 05/11/2022 10:22 AM First answer obtained - 04/27/2021 3:43 PM Dress self? Without ANY difficulty Without ANY difficulty With SOME difficulty Without ANY difficulty Get in and out of bed? Without ANY difficulty Without ANY difficulty With SOME difficulty With SOMEdifficulty Walk outdoors? Without ANY difficulty Without ANY difficulty With SOME difficulty Without ANY difficulty Wash and dry body? Without ANY difficulty Without ANY difficulty With SOME difficulty Without ANY difficulty Get in and out of car? Without ANY difficulty Without ANY difficulty With SOME difficulty With SOMEdifficulty RAPID 3 Disease Activity Weighed Score Levels: 0 - 1: Near Remission 1.3 - 2.0: Low Severity 2.3 - 4.0: Moderate Severity 4.3 - 10.0: High Severity RAPID-3 Weighed Score 05/11/2022 09/05/2022 12/14/2022 RAPID 3 Weighed Score 4.44 (High Severity (HS)) 1.67 (Low Severity (LS)) Incomplete OBJECTIVE There were no vitals taken for this visit. Limited physical exam due to visit being conducted virtually Physical Exam Constitutional: General: He is not in acute distress. Appearance: Normal appearance. He is well-developed and well-groomed. He is not ill-appearing, toxic-appearing or diaphoretic. HENT: Head: Normocephalic and atraumatic. Eyes: Extraocular Movements: Extraocular movements intact. Neurological: General: No focal deficit present. Mental Status: He is alert and oriented to person, place, and time. Psychiatric: Mood and Affect: Mood normal. Behavior: Behavior normal. Behavior is cooperative. Weight 09/06/2022 08/12/2021 12/20/2020 11/15/2017 11/06/2016 WEIGHT 272 lb 4.8 oz 266 lb 247 lb 12.8 oz 289 lb 275 lb Blood Pressure 09/06/2022 08/12/2021 12/20/2020 11/30/2017 11/15/2017 Systolic 155 130 130 142 160 Diastolic 85 65 88 85 70 LABS CBC Latest Ref Rng & Units 02/04/2022 05/27/2022 09/06/2022 WBC 3.70 - 11.00 k/uL 8.29 6.93 8.10 HEMOGLOBIN 13.0 - 17.0 g/dL 13.9 14.2 14.5 HEMATOCRIT 39.0 - 51.0 % 44.7 45.5 45.6 PLATELETS 150 - 400 k/uL 248 235 211 ABS NEUT (ANC) 1.45 - 7.50 k/uL - - 3.99 ABS LYMPH 1.00 - 4.00 k/uL - - 2.98 CMP Latest Ref Rng & Units 05/06/2022 05/27/2022 09/06/2022 SODIUM 136 - 144 mmol/L 140 138 137 POTASSIUM 3.7 - 5.1 mmol/L 4.5 4.7 4.3 CHLORIDE 97 - 105 mmol/L 107(H) 105 101 CO2 22 - 30 mmol/L 24 23 22 GLUCOSE 74 - 99 mg/dL 102(H) 120(H) 87 BUN 9 - 24 mg/dL 23 20 24 CREATININE 0.73 - 1.22 mg/dL 1.03 1.04 1.58(H) CALCIUM, TOTAL 8.5 - 10.2 mg/dL 9.0 8.9 9.2 AST 14 - 40 U/L - 22 25 ALT 10 - 54 U/L - 20 27 ALKALINE PHOSPHATASE 38 - 113 U/L - 101 94 ESR, WSR Latest Ref Rng & Units 08/20/2021 05/27/2022 09/06/2022 WSR 0 - 15 mm/hr 17(H) 15 15 CRP Latest Ref Rng & Units 08/20/2021 05/27/2022 09/06/2022 CRP <0.9 mg/dL 0.5 <0.3 0.4 CK Latest Ref Rng & Units 05/06/2004 05/06/2004 05/07/2004 CK 30 - 220 U/L 128 131 125 RF and CCP Latest Ref Rng & Units 04/30/2021 08/20/2021 RHEUMATOID FACTOR <16 IU/mL <10 <10 CCP ANTIBODY, IGG <20 Units <15 <15 Hepatitis Screen Latest Ref Rng & Units 04/30/2021 08/20/2021 05/27/2022 HEPBCOTOL Negative Negative Negative Negative HEPSABQ Negative Negative Negative Negative HEPCABEIA Negative Negative Negative Negative HBSAG Negative - - Negative HBSAGR Negative Negative Negative - TB Screen 08/20/2021 05/27/2022 TBGINT No evidence of current or previous infection with Mycobacterium tuberculosis. Infection withM. tuberculosis complex is unlikely. If latent tuberculosis infection is highly suspected, a negative result does not rule out the infection. Specimens from immunocompromised patients and those <5years of age may show false negative results. In case of a contact investigation, please repeat 8-12 weeks after a known exposure. TBGRES Negative Negative Urinalysis Latest Ref Rng & Units 11/05/2021 02/04/2022 05/27/2022 PROTEIN, URINE Negative Negative Negative Negative RBC, URINE 0-3 /HPF 0-3 0-3 /HPF 0-3 /HPF IMAGING XR Chest 09/06/2022 IMPRESSION: No acute radiographic findings in the chest. ASSESSMENT & PLAN sAhlie Villasenor is a 57 year old White male who presents on 12/19/2022 for a virtual visit for rheumatoid arthritis. RA currently very well controlled on adalimumab monotherapy, dosed every other week.Was previously of methotrexate but discontinued on August 2022 because of intolerable side effects and he is glad to not be on methotrexate anymore. He denies any issues or side effects from the adalimumab and feel his symptoms are about 90% improved since being on adalimumab. PLAN: 1. Seronegative rheumatoid arthritis (HCC) - ICD9: 714.0, ICD10: M06.00 (primary diagnosis) - stable - continue adalimumab 2. High risk medication use - ICD9: V58.69, ICD10: Z79.899 - CBC + DIFF - CREATININE BLD - HEPATIC FUNCTION PNL Follow-up in 4-6 months Raina Redmond PA-C Rheumatology Date: December 19, 2022 I spent a total of 13 minutes on the date of the service which included preparing to see the patient, allo-sc-ttce patient care, completing clinical documentation, obtaining and/or reviewing separately obtained history, performing a medically appropriate examination, counseling and educating the pat ient/family/caregiver, and ordering medications, tests, or procedures. documented in this encounterOhio[facility]02-22-[facility] History of Present illness Narrative* Leeanna Henriquez (Vamp Cut Out Worker) - 12/06/2022 10:54 AM EST [facility] Refill Assessment Medication(s): Antonio Patient's current medication list and adherence status to current therapy were reviewed by Specialty Pharmacy clinical pharmacist to identify any new drug interactions or non-compliance to therapy. Therapy continues to be appropriate for disease, patient response, and medical condition. Verification of therapeutic benefit and effectiveness with current therapy was completed. Adverse events, barriers in adherence, and side effects were assessed and addressed if applicable. Will proceed with refill with no changes in therapy - patient progressing towards achieving therapeutic goals based on medication- specific laboratory parameters, disease state markers and outcomes. Receiver Setter Assessment Patient confirmed: Yes Med/dose confirmed: Yes Supplies needed: No supplies needed Missed doses: No Estimated days supply on hand: 0 Next cycle/dose due: 12/15/22 Copay amount: 5 Copay form of payment: Credit card on file Payment confirmed: Yes Delivery method: FedEx Signature required: No Delivery address: [address] [place] [id number] Delivery date: 12/13/22 Questions or concerns for the pharmacist?: No [facility] Assessment - Inflammatory Conditions: Assessment to use: Refill Vaccination Assessment: Date of influenza vaccination reminder: 06/20/2022 Date of most recent vaccination assessment: 06/20/2022 Treatment Plan Information: Treatment Plan Information: Inject 40 mg (1 pen) subcutaneously every 2 weeks. Est. Tx Plan Start Date: 06/22/2022 Estimated Treatment Duration: Until lack of efficacy Leeanna Henriquez (Netscape) documented in this encounterOhiohealth [facility]02-21-2023 Miscellaneous Notes* Telephone Encounter - Johnson Buck RPh - 12/05/2022 2:40 PM EST Pt will be due for a refill of Humira soon. If therapy is being continued, please sign this order request to send refill via eRx to [facility]. Thanks! Next office visit scheduled 12/19/2022 Requested Prescriptions Pending Prescriptions Disp Refills adalimumab (HUMIRA,CF, PEN) 40 mg/0.4 mL pen kit 6 Each 0 Sig: Inject 40 mg (1 pen) subcutaneously every 2 weeks. Please review and advise. Johnson Buck RPh documented in this encounterOhiohealth [facility]01-24-2023 History of Present illness Narrative* Roseanne Llamas (Vamp Cut Out Worker) - 11/07/2022 2:08 PM EST [facility] Refill Assessment Medication(s): Humira Patient's current medication list and adherence status to current therapy were reviewed by Specialty Pharmacy clinical pharmacist to identify any new drug interactions or non-compliance to therapy. Therapy continues to be appropriate for disease, patient response, and medical condition. Verification of therapeutic benefit and effectiveness with current therapy was completed. Adverse events, barriers in adherence, and side effects were assessed and addressed if applicable. Will proceed with refill with no changes in therapy - patient progressing towards achieving therapeutic goals based on medication- specific laboratory parameters, disease state markers and outcomes. Receiver Setter Assessment Patient confirmed: Yes Med/dose confirmed: Yes Supplies needed: No supplies needed Missed doses: No Estimated days supply on hand: 0 Next cycle/dose due: 11/17/22 Copay amount: 5 Copay form of payment: Credit card on file (FSA [id number]) Payment confirmed: Yes Delivery method: FedEx Signature required: No Delivery address: [address] [place] [address] Delivery date: 11/15/22 Questions or concerns for the pharmacist?: No [facility] Visit Assessment - Inflammatory Conditions: Assessment to use: Refill Vaccination Assessment: Date of influenza vaccination reminder: 06/20/2022 Date of most recent vaccination assessment: 06/20/2022 Treatment Plan Information: Treatment Plan Information: Inject 40 mg (1 pen) subcutaneously every 2 weeks. Est. Tx Plan Start Date: 06/22/2022 Estimated Treatment Duration: Until lack of efficacy Roseanne Llamas (Netscape) documented in this encounterOhiohealth [facility]11-30-2022 History of Present illness Narrative* Roseanne Llamas (Netscape) - 09/13/2022 12:33 PM EST [facility] Refill Assessment Medication(s): Humira Patient's current medication list and adherence status to current therapy were reviewed by Specialty Pharmacy clinical pharmacist to identify any new drug interactions or non-compliance to therapy. Therapy continues to be appropriate for disease, patient response, and medical condition. Verification of therapeutic benefit and effectiveness with current therapy was completed. Adverse events, barriers in adherence, and side effects were assessed and addressed if applicable. Will proceed with refill with no changes in therapy - patient progressing towards achieving therapeutic goals based on medication- specific laboratory parameters, disease state markers and outcomes. Lian Rodas, BryceD Clinical Pharmacist, Biologics, Neurology, and Hepatology [facility] ; Pool: P CC [facility] Pool #: [id number] Receiver Setter Assessment Patient confirmed: Yes Med/dose confirmed: Yes Supplies needed: No supplies needed Missed doses: No Estimated days supply on hand: 0 Next cycle/dose due: 09/22/22 Copay amount: 0 Delivery method: FedEx Signature required: No Delivery address: [address] [place] [address] Delivery date: 09/15/22 Questions or concerns for the pharmacist?: No [facility] Visit Assessment - Inflammatory Conditions: Ivent complete: No Assessment to use: Refill Vaccination Assessment: Date of influenza vaccination reminder: 06/20/2022 Date of most recent vaccination assessment: 06/20/2022 Treatment Plan Information: Treatment Plan Information: Inject 40 mg (1 pen) subcutaneously every 2 weeks. Est. Tx Plan Start Date: 06/22/2022 Estimated Treatment Duration: Until lack of efficacy Refill Assessment: Concurrent med therapy and DMARD screening: Yes Assessment of injection issues: Yes Screening for infection: Yes Adverse reactions and mitigation: Yes COPD monitoring (Orencia): N/A Assessment of efficacy: Yes Roseanne Llamas (Vamp Cut Out Worker) documented in this encounterOhiohealth [facility]11-23-2022 History of Present illness Narrative* RT Marvin(R) - 09/06/2022 3:00 PM EST Radiology Service Progress Note PATIENT NAME: Ashlie Villasenor DATE OF SERVICE: September 06, 2022 TIME: 2:49 PM PATIENT IDENTITY VERIFICATION COMPLETED USING TWO (2) IDENTIFIERS: Name and Date of confirmedby patient verbally. FALL SCREENING: Has the patient had 2 falls in the last year or 1 fall with injury or currently using an Ambulatory Assistive Device (Walker, Cane, Wheelchair, Crutches, etc.)? No PATIENT GENDER DATA: Male PATIENT RELEVANT IMPLANT DATA REVIEWED: Not Applicable RADIOLOGY DEPARTMENT: General X-ray: Exam(s) Completed: Chest X-Ray PERIPHERAL IV DATA: Not applicable SIGNED BY: RT Marvin(Arley) September 06, 2022 2:49 PM documented in this encounterOhiohealth [facility]08-19-2022 History of Present illness Narrative* Aniya Taylor - 06/02/2022 12:52 PM EDT [facility] received prescription(s) for Humira from Dr. Conrad's office. Benefits investigation was conducted, indicating that a prior authorization is required by patient's insurance plan with [facility]. Encounter will be updated once prior authorization has been submitted by [facility]. Aniya Taylor CPhT [facility] P: [phone] F: [phone] documented in this encounterOhiohealth [facility]08-09-2022 Miscellaneous Notes* Telephone Encounter - Gilma Lim - 05/23/2022 9:22 AM EDT Spoke with [facility] pharmacy. Confirmed that MTX RX should be for regular MTX, not preservative freeversion. New RX to be sent to pharmacy by Dr. Conrad. Gilma Lim RN * Telephone Encounter - Alice Toussaint - 05/22/2022 9:34 AM EDT [facility] called [phone]. The pt in the past has gotten regular methotrexate and this time it is written for PF. pharmacist said if PF the quantity needs to be adjusted and a new script sent. she said 4ml will only last 2 weeks as it comes in 2ml vials and cannot be stored. Pls call pharmacist w clarification. documented in this encounterOhiohealth [facility]07-29-2022 Miscellaneous Notes* Telephone Encounter - Kristal Fairchild - 05/12/2022 4:33 PM EDT Patient has been identified by name and date of : Yes . Patient calling for :medication issue. Pharmacy called asking to confirm that the pt should be taking the methotrexate and naproxen at thesame time. Can be reached: [phone] Pharmacy has been updated: Yes . Return call needed: Patient will not be expecting a call back from provider. Patient can be reached at : [phone] (home) documented in this encounterOhiohealth [facility]07-29-2022 History of Present illness Narrative* Brody Conrad MD - 05/12/2022 3:02 PM EDT Images from the original note were not included. [facility] DEPARTMENT OF RHEUMATIC AND IMMUNOLOGIC DISEASES DISTANCE HEALTH VISIT via [employer] VISIT PROGRESS NOTE This is an encounter initiated for an established patient not originating from a related Evaluation& Management service provided within the previous 7 days nor leading to an Evaluation & Management service or procedure within the next 24 hours or soonest available appointment. This Team Access Model visit is a virtual encounter. It required patient- provider interaction for the medical decision making as documented below. Ashlie Villasenor has consented to this encounter. ASSESSMENT and TREATMENT PLAN: 1. Seronegative rheumatoid arthritis (HCC) - ICD9: 714.0, ICD10: M06.00 (primary diagnosis) The patient is stable. The current treatment and management will be adjusted as follows.\ This is a patient with active rheumatoid arthritis. He has more than 1 hour of morning stiffness. He had significant joint swelling last week. He had involvement of his PIPs MCPs wrists and knees as well as feet. He is not tolerating the methotrexate. He has had nausea for at least 1 day after taking the methotrexate. Because of this, I will consider starting him on a TNF inhibitor as long as his hepatitis panel andQuantiFERON TB test are acceptable. - NAPROXEN 500 MG TABLET - BD ALLERGY SYRINGE 1 ML 28 GAUGE X 1/2 - BLOOD TB SCREEN - HEP REMOTE PANEL BL - METHOTREXATE SODIUM (PF) 25 MG/ML INJECTION SOLUTION - C-REACTIVE PROTEIN (CRP) - SED RATE WESTERGREN - CBC - COMP METABOLIC PANEL 2. 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 Inflammatory polyarthropathy (HCC) - ICD9: 714.9, ICD10: M06.4 4. Chronic bilateral low back pain without sciatica - ICD9: 724.2, 338.29, ICD10: M54.50, G89.29 5. Garcia's esophagus without dysplasia - ICD9: 530.85, ICD10: K22.70 6. Encounter for long-term current use of high risk medication - ICD9: V58.69, ICD10: Z79.899 PLAN FOR OTHER MEDICAL PROBLEMS Mr. Villasenor will follow up with his primary care physician for all of his other non-Rheumatologic medical problems that are listed above. Brody Conrad M.D. Director of the [facility] Department of Rheumatic and Immunologic Diseases [address] - [place] [id number] Office: [phone] Appt: [phone] OVERVIEW This is a follow up visit to Rheumatology for this 56 year old male. He has multiple medical problems including: (M06.00) Seronegative rheumatoid arthritis (HCC) (primary encounter diagnosis) (Z79.899) 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 (M06.4) Inflammatory polyarthropathy (HCC) (M54.50, G89.29) Chronic bilateral low back pain without sciatica (K22.70) Garcia's esophagus without dysplasia (Z79.899) Encounter for long-term current use of high risk medication. CHIEF COMPLAINT: follow-up visit for rheumatoid arthritis HISTORY OF PRESENT ILLNESS From a prior Rheumatology note: 08/12/2021 (with Brody Conrad) The patient had a nice response to the methotrexate however he still has some GI issues with it. He will change to subcutaneous injection of 25 mg of methotrexate each week. If he is not able to tolerate that, we will then consider changing him to a TNF inhibitor. He will get the screening test including QuantiFERON TB testing and hepatitis remote panel in case we need to go that route. There is a significant element of osteoarthritis in his hands and other joints. He works with his hands on a daily basis and that is an underlying contributor to his arthritis. Nevertheless, he does have rheumatoid arthritis. From a prior note of mine: This a patient who has been diagnosed by his local buckle and button maker as having seronegative rheumatoidarthritis and inflammatory polyarthropathy. He has been treated with methotrexate but he had difficulty tolerating it as noted below. At this point, I would like to reestablish the diagnosis.. I changed his methotrexate to oral liquid form. We will see how he does with that. If he does not respond to that we will consider trying injectable methotrexate or possibly trying a TNF inhibitor. In addition, he needs a QuantiFERON test. We will then make a decision regarding the next therapies. Consideration will be given for TNF inhibitor. The patient tells me that last summer he felt bad with pains in his hands. He had no strength at that point. He was seeing rheumatology and has been referred by his primary care physician. He complains of morning stiffness of about 1 hour. He has been treated with methotrexate but has not improved. The joints of bother him the most are his fingers, wrists, knees. He tells me he still has a poor java swing developer strength. He was initially on methotrexate 20 mg/week but apparently that was decreased to 10 mg/week. He complains of nausea and cognitive problems with the methotrexate which she has been on for about1 year per the patient. From outside records the history is as follows. This is a patient who has been diagnosed as having inflammatory polyarthropathy. He has a prior history of hypertension, coronary artery disease POTS. He was started on methotrexate 20 mg p.o. once aweek with folic acid 2 mg every other day along with tramadol for his pain. He had noticed stiffness and soreness in his hands, wrists, elbows, low back, hips, knees, ankles and feet in November 2020. He could not do physical activity activities or physical therapy because it aggravated his pains he started taking prednisone 60 mg/day and that was tapered over 3 weeks. He improved significantly. He did several more courses of prednisone in February and March. His laboratory showed a CRP of 6.9 and sedimentation rate of 37. His NEVIN, anti-CCP, and rheumatoid factor were negative. X-ray of the pelvis showed some mild osteoarthritis of the right hip. His medications included Lexapro, Ventolin inhaler, trazodone, Singulair, omeprazole, folic acid, aspirin 81 mg, Plavix 75 mg, lamotrigine, lisinopril, Dulera inhaler, and methotrexate 20 mg/week His prior medical problems include Garcia's esophagus., Coronary artery disease, depression, essential hypertension, fatty liver, hyperlipidemia, irritable bowel, asthma, obesity, and inflammatory polyarthropathy Surgical history includes cholecystectomy, knee surgery for torn meniscus in 2002, Family history for heart disease psoriasis diabetes cancer goiter He was felt to have inflammatory polyarthropathy with intermittent synovitis of the hands. He also had low back pain from lumbosacral spondylosis. He has been treated with methotrexate 20 mg a week along with folic acid. NSAIDs have been avoided. He is followed by his local buckle and button maker Dr. Mueller Component Latest Ref Rng & Units 04/30/2021 CRP <0.9 mg/dL <0.3 WSR 0 - 15 mm/hr 8 Rheumatoid Factor <16 IU/mL <10 CCP Antibody, IgG <20 Units <15 CCP IgG Antibodies on 05-05-2020 ANTI-CCP [id number] Normal [facility] Comment on above: Result Comment: TEST RESULT REFERENCE RANGE Hep B Core Ab, IgM Negative Negative CCP Antibodies, IgG/IgA 6 units 0-19 Rheumatoid Factor on 04-30-2020 RHEUMATOID FAC < 10.0 ESR (Bld) [Velocity] 53 mm/h STUDY: X-RAY CHEST REASON FOR EXAM: Male, 54 years old. Inflammatory polyarthropathy. TECHNIQUE: PA and lateral views of the chest. COMPARISON: March 09, 2020 FINDINGS: The lungs are hypoexpanded. There is no new mass or infiltrate. There is no demonstrated pleural abnormality. Normal size heart. Normal mediastinum and aaron. Normal visualized pulmonary arteries. Normal visualized aortic arch and descending thoracic aorta. There are diffuse degenerative changes of the visualized thoracic spine. There is degenerative osteoarthritis of the bilateral shoulders. There is no demonstrated abnormality of the visualized soft tissue structures of the upper abdomen. STUDY: X-RAY - PELVIS REASON FOR EXAM: Male, 54 years old. Inflammatory polyarthropathy. TECHNIQUE: One view of the pelvis was obtained. COMPARISON: None. FINDINGS: There is a non-specific bowel gas pattern. Normal visualized soft tissue structures. There are multiple calcified phleboliths. Normal bilateral iliac wings, sacroiliac joints and visualized sacrum. Normal visualized bilateral superior and inferior pubic rami. Normal pubic symphysis. Normal ischial tuberosities. Normal visualized right femoral head. Normal right acetabulum. There is mild articular joint space narrowing of the right hip. Normal visualized left femoral head. Normal left acetabulum. Normal left hip joint. DATE OF EXAM: Apr 30 2021 10:13AM WOX [id number] - XR HAND 3V PA/LAT/OBL JOSE RAFAEL / PROCEDURE REASON: Seronegative rheumatoid arthritis (HCC) * * * * Physician Interpretation * * * * EXAMINATION: XR HAND 3V PA/LAT/OBL JOSE RAFAEL CLINICAL HISTORY: pt states for the last year weakness, stiffness and pain in fingers. 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 The joint spaces are maintained. Scattered minimal spurring is present at some of the metacarpophalangeal joints and interphalangeal joints of the RIGHT hand. Nonspecific subchondral cystic change is present in the distal middle phalanges of the 2nd and 3rd digits. There is a linear density measuring approximately 2 mm in the soft tissues medial to the RIGHT 3rd distal interphalangeal joint suspicious for body of unknown chronicity. Clinical correlation is necessary. LEFT hand: No acute fracture or dislocation. The joint spaces of the LEFT hand are maintained. No significant degenerative spurring is appreciated. Nonspecific subchondral cystic change is present in the distal LEFT 2nd middle phalanx. There is a rounded bone density associated with the lateral distal interphalangeal joints of the 2nd digit which may relate to degenerative change/remote traumatic injury. No radiopaque foreign body. RAPID 3 Ortega Activities of Daily Living 05/11/2022 10:22 AM 03/30/2022 8:04 AM 01/08/2022 12:51 PM First answer obtained - 04/27/2021 3:43 PM Dress self? With SOME difficulty With SOME difficulty Without ANY difficulty Without ANY difficulty Get in and out of bed? With SOME difficulty With SOME difficulty Without ANY difficulty With SOME difficulty Walk outdoors? With SOME difficulty Without ANY difficulty Without ANY difficulty Without ANY difficulty Wash and dry body? With SOME difficulty With SOME difficulty Without ANY difficulty Without ANY difficulty Get in and out of car? With SOME difficulty With SOME difficulty Without ANY difficulty With SOME difficulty He has no new systemic rheumatologic-associated complaints. Medications prior to this visit Current Outpatient Medications on File Prior to Visit Medication Sig methotrexate sodium 25 mg/mL soln INJECT 1 ML SUBCUTANEOUSLY ONCE A WEEK folic acid 1 mg tablet Take 2 tablets by mouth once daily. folic acid 1 mg tablet Take 2 tablets by mouth once daily. traZODone (DESYREL) 50 mg tablet Take 50 mg by mouth daily at bedtime. atorvastatin (LIPITOR) 40 mg tablet Take 40 mg by mouth daily at bedtime. Omeprazole 40 mg capsule TAKE 1 CAPSULE TWICE A DAY mometasone-formoterol (DULERA) 100-5 mcg/actuation inhaler Inhale 2 Puffs as instructed twice daily. lamoTRIgine (LAMICTAL) 150 mg tablet Take 150 mg by mouth once daily. escitalopram oxalate (LEXAPRO) 20 mg tablet Take 20 mg by mouth once daily. takes 30 mg total clopidogrel (PLAVIX) 75 mg tablet once daily. lisinopril 2.5 mg tablet once daily. montelukast (SINGULAIR) 10 mg tablet aspirin 81 mg chewable tablet Take 81 mg by mouth once daily. VENTOLIN 90MCG INHALER (2)two puff tid No current facility-administered medications on file prior to visit. PAST MEDICAL HISTORY-FAMILY HISTORY-SOCIAL HISTORY-REVIEW OF SYSTEMS The chart was reviewed and there are no significant changes since those last documented in the chart. I have confirmed and edited as necessary that information. Review of Systems CONSTITUTION: Negative for: Fever and Recent weight change HEENT: Negative for: Nosebleeds, Mouth sores, Trouble swallowing and Dry mouth RESPIRATORY: Negative for: Cough, Shortness of breath and Pain with breathing GASTROINTESTINAL: Negative for: Melena, Diarrhea, Heartburn and Abdominal pain MUSCULOSKELETAL: Positive for: Arthralgias, Myalgias, Joint swelling and Morning Joint Stiffness Negative for: Muscle weakness NEUROLOGICAL: Positive for: Headaches Negative for: Numbness and Memory loss SKIN: Negative for: Rash, Skin changes, Hair loss and Nail changes EYES: Negative for: Eye pain, Eye redness, Eye dryness and visual disturbance CARDIOVASCULAR: Negative for: Chest pain and Leg swelling GENITOURINARY: Negative for: Dysuria and Hematuria HEMATOLOGIC/LYMPHATIC: Negative for: Swollen glands Virtual/Video physical examination: (performed via video enabled technology) OBJECTIVE GENERAL DESCRIPTION: A well-developed, well-nourished male sitting in a chair with no acute distress. SKIN: Visual inspection shows no significant lesions, rashes, or ulcers of the upper extremities and face. PSYCHIATRIC: He is alert and oriented. Recent and remote memory are intact. Mood, affect, judgment,and insight are appropriate. MUSCULOSKELETAL EXAMINATION: Visually, there is no joint no swelling or erythema of the hands or other viewable joints. Medical Decision Making and Assessment and Plan This is a patient with the medical problems as noted above. The plan was discussed in detail with the patient. They were was agreeable with it. All of their questions were addressed and answered. The patient has 2 or more stable chronic illnesses; a chronic autoimmune disease, rheumatoid arthritis that poses a threat to life or bodily function. I have reviewed prior external notes from unique sources; reviewed of the results of unique tests; and have ordered unique tests (including standing orders). I have independently interpreted tests performed by another physician/other qualified health customer care associate and have reviewed my interpretation with the patient. The patient has a moderate risk of morbidity from treatment and/or prescription drug management. The risks and benefits of the proposed treatment (and/or procedure), alternative treatment, of not receiving or undergoing a treatment or procedure were discussed in detail with the patient. The patient was told of the importance of keeping their next appointment with me so we may go over the (lab) results and the response to treatment. I personally spent 30 minutes for these services in total time on the date of the encounter, including both [id number] and vij-cosm-ty-face time, including preparing to see the patient (review of tests and prior notes), documenting clinical information in the electronic health record, and independently interpreting results (not reported separately) and communicating results to the patient. Data Review RELEVANT PREVIOUS INVESTIGATIONS CBC Latest Ref Rng & Units 04/30/2021 08/20/2021 11/05/2021 02/04/2022 WBC 3.70 - 11.00 k/uL 6.66 6.83 8.26 8.29 HEMOGLOBIN 13.0 - 17.0 g/dL 14.6 14.3 14.9 13.9 HEMATOCRIT 39.0 - 51.0 % 46.9 45.5 47.7 44.7 PLATELETS 150 - 400 k/uL 225 224 254 248 ABS NEUT (ANC) 1.8 - 7.7 K/uL - - - - ABS LYMPH 1.0 - 4.0 k/uL - - - - Urinalysis Latest Ref Rng & Units 08/20/2021 11/05/2021 02/04/2022 PROTEIN, URINE Negative Negative Negative Negative RBC, URINE 0-3 /HPF 0-3 0-3 0-3 /HPF Last Lupus Anticoag Panel Interpretation No lab values to display. No flowsheet data found. Glucocorticoids and NSAID's (last 2 years) Some values may be hidden. Unless noted otherwise, only the newest values recorded on each date aredisplayed. Glucocorticoids predniSONE (DELTASONE) 10 mg tablet Dose: Take by mouth 6 pills on day 1, 5 pills on day 2, 4 pillson day 3, 3 pills on day 4, 2 pills on day 5, 1 pill on day 6 Starting date: 12/20/2020 Ending date: 12/26/2020 NSAIDs naproxen (NAPROSYN) 500 mg tablet Dose: 500 mg BID PRN for pain. Take with food. Starting date: 01/09/2022 Ending date: 05/12/2022 (Discontinued) naproxen (NAPROSYN) 500 mg tablet Dose: 500 mg BID PRN for pain. Take with food. Starting date: 05/12/2022 (active) [facility] Miscellaneous Notes* Telephone Encounter - Slime Sheets RN - 03/24/2022 9:04 AM EDT Most recent Rheumatology visit: 01/09/2022 (with Brody Conrad) Upcoming Rheumatology Appointments - Next 365 Days Visit Type Date Time Department VIDEO SPEC EST 03/30/2022 4:40 PM [facility] A50 CBC: CBC Latest Ref Rng & Units 11/05/2021 02/04/2022 WBC 3.70 - 11.00 k/uL 8.26 8.29 HEMOGLOBIN 13.0 - 17.0 g/dL 14.9 13.9 HEMATOCRIT 39.0 - 51.0 % 47.7 44.7 PLATELETS 150 - 400 k/uL 254 248 ABS NEUT (ANC) 1.8 - 7.7 K/uL - - ABS LYMPH 1.0 - 4.0 k/uL - - Vitamin D: None on file in the last 6 months LFT: CMP Latest Ref Rng & Units 11/05/2021 02/04/2022 SODIUM 136 - 144 mmol/L 139 140 POTASSIUM 3.7 - 5.1 mmol/L 4.9 4.6 CHLORIDE 97 - 105 mmol/L 103 106(H) CO2 22 - 30 mmol/L 26 24 GLUCOSE 74 - 99 mg/dL 119(H) 114(H) BUN 9 - 24 mg/dL 18 22 CREATININE 0.73 - 1.22 mg/dL 1.04 0.87 CALCIUM, TOTAL 8.5 - 10.2 mg/dL 9.6 9.3 AST 14 - 40 U/L 21 22 ALT 10 - 54 U/L 25 34 ALKALINE PHOSPHATASE 38 - 113 U/L 100 105 Creatinine: Creatinine Latest Ref Rng & Units 11/05/2021 02/04/2022 CREAT 0.73 - 1.22 mg/dL 1.04 0.87 ESR/CRP: None on file in the last 6 months Uric Acid: None on file in the last 6 months Open Standing (Multiple Instance) Lab Orders Remain Interval Expires Ordered Last Rel. CBC [SQCBC] 4/6 Every 3 months 04/27/22 04/27/21 02/04/22 Auth. provider: Brody Conrad MD Assoc. diagnoses: Seronegative rheumatoid arthritis (HCC) COMP METABOLIC PANEL [SQCMP] 3/6 Every 3 months 04/27/22 04/27/21 02/04/22 Auth. provider: Brody Conrad MD Assoc. diagnoses: Seronegative rheumatoid arthritis (HCC) CBC [SQCBC] 2/6 Every 3 months 08/12/22 08/12/21 02/04/22 Auth. provider: Brody Conrad MD Assoc. diagnoses: Seronegative rheumatoid arthritis (HCC) URINALYSIS, WITH MICROSCOPIC [SQUAWMIC] 2/6 Every 3 months 08/12/22 08/12/21 02/04/22 Auth. provider: Brody Conrad MD Assoc. diagnoses: Seronegative rheumatoid arthritis (HCC) COMP METABOLIC PANEL [SQCMP] 2/6 Every 3 months 08/12/22 08/12/21 02/04/22 Auth. provider: Brody Conrad MD Assoc. diagnoses: Seronegative rheumatoid arthritis (HCC) Open Future (Single Instance) Lab Orders None * Telephone Encounter - Karen Ayonka Ma - 03/24/2022 9:01 AM EDT Please approve prescription and any additional refills and e-script to designated pharmacy. Thank you, Karen Eren Cuello documented in this encounterOhio[facility] History of Present illness Narrative* Brody Conrad MD - 01/09/2022 3:22 PM EDT Images from the original note were not included. [facility] DEPARTMENT OF RHEUMATIC AND IMMUNOLOGIC DISEASES DISTANCE HEALTH VISIT via [employer] VISIT PROGRESS NOTE This is an encounter initiated for an established patient not originating from a related Evaluation& Management service provided within the previous 7 days nor leading to an Evaluation & Management service or procedure within the next 24 hours or soonest available appointment. This Team Access Model visit is a virtual encounter. It required patient- provider interaction for the medical decision making as documented below. Ashlie Villasenor has consented to this encounter. ASSESSMENT and TREATMENT PLAN: 1. Seronegative rheumatoid arthritis (HCC) - ICD9: 714.0, ICD10: M06.00 (primary diagnosis) The patient is stable. The current treatment and management will be continued. The patient is doing well. He tells me he only has 5 minutes of morning stiffness. He is not having any joint swelling. He is satisfied with the current approach to his treatment. - NAPROXEN 500 MG TABLET - BD ALLERGY SYRINGE 1 ML 28 GAUGE X 1/2 2. 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 Inflammatory polyarthropathy (HCC) - ICD9: 714.9, ICD10: M06.4 5. Chronic bilateral low back pain without sciatica - ICD9: 724.2, 338.29, ICD10: M54.50, G89.29 PLAN FOR OTHER MEDICAL PROBLEMS Mr. Villasenor will follow up with his primary care physician for all of his other non-Rheumatologic medical problems that are listed above. Brody Conrad M.D. Director of the [facility] Department of Rheumatic and Immunologic Diseases [address] [facility] [address] [place], [place] [address] Office: [phone] Appt: [phone] OVERVIEW This is a follow up visit to Rheumatology for this 56 year old male. 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 CHIEF COMPLAINT: follow-up visit for rheumatoid arthritis HISTORY OF PRESENT ILLNESS From a prior Rheumatology note: 08/12/2021 (with Brody Conrad) The patient had a nice response to the methotrexate however he still has some GI issues with it. He will change to subcutaneous injection of 25 mg of methotrexate each week. If he is not able to tolerate that, we will then consider changing him to a TNF inhibitor. He will get the screening test including QuantiFERON TB testing and hepatitis remote panel in case we need to go that route. There is a significant element of osteoarthritis in his hands and other joints. He works with his hands on a daily basis and that is an underlying contributor to his arthritis. Nevertheless, he does have rheumatoid arthritis. From a prior note of mine: This a patient who has been diagnosed by his local buckle and button maker as having seronegative rheumatoidarthritis and inflammatory polyarthropathy. He has been treated with methotrexate but he had difficulty tolerating it as noted below. At this point, I would like to reestablish the diagnosis.. I changed his methotrexate to oral liquid form. We will see how he does with that. If he does not respond to that we will consider trying injectable methotrexate or possibly trying a TNF inhibitor. In addition, he needs a QuantiFERON test. We will then make a decision regarding the next therapies. Consideration will be given for TNF inhibitor. The patient tells me that last summer he felt bad with pains in his hands. He had no strength at that point. He was seeing rheumatology and has been referred by his primary care physician. He complains of morning stiffness of about 1 hour. He has been treated with methotrexate but has not improved. The joints of bother him the most are his fingers, wrists, knees. He tells me he still has a poor java swing developer strength. He was initially on methotrexate 20 mg/week but apparently that was decreased to 10 mg/week. He complains of nausea and cognitive problems with the methotrexate which she has been on for about1 year per the patient. From outside records the history is as follows. This is a patient who has been diagnosed as having inflammatory polyarthropathy. He has a prior history of hypertension, coronary artery disease POTS. He was started on methotrexate 20 mg p.o. once aweek with folic acid 2 mg every other day along with tramadol for his pain. He had noticed stiffness and soreness in his hands, wrists, elbows, low back, hips, knees, ankles and feet in November 2020. He could not do physical activity activities or physical therapy because it aggravated his pains he started taking prednisone 60 mg/day and that was tapered over 3 weeks. He improved significantly. He did several more courses of prednisone in February and March. His laboratory showed a CRP of 6.9 and sedimentation rate of 37. His NEVIN, anti-CCP, and rheumatoid factor were negative. X-ray of the pelvis showed some mild osteoarthritis of the right hip. His medications included Lexapro, Ventolin inhaler, trazodone, Singulair, omeprazole, folic acid, aspirin 81 mg, Plavix 75 mg, lamotrigine, lisinopril, Dulera inhaler, and methotrexate 20 mg/week His prior medical problems include Garcia's esophagus., Coronary artery disease, depression, essential hypertension, fatty liver, hyperlipidemia, irritable bowel, asthma, obesity, and inflammatory polyarthropathy Surgical history includes cholecystectomy, knee surgery for torn meniscus in 2002, Family history for heart disease psoriasis diabetes cancer goiter He was felt to have inflammatory polyarthropathy with intermittent synovitis of the hands. He also had low back pain from lumbosacral spondylosis. He has been treated with methotrexate 20 mg a week along with folic acid. NSAIDs have been avoided. He is followed by his local buckle and button maker Dr. Mueller Component Latest Ref Rng & Units 04/30/2021 CRP <0.9 mg/dL <0.3 WSR 0 - 15 mm/hr 8 Rheumatoid Factor <16 IU/mL <10 CCP Antibody, IgG <20 Units <15 CCP IgG Antibodies on 05-05-2020 ANTI-CCP [id number] Normal [facility] Comment on above: Result Comment: TEST RESULT REFERENCE RANGE Hep B Core Ab, IgM Negative Negative CCP Antibodies, IgG/IgA 6 units 0-19 Rheumatoid Factor on 04-30-2020 RHEUMATOID FAC < 10.0 ESR (Bld) [Velocity] 53 mm/h STUDY: X-RAY CHEST REASON FOR EXAM: Male, 54 years old. Inflammatory polyarthropathy. TECHNIQUE: PA and lateral views of the chest. COMPARISON: March 09, 2020 FINDINGS: The lungs are hypoexpanded. There is no new mass or infiltrate. There is no demonstrated pleural abnormality. Normal size heart. Normal mediastinum and aaron. Normal visualized pulmonary arteries. Normal visualized aortic arch and descending thoracic aorta. There are diffuse degenerative changes of the visualized thoracic spine. There is degenerative osteoarthritis of the bilateral shoulders. There is no demonstrated abnormality of the visualized soft tissue structures of the upper abdomen. STUDY: X-RAY - PELVIS REASON FOR EXAM: Male, 54 years old. Inflammatory polyarthropathy. TECHNIQUE: One view of the pelvis was obtained. COMPARISON: None. FINDINGS: There is a non-specific bowel gas pattern. Normal visualized soft tissue structures. There are multiple calcified phleboliths. Normal bilateral iliac wings, sacroiliac joints and visualized sacrum. Normal visualized bilateral superior and inferior pubic rami. Normal pubic symphysis. Normal ischial tuberosities. Normal visualized right femoral head. Normal right acetabulum. There is mild articular joint space narrowing of the right hip. Normal visualized left femoral head. Normal left acetabulum. Normal left hip joint. DATE OF EXAM: Apr 30 2021 10:13AM WOX 5556 - XR HAND 3V PA/LAT/OBL JOSE RAFAEL / PROCEDURE REASON: Seronegative rheumatoid arthritis (HCC) * * * * Physician Interpretation * * * * EXAMINATION: XR HAND 3V PA/LAT/OBL JOSE RAFAEL CLINICAL HISTORY: pt states for the last year weakness, stiffness and pain in fingers. 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 The joint spaces are maintained. Scattered minimal spurring is present at some of the metacarpophalangeal joints and interphalangeal joints of the RIGHT hand. Nonspecific subchondral cystic change is present in the distal middle phalanges of the 2nd and 3rd digits. There is a linear density measuring approximately 2 mm in the soft tissues medial to the RIGHT 3rd distal interphalangeal joint suspicious for body of unknown chronicity. Clinical correlation is necessary. LEFT hand: No acute fracture or dislocation. The joint spaces of the LEFT hand are maintained. No significant degenerative spurring is appreciated. Nonspecific subchondral cystic change is present in the distal LEFT 2nd middle phalanx. There is a rounded bone density associated with the lateral distal interphalangeal joints of the 2nd digit which may relate to degenerative change/remote traumatic injury. No radiopaque foreign body. RAPID 3 Ortega Activities of Daily Living 01/08/2022 12:51 PM 08/10/2021 9:38 AM 04/27/2021 3:43 PM Dress self? Without ANY difficulty Without ANY difficulty Get in and out of bed? Without ANY difficulty With SOME difficulty With SOME difficulty Walk outdoors? Without ANY difficulty With SOME difficulty Without ANY difficulty Wash and dry body? Without ANY difficulty Without ANY difficulty Without ANY difficulty Get in and out of car? Without ANY difficulty Without ANY difficulty With SOME difficulty He has no new systemic rheumatologic-associated complaints. Medications prior to this visit PAST MEDICAL HISTORY-FAMILY HISTORY-SOCIAL HISTORY-REVIEW OF SYSTEMS The chart was reviewed and there are no significant changes since those documented in the chart. I have confirmed and edited as necessary that information. Review of Systems CONSTITUTION: Negative for: Fever and Recent weight change HEENT: Negative for: Nosebleeds, Mouth sores, Trouble swallowing and Dry mouth RESPIRATORY: Negative for: Cough, Shortness of breath and Pain with breathing GASTROINTESTINAL: Negative for: Melena, Diarrhea, Heartburn and Abdominal pain MUSCULOSKELETAL: Positive for: Arthralgias, Myalgias, Muscle weakness, Joint swelling and Morning Joint Stiffness NEUROLOGICAL: Negative for: Headaches, Numbness and Memory loss SKIN: Negative for: Rash, Skin changes, Hair loss and Nail changes EYES: Negative for: Eye pain, Eye redness, Eye dryness and visual disturbance CARDIOVASCULAR: Negative for: Chest pain and Leg swelling GENITOURINARY: Negative for: Dysuria and Hematuria HEMATOLOGIC/LYMPHATIC: Negative for: Swollen glands Virtual/Video physical examination: (performed via video enabled technology) OBJECTIVE GENERAL DESCRIPTION: A well-developed, well-nourished male sitting in a chair with no acute distress. SKIN: Visual inspection shows no significant lesions, rashes, or ulcers of the upper extremities and face. PSYCHIATRIC: He is alert and oriented. Recent and remote memory are intact. Mood, affect, judgment,and insight are appropriate. MUSCULOSKELETAL EXAMINATION: Visually, there is no joint no swelling or erythema of the hands or other viewable joints. Medical Decision Making and Assessment and Plan This is a patient with the medical problems as noted above. The plan was discussed in detail with the patient. They were was agreeable with it. All of their questions were addressed and answered. The patient has 2 or more stable chronic illnesses; a chronic autoimmune disease, rheumatoid arthritis that poses a threat to life or bodily function. I have reviewed prior external notes from unique sources; reviewed of the results of unique tests; and have ordered unique tests (including standing orders). I have independently interpreted tests performed by another physician/other qualified health customer care associate and have reviewed my interpretation with the patient. The patient has a moderate risk of morbidity from treatment and/or prescription drug management. The risks and benefits of the proposed treatment (and/or procedure), alternative treatment, of not receiving or undergoing a treatment or procedure were discussed in detail with the patient. The patient was told of the importance of keeping their next appointment with me so we may go over the (lab) results and the response to treatment. I personally spent 30 minutes for these services in total time on the date of the encounter, including both [id number] and lgg-[id number]-rb-face time, including preparing to see the patient (review of tests and prior notes), documenting clinical information in the electronic health record, and independently interpreting results (not reported separately) and communicating results to the patient. Data Review RELEVANT PREVIOUS INVESTIGATIONS CBC Latest Ref Rng & Units 05/11/2004 04/30/2021 08/20/2021 11/05/2021 WBC 3.70 - 11.00 k/uL 5.94 6.66 6.83 8.26 HEMOGLOBIN 13.0 - 17.0 g/dL 14.9 14.6 14.3 14.9 HEMATOCRIT 39.0 - 51.0 % 44.1 46.9 45.5 47.7 PLATELETS 150 - 400 k/uL 233 225 224 254 ABS NEUT (ANC) 1.8 - 7.7 K/uL 2.92 - - - ABS LYMPH 1.0 - 4.0 k/uL 2.33 - - - Urinalysis Latest Ref Rng & Units 08/20/2021 11/05/2021 PROTEIN, URINE Negative Negative Negative RBC, URINE 0 - 3 /HPF 0-3 0-3 Last Lupus Anticoag Panel Interpretation No lab values to display. Glucocorticoids and NSAID's (last 2 years) Some values may be hidden. Unless noted otherwise, only the newest values recorded on each date aredisplayed. Glucocorticoids predniSONE (DELTASONE) 10 mg tablet Dose: Take by mouth 6 pills on day 1, 5 pills on day 2, 4 pillson day 3, 3 pills on day 4, 2 pills on day 5, 1 pill on day 6 Starting date: 12/20/2020 Ending date: 12/26/2020 NSAIDs naproxen (NAPROSYN) 500 mg tablet Dose: 500 mg BID PRN for pain. Take with food. Starting date: 01/09/2022 (active) Component Latest Ref Rng & Units 08/20/2021 Rheumatoid Factor <16 IU/mL <10 CCP Antibody, IgG <20 Units <15 Component Latest Ref Rng & Units 04/30/2021 08/20/2021 CRP <0.9 mg/dL <0.3 0.5 WSR 0 - 15 mm/hr 8 17 (H) 05/02/2021 4:45 PM - Radiology, Oru In Impression IMPRESSION: Refer to the result. Technique: XR HAND 3V PA/LAT/OBL JOSE RAFAEL -- BILATERAL hands with 3 each views on 3 images Comparison: None RESULT: RIGHT hand: No acute fracture or dislocation is identified. The joint spaces are maintained. Scattered minimal spurring is present at some of the metacarpophalangeal joints and interphalangeal joints of the RIGHT hand. Nonspecific subchondral cystic change is present in the distal middle phalanges of the 2nd and 3rd digits. There is a linear density measuring approximately 2 mm in the soft tissues medial to the RIGHT 3rd distal interphalangeal joint suspicious for body of unknown chronicity. Clinical correlation is necessary. LEFT hand: No acute fracture or dislocation. The joint spaces of the LEFT hand are maintained. No significant degenerative spurring is appreciated. Nonspecific subchondral cystic change is present in the distal LEFT 2nd middle phalanx. There is a rounded bone density associated with the lateral distal interphalangeal joints of the 2nd digit which may relate to degenerative change/remote traumatic injury. No radiopaque foreign body. [facility] Miscellaneous Notes* Telephone Encounter - Loni Kaminski - 08/19/2021 1:37 PM EDT Patient is requesting another prescription of the Methotrexate be sent in, but does not want it to be Preservative Free. If there is an issue please call home and speak to spouse. [phone] (home) documented in this encounterOhio[facility] History of Present illness Narrative* Ailyn Black RT(R) - 04/30/2021 10:10 AM EDT Radiology Service Progress Note PATIENT NAME: Ashlie Villasenor DATE OF SERVICE: April 30, 2021 TIME: 10:13 AM PATIENT IDENTITY VERIFICATION COMPLETED USING TWO (2) IDENTIFIERS: Name and Date of confirmedby patient verbally. FALL SCREENING: Has the patient had 2 falls in the last year or 1 fall with injury or currently using an Ambulatory Assistive Device (Walker, Cane, Wheelchair, Crutches, etc.)? No PATIENT GENDER DATA: Male PATIENT RELEVANT IMPLANT DATA REVIEWED: Not Applicable RADIOLOGY DEPARTMENT: General X-ray: Exam(s) Completed: Upper Extremity X- Ray(s): Hand, bilateral PERIPHERAL IV DATA: Not applicable SIGNED BY: RT Mic(Arley) April 30, 2021 10:13 AM documented in this encounterOhio[facility] History of Past illness Narrative* Problem Noted Date Resolved Date Postural Tachycardia Syndrome (POTS) 04/04/2004 07/18/2016 documented as of this encounter (statuses as of 01/21/2022) [address]21-2004 History of Past illness Narrative* Problem Noted Date Resolved Date Postural Tachycardia Syndrome (POTS) 04/04/2004 07/18/2016 documented as of this encounter (statuses as of 03/23/2022) [address]21-2004 History of Past illness Narrative* Problem Noted Date Resolved Date Postural Tachycardia Syndrome (POTS) 04/04/2004 07/18/2016 documented as of this encounter (statuses as of 03/25/2022) [address]21-2004 History of Past illness Narrative* Problem Noted Date Resolved Date Postural Tachycardia Syndrome (POTS) 04/04/2004 07/18/2016 documented as of this encounter (statuses as of 05/15/2022) [address]21-2004 History of Past illness Narrative* Problem Noted Date Resolved Date Postural Tachycardia Syndrome (POTS) 04/04/2004 07/18/2016 documented as of this encounter (statuses as of 05/19/2022) [address]21-2004 History of Past illness Narrative* Problem Noted Date Resolved Date Postural Tachycardia Syndrome (POTS) 04/04/2004 07/18/2016 documented as of this encounter (statuses as of 05/22/2022) [address]21-2004 History of Past illness Narrative* Problem Noted Date Resolved Date Postural Tachycardia Syndrome (POTS) 04/04/2004 07/18/2016 documented as of this encounter (statuses as of 05/24/2022) [address]21-2004 History of Past illness Narrative* Problem Noted Date Resolved Date Postural Tachycardia Syndrome (POTS) 04/04/2004 07/18/2016 documented as of this encounter (statuses as of 06/02/2022) [address]21-2004 History of Past illness Narrative* Problem Noted Date Resolved Date Postural Tachycardia Syndrome (POTS) 04/04/2004 07/18/2016 documented as of this encounter (statuses as of 06/02/2022) [address]21-2004 History of Past illness Narrative* Problem Noted Date Resolved Date Postural Tachycardia Syndrome (POTS) 04/04/2004 07/18/2016 documented as of this encounter (statuses as of 07/13/2022) [address]21-2004 History of Past illness Narrative* Problem Noted Date Resolved Date Postural Tachycardia Syndrome (POTS) 04/04/2004 07/18/2016 documented as of this encounter (statuses as of 08/03/2022) [address]21-2004 History of Past illness Narrative* Problem Noted Date Resolved Date Postural Tachycardia Syndrome (POTS) 04/04/2004 07/18/2016 documented as of this encounter (statuses as of 09/07/2022) [address]21-2004 History of Past illness Narrative* Problem Noted Date Resolved Date Postural Tachycardia Syndrome (POTS) 04/04/2004 07/18/2016 documented as of this encounter (statuses as of 09/13/2022) [address]21-2004 History of Past illness Narrative* Problem Noted Date Resolved Date Postural Tachycardia Syndrome (POTS) 04/04/2004 07/18/2016 documented as of this encounter (statuses as of 11/07/2022) [address]21-2004 History of Past illness Narrative* Problem Noted Date Resolved Date Postural Tachycardia Syndrome (POTS) 04/04/2004 07/18/2016 documented as of this encounter (statuses as of 12/05/2022) [address]21-2004 History of Past illness Narrative* Problem Noted Date Resolved Date Postural Tachycardia Syndrome (POTS) 04/04/2004 07/18/2016 documented as of this encounter (statuses as of 12/06/2022) [address]21-2004 History of Past illness Narrative* Problem Noted Date Resolved Date Postural Tachycardia Syndrome (POTS) 04/04/2004 07/18/2016 documented as of this encounter (statuses as of 12/20/2022) [address]21-2004 History of Past illness Narrative* Problem Noted Date Resolved Date Postural Tachycardia Syndrome (POTS) 04/04/2004 07/18/2016 documented as of this encounter (statuses as of 12/29/2022) [address]21-2004 History of Past illness Narrative* Problem Noted Date Diagnosed Date Resolved Date Postural Tachycardia Syndrome (POTS) 04/04/2004 07/18/2016 documented as of this encounter (statuses as of 04/24/2023) [address]21-2004 History of Past illness Narrative* Problem Noted Date Diagnosed Date Resolved Date Postural Tachycardia Syndrome (POTS) 04/04/2004 07/18/2016 documented as of this encounter (statuses as of 04/25/2023) [address]21-2004 History of Past illness Narrative* Problem Noted Date Diagnosed Date Resolved Date Postural Tachycardia Syndrome (POTS) 04/04/2004 07/18/2016 documented as of this encounter (statuses as of 05/21/2023) [address]21-2004 History of Past illness Narrative* Problem Noted Date Diagnosed Date Resolved Date Postural Tachycardia Syndrome (POTS) 04/04/2004 07/18/2016 documented as of this encounter (statuses as of 06/20/2023) [address]21-2004 History of Past illness Narrative* Problem Noted Date Diagnosed Date Resolved Date Postural Tachycardia Syndrome (POTS) 04/04/2004 07/18/2016 documented as of this encounter (statuses as of 06/22/2023) [address]21-2004 History of Past illness Narrative* Problem Noted Date Diagnosed Date Resolved Date Postural Tachycardia Syndrome (POTS) 04/04/2004 07/18/2016 documented as of this encounter (statuses as of 08/14/2023) [address]21-2004 History of Past illness Narrative* Problem Noted Date Diagnosed Date Resolved Date Postural Tachycardia Syndrome (POTS) 04/04/2004 07/18/2016 documented as of this encounter (statuses as of 09/10/2023) [address]21-2004 History of Past illness Narrative* Problem Noted Date Diagnosed Date Resolved Date Postural Tachycardia Syndrome (POTS) 04/04/2004 07/18/2016 documented as of this encounter (statuses as of 12/04/2023) [address]-2004 History of Past illness Narrative* Problem Noted Date Diagnosed Date Resolved Date Postural Tachycardia Syndrome (POTS) 04/04/2004 07/18/2016 documented as of this encounter (statuses as of 01/01/2024) [address]21-2004 History of Past illness Narrative* Problem Noted Date Diagnosed Date Resolved Date Postural Tachycardia Syndrome (POTS) 04/04/2004 07/18/2016 documented as of this encounter (statuses as of 01/01/2024) [facility] of Past illness Narrative* Problem Noted Date Diagnosed Date Resolved Date Postural Tachycardia Syndrome (POTS) 04/04/2004 07/18/2016 documented as of this encounter (statuses as of 01/30/2024) [facility] note* Diagnosis Seronegative rheumatoid arthritis (HCC)- Primary Rheumatoid arthritis Encounter for 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 Encounter for long-term (current) use of other medications Inflammatory polyarthropathy (HCC) Unspecified inflammatory polyarthropathy Chronic bilateral low back pain without sciatica [facility] Diagnosis Seronegative rheumatoid arthritis (HCC) Rheumatoid arthritis [facility] Diagnosis Seronegative rheumatoid arthritis (HCC)- Primary Rheumatoid arthritis 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 Encounter 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 long-term (current) use of other medications Inflammatory polyarthropathy (HCC) Unspecified inflammatory polyarthropathy Chronic bilateral low back pain without sciatica Garcia's esophagus without dysplasia Garcia's esophagus Encounter for long-term current use of high risk medication [facility] Diagnosis Seronegative rheumatoid arthritis (HCC) Rheumatoid arthritis [facility] Diagnosis Seronegative rheumatoid arthritis (HCC)- Primary Rheumatoid arthritis [facility] Diagnosis Seronegative rheumatoid arthritis (HCC)- Primary Rheumatoid arthritis [facility] Diagnosis Seronegative rheumatoid arthritis (HCC) Rheumatoid arthritis [facility] Diagnosis Seronegative rheumatoid arthritis (HCC)- Primary Rheumatoid arthritis [facility] Diagnosis Seronegative rheumatoid arthritis (HCC)- Primary Rheumatoid arthritis High risk medication use Encounter for long-term (current) use of other medications [facility]* Diagnosis Seronegative rheumatoid arthritis (HCC)- Primary Rheumatoid arthritis [facility]* Diagnosis Onset Date Resolution Status Lipoma of back acute [facility] Work Phone: Evaluation note* Diagnosis Seronegative rheumatoid arthritis (HCC)- Primary Rheumatoid arthritis [facility] Diagnosis Seronegative rheumatoid arthritis (HCC)- Primary Rheumatoid arthritis [facility]* Diagnosis Seronegative rheumatoid arthritis (HCC)- Primary Rheumatoid arthritis [facility] Diagnosis Seronegative rheumatoid arthritis (HCC)- Primary Rheumatoid arthritis High risk medication use Encounter for long-term (current) use of other medications Encounter for long-term current use of high risk medication Polyarthralgia Pain in joint, multiple sites [facility] Diagnosis Seronegative rheumatoid arthritis (HCC)- Primary Rheumatoid arthritis documented in this encounter [facility] note* Diagnosis Seronegative rheumatoid arthritis (HCC)- Primary Rheumatoid arthritis High risk medication use Encounter for long-term (current) use of other medications [facility] Diagnosis Seronegative rheumatoid arthritis (HCC)- Primary Rheumatoid arthritis [facility] Diagnosis Seronegative rheumatoid arthritis (HCC) Rheumatoid arthritis [facility] Diagnosis Seronegative rheumatoid arthritis (HCC)- Primary Rheumatoid arthritis documented in this encounter [facility] note* Diagnosis Seronegative rheumatoid arthritis (HCC)- Primary Rheumatoid arthritis High risk medication use Encounter for long-term (current) use of other medications [facility] Diagnosis Seronegative rheumatoid arthritis (HCC)- Primary Rheumatoid arthritis documented in this encounter [facility] note* Diagnosis Seronegative rheumatoid arthritis (HCC) Rheumatoid arthritis documented in this encounter [facility] note* Diagnosis Seronegative rheumatoid arthritis (HCC)- Primary Rheumatoid arthritis High risk medication use Encounter for long-term (current) use of other medications [facility] noteNo assessment information [facility]WDiley [facility] Work Phone: Reason for referral (narrative)No reason for referral information availableWDiley Ridge Medical Center Work Phone: Summary Purpose Family History No Family History Records Found Relationship Condition Age at Onset Recorded Date/T gar[place] father Malignant neoplasm of colon Unknown Malignant neoplasm of lung Unknown Diabetes mellitus Unknown Cardiac disease Unknown Hypertension Unknown High blood cholesterol Unknown mother Malignant neoplasm Unknown Advance Directives No Advanced Directives Records FoundDocuments on File Type Date Recorded Patient Transcriber Expl anation Advance Directive(s) 11/30/2017 12:34 PM Advance Directive Response Recorded Date/ Time Advance Directives No May 14 12:39pm Living Will Yes December 19, 2018 3:56am Power of Associate Director Of Development Yes December 19 3:56am Advance Directive Response Recorded Date/ Time Advance Directives No May 14 12:39pm Chief Complaint and Reason for Visit Chief Complaint R LOWER BACK LIPOMAS LIPOMATOUS NEOPLASM OF SKIN Reason for Visit Lipoma of back Chief Complaint R LOWER BACK LIPOMAS LIPOMATOUS NEOPLASM OF SKIN RIB PAIN Reason for Visit Lipoma of back Chief Complaint R LOWER BACK LIPOMAS LIPOMATOUS NEOPLASM OF SKIN RIB PAIN R RIB PAIN. PT HAS RX Reason for Visit Lipoma of back Chief Complaint Admit Date EORDERS June 01, 2025 4: 55pm Additional Source Comments (unrecognized sect ion and content) No Status Records FoundNo Status Records FoundNo Status Records FoundNo Status Records FoundNo Status Records FoundNo Status Records Found INFORMATION SOURCE (unrecogn ized section and content) DATE CREATED AUTHOR 04/03/2018 [facility] DATE CREATED AUTHOR AUTHOR'S ORGANIZ ATION 07/02/2024 [facility] DATE CREATED AUTHOR AUTHOR'S ORGANIZ ATION 07/07/2024 [facility] DATE CREATED AUTHOR AUTHOR'S ORGANIZ ATION 06/05/2025 [facility] DATE CREATED AUTHOR AUTHOR'S ORGANIZ ATION 07/10/2025 [facility] DATE CREATED AUTHOR AUTHOR'S ORGANIZ ATION 07/28/2025 [facility] Source Comments (unrecognize d section and content) In the event this informatio n is protected by the Federal Confidentiality of Alcohol and Drug Abuse Patient Records regulations: The Federal rules restrict any use of the information to criminally investigate or prosecute any alcohol or drug abuse patient.[facility] Hospital[facility] the event this information is protected by the Federal Confidentiality of Alcohol and Drug Abuse Patient Records regulations: The Federal rules restrict any use of the information to criminally investigate or prosecute any alcohol or drug abuse patient.[facility] HospitalIn the event this information is protected by the Federal Confidentiality of Alcohol and Drug Abuse Patient Records regulations: The Federal rules restrict any use of the information to criminally investigate or prosecute any alcohol or drug abuse patient.[facility] HospitalIn the event this information is protected by the Federal Confidentiality of Alcohol and Drug Abuse Patient Records regulations: The Federal rules restrict any use of the information to criminally investigate or prosecute any alcohol or drug abuse patient.[facility] HospitalIn the event this information is protected by the Federal Confidentiality of Alcohol and Drug Abuse Patient Records regulations: The Federal rules restrict any use of the information to criminally investigate or prosecute any alcohol or drug abuse patient.[facility] HospitalIn the event this information is protected by the Federal Confidentiality of Alcohol and Drug Abuse Patient Records regulations: The Federal rules restrict any use of the information to criminally investigate or prosecute any alcohol or drug abuse patient.[facility] HospitalIn the event this information is protected by the Federal Confidentiality of Alcohol and Drug Abuse Patient Records regulations: The Federal rules restrict any use of the information to criminally investigate or prosecute any alcohol or drug abuse patient.[facility] HospitalIn the event this information is protected by the Federal Confidentiality of Alcohol and Drug Abuse Patient Records regulations: The Federal rules restrict any use of the information to criminally investigate or prosecute any alcohol or drug abuse patient.[facility] HospitalIn the event this information is protected by the Federal Confidentiality of Alcohol and Drug Abuse Patient Records regulations: The Federal rules restrict any use of the information to criminally investigate or prosecute any alcohol or drug abuse patient.[facility] HospitalIn the event this information is protected by the Federal Confidentiality of Alcohol and Drug Abuse Patient Records regulations: The Federal rules restrict any use of the information to criminally investigate or prosecute any alcohol or drug abuse patient.[facility] HospitalIn the event this information is protected by the Federal Confidentiality of Alcohol and Drug Abuse Patient Records regulations: The Federal rules restrict any use of the information to criminally investigate or prosecute any alcohol or drug abuse patient.[facility] HospitalIn the event this information is protected by the Federal Confidentiality of Alcohol and Drug Abuse Patient Records regulations: The Federal rules restrict any use of the information to criminally investigate or prosecute any alcohol or drug abuse patient.[facility] HospitalIn the event this information is protected by the Federal Confidentiality of Alcohol and Drug Abuse Patient Records regulations: The Federal rules restrict any use of the information to criminally investigate or prosecute any alcohol or drug abuse patient.[facility] HospitalIn the event this information is protected by the Federal Confidentiality of Alcohol and Drug Abuse Patient Records regulations: The Federal rules restrict any use of the information to criminally investigate or prosecute any alcohol or drug abuse patient.[facility] HospitalIn the event this information is protected by the Federal Confidentiality of Alcohol and Drug Abuse Patient Records regulations: The Federal rules restrict any use of the information to criminally investigate or prosecute any alcohol or drug abuse patient.[facility] HospitalIn the event this information is protected by the Federal Confidentiality of Alcohol and Drug Abuse Patient Records regulations: The Federal rules restrict any use of the information to criminally investigate or prosecute any alcohol or drug abuse patient.[facility] HospitalIn the event this information is protected by the Federal Confidentiality of Alcohol and Drug Abuse Patient Records regulations: The Federal rules restrict any use of the information to criminally investigate or prosecute any alcohol or drug abuse patient.[facility] HospitalIn the event this information is protected by the Federal Confidentiality of Alcohol and Drug Abuse Patient Records regulations: The Federal rules restrict any use of the information to criminally investigate or prosecute any alcohol or drug abuse patient.[facility] HospitalIn the event this information is protected by the Federal Confidentiality of Alcohol and Drug Abuse Patient Records regulations: The Federal rules restrict any use of the information to criminally investigate or prosecute any alcohol or drug abuse patient.[facility] HospitalIn the event this information is protected by the Federal Confidentiality of Alcohol and Drug Abuse Patient Records regulations: The Federal rules restrict any use of the information to criminally investigate or prosecute any alcohol or drug abuse patient.[facility] HospitalIn the event this information is protected by the Federal Confidentiality of Alcohol and Drug Abuse Patient Records regulations: The Federal rules restrict any use of the information to criminally investigate or prosecute any alcohol or drug abuse patient.[facility] HospitalIn the event this information is protected by the Federal Confidentiality of Alcohol and Drug Abuse Patient Records regulations: The Federal rules restrict any use of the information to criminally investigate or prosecute any alcohol or drug abuse patient.[facility] HospitalIn the event this information is protected by the Federal Confidentiality of Alcohol and Drug Abuse Patient Records regulations: The Federal rules restrict any use of the information to criminally investigate or prosecute any alcohol or drug abuse patient.[facility] HospitalIn the event this information is protected by the Federal Confidentiality of Alcohol and Drug Abuse Patient Records regulations: The Federal rules restrict any use of the information to criminally investigate or prosecute any alcohol or drug abuse patient.[facility] HospitalIn the event this information is protected by the Federal Confidentiality of Alcohol and Drug Abuse Patient Records regulations: The Federal rules restrict any use of the information to criminally investigate or prosecute any alcohol or drug abuse patient.[facility] HospitalIn the event this information is protected by the Federal Confidentiality of Alcohol and Drug Abuse Patient Records regulations: The Federal rules restrict any use of the information to criminally investigate or prosecute any alcohol or drug abuse patient.[facility] HospitalIn the event this information is protected by the Federal Confidentiality of Alcohol and Drug Abuse Patient Records regulations: The Federal rules restrict any use of the information to criminally investigate or prosecute any alcohol or drug abuse patient.[facility] HospitalIn the event this information is protected by the Federal Confidentiality of Alcohol and Drug Abuse Patient Records regulations: The Federal rules restrict any use of the information to criminally investigate or prosecute any alcohol or drug abuse patient.[facility] HospitalIn the event this information is protected by the Federal Confidentiality of Alcohol and Drug Abuse Patient Records regulations: The Federal rules restrict any use of the information to criminally investigate or prosecute any alcohol or drug abuse patient.[facility] HospitalIn the event this information is protected by the Federal Confidentiality of Alcohol and Drug Abuse Patient Records regulations: The Federal rules restrict any use of the information to criminally investigate or prosecute any alcohol or drug abuse patient.[facility] HospitalIn the event this information is protected by the Federal Confidentiality of Alcohol and Drug Abuse Patient Records regulations: The Federal rules restrict any use of the information to criminally investigate or prosecute any alcohol or drug abuse patient.[facility] HospitalIn the event this information is protected by the Federal Confidentiality of Alcohol and Drug Abuse Patient Records regulations: The Federal rules restrict any use of the information to criminally investigate or prosecute any alcohol or drug abuse patient.[facility] HospitalIn the event this information is protected by the Federal Confidentiality of Alcohol and Drug Abuse Patient Records regulations: The Federal rules restrict any use of the information to criminally investigate or prosecute any alcohol or drug abuse patient.[facility] HospitalIn the event this information is protected by the Federal Confidentiality of Alcohol and Drug Abuse Patient Records regulations: The Federal rules restrict any use of the information to criminally investigate or prosecute any alcohol or drug abuse patient.[facility] HospitalIn the event this information is protected by the Federal Confidentiality of Alcohol and Drug Abuse Patient Records regulations: The Federal rules restrict any use of the information to criminally investigate or prosecute any alcohol or drug abuse patient.[facility] HospitalIn the event this information is protected by the Federal Confidentiality of Alcohol and Drug Abuse Patient Records regulations: The Federal rules restrict any use of the information to criminally investigate or prosecute any alcohol or drug abuse patient.[facility] HospitalIn the event this information is protected by the Federal Confidentiality of Alcohol and Drug Abuse Patient Records regulations: The Federal rules restrict any use of the information to criminally investigate or prosecute any alcohol or drug abuse patient.[facility] HospitalIn the event this information is protected by the Federal Confidentiality of Alcohol and Drug Abuse Patient Records regulations: The Federal rules restrict any use of the information to criminally investigate or prosecute any alcohol or drug abuse patient.[facility] HospitalIn the event this information is protected by the Federal Confidentiality of Alcohol and Drug Abuse Patient Records regulations: The Federal rules restrict any use of the information to criminally investigate or prosecute any alcohol or drug abuse patient.[facility] HospitalIn the event this information is protected by the Federal Confidentiality of Alcohol and Drug Abuse Patient Records regulations: The Federal rules restrict any use of the information to criminally investigate or prosecute any alcohol or drug abuse patient.[facility] HospitalIn the event this information is protected by the Federal Confidentiality of Alcohol and Drug Abuse Patient Records regulations: The Federal rules restrict any use of the information to criminally investigate or prosecute any alcohol or drug abuse patient.[facility] HospitalIn the event this information is protected by the Federal Confidentiality of Alcohol and Drug Abuse Patient Records regulations: The Federal rules restrict any use of the information to criminally investigate or prosecute any alcohol or drug abuse patient.[facility] HospitalIn the event this information is protected by the Federal Confidentiality of Alcohol and Drug Abuse Patient Records regulations: The Federal rules restrict any use of the information to criminally investigate or prosecute any alcohol or drug abuse patient.[facility] HospitalIn the event this information is protected by the Federal Confidentiality of Alcohol and Drug Abuse Patient Records regulations: The Federal rules restrict any use of the information to criminally investigate or prosecute any alcohol or drug abuse patient.[facility] HospitalIn the event this information is protected by the Federal Confidentiality of Alcohol and Drug Abuse Patient Records regulations: The Federal rules restrict any use of the information to criminally investigate or prosecute any alcohol or drug abuse patient.[facility] HospitalIn the event this information is protected by the Federal Confidentiality of Alcohol and Drug Abuse Patient Records regulations: The Federal rules restrict any use of the information to criminally investigate or prosecute any alcohol or drug abuse patient.[facility] HospitalIn the event this information is protected by the Federal Confidentiality of Alcohol and Drug Abuse Patient Records regulations: The Federal rules restrict any use of the information to criminally investigate or prosecute any alcohol or drug abuse patient.[facility] HospitalIn the event this information is protected by the Federal Confidentiality of Alcohol and Drug Abuse Patient Records regulations: The Federal rules restrict any use of the information to criminally investigate or prosecute any alcohol or drug abuse patient.[facility] HospitalIn the event this information is protected by the Federal Confidentiality of Alcohol and Drug Abuse Patient Records regulations: The Federal rules restrict any use of the information to criminally investigate or prosecute any alcohol or drug abuse patient.[facility] HospitalIn the event this information is protected by the Federal Confidentiality of Alcohol and Drug Abuse Patient Records regulations: The Federal rules restrict any use of the information to criminally investigate or prosecute any alcohol or drug abuse patient.[facility] HospitalIn the event this information is protected by the Federal Confidentiality of Alcohol and Drug Abuse Patient Records regulations: The Federal rules restrict any use of the information to criminally investigate or prosecute any alcohol or drug abuse patient.[facility] HospitalIn the event this information is protected by the Federal Confidentiality of Alcohol and Drug Abuse Patient Records regulations: The Federal rules restrict any use of the information to criminally investigate or prosecute any alcohol or drug abuse patient.[facility] Reason for Visit (unrecogniz ed section and content) Reason Comments Rheumatoid Arthritis Reason Comments Medication Problem Reason Comments Refill Request Reason Onset Date Comments SPP Inflammatory Conditions - Follow-up 06/02/20 [facility] Insurance Authorization 06/02/2022 AYAKA Epps ssion Pending Reason Onset Date Comments SPP Inflammatory Conditions - Medication Refill 07/13/2022 [facility] Reason Onset Date Comments SPP Inflammatory Conditions - Medication Refill 08/03/2022 [facility] Reason Onset Date Comments SPP Inflammatory Conditions - Medication Refill 09/13/2022 [facility] Reason Onset Date Comments SPP Inflammatory Conditions - Medication Refill 11/07/2022 [facility] Reason Onset Date Comments SPP Inflammatory Conditions - Medication Refill 12/06/2022 [facility] Reason Onset Date Comments SPP Inflammatory Conditions - Medication Refill 12/29/2022 [facility] Reason Onset Date Comments SPP Inflammatory Conditions - Medication Refill 04/23/2023 [facility] Reason Onset Date Comments SPP Inflammatory Conditions - Medication Refill 05/21/2023 [facility] Reason Onset Date Comments SPP Inflammatory Conditions - Follow-up 06/20/20 [facility] Insurance Authorization 06/20/2023 AYAKA Epps tted (New Insurance Plan) Reason Onset Date Comments SPP Inflammatory Conditions - Medication Refill 06/22/2023 [facility] Reason Onset Date Comments SPP Inflammatory Conditions - Medication Refill 08/14/2023 [facility] Reason Onset Date Comments SPP Inflammatory Conditions - Medication Refill 12/04/2023 [facility] Reason Onset Date Comments SPP Inflammatory Conditions - Medication Refill 01/01/2024 [facility] Reason Onset Date Comments SPP Inflammatory Conditions - Medication Refill 01/29/2024 [facility] Reason Onset Date Comments SPP Inflammatory Conditions - Medication Refill 02/26/2024 [facility] Reason Onset Date Comments SPP Inflammatory Conditions - Medication Refill 03/25/2024 [facility] - NCA 11/2024 Reason Onset Date Comments SPP Inflammatory Conditions - Medication Refill 04/24/2024 [facility] - NCA 11/2024 Reason Onset Date Comments SPP Inflammatory Conditions - Medication Refill 05/20/2024 [facility] - NCA 11/2024 Reason Onset Date Comments SPP Inflammatory Conditions - Medication Refill 06/17/2024 [facility] Reason Onset Date Comments SPP Inflammatory Conditions - Medication Refill 07/15/2024 [facility] Reason Onset Date Comments SPP Inflammatory Conditions - Medication Refill 08/12/2024 [facility] Reason Onset Date Comments SPP Inflammatory Conditions - Medication Refill 09/09/2024 [facility] Reason Onset Date Comments SPP Inflammatory Conditions - Medication Refill 10/06/2024 [facility] Reason Onset Date Comments SPP Inflammatory Conditions - Medication Refill 11/04/2024 [facility] Reason Onset Date Comments SPP Inflammatory Conditions - Medication Refill 12/02/2024 [facility] Reason Onset Date Comments SPP Inflammatory Conditions - Medication Refill 12/30/2024 [facility] Reason Onset Date Comments SPP Inflammatory Conditions - Medication Refill 01/27/2025 [facility] Reason Onset Date Comments SPP Inflammatory Conditions - Medication Refill 02/24/2025 [facility] Reason Onset Date Comments SPP Inflammatory Conditions - Medication Refill 03/24/2025 [facility] Reason Onset Date Comments SPP Inflammatory Conditions - Medication Refill 04/21/2025 [facility] CF Care Teams (unrecognized sec tion and content) Stock Preparation Supervisor Relationship Specialty Start Date End Date Alexys Bowling DO [address] [place] [address] PCP - General Family Practice 12/20/20 01/15/22 Stock Preparation Supervisor Relationship Specialty Start Date End Date Alexys Bowling DO PCP - General Family Practice 12/20/20 01/15/22 Mile Contreras MD [address] [facility] [place] [address] PCP - General Family Practice 01/16/22 Stock Preparation Supervisor Relationship Specialty Start Date End Date Mile Contreras MD [address] [facility] [place] [place] [address] PCP - General Family Practice 01/16/22 Stock Preparation Supervisor Relationship Specialty Start Date End Date Mile Contreras MD [address] [place] [address] PCP - General Family Practice 01/16/22 Stock Preparation Supervisor Relationship Specialty Start Date End Date Mile Contreras MD [address] [place] [address] PCP - General Family Practice 01/16/22 Stock Preparation Supervisor Relationship Specialty Start Date End Date Mile Contreras MD [address] [place] [address] PCP - General Family Practice 01/16/22 Stock Preparation Supervisor Relationship Specialty Start Date End Date Mile Contreras MD [address] [place] [address] PCP - General Family Practice 01/16/22 Stock Preparation Supervisor Relationship Specialty Start Date End Date Mile Contreras MD [address] [place] [address] PCP - General Family Medicine 01/16/22 Stock Preparation Supervisor Relationship Specialty Start Date End Date Mile Contreras MD [address] [place] [address] PCP - General Family Medicine 01/16/22 Stock Preparation Supervisor Relationship Specialty Start Date End Date Mile Contreras MD [address] [place] [address] PCP - General Family Medicine 01/16/22 Stock Preparation Supervisor Relationship Specialty Start Date End Date Mile Contreras MD [address] [place] [address] PCP - General Family Medicine 01/16/22 Team Status: Active Member Role Status Dates Dr. Alexys Jett MD Family Provider Active Diane Mendez DO Primary Care Provider Active Team Status: Inactive Member Role Status Dates Dr. Teddy Contreras MD Primary Care Provider, Refe rring Provider Active Dr. Devon Jaramillo MD Attending Provider Active Team Status: Inactive Member Role Status Dates Dr. Devon Jaramillo MD Attending Provider, Referring Provider Active Diane Mendez DO Primary Care Provider Active Team Status: Inactive Member Role Status Dates Diane Mendez DO Primary Care Provider Active Dr. Cortney Mace MD Attending Provider, Referring P evan Active Stock Preparation Supervisor Relationship Specialty Start Date End Date Mile Contreras MD [address] [place] [address] PCP - General Family Medicine 01/16/22 Stock Preparation Supervisor Relationship Specialty Start Date End Date Mile Contreras MD [address] [place] [address] PCP - General Family Medicine 01/16/22 Stock Preparation Supervisor Relationship Specialty Start Date End Date Mile Contreras MD [address] [place] [address] PCP - General Family Medicine 01/16/22 Stock Preparation Supervisor Relationship Specialty Start Date End Date Mile Contreras MD [address] [place] [address] PCP - General Family Medicine 01/16/22 Stock Preparation Supervisor Relationship Specialty Start Date End Date Mile Contreras MD [address] [place] [address] PCP - General Family Medicine 01/16/22 Stock Preparation Supervisor Relationship Specialty Start Date End Date Mile Contreras MD [address] [place] [address] PCP - General Family Medicine 01/16/22 Stock Preparation Supervisor Relationship Specialty Start Date End Date Mile Contreras MD [address] [place] [address] PCP - General Family Medicine 01/16/22 Stock Preparation Supervisor Relationship Specialty Start Date End Date Mile Contreras MD [address] [place] [address] PCP - General Family Medicine 01/16/22 Stock Preparation Supervisor Relationship Specialty Start Date End Date Mile Contreras MD [address] [place] [address] PCP - General Family Medicine 01/16/22 Stock Preparation Supervisor Relationship Specialty Start Date End Date Mile Contreras MD [address] [place] [address] PCP - General Family Medicine 01/16/22 Stock Preparation Supervisor Relationship Specialty Start Date End Date Mile Contreras MD [address] [place] [address] PCP - General Family Medicine 01/16/22 Stock Preparation Supervisor Relationship Specialty Start Date End Date Alexys Bowling DO PCP - General Family Medicine 12/20/20 01/15/22 Stock Preparation Supervisor Relationship Specialty Start Date End Date Mile Contreras MD [address] [place] [address] PCP - General Family Medicine 01/16/22 Stock Preparation Supervisor Relationship Specialty Start Date End Date Mile Contreras MD [address] [place] [address] PCP - General Family Medicine 01/16/22 Stock Preparation Supervisor Relationship Specialty Start Date End Date Mile Contreras MD [address] [place] [address] PCP - General Family Medicine 01/16/22 Team Status: Active Member Role/Relationship Status Wilma Kaur MD Primary Care Provider Active Team Status: Inactive Member Role/Relationship Status Dates Stacy Kaur MD Primary Care Provider Active St art: June 01, 2025 End: June 01, 2025 Gabino Vazquez MODELING AGENT MODELING AGENT-C Attending Provider Active Start: June 01, 2025 End: June 01, 2025 Gabino Vazquez NP MODELING AGENT-C Referring Provider Active Start: June 01, 2025 End: June 01, 2025 Goals (unrecognized section and content) Goals may be documented in a n alternate sectionGoals may be documented in an alternate sectionGoals may be documented in an alternate sectionGoals may be documented in an alternate section FOR RECORDS PERTAINING TO PATIENTS WHO ARE OR HAVE BEEN ENROLLED IN A CHEMICAL DEPENDENCY/SUBSTANCEABUSE PROGRAM, SOME INFORMATION MAY BE OMITTED. This clinical summary was aggregated from multiple sources. Caution should be exercised in using it in the provision of clinical care. This summary normalizes information from multiple sources, and as a consequence, information in this document may materially change the coding, format and clinical context of patient data. In addition, data may be omitted in some cases. CLINICAL DECISIONS SHOULD BE BASED ON THE PRIMARY CLINICAL RECORDS. [employer] [facility]. provides no warranty or guarantee of the accuracy or completeness of information in this document.
[2025-09-26 10:15] LABS: AST(SGOT) 25 U/L (<=37); Alanine Aminotransfer ALT/SGPT 24 U/L (<=46); Cholesterol 156 mg/dL (<=200); Low Density Lipoprotein Calc. 84 mg/dL; Triglycerides 87 mg/dL; Very Low Density Lipoprotein 17 mg/dL (5-40); cholesterol:hdl ratio screen 2.82
== END | disposition home or self-care (01) ==
LOC: LAB 08:41
PROVIDERS: PCP Family Medicine; Referring Provider Internal Medicine Interventional Cardiology; Visit Provider Internal Medicine Interventional Cardiology
DX: I25.10 Atherosclerotic heart disease of native coronary artery without angina pectoris (principal); I10 Essential (primary) hypertension; E78.5 Hyperlipidemia, unspecified
CPT/HCPCS: 36415; 80061; 84450; 84460